=== PATIENT | female | born 1945 | race Caucasian/White ===

== ENCOUNTER → 2019-08-25 10:04 | Outpatient (CLI) | payer MEDICARE, MEDICAID, SELFPAY | PROVIDERS: Family Provider Family Medicine; PCP Family Medicine; Referring Provider Family Medicine; Visit Provider Family Medicine | DX: G60.8 Other hereditary and idiopathic neuropathies (principal); L97.511 Non-pressure chronic ulcer of other part of right foot limited to breakdown of skin; L08.9 Local infection of the skin and subcutaneous tissue, unspecified | CPT/HCPCS: 11042; 87070; 87075; 87077; 87186; 87205; 99203; 99214 ==

== ENCOUNTER → 2019-09-02 09:38 | Outpatient (CLI) | payer MEDICARE, MEDICAID, SELFPAY | PROVIDERS: Family Provider Family Medicine; PCP Family Medicine; Referring Provider Family Medicine; Visit Provider Family Medicine | DX: G60.8 Other hereditary and idiopathic neuropathies (principal); L97.511 Non-pressure chronic ulcer of other part of right foot limited to breakdown of skin | CPT/HCPCS: 97597; 99214 ==

== ENCOUNTER → 2019-12-26 14:23 | Outpatient (CLI) | payer MEDICARE, MEDICAID, SELFPAY ==
--- NOTE | 2019-12-26 | DI.RAD.S_ITS ---
PROCEDURE: XR CHEST 2V INDICATIONS: ASPIRATION TECHNIQUE: 2 views of the chest were acquired. COMPARISON: None. FINDINGS: Surgical changes and devices: None. Lungs and pleura: Lungs are clear. No pleural effusions or pneumothorax. Mediastinum: Mediastinal contours are normal. Heart size is normal. Bones and chest wall: No suspicious bony abnormalities. Soft tissues appear unremarkable. IMPRESSION: No acute cardiopulmonary findings. Dictated by: Jane Marks M.D. on 12/26/2019 at 15:46 Approved by: Jane Marks M.D. on 12/26/2019 at 15:46
== END ==
PROVIDERS: Family Provider Family Medicine; Referring Provider Nurse Practitioner; Visit Provider Nurse Practitioner
DX: J98.8 Other specified respiratory disorders (principal)
CPT/HCPCS: 71046

== ENCOUNTER 2020-03-22 03:14 | Inpatient (IN) | payer MEDICARE, MEDICAID, SELFPAY ==
[2020-03-22] VITALS (74 sets, daily range): BP systolic 81–222; BP diastolic 42–133; PULSE 71–165; RESP 0–49; TEMP 36.6–37.1; O2SAT 89–100; BMI 42.0
--- NOTE | 2020-03-22 03:22 | DI.RAD.S_ITS ---
PROCEDURE: XR CHEST 1V INDICATIONS: aspiration TECHNIQUE: One view of the chest was acquired. COMPARISON: [facility], CR, XR CHEST 2V, 12/26/2019, 14:26. FINDINGS: Surgical changes and devices: None. Lungs and pleura: Lungs are abnormal with a generalized alveolar infiltration pattern, greater on the right than the left, without pulmonary hyperexpansion. No pleural effusions or pneumothorax. Mediastinum: Mediastinal contours appear normal. Heart size is normal. Bones and chest wall: No suspicious bony lesions. Overlying soft tissues appear unremarkable. IMPRESSION: Generalized pneumonia pattern, greater on the right than the left, which is consistent with the clinical history of aspiration. Atypical pneumonia also could produce that appearance but that is considered less likely. Dictated by: Omar Mullen M.D. on 03/22/2020 at 8:29 Approved by: Omar Mullen M.D. on 03/22/2020 at 9:17
--- NOTE | 2020-03-22 03:30 | ED.GENADULT ---
HPI - General Adult General Chief complaint: Cardiac Arrest/CPR Stated complaint: s/p chocking Time Seen by Provider: 03/22/20 03:21 Source: patient and EMS Mode of arrival: EMS Limitations: other (Respiratory distress) History of Present Illness HPI narrative: 74-year-old female brought in by EMS for evaluation after they were called to the patient's nursing facility for a choking episode. Was initially reported by EMS that the patient had been choking. Given her weight they were unable to do the Heimlich maneuver so chest compressions were performed. When EMS arrived patient was in respiratory distress. EMS states that they suctioned her oropharynx was able to get a significant amount of organic material afterwards patient is respiratory symptoms improved somewhat. Patient was still hypoxic. Became more responsive after the suctioning. Chest compressions were performed secondary to choking not because of cardiac arrest. Upon arrival patient was alert. She stated that she always has breathing problems but she feels like her breathing is worse than normal. She denies chest pain. Stated that she is somewhat unsure as to what happened. Related Data Home Medications Medication Instructions Recorded Confirmed FOLIC ACID (#FOLATE) 1 mg PO QDAY #0 02/28/11 NITROGLYCERIN (#NITROSTAT) 0.4 mg SUBLINGUAL PRN #0 06/02/11 Propranolol HCl (#INDERAL) 10 mg PO BID #0 06/29/11 CHLORHEXIDINE GLUCONATE Q DAY #0 05/02/16 calcium carbonate-vitamin D3 #0 05/02/16 clorazepate dipotassium [Tranxene BID #0 05/02/16 T-Tab] clorazepate dipotassium [Tranxene BID PRN #0 05/02/16 T-Tab] cyanocobalamin (vitamin B-12) #0 05/02/16 [Vitamin B-12] ferrous gluconate #0 05/02/16 furosemide [Lasix] QDAY #0 05/02/16 isosorbide-hydralazine [BiDil] TID #0 05/02/16 lysine [L-Lysine] #0 05/02/16 magnesium amino acid chelate #0 05/02/16 potassium #0 05/02/16 trazodone QPM #0 05/02/16 Previous Rx's Medication Instructions Recorded primidone 250 mg PO BID #180 tab 04/03/17 Allergies Allergy/AdvReac Type Severity Reaction Status Date / Time penicillin G Allergy Mild Unverified 06/27/17 12:19 phenobarbital Allergy Mild Unverified 06/27/17 12:19 Sulfa (Sulfonamide Allergy Mild Unverified 06/27/17 12:19 Antibiotics) tetracycline Allergy Mild Unverified 06/27/17 12:19 Review of Systems Review of Systems Narrative: Provided by EMS and patient throughout her stay in the ER. Constitutional Constitutional: Denies fatigue and Denies headache(s) ENT Ears, Nose, Mouth, and Throat: Denies headache(s) Cardiovascular Cardiovascular: Denies chest pain and Reports dyspnea Respiratory Respiratory: Reports cough and Reports dyspnea Comments: Choking Gastrointestinal Gastrointestinal: Denies abdominal pain and Denies nausea Genitourinary Genitourinary: Denies dysuria Genitourinary: Denies dysuria Musculoskeletal Musculoskeletal: Denies back pain Integumentary/Breasts Skin/Breast: Denies lesions and Denies rash Neurologic Neurologic: Denies behavioral changes, Reports confusion and Denies headache(s) Psychiatric Psychiatric: Denies behavioral changes and Reports confusion Endocrine Endocrine: Denies fatigue Hematologic/Lymphatic Comments: On anticoagulation Allergic/Immunologic Allergic/Immunologic: Denies urticaria Patient History Medical History Anxiety disorder Atrial fibrillation Dysphasia Epilepsy Hypertension Schizophrenia Surgical History (Updated 07/17/17 @ 05:57 by Conversion Provider) History of tonsillectomy Status post cholecystectomy Family History (Updated 04/17/16 @ 00:00 by Conversion Provider) Grandfather Stroke Mother Mental health problem Grandfather Stroke Social History housing: [facility] Exam Initial Vital Signs Initial Vital Signs: Vital Signs Temperature 97.8 F 03/22/20 03:23 Pulse Rate 160 H 03/22/20 03:23 Respiratory Rate 39 H 03/22/20 03:23 Blood Pressure 164/108 H 03/22/20 03:23 Pulse Oximetry 93 03/22/20 03:23 Const General: in distress and ill appearing Limitations: mental status not altered HENMT Head: normal to inspection and normocephalic Eyes General: appearance normal, both eyes and all related structures Chest Chest: No crepitus Resp Effort & Inspection: cough, labored, respiratory distress and tachypneic Auscultation: rhonchi and no wheezes Cardio Rate: tachycardic Rhythm: abnormal rhythm Pulses: radial pulses present GI Inspection: non-distended Palpation: soft External Female Exam: normal external appearance Back/Spine/Pelvis Back: normal to inspection Skin Rashes: no rashes Neuro General: patient alert, patient awake and patient oriented x3 Extrem General: edema Psych Appearance: disheveled Course Orders Ordered: ED Orders 03/22/20 03:22 XR chest 1V Stat EKG-12 Lead Stat 03/22/20 03:27 COVID19 Stat 03/22/20 03:40 Complete Blood Count AUTO DIFF Stat Comprehensive Metabolic Panel Stat Lipase Stat 03/22/20 04:37 CT chest wo con Stat DILTIAZEM (Diltiazem 125 Mg/125 Ml-D5w) 125 mg in 125 mls @ 5 mls/hr IV TITRATE ISHAAN; Protocol Last Admin: 03/22/20 05:17 Dose: 5 mg/hr, 5 mls/hr Documented by: Metronidazole (Flagyl) 500 mg in 100 mls @ 100 mls/hr IV NOW ONE Stop: 03/22/20 06:27 Discontinued Medications Diltiazem HCl (Diltiazem 5 Mg/Ml Sdv) 10 mg IV NOW ONE Stop: 03/22/20 04:41 Last Admin: 03/22/20 05:15 Dose: 10 mg Documented by: Ceftriaxone Sodium/Dextrose (Rocephin) 1 gm in 50 mls @ 100 mls/hr IV NOW ONE Stop: 03/22/20 05:57 Last Admin: 03/22/20 06:25 Dose: 100 mls/hr Documented by: Metoprolol Tartrate (Metoprolol Tartrate 5 Mg/5 Ml Inj) 5 mg IV NOW ONE Stop: 03/22/20 03:47 Last Admin: 03/22/20 03:49 Dose: 5 mg Documented by: LEXII Vital Signs Vital signs: Vital Signs - 8 hr 03/22/20 03:23 03/22/20 03:30 03/22/20 03:32 Temperature 97.8 F Pulse Rate 160 H 165 H 162 H Respiratory Rate 39 H 41 H 36 H Blood Pressure 164/108 H Pulse Oximetry 93 94 91 03/22/20 03:49 03/22/20 03:50 03/22/20 03:54 Temperature Pulse Rate 165 H 164 H Respiratory Rate 31 H 32 H Blood Pressure 101/61 106/57 L Pulse Oximetry 99 100 99 03/22/20 03:55 03/22/20 04:00 03/22/20 04:05 Temperature Pulse Rate 146 H 107 H 111 H Respiratory Rate 29 H 33 H 27 H Blood Pressure 126/58 L 132/57 L 112/56 L Pulse Oximetry 100 99 98 03/22/20 04:10 03/22/20 04:30 03/22/20 04:31 Temperature Pulse Rate 114 H 123 H 127 H Respiratory Rate 29 H 26 H 31 H Blood Pressure 124/59 L 101/74 Pulse Oximetry 94 94 94 03/22/20 05:00 03/22/20 05:15 03/22/20 05:17 Temperature Pulse Rate 143 H 153 H 153 H Respiratory Rate 30 H 26 H Blood Pressure 134/85 Pulse Oximetry 92 94 03/22/20 05:20 Temperature Pulse Rate 140 H Respiratory Rate 29 H Blood Pressure 103/60 Pulse Oximetry 93 Medical Decision Making Medical Records Medical records reviewed: Yes I reviewed the patient's medical records. Lab Data Lab results reviewed: Yes I reviewed the patient's lab results. Result diagrams: 03/22/20 03:40 03/22/20 03:40 Labs: Lab Results 03/22/20 03/22/20 03/22/20 Range/Units 03:27 03:40 03:40 WBC 19.1 H (4.5-11.0) X10^3/uL RBC 4.34 (4.0-5.2) X10^6/uL Hgb 14.3 (12.0-16.0) g/dL Hct 42.8 (36-46) % MCV 98.7 (80-100) fL MCH 33.0 (26-34) PG MCHC 33.5 (30-36) % RDW 15.9 H (11.6-14.8) % Plt Count 365 (150-400) X10^3/uL Neut % (Auto) 52.4 (50-75) % Lymph % (Auto) 40.8 H (25-40) % [place] % (Auto) 4.8 (3-14) % Eos % (Auto) 1.6 L (2-4) % Baso % (Auto) 0.4 (0-2) % Neut # (Auto) 47223 H (3201-5602) /uL Lymph # (Auto) 7800 H (3421-7200) /uL [place] # (Auto) 900 (0-900) /uL Eos # (Auto) 300 (0-450) /uL Baso # (Auto) 100 (0-100) /uL Sodium 136 L (137-145) mmol/L Potassium 3.7 (3.4-5.1) mmol/L Chloride 95 L (98-107) mmol/L Carbon Dioxide 29 (22-32) mmol/L BUN 18 H (7-17) mg/dL Creatinine 0.81 (0.52-1.04) mg/dL Estimated GFR > 60.0 (>60) mL/min BUN/Creatinine Ratio 22.2 H (6-22) Glucose 171 H (80-110) mg/dL Calcium 9.6 (8.4-10.2) mg/dL Total Bilirubin 0.4 (0.2-1.3) mg/dL AST 65 H (14-36) IU/L ALT 55 H (<35) IU/L Alkaline Phosphatase 120 (38-126) U/L Total Protein 8.6 H (6.3-8.2) g/dL Albumin 4.4 (3.5-5.0) g/dL Globulin 4.2 H (1.7-4.1) g/dL Albumin/Globulin Ratio 1.0 (1.0-2.8) Lipase 100 (23-300) U/L SARS-CoV-2 (PCR) Negative (Negative) Imaging Data Chest x-ray: Radiologist's Impression: Right lung opacification suggesting atypical pneumonia possible right pleural effusion Small partially defined patient a left lower lung zone. This is indeterminate. Short-term follow-up radiographs of ice CT scan - chest: Radiologist's Impression: Multifocal bilateral multilobar pneumonia ECG Data Attestation: I personally reviewed and interpreted this ECG as follows: Prior ECG tracings: not available for review Interpretation: Atrial fibrillation Ventricular rate of 153 QRS 130 milliseconds Nonspecific T wave changes MDM Narrative Medical decision making narrative: Patient arrive in respiratory distress and very ill appearing. Was able to speak. Was alert however was hypoxic despite significant respiratory support with oxygen by non-rebreather. Patient also tachycardic in atrial fibrillation. Chest x-ray shows multifocal right-sided to [place]. Initially suspect this is secondary to aspiration given her reported clinical presentation. Patient was given metoprolol for her heart rate which did improve her symptoms. This was only very short lived in her heart rate again went back to the 150 range. She was started on Cardizem. During her stay her symptoms did improved to the point were she was weaned down to 4 L of oxygen by nasal cannula. She was coughing up particular matter. I discussed the case with Dr. Mike pulmonology at [facility] regarding the potential for bronchoscopy. She recommended a CT scan of the chest. This was obtained which showed multifocal pneumonia. There was no discussion of obstructed foreign bodies. I then discussed the findings with Dr. Mike who stated that given this CT scan finding they would not perform a bronchoscopy. Recommended IV antibiotics. Given her allergy she was started on Rocephin and Flagyl. Patient will be admitted for further evaluation and treatment. Discussed the case with ANNIE Bobby a [facility] provider who will admit for further evaluation. Discussed admission with the patient. She expressed understanding and agreement. Critical Care Time Critical Care Time Critical Care Time: Yes Total Critical Care Time: 45 Attestation: The high probability of a clinically significant, sudden or life threatening deterioration of the respiratory, cardiovascular system(s) required my full and direct attention, intervention and personal management. The aggregate critical care time was 45 minutes. This time is in addition to time spent performing reported procedures but includes the following: [X] Data Review and interpretation [X] Patient assessment and monitoring of vital signs [X] Documentation [X] Medication orders and management Discharge Plan Departure Patient Disposition: Admitted As Inpatient Clinical Impression: Aspiration into airway, Acute respiratory distress, Hypoxia, Atrial fibrillation
[2020-03-22] MEDS: METOPROLOL TARTRATE 5 MG/5 ML INJ IV ×4 (03:49→17:01)
[2020-03-22 03:50] LABS: COVID19 -Nasal RAPID Negative (Negative)
[2020-03-22 04:00] LABS: Add Manual Diff / Slide Review NO; Basophils Absolute Auto 100 /uL (0-100); Basophils Percent Auto 0.4 % (0-2); Eosinophils Absolute Auto 300 /uL (0-450); Eosinophils Percent Auto 1.6 % (2-4); Hematocrit 42.8 % (36-46); Hemoglobin 14.3 g/dL (12.0-16.0); Lymphocytes Absolute Auto 7800 /uL (1100-4500); Lymphocytes Percent Auto 40.8 % (25-40); Mean Corpuscular HGB Conc 33.5 % (30-36); Mean Corpuscular Volume 98.7 fL (80-100); Monocytes Absolute Auto 900 /uL (0-900); Monocytes Percent Auto 4.8 % (3-14); Neutrophils Absolute Auto 10000 /uL (1500-7000); Neutrophils Percent Auto 52.4 % (50-75); Platelet Count 365 X10^3/uL (150-400); Red Blood Cell Count 4.34 X10^6/uL (4.0-5.2); Red Cell Distribution Width 15.9 % (11.6-14.8); White Blood Cell Count 19.1 X10^3/uL (4.5-11.0)
[2020-03-22 04:07] LABS: Alanine Aminotransferase 55 IU/L (<35); Albumin 4.4 g/dL (3.5-5.0); Alkaline Phosphatase 120 U/L (38-126); Aspartate Aminotransferase 65 IU/L (14-36); BUN Creatinine Ratio 22.2 (6-22); Bilirubin Total 0.4 mg/dL (0.2-1.3); Blood Urea Nitrogen 18 mg/dL (7-17); Calcium 9.6 mg/dL (8.4-10.2); Carbon Dioxide 29 mmol/L (22-32); Chloride 95 mmol/L (98-107); Estimated Glomerular Filt Rate > 60.0 mL/min (>60); Globulin 4.2 g/dL (1.7-4.1); Glucose 171 mg/dL (80-110); HEMOLYSIS 51 (0-50); Lipase 100 U/L (23-300); Potassium 3.7 mmol/L (3.4-5.1); Sodium 136 mmol/L (137-145); Total Protein 8.6 g/dL (6.3-8.2)
--- NOTE | 2020-03-22 04:24 | PC.NURSE ---
Pt reports she now feels better. O2 weaned down from 15L NRB to now 4L NC. Alert and interactive. Remains tachycardic 110's-130's after metoprolol IV. Pt's son, Isacc, now at bedside and updated to plan of care. Will continue to monitor closely.
--- NOTE | 2020-03-22 04:37 | DI.CT.S_ITS ---
PROCEDURE: CT CHEST WO CON INDICATIONS: Aspiration TECHNIQUE: Noncontrast 5 mm thick sections acquired from the pulmonary apices to the posterior costophrenic angles. 1 mm lung window, 5 mm thick coronal and sagittal and 7 mm axial MIP reformats were then acquired. For radiation dose reduction, the following was used: automated exposure control, adjustment of mA and/or kV according to patient size. COMPARISON: [facility], CR, XR CHEST 2V, 12/26/2019, 14:26. [facility], CR, XR CHEST 1V, 03/22/2020, 3:29. Chest plain films 12/26/19 and 03/22/20. FINDINGS: Image quality: Excellent. Lungs and pleura: There is a patchy bilateral right greater than left alveolitis pattern involving the upper, mid and lower lungs. No cavitary lesion is found. No pleural effusions or pneumothorax. Central and peripheral airways are patent and normal in caliber. Mediastinum: Heart size is normal. No pericardial effusion. No mediastinal adenopathy by size criteria. Thoracic aorta and central pulmonary arteries are normal in size. Esophagus is normal in caliber. No hiatal hernia. Bones and chest wall: No suspicious bony lesions. No vertebral body compression fractures. No axillary or supraclavicular adenopathy by size criteria. Thyroid gland is not well seen. Abdomen: Visualized upper abdominal solid organs and bowel loops appear normal in the absence of contrast. IMPRESSION: Patchy bilateral alveolitis pattern, right greater than left, potentially a manifestation of aspiration but this pattern also could be produced by atypical/viral pneumonia. Dictated by: Omar Mullen M.D. on 03/22/2020 at 10:27 Approved by: Omar Mullen M.D. on 03/22/2020 at 10:32
[2020-03-22] MEDS: dilTIAZem 5 MG/ML SDV 10 MG IV (05:15)
[2020-03-22] MEDS: DILTIAZEM 125 MG/125 ML PIGGYBACK IV (05:17)
[2020-03-22] MEDS: CEFTRIAXONE 1 GM/50 ML FROZ.PIGGY IV (06:25)
[2020-03-22] MEDS: metroNIDAZOLE 500 MG/100 ML PIGGYBACK 100 MG IV ×3 (06:56→23:11)
--- NOTE | 2020-03-22 09:53 | PC.NURSE ---
Diltiazem IV gtt discontinued in ER at 0900 hours.
--- NOTE | 2020-03-22 12:06 | P.HP_ITS ---
History of Present Illness History of Present Illness Date Patient Seen: 03/22/20 Chief complaint: s/p choking Narrative: Patient is a 74 y/o female with a history of AFIB, Morbid Obesity, S chizophrenia, Systolic Heart Failure, UTI's, Hypertension, Asthma, Osteoarthritis who lives at [facility]. She tried to eat a cheese sandwhich and choked on it. She has difficulty with swallowing at baseline but thought she could manage the sandwich. They were unable to perform the Heimlich maneuver, CPR was initiated and the patient was transferred to the [place] ED for evaluation. Upon arrival they suctioned copious amounts of material. Chest Xray confirmed alveolar infiltrates consistent with Aspiration Pneumonia. She is awake and alert now, she is on oxygen and has no specific complaints. She had an episode of diarrhea earlier, she denies nausea or abdominal pain. She is chr onically short of breath and this is unchanged. She denies dysuria, hematuria, pyuria. She has no headache, blurred vision or double vision. Patient was found to be in rapid atrial fibrillation in the ED. She was started on a diltiazem drip and admitted to the ICU for further evaluation. Patient recieved IV ceftriaxone in the ED for Aspiration pneumonia. Patient History Medical History (Updated 03/22/20 @ 12:14 by Bethany Kolb MD) Active asthma Acute systolic heart failure Anxiety disorder Atrial fibrillation Blood loss anemia Dysphasia Epilepsy Hypertension Lymphedema Morbid obesity Schizophrenia Urinary incontinence Vitamin D deficiency Surgical History History of tonsillectomy Status post cholecystectomy Family & Social History Family History Grandfather Stroke Mother Mental health problem Grandfather Stroke Social History: Prior Living Arrangements Skilled Nurse Facility Safety & Behavioral: Feels Safe in Current Yes Environment Been Physically Hurt or No Threatened By a Person Suicidal Ideation Description None Suicide Plan Description No Plan Tobacco & Substance use: Smoking Status Never smoker alcohol intake never Substance Use Type does not use Meds Home Medications and Allergies Home Medications Medication Instructions Recorded Confirmed Type FOLIC ACID (#FOLATE) 1 mg PO QDAY #0 02/28/11 03/22/20 History primidone 250 mg PO BID #180 tab 04/03/17 03/22/20 Rx acidophilus-pectin, citrus 1 cap PO DAILY 03/22/20 03/22/20 History [Acidophilus Probiotic] apixaban [Eliquis] 5 mg PO BID 03/22/20 03/22/20 History aripiprazole 30 mg PO BEDTIME 03/22/20 03/22/20 History bumetanide 10 mg PO DAILY 03/22/20 03/22/20 History calcium carbonate-vitamin D3 1 tab PO DAILY 03/22/20 03/22/20 History [Calcium 600 with Vitamin D3] isosorbide mononitrate 30 mg PO DAILY 03/22/20 03/22/20 History lisinopril 2.5 mg PO DAILY 03/22/20 03/22/20 History magnesium oxide 420 mg PO DAILY 03/22/20 03/22/20 History melatonin 6 mg PO BEDTIME 03/22/20 03/22/20 History metoprolol succinate 25 mg PO DAILY 03/22/20 03/22/20 History mupirocin 1 applic TOPICAL DAILY 03/22/20 03/22/20 History nystatin 1 applic TOPICAL DAILY 03/22/20 03/22/20 History potassium chloride 10 meq PO DAILY 03/22/20 03/22/20 History Allergies Allergy/AdvReac Type Severity Reaction Status Date / Time penicillin G Allergy Mild Verified 03/22/20 08:36 phenobarbital Allergy Mild Verified 03/22/20 08:36 Sulfa (Sulfonamide Allergy Mild Verified 03/22/20 08:36 Antibiotics) tetracycline Allergy Mild Verified 03/22/20 08:36 Review of Systems Review of Systems ROS: Yes All systems reviewed with the patient and are negative except as otherwise documented Exam Vital Signs (past 8 hours): - 03/22/20 04:10 03/22/20 04:30 03/22/20 04:31 Temperature Pulse Rate 114 H 123 H 127 H Respiratory Rate 29 H 26 H 31 H Blood Pressure 124/59 L 101/74 Pulse Oximetry 94 94 94 03/22/20 05:00 03/22/20 05:15 03/22/20 05:17 Temperature Pulse Rate 143 H 153 H 153 H Respiratory Rate 30 H 26 H Blood Pressure 134/85 Pulse Oximetry 92 94 03/22/20 05:20 03/22/20 06:15 03/22/20 06:20 Temperature Pulse Rate 140 H 120 H 123 H Respiratory Rate 29 H 19 14 Blood Pressure 103/60 123/58 L Pulse Oximetry 93 93 93 03/22/20 06:25 03/22/20 06:30 03/22/20 06:31 Temperature Pulse Rate 127 H 137 H 120 H Respiratory Rate 9 L 22 12 Blood Pressure 118/61 143/58 H Pulse Oximetry 93 95 95 03/22/20 06:35 03/22/20 06:40 03/22/20 06:45 Temperature Pulse Rate 137 H 153 H 150 H Respiratory Rate 16 43 H 33 H Blood Pressure 121/56 L 103/53 L 113/65 Pulse Oximetry 94 93 95 03/22/20 06:50 03/22/20 06:55 03/22/20 07:00 Temperature Pulse Rate 146 H 123 H 116 H Respiratory Rate 42 H 30 H 30 H Blood Pressure 114/57 L 107/64 81/53 L Pulse Oximetry 95 96 96 03/22/20 07:04 03/22/20 07:06 03/22/20 07:10 Temperature Pulse Rate 121 H 116 H 124 H Respiratory Rate 0 L 0 L 0 L Blood Pressure 112/77 101/55 L 120/64 Pulse Oximetry 96 96 95 03/22/20 07:15 03/22/20 07:20 03/22/20 07:25 Temperature Pulse Rate 124 H 122 H 126 H Respiratory Rate 0 L 32 H 21 Blood Pressure 130/59 L 143/63 H 142/70 H Pulse Oximetry 96 95 98 03/22/20 07:30 03/22/20 07:35 03/22/20 07:40 Temperature Pulse Rate 144 H 140 H 142 H Respiratory Rate 41 H 34 H 29 H Blood Pressure 150/63 H 141/73 H 163/72 H Pulse Oximetry 98 98 96 03/22/20 07:45 03/22/20 07:50 03/22/20 07:56 Temperature Pulse Rate 146 H 133 H 138 H Respiratory Rate 42 H 30 H 45 H Blood Pressure 138/65 133/66 191/108 H Pulse Oximetry 95 92 03/22/20 08:00 03/22/20 08:11 03/22/20 08:15 Temperature Pulse Rate 110 H 106 H 103 H Respiratory Rate 30 H 30 H 27 H Blood Pressure 203/128 H 205/77 H 222/133 H Pulse Oximetry 94 94 95 03/22/20 08:21 03/22/20 08:25 03/22/20 09:19 Temperature 98.6 F Pulse Rate 103 H 107 H 116 H Respiratory Rate 30 H 30 H 18 Blood Pressure 109/54 L 127/55 L 114/73 Pulse Oximetry 97 95 98 03/22/20 10:00 03/22/20 11:00 Temperature 98.0 F Pulse Rate 103 H 97 H Respiratory Rate 20 21 Blood Pressure 95/53 L 105/78 Pulse Oximetry 97 96 Oxygen Delivery Method Nasal Cannula Oxygen Flow Rate 4 Narrative Exam Narrative: Pleasant obese female in No Acute distress HEENT: NC/ AT, Sclera anicteric, Face red with crusting, Oropharyx clear Neck: supple Lungs: decreased breath sounds with diffuse rhonchi bilaterally CV: irregularly, irregular, nl Sl S2 Abd: obese, soft/ non tender/non distended, no HSM Ext: 3+ edema bilaterally, chronic skin changes of both lower extremities Psychiatric: awake and appropriate, no hallucinations or delusions, conversational, oriented and appropriate. Neuro: non focal exam Objective Labs Result Diagrams: 03/22/20 03:40 03/22/20 03:40 Labs: Laboratory Results - last 24 hr 03/22/20 03/22/20 03/22/20 03:27 03:40 03:40 WBC 19.1 H RBC 4.34 Hgb 14.3 Hct 42.8 MCV 98.7 MCH 33.0 MCHC 33.5 RDW 15.9 H Plt Count 365 Neut % (Auto) 52.4 Lymph % (Auto) 40.8 H [place] % (Auto) 4.8 Eos % (Auto) 1.6 L Baso % (Auto) 0.4 Neut # (Auto) 80443 H Lymph # (Auto) 7800 H [place] # (Auto) 900 Eos # (Auto) 300 Baso # (Auto) 100 Sodium 136 L Potassium 3.7 Chloride 95 L Carbon Dioxide 29 BUN 18 H Creatinine 0.81 Estimated GFR > 60.0 BUN/Creatinine Ratio 22.2 H Glucose 171 H Calcium 9.6 Total Bilirubin 0.4 AST 65 H ALT 55 H Alkaline Phosphatase 120 Total Protein 8.6 H Albumin 4.4 Globulin 4.2 H Albumin/Globulin Ratio 1.0 Lipase 100 Nasal Screen MRSA (PCR) SARS-CoV-2 (PCR) Negative 03/22/20 10:20 WBC RBC Hgb Hct MCV MCH MCHC RDW Plt Count Neut % (Auto) Lymph % (Auto) [place] % (Auto) Eos % (Auto) Baso % (Auto) Neut # (Auto) Lymph # (Auto) [place] # (Auto) Eos # (Auto) Baso # (Auto) Sodium Potassium Chloride Carbon Dioxide BUN Creatinine Estimated GFR BUN/Creatinine Ratio Glucose Calcium Total Bilirubin AST ALT Alkaline Phosphatase Total Protein Albumin Globulin Albumin/Globulin Ratio Lipase Nasal Screen MRSA (PCR) Negative for mrsa SARS-CoV-2 (PCR) Assessment & Plan Assessment & Plan narrative: Impression: 74 y/o female admitted after witnessed choking episode now with Aspiration Pneumonia -Chest CT confirms bilateral alveolar infiltrates -WBC elevated at 19.1 -Patient still with rhonchi on exam -will treat with Levofloxacin and Flagyl given PCN allergy -Continue Oxygen -Swallow Evaluation -IVF for now, can D/C if she passes swallow evaluation Acute Hypoxic REspiratory Failure -Secondary to Aspiration -Not usually on home O2 -will taper oxygen off as tolerated -history of asthma but not on inhalers chronically, will monitor Chronic Systolic Heart Failure -Bumex on hold for now Lisinopril on hold -isosorbide on hold Atrial Fibrillation, with RVR -Patient with chronic afib, managed with metoprolol -likely precipitated by Aspiration event -Continue Dilt drip for now, if she can tolerate oral will switch to po Metoprolol -Apixiban on hold until she can take po Schizophrenia -chronic resume aripiprazole when taking po Morbid Obesity -problematic, likely a contributor to respiratory issues -obesity hypoventilation can interfere with pulmonary status -Swallow Evaluation to determine appropriate diet Patient is a full code Her Son Isacc Prater is her surrogate decision maker
--- NOTE | 2020-03-22 12:40 | PC.NURSE ---
Addendum entered by Shiva Sharpe R.N. 03/22/20 18:51: Pt continues to have increased HR despite PO and IV metoprolol and IV digoxin. Rates 100s-130s, Afib. Discussed with Dr. Kolb via telephone who states she will order an add'l dose of metoprolol PO and re evaluate post med administration. Original Note: Attempt x2 to start IV access and obtain labs without success. Pt declines attempt to left arm. I just know you won't get anything. Reviewed IV access, multiple medications, need for labs, lab unsuccessful at obtaining labs with Dr. Kolb. She states to hold off on labs, incompatible meds. States she will address medications, order speech therapy, and attempt to transition to PO meds as tolerated.
[2020-03-22] MEDS: SODIUM CHLORIDE 0.45% 1,000 ML 60 ML IV (13:04)
[2020-03-22] MEDS: levoFLOXacin 750 MG/150 ML PIGGYBACK 100 MG IV (13:22)
[2020-03-22] MEDS: ENOXAPARIN 40 MG/0.4 ML SYRINGE SUBCUT (15:00)
[2020-03-22] MEDS: METOPROLOL IR 50 MG TABLET PO ×2 (15:01→19:40)
--- NOTE | 2020-03-22 15:42 | OT.IPNOTE ---
Able to talk to pt to get permission to call [facility] to see how she was doing. When going back to see pt for possible OT eval, pt getting lomeli and running tachy, therefore to check on pt tomorrow for OT eval.
--- NOTE | 2020-03-22 15:47 | PT-IP ANOTE ---
OT gained pt's permission to contact her care facility for details on prior function. During that conversation, pt was noted to be tachycardic in the 150's. 20 minutes later, PT and OT attempted to see the pt but tachycardia persisted. Will attempt to see pt tomorrow AM.
[2020-03-22] MEDS: DIGOXIN 500 MCG/2 ML AMPUL IV (16:06)
--- NOTE | 2020-03-22 16:45 | ST.IPIE ---
Visit Care Team Role Provider Type Emmanuel Cedeno MD Family Provider Non-Staff Specialty: Medical Address: [address] [place] [address] [address], [place], [address] Email: Mode Flynn DO Emergency Provider Physician Referring Provider Specialty: Emergency Medicine Address: [address] [place] [address], [id number] Email: [email or web address] Chrissy Bobby [facility] Admit Provider Physician Attending Provider Specialty: Medical Address: [address] [place] [address], [id number] Email: Current Diagnoses Pneumonitis due to inhalation of food and vomit (03/22/20) Past Medical History (Last Updated 03/22/20 @ 12:14 by Bethany Kolb MD) Active asthma (Medical) Acute systolic heart failure (Medical) Anxiety disorder (Medical) Atrial fibrillation (Medical) Blood loss anemia (Medical) Dysphasia (Medical) Epilepsy (Medical) Hypertension (Medical) Lymphedema (Medical) Morbid obesity (Medical) Schizophrenia (Medical) Urinary incontinence (Medical) Vitamin D deficiency (Medical) ST IP Initial Evaluation Report PATIENT FINANCIAL SPECIALIST Clinical Swallow Evaluation Start: 03/22/20 16:09 Freq: Status: Active Protocol: Document 03/22/20 16:09 GATITO (Rec: 03/22/20 16:45 GATITO [id number]) Clinical Swallow Evaluation Session Time Visit Start Time 14:10 Visit Stop Time 14:35 Total Visit Minutes 25 Setting Assessment Location Acute Care Visit Type Note Type Initial evaluation Next Note Type Next Note Type Treatment Note Patient Information Identification Type Name,ID Card History Per H&P: Patient is a 74 y/o female with a history of AFIB, Morbid Obesity, Schizophrenia , Systolic Heart Failure, UTI' s, Hypertension, Asthma, Osteoarthritis who lives at [facility]. She tried to eat a cheese sandwhich and choked on it. She has difficulty with swallowing at baseline but thought she could manage the sandwich. They were unable to perform the Heimlich maneuver, CPR was initiated and the patient was transferred to the [facility] ED for evaluation. Upon arrival they suctioned copious amounts of material. Chest Xray confirmed alveolar infiltrates consistent with Aspiration Pneumonia. Patient recieved IV ceftriaxone in the ED for Aspiration pneumonia. Subjective Observations Pt was awake in bed watching TV. She said she recognized this PATIENT FINANCIAL SPECIALIST from times when the clinician has worked at [facility]. Dysphagia history collected from the pt was not entirely clear, but sounded as if dysphagia mechanical texture is baseline; unclear if liquids are thin or thickened, and she indicated she has worked with Speech Therapy before. She stated that she has difficulty swallowing solids and avoids dry crumbly and sticky foods. She denied current difficulty swallowing liquids. With pt's permission, the PATIENT FINANCIAL SPECIALIST at [facility] was contacted. The pt is not currently on her caseload, though she thought thin liquids were the pt's baseline. The pt recalled the choking episode today and stated that someone had given her a peanut butter sandwich without realizing I would have difficulty eating it, and she subsequently choked. She stated, It about did me in. I 'm debbie to be here. Throughout the evaluation, the pt was able to follow verbal instructions, often repeating them before and after following them. Language was appropriate, though simple, and the pt appeared to be very concerned about following rules, even where she should rest her hands. Reported by Patient Location Other Other Symptoms Choking,Coughing,Difficulty swallowing solids,Food gets stuck Comment Dried secretions and possible lesions were observed on the pt's hard and soft palates. She reported pain at the roof of her mouth, extending down her throat. Discussed with Nsg . The pt's skin on face, hands and feet was similarly dry, and oral conditions may be symptom of skin condition and/ or related to NPO status and CPR administration. Will continue to monitor. Current Diet Nothing by mouth Baseline Feeding Method Independent in self-feeding Objective Assessment Mental Status Alert,Responsive,Cooperative Oral Integrity Sores/Lesions,Xerostomia/Dry mouth Dentition Missing teeth,Decay Lip Function Within normal limits Observation of Lips at Rest Symmetrical Pucker Within normal limits Lip Retraction Within normal limits Alternating Pucker/Lip Retraction Incoordination Tongue Function Mild impairment Observations of Tongue at Rest Within normal limits Tongue Protrusion Reduced strength Tongue Retraction Within normal limits Tongue Lateralization Reduced strength Jaw Function Mild impairment Observations of Jaw at Rest Within normal limits Jaw Opening Reduced strength Jaw Closing Within normal limits Jaw Lateralization Reduced range of motion, Reduced strength, Incoordination Hard/Soft Palate Function Mild impairment Observations of Hard/Soft Palate Growths/Lesions,Reduced strength/ROM of soft palate elevation Nasality Within normal limits Phonation Within normal limits Respiratory Sufficiency Mild impairment,Moderate impairment Comment Pt was receiving 1L O2 via nasal cannula. The pt c/o dry mouth, and dried secretions and sores were visible on hard and soft palates. After initial intake of ice chips and sip of water, the pt spat out these secretions x2, one was very dark in color and one was opaque. These were left in tissues at pt's bedside and Nsg notified for observation as needed. Food and Liquid Trials Position During Assessment Upright (90 degrees) Liquids Trialed Ice chips,Thin,[place] Solids Trialed Puree,Dysphagia Mechanical Administration Type Cup single sip,Cup consecutive sips,Straw,Self-feeding Oral Impairment Within functional limits Oral Phase Comments Bolus prep and a/p propulsion appear to be normal. Mildly extended mastication of a single piece of diced peach was noted secondary to reduced dentition. The pt also reported feeling cautious about eating the peach and other textures that would require chewing at this time. Pharyngeal Impairment Mildly impaired Pharyngeal Phase Comments The pt exhibited no overt s/sx of aspiration with limited trials. She expressed apprehension at eating foods that require mastication, and appeared to be concerned of another choking episode. She expressed having been frightened by her experience today. Fatigue/Endurance Mild fatigue Findings Swallowing Function Oropharyngeal phase dysphagia Severity of Swallow Impairment Mildly impaired Contributing Factors to Swallow Reduced oral strength/ Impairment coordination/sensation, Mastication inefficiency, Impaired airway protection Prognosis Good Based on Duration of symptoms/severity Impact on Safety and Functioning Risk for aspiration Recommendations Instrumental Assessment No Swallowing Treatment Yes Frequency Daily Duration over hospital stay Recommended Solids Puree Recommended Liquids Thin Other Recommendations Anticipate advancement in diet to mechanical soft as pt recovers from choking episode. Safety Precautions/Swallowing 1 to 1 distant supervision, Recommendations Feed only when alert,Reduce distractions,Remain upright ( 90 degrees) during all oral intake,Upright position at least 30 minutes after meals, Small bites and sips when eating,Slow rate; swallow between bites,Set-up assistance,Strict oral care after intake Medication Recommendations As Tolerated Discharge Recommendations half-way care facility Education Patient/Caregiver Education Described results of evaluation,Patient expressed understanding of evaluation, Patient expressed agreement with goals & treatment plans, Patient requires further education/training Goals Short-term Goals 1. The pt will follow safe swallow strategies with verbal prompts as needed to reduce risk of aspiration. Long-term Goals 1. The pt will tolerate least restrictive diet to meet her nutrition and hydration needs.
[2020-03-22 22:21] LABS: INR 1.3 (0.9-1.3); Prothrombin Time 14.6 SECONDS (10.1-12.7)
[2020-03-22 22:24] LABS: PTT Partial Thromboplastin Tim 36 SECONDS (26.4-36.2)
[2020-03-22 22:25] LABS: BUN Creatinine Ratio 24.3 (6-22); Blood Urea Nitrogen 18 mg/dL (7-17); Calcium 8.6 mg/dL (8.4-10.2); Carbon Dioxide 31 mmol/L (22-32); Chloride 96 mmol/L (98-107); Estimated Glomerular Filt Rate > 60.0 mL/min (>60); Glucose 115 mg/dL (80-110); HEMOLYSIS 15 (0-50); Potassium 3.9 mmol/L (3.4-5.1); Sodium 132 mmol/L (137-145)
[2020-03-22 22:37] LABS: NT-proBNP (BNP-Adult 18+) 2860 pg/mL (<125); Troponin I 0.103 ng/mL (0.01-0.034)
--- NOTE | 2020-03-22 22:52 | DI.ECHO.S_ITS ---
[facility] +---------+ [facility] +---------+ : : [address] : : : : [id number] : : : : Phone: [phone]+ Echocardiogram Report + + :Name: BREANNA TAYLOR Study Date: 03/23/2020 Height: 63 in : :[facility] Weight: 236 lb : : Gender: Female BSA: 2.1 m2 : :: 1945 Age: 74 yrs BP: 115/65 mmHg: :Reason For Study: ELEVATED TROPONINS, : :Ordering Physician: MEGAN, : :AYAKA LITTLE Performed By: Joyce Chan : :Referring: AYAKA GUZMAN : + + Interpretation Summary The left ventricle is not well seen but grossly appears normal in size and wall thickness. Left ventricular systolic function appears to be moderate?? severely reduced in a global pattern with a gross estimate of the ejection fraction being 30 to 35%, but with a significant dyssynchronous contraction pattern and abnormal septal motion, suggestive of a conduction abnormality and/or right ventricular pressure overload condition. There are no obvious focal wall motion abnormalities. Diastolic function would suggest normal left ventricular filling pressures. The right ventricle is not well seen but appears to be borderline enlarged with systolic function at the lower limits of normal. There is moderate to severe pulmonary hypertension with a right ventricular systolic pressure estimated at 60 mmHg with an estimated CVP of 15 mmHg. Left atrial size is normal while the right atrium is moderately enlarged. There is mild mitral regurgitation and probable moderate tricuspid regurgitation but no other obvious valvular abnormality. The patient was in sinus rhythm at 98-110 bpm throughout the study. Procedure: A two-dimensional transthoracic echocardiogram with color flow and Doppler was performed. The study quality was technically difficult. There is no prior echocardiogram noted for this patient. Biplane was not measured due to poor endocardial wall definition and the patient refused the use of Definity echo contrast. The heart rate ranged between 98-110 bpm during the study. Left Ventricle: The left ventricle is normal in size and wall thickness. Left ventricular systolic function is moderate to severely reduced. The ejection fraction is estimated to be 30-35%. There is moderate to severe global hypokinesis of the left ventricle. This is worsened interventricular septum. There is a significant dyssynchronous contraction pattern, consistent with a conduction abnormality. Septal motion is consistent with conduction abnormality. The interventricular septum is flattened, consistent with a right ventricular pressure overload condition. Diastolic parameters suggest a relaxation abnormality of the left ventricle, consistent with probable normal filling pressures. Right Ventricle: The right ventricle is borderline dilated. Right ventricular systolic function is at the lower limits of normal. Atria: The left atrial size is normal. The right atrium is moderately dilated. There is no Doppler evidence for an interatrial shunt. Mitral Valve: The mitral valve leaflets are slightly calcified. There is mild mitral regurgitation. Aortic Valve: The aortic valve is not well visualized. The aortic valve is grossly normal. There is no aortic valve stenosis. No aortic regurgitation is present. Tricuspid Valve: The tricuspid valve is not well visualized, but is grossly normal. There is moderate tricuspid regurgitation. There is moderate-severe pulmonary hypertension. The right ventricular systolic pressure is estimated to be at least 60 mmHg based on an estimated right atrial pressure of 15 mm Hg. Pulmonic Valve: The pulmonic valve is not well visualized. There is a trace or physiologic amount of pulmonic regurgitation. Great Vessels: The aortic root is normal size. The dimensions of the ascending aorta are normal. The IVC is dilated (diameter is greater than 2.1 cm) and it collapses less than 50% with a sniff. This suggests a high right atrial pressure of 15 mm Hg. Pericardium/ Pleura There is no pericardial effusion. There is no pleural effusion. MMode/2D Measurements & Calculations LVIDd: 5.2 cm LVOT diam: 2.0 cm LVIDs: 3.7 cm Ao root diam: 2.7 cm FS: 29.7 % asc Aorta Diam: 2.5 cm EPSS: 0.80 cm IVSd: 0.93 cm LVPWd: 0.83 cm LV dalton. diameter/BSA (cm/m^2): 2.5 LV sys. diameter/BSA (cm/m^2): 1.8 LA A2 area: 19.1 cm2 RA long axis: 5.8 cm LA A4 area: 18.9 cm2 RA area: 25.8 cm2 LA length (vol): 6.0 cm RA vol: 97.0 ml LA vol: 51.4 ml RA : 46.7 ml/m2 LA vol index: 24.8 ml/m2 IVC diam: 2.8 cm RVD1 (basal): 3.8 cm TAPSE: 1.9 cm Doppler Measurements & Calculations Ao V2 max: 176.8 cm/sec LVOT Max Tremaine: 98.1 cm/sec Ao V2 mean: 115.5 cm/sec LV V1 max P.9 mmHg Ao max P.5 mmHg LV V1 VTI: 13.5 cm Ao mean P.3 mmHg HORTENCIA(I,D): 1.9 cm2 Ao V2 VTI: 22.4 cm HORTENCIA(V,D): 1.7 cm2 sev ratio: 0.60 HORTENCIA indexed to BSA (cm^2/m^2): 0.90 MV E max tremaine: 66.6 cm/sec TR max tremaine: 337.1 cm/sec MV A max tremaine: 78.6 cm/sec TR max P.4 mmHg MV E/A: 0.85 PA V2 max: 86.0 cm/sec Med Peak E' Tremaine: 7.3 cm/sec PA V2 mean: 51.7 cm/sec E/E' med: 9.1 PA mean P.2 mmHg Lat Peak E' Tremaine: 10.9 cm/sec PA pr(Accel): 53.3 mmHg E/E' lat: 6.1 E/e' average: 7.6 MV dec time: 0.19 sec SV(LVOT): 41.7 ml Reading Physician:03:13 PM
[2020-03-22 23:09] LABS: Thyroid Stimulating Hormone 1.01 uIU/mL (0.47-4.68)
--- NOTE | 2020-03-22 23:37 | PC.NURSE ---
Addendum entered by Ana Gallagher R.N. 03/23/20 06:53: Patient has remained in SR throughout night, receiving scheduled metoprolol, melatonin given for sleep, mildly effective, denies pain. 40meq K+ Martinez started this am. Original Note: Evening Note-Patient was in Afib RVR, BBB with rate up to 120s, 50mg PO metoprolol x1 dose given at 1939, converted to NSR, BBB at 2112, BP stable, see vital trends. SpO2 >92% on 3L NC, RR 20s-30s, lung sounds dim with crackles, small amount of thick white/yellow sputum.
[2020-03-23] VITALS (14 sets, daily range): BP systolic 104–116; BP diastolic 55–59; PULSE 85–93; RESP 16–31; TEMP 36.7–36.9; O2SAT 91–97
[2020-03-23] MEDS: METOPROLOL IR 50 MG TABLET PO ×2 (02:44→09:38)
[2020-03-23] MEDS: MELATONIN 3 MG TABLET 6 MG PO (02:44)
[2020-03-23 05:46] LABS: Add Manual Diff / Slide Review NO; Basophils Absolute Auto 100 /uL (0-100); Basophils Percent Auto 0.4 % (0-2); Eosinophils Absolute Auto 0 /uL (0-450); Eosinophils Percent Auto 0.3 % (2-4); Hematocrit 32.6 % (36-46); Hemoglobin 10.8 g/dL (12.0-16.0); Lymphocytes Absolute Auto 3200 /uL (1100-4500); Lymphocytes Percent Auto 22.9 % (25-40); Mean Corpuscular Hemoglobin 32.3 PG (26-34); Mean Corpuscular Volume 97.8 fL (80-100); Monocytes Absolute Auto 1300 /uL (0-900); Monocytes Percent Auto 9.2 % (3-14); Neutrophils Absolute Auto 9300 /uL (1500-7000); Neutrophils Percent Auto 67.2 % (50-75); Platelet Count 271 X10^3/uL (150-400); Red Blood Cell Count 3.33 X10^6/uL (4.0-5.2); Red Cell Distribution Width 16.1 % (11.6-14.8); White Blood Cell Count 13.8 X10^3/uL (4.5-11.0)
[2020-03-23 05:55] LABS: BUN Creatinine Ratio 21.1 (6-22); Blood Urea Nitrogen 15 mg/dL (7-17); Calcium 8.5 mg/dL (8.4-10.2); Carbon Dioxide 32 mmol/L (22-32); Chloride 96 mmol/L (98-107); Estimated Glomerular Filt Rate > 60.0 mL/min (>60); Glucose 127 mg/dL (80-110); HEMOLYSIS < 15 (0-50); Potassium 3.6 mmol/L (3.4-5.1); Sodium 131 mmol/L (137-145)
[2020-03-23 06:06] LABS: NT-proBNP (BNP-Adult 18+) 3090 pg/mL (<125); Troponin I 0.106 ng/mL (0.01-0.034)
[2020-03-23] MEDS: metroNIDAZOLE 500 MG/100 ML PIGGYBACK 100 MG IV (06:27)
[2020-03-23] MEDS: POTASSIUM CHLORIDE 40 MEQ in SODIUM CHLORIDE 0.9% 500 ML 130 ML IV (06:31)
--- NOTE | 2020-03-23 09:23 | ST.OPTN ---
Visit Care Team Role Provider Type Emmanuel Cedeno MD Family Provider Non-Staff Address: [facility] [address], [place], [address] Mode Flynn DO Emergency Provider Physician Referring Provider Address: [address] [place] [address], [address] Chrissy Bobby [facility] Admit Provider Physician Attending Provider Address: [address] [place] [address], [id number] SECTION BEAMER Treatment Note SECTION BEAMER Treatment Note Start: 03/23/20 09:11 Freq: Status: Active Protocol: Document 03/23/20 09:12 LNK (Rec: 03/23/20 09:23 LNK [id number]) Speech Pathology Treatment Note Session Time Visit Start Time 08:30 Visit Stop Time 08:45 Total Visit Minutes 15 Setting Treatment Setting Acute Care Visit Type Note Type Treatment Note Next Note Type Next Note Type Treatment Note General Information General Information Per H&P: Patient is a 74 y/o female with a history of AFIB, Morbid Obesity, Schizophrenia , Systolic Heart Failure, UTI' s, Hypertension, Asthma, Osteoarthritis who lives at [facility]. She tried to eat a cheese sandwhich and choked on it. She has difficulty with swallowing at baseline but thought she could manage the sandwich. They were unable to perform the Heimlich maneuver, CPR was initiated and the patient was transferred to the [facility] ED for evaluation. Upon arrival they suctioned copious amounts of material. Chest Xray confirmed alveolar infiltrates consistent with Aspiration Pneumonia. Patient recieved IV ceftriaxone in the ED for Aspiration pneumonia. Subjective Identification Type Name,ID Wristband Observations/Patient Presentation Pt was upright in her bedside chair eating breakfast Chief Complaint(s) Swallowing Patient Knowledge/Awareness of SECTION BEAMER Role Excellent in Treatment Objective Short Term Goals 1. The pt will follow safe swallow strategies with verbal prompts as needed to reduce risk of aspiration. Management Assistant Goals 1. The pt will tolerate least restrictive diet to meet her nutrition and hydration needs. [ End ] Treatment Activities Reviewed pt's breakfast. She reported that she stopped eating the eggs as they fell apart and were too chunky to eat. She did try her hot cereal, but chose to have her yogurt and apple sauce. She continues to be leery of any foods that become or are solid /semi-solid. Reviewed safety precautions as per the green sheet above her bed. Do overt s/sx aspiration observed. Voice clear. Pt asked if she should avoid breads in the future. Suggested that, for the mean time, she may want to keep bread intake to a minimum. Reinforced small bites and chewing foods well before swallowing. Assessment Patient Response to Treatment Excellent Impairments Identified Dysphagia Progress Towards Goals Good Progress Plan Provided Patient/Caregiver Instruction Questions/Concerns Therapy Recommendations Continue with Current Program
--- NOTE | 2020-03-23 11:34 | OT.IP.EVAL ---
Current Diagnoses Pneumonitis due to inhalation of food and vomit (03/22/20) Past Medical History (Last Updated 03/22/20 @ 12:14 by Bethany Kolb MD) Active asthma Acute systolic heart failure Anxiety disorder Atrial fibrillation Blood loss anemia Dysphasia Epilepsy Hypertension Lymphedema Morbid obesity Schizophrenia Urinary incontinence Vitamin D deficiency Surgical History (Last Reviewed 03/22/20 @ 12:16 by Bethany Kolb MD) History of tonsillectomy Status post cholecystectomy Occupational Therapy Inpatient Evaluation/Re-Eval M1 PT/OT-IP Prior Functional Status Start: 03/23/20 12:37 Freq: NEEDED Status: Active Protocol: Document 03/23/20 12:37 [facility] (Rec: 03/23/20 12:57 [facility] [id number]) Medical Review Prior Functional Status Diet/Fluid Consistency Pureed,Thin Liquids Communication Pt independent to communicate her needs. Mobility and Gait Per staff at [facility], pt mainly uses wc for mobility and transfers in and out of the bathroom with one person assist with FWW 50% assist. Pt states to be getting her own personal wc soon. Activities of Daily Living and IADL's Per staff, pt just needing assist for set-up for all eating and grooming needs and needing assist for all other needs of dressing, toileting, and bathing needs. Social History Living Arrangements Skilled Nurse Facility Additional Social History Comment Pt choked on a peanut butter sandwich at [facility] and chest x-ray results indicated aspiration PNA. M2 OT-IP Current Condition Start: 03/23/20 12:37 Freq: Status: Active Protocol: Document 03/23/20 12:37 [facility] (Rec: 03/23/20 12:57 [facility] [id number]) Occupational Therapy Current Condition Current Condition Evaluation Date 03/23/20 Treatment Diagnosis Aspiration , PNA Diagnosis Onset Date 03/22/20 M3 OT- IP Subjective and Pain Start: 03/23/20 12:37 Freq: Status: Active Protocol: Document 03/23/20 12:37 [facility] (Rec: 03/23/20 12:57 [facility] [id number]) OT- Subjective Occupational Therapy Visit Type Type Initial Evaluation Visit Start Time 10:49 Visit Stop Time 11:34 Total Visit Minutes 45 Occupational Therapy Visit Comments Patient Comments pt agreed to get up with OT/PT for eval. Patient/Caregiver Goals TO go home. OT Pain Assessment Pain When Pain Assessed At Rest Pain Present Pain Present Denied Pain M4 OT- IP ADL's Start: 03/23/20 12:37 Freq: Status: Active Protocol: Document 03/23/20 12:37 [facility] (Rec: 03/23/20 12:57 [facility] [id number]) OT [id number] Comments OT Self-Feeding Comments NOt at meal time. OT ADL-Grooming Comments OT Grooming Comments NOt performed, but pt able to do given set-up. OT ADL-Dressing General Eval Lower Body Dressing Ability Total Assistance OT ADL-Toileting General Evaluation Toileting Ability Maximum Assistance Areas Needing Assistance Manage Clothing Comments OT Toileting Comments Assist pt to change out from tab brief to pull up brief with pad inside due to pt's request. OT ADL-Bathing Comments OT Bathing Comments NOt at this time. M5 OT- IP IADL's Start: 03/23/20 12:37 Freq: Status: Active Protocol: Document 03/23/20 12:37 [facility] (Rec: 03/23/20 12:57 [facility] [id number]) OT-Instrumental Activities of Daily Living Medication Management Medication Management Caregiver Administers Money Management Money Management Caregiver Provides Assistance Meal Preparation Meal Preparation Caregiver Provides Assist Personal Attendant Personal Attendant Caregiver Provides Assist M6 OT- IP Functional Cognition Start: 03/23/20 12:37 Freq: Status: Active Protocol: Document 03/23/20 12:37 [facility] (Rec: 03/23/20 12:57 [facility] [id number]) Cognitive Factors Limiting Selfcare Function Cognitive Ability Level of Alertness Alert Patient Orientation Name,Place Attention Span Ability Capable of Focused Attention, Capable of Sustained Attention Ability to Follow Commands Able to Follow One Step Commands with Increased Time, Able to Follow One Step Commands with Repetition Problem Solving Ability Unable to Identify Errors, Needs Assist to Identify Solutions Cognitive Comments Cognitive Assessment Comments Pt needing simple concrete cues to follow. In addition increased time to process information as at times pt has trouble getting the information out. Pt tends to do self talk to help to remember instructions for FWW safety and sequencing when coming up to stand or siting back down. M7 OT- IP Mobility and Balance Start: 03/23/20 12:37 Freq: Status: Active Protocol: Document 03/23/20 12:37 [facility] (Rec: 03/23/20 12:57 [facility] [id number]) OT-Transfer Assessment Sit to and From Stand Sit to and from Stand Moderate Assistance,Maximum Assistance Transfers Transfer Ability Moderate Assistance Technique Transfer Destination Bed,Chair Devices Transfer Assistive Devices Gait Belt,Front Wheeled Walker Comments Mobility Comments Pending of level of surface pt needing from MODA/MAX A to MAX A X 1 to stand and after standing MODA X 1 with FWW to transfer. OT- Balance Assessment Sitting Balance and Reactions Static Sitting Balance Ability Good Standing Balance and Reactions Static Standing Balance Ability Poor M8 OT- IP Objective Assessments Start: 03/23/20 12:37 Freq: Status: Active Protocol: Document 03/23/20 12:37 [facility] (Rec: 03/23/20 12:57 [facility] [id number]) OT Gross Range of Motion Upper Extremity Range of Motion Assessment Bilaterally Impaired OT Strength Upper Extremity Strength Assessment Bilaterally Impaired OT-Muscle Tone Assessment Muscle Tone WNL Yes M9 OT- IP Assessment and Plan Start: 03/23/20 12:37 Freq: Status: Active Protocol: Document 03/23/20 12:37 [facility] (Rec: 03/23/20 12:57 [facility] [id number]) OT Summary Assessment and Plan Potential Rehabilitation Potential Fair Analytic Complexity at Evaluation Low Summary OT Impairments Strength,Balance,Functional Mobility Assessment Summary Pt here due to aspiration PNA and very close to baseline level. Pt low complexity and main barriers are decreased activity tolerance and strength to come to stand. Pt mainly just needing more assist from sit to stand and would benefit from continue home health PT to continue to work on improved mobility needs. Goals Self-Feeding Goal Standby Assistance Grooming Goal Standby Assistance Toilet Transfer Goal Moderate Assistance Days to Meet Goals 5 Frequency of Treatment Frequency Of Treatment Once a Day Treatment Plan OT Treatment Plan ADL Training,Functional Cognition Training,Functional Mobility,Patient/Family Education,Discharge Planning Other Treatment Recommendations and Next Pt to be able to come stand Treatment Focus with MODA X1 from the toilet. Discharge Recommendations OT Discharge Recommendations Home with Assistance,Home Health Transportation Needs at Discharge Wheelchair/Cabulance
--- NOTE | 2020-03-23 11:35 | PT.IIE ---
Current Diagnoses Pneumonitis due to inhalation of food and vomit (03/22/20) Surgical History (Last Reviewed 03/22/20 @ 12:16 by Bethany Kolb MD) History of tonsillectomy Status post cholecystectomy Medical History (Last Updated 03/22/20 @ 12:14 by Bethany Kolb MD) Active asthma Acute systolic heart failure Anxiety disorder Atrial fibrillation Blood loss anemia Dysphasia Epilepsy Hypertension Lymphedema Morbid obesity Schizophrenia Urinary incontinence Vitamin D deficiency Physical Therapy Inpatient Evaluation/Re-Eval M1 PT/OT-IP Prior Functional Status Start: 03/23/20 12:37 Freq: NEEDED Status: Active Protocol: Document 03/23/20 12:37 [facility] (Rec: 03/23/20 12:57 [facility] [id number]) Medical Review Prior Functional Status Diet/Fluid Consistency Pureed,Thin Liquids Communication Pt independent to communiacte her needs. Mobility and Gait Per staff at [facility], pt mainly uses wc for mobility and transfers in and out of the bathroom with one person assist with FWW 50% assist. Pt states to be getting her own personal wc soon. Activities of Daily Living and IADL's Per staff, pt just needing assist for set-upfor all eating and grooming needs and needing assist for all other needs of dressing, toileting, and bathing needs. Social History Living Arrangements Skilled Nurse Facility Additional Social History Comment Pt choke on a peanut butter sandwich at [facility] and chest x-ray results indicated aspiration PNA. M2 PT-IP Current Condition Start: 03/22/20 09:18 Freq: NEEDED Status: Active Protocol: Document 03/23/20 11:30 AW (Rec: 03/23/20 13:17 AW [id number]) Physical Therapy Current Condition Current Condition Evaluation Date 03/23/20 Treatment Diagnosis pneumonia; difficulty in walking Onset Date 03/22/20 M3 PT-IP Subjective Start: 03/22/20 09:18 Freq: NEEDED Status: Active Protocol: Document 03/23/20 11:30 AW (Rec: 03/23/20 13:17 AW [id number]) Subjective Physical Therapy Visit Type Type Initial Evaluation Visit Start Time 10:52 Visit Stop Time 11:30 Total Visit Minutes 38 Notes Co-eval with OT Physical Therapy Visit Comments Patient Comments I like doing therapy. Patient Goals Return to SNF M4 PT-IP Mobility and Gait Start: 03/22/20 09:18 Freq: NEEDED Status: Active Protocol: Document 03/23/20 11:30 AW (Rec: 03/23/20 13:17 AW [id number]) PT-Transfer Assessment Sit to and From Stand Sit to and from Stand Moderate Assistance,Maximum Assistance,1 Person Assistance ,Use of Upper Extremities Equipment Transfer Assistive Device Gait Belt,Front Wheeled Walker Orthotic/Prosthetic Devices or Brace: No Transfers Transfer Destination Bed,Chair Transfer Technique Stand Step Pivot Transfer Ability Level of Assist Moderate Assistance,1 Person Assistance,Use of Upper Extremities Comments Mobility Comments Pt was sitting up in the chair as PT and OT arrived. She was able to scoot herself forward on the chair with verbal cues and encouragement. She then stood from the chair max 1PA and was able to stand >1 minute as PT/OT assisted with briefs change. She sat on the chair and then stood again max 1PA before ambulating ~4 feet with chair follow. She sat and then stood again to step pivot transfer mod 1PA to the bed which was tilted toward her for height adjustment. She sat on the bed and then stood again mod 1PA to transfer to the chair where she was left with call light and all needs in reach. Gait Assessment Gait Gait Assistance Required: Moderate Assistance,1 Person Assist Distance (Feet) 4 Assistive Devices Assistive Device Gait Belt,Front Wheeled Walker Orthotic/Prosthetic Devices or Brace: No Gait Deviations General Gait Pattern Antalgic,Decreased Stride Length,Decreased Feet Clearance,Flexed Trunk,Lateral Trunk Lean Factors Limiting Gait Function Factors Limiting Gait Function Decreased Activity Tolerance, Decreased Strength,Difficulty Following Directions,Poor Balance,Poor Safety Awareness Comments Gait Comments Pt took steps with chair follow. PT-Balance Assessment Sitting Balance and Reactions Static Sitting Balance Ability Good Dynamic Sitting Balance Ability Good Standing Balance and Reactions Static Standing Balance Ability Fair Dynamic Standing Balance Ability Poor Device Used FWW M5 PT-IP Objective Assessments Start: 03/22/20 09:18 Freq: NEEDED Status: Active Protocol: Document 03/23/20 11:30 AW (Rec: 03/23/20 13:17 AW [id number]) Orientation Orientation/Cognition Level of Alertness Alert Orientation Name,Day of Week,Place, Situation Language Function Ability No Deficits Noted Safety Awareness Understands Safety Issues Comments Pt frequently verbalized her movement strategies before initiating movement. Gross Range of Motion Lower Extremity ROM Assessment Bilaterally Impaired Impairments BLE swelling limits AROM, especially on left side. Strength Lower Extremity Strength Assessment Bilaterally Impaired Hip 3-/5 Knee 3/5 Ankle 3-/5 Sensation Assessment Sensation Gross Sensation WNL M6 PT-IP Treatment Start: 03/22/20 09:18 Freq: NEEDED Status: Active Protocol: Document 03/23/20 11:30 AW (Rec: 03/23/20 13:17 AW [id number]) Physical Therapy Treatment Education Education Provided Safety M7 PT-IP Assessment and Plan Start: 03/22/20 09:18 Freq: NEEDED Status: Active Protocol: Document 03/23/20 11:30 AW (Rec: 03/23/20 13:17 AW [id number]) PT Summary Assessment and Plan Potential Rehabilitation Potential Good Status of Condition at Evaluation Stable Summary Impairments ROM,Strength,Balance,Bed Mobility,Transfers,Gait, Activity Tolerance Assessment Summary Lisa is a 74 yo resident of [facility] who is admitted with pneumonia. She requires mod assist for transfers at baseline and typically mobilizes with a manual wheelchair. On evaluation, she was able to verbalize her movement strategies before initiating movement but would benefit from skilled therapy to improve her bed mobility, sit to stand, and transfer skills. Pt would benefit from PT upon return to SNF. Goals Bed Mobility Goal Contact Guard Assistance Transfer Goal Contact Guard Assistance,Front Wheeled Walker Gait Goal Contact Guard Assistance,Front Wheel Walker Gait Distance 15 Days to Meet Goals 10 Frequency of Treatment Frequency Of Treatment Once a Day Treatment Plan Physical Therapy Treatment Plan Bed Mobility Training,Transfer Training,Gait Training, Therapeutic Exercise,Balance Retraining,Discharge Planning, Neuromuscular Re-ed Other Recommendations and Next Treatment transfers; gait with FWW and Focus chair follow Recommendations To Nursing Amount of Assist Needed 2 Person Assist Discharge Recommendations PT Discharge Recommendations Home with 09/10 Assist,Home Health Transportation Needs at Discharge Wheelchair/Cabulance
[2020-03-23 12:34] LABS: Troponin I 0.081 ng/mL (0.01-0.034)
[2020-03-23] MEDS: APIXABAN 5 MG TABLET PO (12:36)
--- NOTE | 2020-03-23 13:32 | CM.DANOTE ---
Patient is a 74 year old female who was admitted on 03/22/20 for choking. Pt has [facility] and [facility] for insurance and her PCP is Dr. Emmanuel Cedeno. EMR was reviewed. Per MD, pt with some AFIB RVR that is now rate controlled and slight bump in her rate but trops have remained stable and medically stable to d/c back to SNF today. SW met bedside with pt and adult son Isacc and explained role and they confirmed that the pt resides at [facility] under Medicaid for LTC and pt receives assist (mostly mod assist to 1PA) for hygiene and transfers and primarily utilizes a w/c for ambulation. Pt able to perform some of her own care and preference is to return when medically stable. Per PT/OT, pt seems to have returned to baseline and recommending return to SNF LTC with HH PT/OT. SW called [facility] and updated on above and they can accept pt back today around 1530. Covid from admit is still valid and need signed med rec and any scripts and MD orders but no PASRR needed. SW inquired about HH and all they need are HH orders but no F2F as they will utilize their SNF therapy team to provide the PT/OT. SW updated RN and NTL and provided the RN report number to call. Plan: Patient to d/c back to [facility] LT today with new HH orders for [facility] therapy team and to transport around 1530 today. YUSUF Alexander Discharge Planning/Care Management CM Discharge Assessment Start: 03/23/20 13:22 Freq: Status: Active Protocol: Document 03/23/20 13:22 BF (Rec: 03/23/20 13:32 BF [id number]) Discharge Planning Assessment Assigned Adobe Flex Developer YUSUF Gonzalez DPOA/Assigned Designee Name diamond Dexter Contact Information [phone] Advance Directives? Yes History Provided By Patient,Family Member,Medical Record Has Patient been admitted in last 30 No days? Prior Living Arrangements Skilled Nurse Facility Comment buttermaker care at [facility] Household Members none Type of transporation used prior to Relies on Others admit Facility Name Admitted From: [facility] Willing to Return to Facility? Yes Independent with ADL's No Is patient alert and oriented? Yes Needs Assistance With Bathing,Meal Prep,Managing Medications,Home Chores / Shopping Caregiver for Another No DME Already Rented / Owned Wheelchair Patient/Family Preference Long Term Facility Barriers to Discharge No Discharge Plan Long Term Facility Transportation Arrangement Facility van transport Referrals Initiated None needed Whiteboard Updated in Patient Room with Yes name and ext. # of [employer] Developer Review Status In Process Please Provide Date Initial DC 03/23/20 Assessment Was Performed Next Review Type Continued Stay Review
--- NOTE | 2020-03-23 15:20 | PC.NURSE ---
Report called to FARRUKH Jaffe at [facility]. Plan is for pt to dc today at 1530.
--- NOTE | 2020-03-23 18:27 | P.DS_ITS ---
History of Present Illness History of Present Illness Date Patient Seen: 03/23/20 Time Patient Seen: 11:00 Chief complaint: s/p choking Narrative: As per Dr. Kolb, Patient is a 74 y/o female with a history of AFIB, Morbid Obesity, Schizop hrenia, Systolic Heart Failure, UTI's, Hypertension, Asthma, Osteoarthritis who lives at [facility]. She tried to eat a cheese sandwhich and choked on it. She has difficulty with swallowing at baseline but thought she could manage the sandwich. They were unable to perform the Heimlich maneuver, CPR was initiated and the patient was transferred to the [place] ED for evaluation. Upon arrival they suctioned copious amounts of material. Chest Xray confirmed alveolar infiltrates consistent with Aspiration Pneumonia. She is awake and alert now, she is on oxygen and has no specific complaints. She had an episode of diarrhea earlier, she denies nausea or abdominal pain. She is chronically short of breath and this is unchanged. She denies dysuria, hematuria, pyuria. She has no headache, blurred vision or double vision. Patient was found to be in rapid atrial fibrillation in the ED. She was started on a diltiazem drip and admitted to the ICU for further evaluation. Patient recieved IV ceftriaxone in the ED for Aspiration pneumonia. Discharge Providers Provider Date of admission: 03/22/20 07:08 Discharge Date: 03/23/20 Consults: 03/22/20 06:50 Consult to Discharge Planning Routine Comment: Consult to Physical Therapy Evaluate & Treat Comment: Physician Instructions: Evaluate and Treat 03/22/20 06:51 Consult to Occupational Therapy Evaluate & Treat Comment: Physician Instructions: Evaluate and treat Consult to Respiratory Therapy Evaluate & Treat Comment: Physician Instructions: Evaluate and treat 03/22/20 12:43 Consult to Speech Therapy Evaluate & Treat Comment: swallow evaluation Physician Instructions: Evaluate and treat 03/23/20 14:24 Consult to Home Health Routine Comment: Afib RVR, aspiration Reason For Exam: Set up HH PT/OT for discharge today 03/23/20 Discharge provider: Carlos Nazario DO Summary Hospital Course Discharge Diagnosis: 1. Paroxysmal atrial fibrillation with RVR, acute, present on admission. 2. Aspiration pneumonia, acute, present on admission 3. Acute respiratory failure with hypoxemia, present on admission, resolved 4. Chronic systolic heart failure 5. Schizophrenia, chronic 6. Obesity, BMI 41.8, present on admission Hospital Course: Lisa martínez is a 74-year-old female admitted after an aspiration event. She was also found to be in AFib with RVR. She converted back to normal sinus rhythm with an increased dose of metoprolol and 1 dose of digoxin. She has remained in normal sinus rhythm since. Her beta-haven dosing was increased, and the following day after admission she was saturating well on room air. She improved much quicker than expected and on the day of discharge she was stable for transfer back to her long-term care facility at [facility]. EF was noted to be reduced but this may be in setting of atrial fibrillation, repeat echocardiogram is recommended after continued medical therapy. Recommended for PT / OT at [facility], home health referral placed. No additional antibiotic therapy is recommended upon discharge unless the patient becomes febrile, at which point she may start Augmentin therapy. Time Spent with Patient Time spent: Greater than 30 minutes Exam Vital Signs (past 8 hours): - 03/23/20 10:50 Temperature 98.1 F Pulse Rate 92 H Respiratory Rate 19 Blood Pressure 114/58 L Pulse Oximetry 95 Oxygen Delivery Method Room Air Oxygen Flow Rate 0 Narrative Exam Narrative: Gen: Pleasant obese female in No Acute distress HEENT: NC/ AT, Sclera anicteric, Face red with crusting, Oropharyx clear Neck: supple Lungs: Diminished breath sounds bilaterally, mild but improved rhonchi in her lung bases, clear to auscultation in upper lobes bilaterally CV: Regular rate and rhythm,No murmurs, rubs, or gallops. Abd: obese, soft/ non tender/non distended, no HSM Ext: 2+ edema bilaterally, chronic skin changes of both lower extremities Psychiatric: awake and appropriate, no hallucinations or delusions, conversational, oriented and appropriate. Neuro: non focal exam Objective Labs Result Diagrams: 03/23/20 05:15 03/23/20 05:15 Labs: Laboratory Results - last 24 hr 03/22/20 03/22/20 03/22/20 21:22 21:50 21:50 WBC RBC Hgb Hct MCV MCH MCHC RDW Plt Count Neut % (Auto) Lymph % (Auto) [place] % (Auto) Eos % (Auto) Baso % (Auto) Neut # (Auto) Lymph # (Auto) [place] # (Auto) Eos # (Auto) Baso # (Auto) PT 14.6 H INR 1.3 APTT 36 Sodium 132 L Potassium 3.9 Chloride 96 L Carbon Dioxide 31 BUN 18 H Creatinine 0.74 Estimated GFR > 60.0 BUN/Creatinine Ratio 24.3 H Glucose 115 H Calcium 8.6 Magnesium 2.0 Troponin I 0.103 H NT-Pro-B Natriuret Pep 2860 H TSH 1.01 03/23/20 03/23/20 03/23/20 05:15 05:15 05:15 WBC 13.8 H RBC 3.33 L Hgb 10.8 L Hct 32.6 L MCV 97.8 MCH 32.3 MCHC 33.0 RDW 16.1 H Plt Count 271 Neut % (Auto) 67.2 Lymph % (Auto) 22.9 L [place] % (Auto) 9.2 Eos % (Auto) 0.3 L Baso % (Auto) 0.4 Neut # (Auto) 9300 H Lymph # (Auto) 3200 [place] # (Auto) 1300 H Eos # (Auto) 0 Baso # (Auto) 100 PT INR APTT Sodium 131 L Potassium 3.6 Chloride 96 L Carbon Dioxide 32 BUN 15 Creatinine 0.71 Estimated GFR > 60.0 BUN/Creatinine Ratio 21.1 Glucose 127 H Calcium 8.5 Magnesium Troponin I 0.106 H NT-Pro-B Natriuret Pep 3090 H TSH 03/23/20 03/23/20 05:15 11:50 WBC RBC Hgb Hct MCV MCH MCHC RDW Plt Count Neut % (Auto) Lymph % (Auto) [place] % (Auto) Eos % (Auto) Baso % (Auto) Neut # (Auto) Lymph # (Auto) [place] # (Auto) Eos # (Auto) Baso # (Auto) PT INR APTT Sodium Potassium Chloride Carbon Dioxide BUN Creatinine Estimated GFR BUN/Creatinine Ratio Glucose Calcium Magnesium 2.0 Troponin I 0.081 H NT-Pro-B Natriuret Pep TSH [facility] Medical History (Updated 03/22/20 @ 12:14 by Bethany Kolb MD) Active asthma Acute systolic heart failure Anxiety disorder Atrial fibrillation Blood loss anemia Dysphasia Epilepsy Hypertension Lymphedema Morbid obesity Schizophrenia Urinary incontinence Vitamin D deficiency Surgical History History of tonsillectomy Status post cholecystectomy Family History Grandfather Stroke Mother Mental health problem Grandfather Stroke Social History household members: none housing: correction Smoking Status: Never smoker alcohol intake: never Discharge Plan Discharge Plan Patient Disposition: Home Health Service Transfer to: [facility] Provider Discharge Comment: Lisa martínez is a 74-year-old female admitted after an aspiration event. She was also found to be in AFib with RVR. She converted back to normal sinus rhythm with an increased dose of metoprolol and 1 dose of digoxin. She has remained in normal sinus rhythm since. Her beta-haven dosing was increased, and the following day after admission she was saturating well on room air. She is stable for transfer back to her long-term care facility at [facility]. EF was noted to be reduced but this may be in setting of atrial fibrillation, repeat echocardiogram is recommended after continued medical therapy. Recommended for PT / OT at [facility] at [facility], home health referral placed. Discharge orders & Medications Prescriptions: Continued FOLIC ACID (#FOLATE) 1 mg PO QDAY Qty: 0 RF: 0 primidone 250 MG tablet 250 mg PO BID Qty: 180 RF: 3 Eliquis 5 mg Tablet 5 mg PO BID RF: 0 aripiprazole 30 mg Tablet 30 mg PO BEDTIME RF: 0 bumetanide 2 mg Tablet 10 mg PO DAILY RF: 0 isosorbide mononitrate 30 mg Tablet Extended Release 24 Hr 30 mg PO DAILY RF: 0 lisinopril 2.5 mg Tablet 2.5 mg PO DAILY RF: 0 magnesium oxide 420 mg Tablet 420 mg PO DAILY RF: 0 potassium chloride 10 mEq Tablet Extended Release 10 meq PO DAILY RF: 0 acidophilus-pectin, citrus [Acidophilus Probiotic] 100 million cell-10 mg Capsule 1 cap PO DAILY RF: 0 nystatin 100,000 unit/gram Powder 1 applic TOPICAL DAILY RF: 0 mupirocin 2 % Ointment 1 applic TOPICAL DAILY RF: 0 Calcium 600 with Vitamin D3 600 mg(1,500mg) -400 unit Tablet,Chewable 1 tab PO DAILY RF: 0 melatonin 3 mg Tablet 6 mg PO BEDTIME RF: 0 Changed metoprolol succinate 25 mg Tablet Extended Release 24 Hr 75 mg PO BID 30 Days Qty: 120 RF: 0 Diet/Activity/Treatments Diet: Diet as Tolerated Diet comment: Per speech therapy, pureed with thin liquids and behavioral modifications
== END 2020-03-23 15:41 | disposition home or self-care (01) | DRG 177 ==
LOC: ED 06:43 → AC 07:09 → ICU 09:18
PROVIDERS: Internal Medicine; Nurse Practitioner Adult Health; Admitting Provider Nurse Practitioner Family; Emergency Provider Emergency Medicine; Family Provider Family Medicine; Referring Provider Emergency Medicine; Visit Provider Nurse Practitioner Family
DX: J69.0 Pneumonitis due to inhalation of food and vomit (principal); J96.01 Acute respiratory failure with hypoxia; I50.22 Chronic systolic (congestive) heart failure; I48.20 Chronic atrial fibrillation, unspecified; F20.89 Other schizophrenia; Z68.41 Body mass index [BMI] 40.0-44.9, adult; I11.0 Hypertensive heart disease with heart failure; I50.84 End stage heart failure; E66.01 Morbid (severe) obesity due to excess calories
CPT/HCPCS: 36415; 36592; 51701; 71045; 71250; 80048; 80053; 83690; 83735; 83880; 84443; 84484; 85025; 85610; 85730; 87635; 87797; 92526; 92610; 93005; 93306; 96365; 96366; 96368; 96375; 97162; 97165; 97530; 99285; 99291; J1160; J1650; J1956; J3480; J7050

== ENCOUNTER → 2020-06-04 16:08 | Outpatient (CLI) | payer MEDICARE, MEDICAID, SELFPAY ==
[2020-03-22 09:22] VITALS: BMI 42.0
== END ==
PROVIDERS: Family Provider Family Medicine; Referring Provider Internal Medicine; Visit Provider Internal Medicine
DX: I48.91 Unspecified atrial fibrillation (principal); I49.5 Sick sinus syndrome
CPT/HCPCS: 93005; 93010

== ENCOUNTER 2020-06-10 14:30 | Inpatient (IN) | payer MEDICARE, MEDICAID, SELFPAY ==
[2020-03-22 09:22] VITALS: BMI 42.0
[2020-06-10] VITALS (43 sets, daily range): BP systolic 77–125; BP diastolic 53–75; PULSE 60–149; RESP 15–33; TEMP 35.9–37.1; O2SAT 96–100; BMI 42.1
--- NOTE | 2020-06-10 15:04 | DI.RAD.S_ITS ---
PROCEDURE: XR CHEST 1V INDICATIONS: fast HR TECHNIQUE: One view of the chest was acquired. COMPARISON: [facility], CR, XR CHEST 1V, 03/22/2020, 3:29. [facility], CR, XR CHEST 2V, 12/26/2019, 14:26. FINDINGS: Surgical changes and devices: None. Lungs and pleura: Lungs are abnormal, with an interstitial prominence over the mid and lower lungs that is less pronounced than that present 03/22/20, but could represent a mild degree of pulmonary edema versus chronic immune mediated pneumonitis.. No pleural effusions or pneumothorax. Mediastinum: Mediastinal contours appear normal. Heart size is normal. Bones and chest wall: No suspicious bony lesions. Overlying soft tissues appear unremarkable. IMPRESSION: Nonspecific appearance of the lung parenchyma with interstitial prominence, improved from that present 03/22/20. This may represent the patient's baseline. However, given shortness of breath, active inflammatory process or acute edema could both explain this appearance. Dictated by: Omar Mullen M.D. on 06/10/2020 at 15:38 Approved by: Omar Mullen M.D. on 06/10/2020 at 15:42
[2020-06-10 15:56] LABS: Add Manual Diff / Slide Review NO; Basophils Absolute Auto 100 /uL (0-100); Basophils Percent Auto 1.3 % (0-2); Eosinophils Absolute Auto 200 /uL (0-450); Eosinophils Percent Auto 1.6 % (2-4); Hemoglobin 14.2 g/dL (12.0-16.0); Lymphocytes Absolute Auto 3700 /uL (1100-4500); Lymphocytes Percent Auto 34.1 % (25-40); Mean Corpuscular HGB Conc 33.7 % (30-36); Mean Corpuscular Volume 97.9 fL (80-100); Monocytes Absolute Auto 1000 /uL (0-900); Monocytes Percent Auto 8.8 % (3-14); Neutrophils Absolute Auto 5900 /uL (1500-7000); Neutrophils Percent Auto 54.2 % (50-75); Platelet Count 302 X10^3/uL (150-400); Red Blood Cell Count 4.29 X10^6/uL (4.0-5.2); Red Cell Distribution Width 14.4 % (11.6-14.8); White Blood Cell Count 10.8 X10^3/uL (4.5-11.0)
--- NOTE | 2020-06-10 16:01 | ED.ARRPALP ---
HPI - Arrhythmia/Palpitations General Chief Complaint: Arrhythmia/Palpitations Stated Complaint: Tachy Time Seen by Provider: 06/10/20 15:03 Source: patient Mode of arrival: EMS Limitations: no limitations History of Present Illness HPI narrative: 75-year-old woman with a history of paryosymal atrial fibrillation, morbid obesity, heart failure, hypertension, asthma and morbid obesity who lives at [facility] was at her primary care physician's office today and noted to be tachycardic she was sent to the emergency room for further evaluation. On further questioning she notes that she has been somewhat short of breath with exertion over the last 3 weeks. She occasionally has chest pain and she notes that she has had increased fluid retention and always wears her compression socks. She states that she always has difficulty walking in usually uses a walker or a wheelchair at the rehabilitation facility and this has not changed. She denies fevers, cough or chills. She has had both COVID vaccinations. She was not feeling particularly poor and would not have otherwise sought out emergency room care had her doctor not noticed that her heart was beating fast. Related Data Home Medications Medication Instructions Recorded Confirmed FOLIC ACID (#FOLATE) 1 mg PO QDAY #0 02/28/11 03/22/20 Calcium 600 with Vitamin D3 1 tab PO DAILY 03/22/20 03/22/20 Eliquis 5 mg PO BID 03/22/20 03/22/20 acidophilus-pectin, citrus 1 cap PO DAILY 03/22/20 03/22/20 [Acidophilus Probiotic] aripiprazole 30 mg PO BEDTIME 03/22/20 03/22/20 bumetanide 10 mg PO DAILY 03/22/20 03/22/20 isosorbide mononitrate 30 mg PO DAILY 03/22/20 03/22/20 lisinopril 2.5 mg PO DAILY 03/22/20 03/22/20 magnesium oxide 420 mg PO DAILY 03/22/20 03/22/20 melatonin 6 mg PO BEDTIME 03/22/20 03/22/20 mupirocin 1 applic TOPICAL DAILY 03/22/20 03/22/20 nystatin 1 applic TOPICAL DAILY 03/22/20 03/22/20 potassium chloride 10 meq PO DAILY 03/22/20 03/22/20 Previous Rx's Medication Instructions Recorded primidone 250 mg PO BID #180 tab 04/03/17 metoprolol succinate 75 mg PO BID 30 Days #120 tab 03/23/20 Allergies Allergy/AdvReac Type Severity Reaction Status Date / Time penicillin G Allergy Mild Verified 06/10/20 14:57 phenobarbital Allergy Mild Verified 06/10/20 14:57 Sulfa (Sulfonamide Allergy Mild Verified 06/10/20 14:57 Antibiotics) tetracycline Allergy Mild Verified 06/10/20 14:57 Review of Systems Review of Systems ROS Unobtainable: All systems reviewed & are unremarkable except as noted in HPI and below Patient History Medical History Active asthma Acute systolic heart failure Anxiety disorder Atrial fibrillation Blood loss anemia Dysphasia Epilepsy Hypertension Lymphedema Morbid obesity Schizophrenia Urinary incontinence Vitamin D deficiency Surgical History History of tonsillectomy Status post cholecystectomy Family History Grandfather Stroke Mother Mental health problem Grandfather Stroke Social History household members: none housing: senior living Smoking Status: Never smoker alcohol intake: never Smoking Status: Never smoker alcohol intake frequency: holidays/special occasions only Substance Use Type: does not use Exam Narrative Exam Narrative: General: in no acute distress. Able speak in full sentence and and participate in H&P HEENT: Moist mucous membranes, normal sclera with reactive pupils, rash over her face unclear if this is severe eczema or seborrheic dermatitis could possibly be Efudex treatment for skin damage Neck: Positive JVD, supple Respiratory: Lungs with crackles to mid lung warner mild scattered wheeze without rhonchi, Full and symmetrical air movement Cardiac: Irregular and rapid without murmurs or bruits Abdomen: Soft, obese, nontender, good bowel tones, no flank pain Skin: Warm and dry, no rashes Neurologic: Grossly neurologically intact with no obvious asymmetries or abnormalities Extremities: No trauma, compression socks in place with 2+ lower extremity edema Psych: Cooperative, with normal speech fluency Initial Vital Signs Initial Vital Signs: Vital Signs Temperature 97.9 F 06/10/20 14:50 Pulse Rate 145 H 06/10/20 14:50 Respiratory Rate 18 06/10/20 14:50 Blood Pressure 108/67 06/10/20 14:50 Pulse Oximetry 99 06/10/20 14:50 Course Orders Ordered: ED Orders 06/10/20 15:04 XR chest 1V Stat EKG-12 Lead Stat 06/10/20 15:44 Complete Blood Count AUTO DIFF Stat Comprehensive Metabolic Panel Stat Lipase Stat NT-proBNP (BNP-Adult 18+) Stat Troponin & CK Cardiac Panel Stat 06/10/20 16:40 COVID19 - ADMIT ([employer] swab/PCR) Stat Discontinued Medications Digoxin (Digoxin 0.25 Mg Tablet) 0.25 mg PO NOW ONE Stop: 06/10/20 16:41 Last Admin: 06/10/20 17:11 Dose: 0.25 mg Documented by: VENESSA Furosemide (Furosemide 100 Mg/10 Ml Vial) 80 mg IV NOW ONE Stop: 06/10/20 16:22 Last Admin: 06/10/20 16:31 Dose: 80 mg Documented by: VENESSA Diltiazem HCl 125 mg/ Sodium (Chloride) 125 mls @ 5 mls/hr IV TITRATE ISHAAN; Protocol Last Admin: 06/10/20 16:48 Dose: 5 mg/hr, 5 mls/hr Documented by: VENESSA Metoprolol Tartrate (Metoprolol Ir 25 Mg Tablet) 75 mg PO NOW ONE Stop: 06/10/20 17:37 Vital Signs Vital signs: Vital Signs - 8 hr 06/10/20 14:50 06/10/20 15:10 06/10/20 15:30 Temperature 97.9 F Pulse Rate 145 H 146 H 128 H Respiratory Rate 18 19 20 Blood Pressure 108/67 Pulse Oximetry 99 98 99 06/10/20 15:50 06/10/20 16:00 06/10/20 16:30 Temperature Pulse Rate 148 H 149 H 149 H Respiratory Rate 21 15 22 Blood Pressure 97/57 L Pulse Oximetry 100 99 98 06/10/20 16:37 06/10/20 16:43 06/10/20 16:48 Temperature Pulse Rate 146 H 149 H 143 H Respiratory Rate 21 20 Blood Pressure 89/53 L 103/67 103/67 Pulse Oximetry 98 97 06/10/20 16:59 06/10/20 17:00 03/25/21 17:05 Temperature Pulse Rate 146 H 144 H 133 H Respiratory Rate 23 22 26 H Blood Pressure 97/54 L 99/66 98/63 Pulse Oximetry 97 96 96 06/10/20 17:10 06/10/20 17:11 Temperature Pulse Rate 123 H 123 H Respiratory Rate 21 Blood Pressure 92/56 L 92/56 L Pulse Oximetry 97 MDM - Arrhythmia/Palpitations Medical Records Attestation: I reviewed the patient's medical records. Lab Data Attestation: I reviewed the patient's lab results. Result diagrams: 06/10/20 15:44 06/10/20 15:44 Labs: Lab Results 06/10/20 06/10/20 Range/Units 15:44 15:44 WBC 10.8 (4.5-11.0) X10^3/uL RBC 4.29 (4.0-5.2) X10^6/uL Hgb 14.2 (12.0-16.0) g/dL Hct 42.0 (36-46) % MCV 97.9 (80-100) fL MCH 33.0 (26-34) PG MCHC 33.7 (30-36) % RDW 14.4 (11.6-14.8) % Plt Count 302 (150-400) X10^3/uL Neut % (Auto) 54.2 (50-75) % Lymph % (Auto) 34.1 (25-40) % [place] % (Auto) 8.8 (3-14) % Eos % (Auto) 1.6 L (2-4) % Baso % (Auto) 1.3 (0-2) % Neut # (Auto) 5900 (3860-6700) /uL Lymph # (Auto) 3700 (6420-2477) /uL [place] # (Auto) 1000 H (0-900) /uL Eos # (Auto) 200 (0-450) /uL Baso # (Auto) 100 (0-100) /uL Sodium 138 (137-145) mmol/L Potassium 3.6 (3.4-5.1) mmol/L Chloride 95 L (98-107) mmol/L Carbon Dioxide 29 (22-32) mmol/L BUN 12 (7-17) mg/dL Creatinine 0.69 (0.52-1.04) mg/dL Estimated GFR > 60.0 (>60) mL/min BUN/Creatinine Ratio 17.4 (6-22) Glucose 135 H (80-110) mg/dL Calcium 10.1 (8.4-10.2) mg/dL Total Bilirubin 0.3 (0.2-1.3) mg/dL AST 49 H (14-36) IU/L ALT 32 (<35) IU/L Alkaline Phosphatase 112 (38-126) U/L Total Creatine Kinase 83 (30-135) U/L CK-MB (CK-2) TNP CK-MB (CK-2) Rel Index TNP Troponin I < 0.012 (0.01-0.034) ng/mL NT-Pro-B Natriuret Pep 1920 H (<125) pg/mL Total Protein 8.8 H (6.3-8.2) g/dL Albumin 4.6 (3.5-5.0) g/dL Globulin 4.2 H (1.7-4.1) g/dL Albumin/Globulin Ratio 1.1 (1.0-2.8) Lipase 68 (23-300) U/L Imaging Data Chest x-ray: Radiologist's Impresson: FINDINGS: Surgical changes and devices: None. Lungs and pleura: Lungs are abnormal, with an interstitial prominence over the mid and lower lungs that is less pronounced than that present 03/22/20, but could represent a mild degree of pulmonary edema versus chronic immune mediated pneumonitis.. No pleural effusions or pneumothorax. Mediastinum: Mediastinal contours appear normal. Heart size is normal. Bones and chest wall: No suspicious bony lesions. Overlying soft tissues appear unremarkable. IMPRESSION: Nonspecific appearance of the lung parenchyma with interstitial prominence, improved from that present 03/22/20. This may represent the patient's baseline. However, given shortness of breath, active inflammatory process or acute edema could both explain this appearance. Dictated by: Omar Mullen M.D. on 06/10/2020 at 15:38 Echocardiogram: Radiologist's Impresson: March 22, 2020 Interpretation Summary The left ventricle is not well seen but grossly appears normal in size and wall thickness. Left ventricular systolic function appears to be moderate?? severely reduced in a global pattern with a gross estimate of the ejection fraction being 30 to 35%, but with a significant dyssynchronous contraction pattern and abnormal septal motion, suggestive of a conduction abnormality and/or right ventricular pressure overload condition. There are no obvious focal wall motion abnormalities. Diastolic function would suggest normal left ventricular filling pressures. The right ventricle is not well seen but appears to be borderline enlarged with systolic function at the lower limits of normal. There is moderate to severe pulmonary hypertension with a right ventricular systolic pressure estimated at 60 mmHg with an estimated CVP of 15 mmHg. Left atrial size is normal while the right atrium is moderately enlarged. There is mild mitral regurgitation and probable moderate tricuspid regurgitation but no other obvious valvular abnormality. The patient was in sinus rhythm at 98-110 bpm throughout the study. ECG Data Attestation: I personally reviewed and interpreted this ECG as follows: Interpretation: Atrial flutter at a rate of 144 beats per minute Left axis deviation and left bundle branch block MDM Narrative Medical decision making narrative: 75-year-old woman presents with atrial flutter rapid ventricular response in the 140-150 range. She has no sensation of rapid heart rate or palpitations. She has noticed some mild orthopnea and dyspnea over the last couple of weeks. She notes that she typically has lower extremity edema. She was recently admitted to the hospital with paroxysmal atrial fibrillation and congestive heart failure. She reportedly converted to normal sinus rhythm after a single dose of diltiazem. She had an echocardiogram done in March that shows an ejection fraction at 30-35% with additional abnormalities appreciated. She currently is on 10 mg of Bumex metoprolol and lisinopril along with isosorbide and is anticoagulated on Eliquis. Will go ahead and load her with oral digoxin, begin diltiazem drip to slow her heart rate down, IV Lasix and anticipate hospitalization to help with her paroxysmal atrial fibrillation with rapid ventricular response and worsening congestive heart failure with volume overload. At this time there is no evidence of acute coronary syndrome nor acute infection. As she is on eliquis, will give her oral digoxin as this was effective previously. I do not think she is a good option for non-emergent cardioversion with her size and multiple co-morbidities. Bolus of 20 mg of diltiazem and diltiazem drip his had little effect on her atrial flutter. In light of the heart failure concerns will discontinue digoxin give her her usual doses evening metoprolol a bit early continue with diuresis and digoxin and admit her to the hospitalist service for observation. Care is reviewed with Dr. Nazario. Discharge Plan Departure Patient Disposition: Admitted as Observation Clinical Impression: Atrial flutter with rapid ventricular response Congestive heart failure Qualifiers: Heart failure type: unspecified Heart failure chronicity: acute on chronic Qualified Code(s): I50.9 - Heart failure, unspecified
[2020-06-10] MEDS: FUROSEMIDE 100 MG/10 ML VIAL 80 MG IV (16:31)
[2020-06-10 16:33] LABS: Alanine Aminotransferase 32 IU/L (<35); Albumin 4.6 g/dL (3.5-5.0); Albumin Globulin Ratio 1.1 (1.0-2.8); Alkaline Phosphatase 112 U/L (38-126); Aspartate Aminotransferase 49 IU/L (14-36); BUN Creatinine Ratio 17.4 (6-22); Bilirubin Total 0.3 mg/dL (0.2-1.3); Blood Urea Nitrogen 12 mg/dL (7-17); Calcium 10.1 mg/dL (8.4-10.2); Carbon Dioxide 29 mmol/L (22-32); Chloride 95 mmol/L (98-107); Creatine Kinase 83 U/L (30-135); Estimated Glomerular Filt Rate > 60.0 mL/min (>60); Globulin 4.2 g/dL (1.7-4.1); Glucose 135 mg/dL (80-110); HEMOLYSIS 31 (0-50); Lipase 68 U/L (23-300); Potassium 3.6 mmol/L (3.4-5.1); Sodium 138 mmol/L (137-145); Total Protein 8.8 g/dL (6.3-8.2)
[2020-06-10 16:45] LABS: Troponin I < 0.012 ng/mL (0.01-0.034)
[2020-06-10] MEDS: dilTIAZem 125 MG in SODIUM CHLORIDE 0.9% 100 ML IV (16:48)
[2020-06-10 17:11] LABS: NT-proBNP (BNP-Adult 18+) 1920 pg/mL (<125)
[2020-06-10] MEDS: DIGOXIN 0.25 MG TABLET PO (17:11)
[2020-06-10] MEDS: METOPROLOL IR 25 MG TABLET 75 MG PO (17:49)
[2020-06-10 17:51] LABS: COVID19 - ADMIT (NP swab/PCR) Negative (Negative)
[2020-06-10] MEDS: SODIUM CHLORIDE 0.9% 1,000 ML 125 ML IV (18:56)
[2020-06-10 20:14] LABS: Free T4, Direct Thyroxine 1.33 ng/dL (0.78-2.19)
[2020-06-10 20:16] LABS: Magnesium 2.1 mg/dL (1.6-2.3)
[2020-06-10 20:36] LABS: Thyroid Stimulating Hormone 1.57 uIU/mL (0.47-4.68)
--- NOTE | 2020-06-10 21:14 | PM.HP.1 ---
History of Present Illness History of Present Illness Date Patient Seen: 06/10/20 Time Patient Seen: 21:00 Chief complaint: Tachy Narrative: Ms. Lisa Kim is a 74 year old female with a history of atrial fibrillation, morbid obesity, Schizophrenia, systolic heart failure, UTI's, hypertension, asthma and osteoarthritis who is sent to the ER provider's office where she was found to be have tachycardia further evaluation. The patient reports dyspnea worse with activity and orthopnea for approximately 3 weeks. Over the same time she reports having occasional substernal chest pain had she describes as a sharp pain lasting 10-15 seconds. She also reports worsening swelling of her lower extremities for which she wears compression hose left ovaries being more swollen the right. The patient has had no complaints of dizziness, diaphoresis, nausea or vomiting. She reports no recent fevers or chills, headaches, nasal congestion or sore throat. She has felt no palpitations and is unaware when she has rapid heartbeat. Denies epigastric or abdominal pain and has had no diarrhea or constipation. She denies urinary symptoms of urgency frequency or burning. Upon arrival to the ER the patient's temperature 97.9?, heart rate of 145, blood pressure 108/67, respirations of 18 saturating 99% on room air. Chest x-ray reveals interstitial prominence bilateral mid and lower lobes. Twelve lead EKG finds a flutter the ventricular response of 144, no ectopy, ST or T-wave changes. On laboratory analysis her CBC is unremarkable. On chemistries she has a sodium of 135 for potassium is 3.6 BUN is 13 and creatinine 0.96. Her nonfasting glucose is 128. She has a total bilirubin 0.3 and elevated AST of 49, ALT of 32 and alkaline phosphatase 112. ProBNP is elevated at 1920. TSH is 1.57. The patient is admitted to the hospitalist service for atrial flutter with RVR. Patient History Medical History Active asthma Acute systolic heart failure Anxiety disorder Atrial fibrillation Blood loss anemia Dysphasia Epilepsy Hypertension Lymphedema Morbid obesity Schizophrenia Urinary incontinence Vitamin D deficiency Surgical History History of tonsillectomy Status post cholecystectomy Family & Social History Family History Grandfather Stroke Mother Mental health problem Grandfather Stroke Social History: household members none Prior Living Arrangements Skilled Nurse Facility Safety & Behavioral: Feels Safe in Current Yes Environment Been Physically Hurt or No Threatened By a Person Suicidal Ideation Description None Suicide Plan Description No Plan Tobacco & Substance use: Smoking Status Never smoker alcohol intake never alcohol intake frequency holiday/special occasion Substance Use Type does not use Meds Home Medications and Allergies Home Medications Medication Instructions Recorded Confirmed Type FOLIC ACID (#FOLATE) 1 mg PO QDAY #0 02/28/11 03/22/20 History primidone 250 mg PO BID #180 tab 04/03/17 03/22/20 Rx Calcium 600 with Vitamin D3 1 tab PO DAILY 03/22/20 03/22/20 History Eliquis 5 mg PO BID 03/22/20 03/22/20 History acidophilus-pectin, citrus 1 cap PO DAILY 03/22/20 03/22/20 History [Acidophilus Probiotic] aripiprazole 30 mg PO BEDTIME 03/22/20 03/22/20 History bumetanide 10 mg PO DAILY 03/22/20 03/22/20 History isosorbide mononitrate 30 mg PO DAILY 03/22/20 03/22/20 History lisinopril 2.5 mg PO DAILY 03/22/20 03/22/20 History magnesium oxide 420 mg PO DAILY 03/22/20 03/22/20 History melatonin 6 mg PO BEDTIME 03/22/20 03/22/20 History mupirocin 1 applic TOPICAL DAILY 03/22/20 03/22/20 History nystatin 1 applic TOPICAL DAILY 03/22/20 03/22/20 History potassium chloride 10 meq PO DAILY 03/22/20 03/22/20 History metoprolol succinate 75 mg PO BID 30 Days #120 tab 03/23/20 03/22/20 Rx Allergies Allergy/AdvReac Type Severity Reaction Status Date / Time penicillin G Allergy Mild Verified 06/10/20 14:57 phenobarbital Allergy Mild Verified 06/10/20 14:57 Sulfa (Sulfonamide Allergy Mild Verified 06/10/20 14:57 Antibiotics) tetracycline Allergy Mild Verified 06/10/20 14:57 Review of Systems Review of Systems ROS: Yes All systems reviewed with the patient and are negative except as otherwise documented Exam Vital Signs (past 8 hours): - 06/10/20 14:50 06/10/20 15:10 06/10/20 15:30 Temperature 97.9 F Pulse Rate 145 H 146 H 128 H Respiratory Rate 18 19 20 Blood Pressure 108/67 Pulse Oximetry 99 98 99 06/10/20 15:50 06/10/20 16:00 06/10/20 16:30 Temperature Pulse Rate 148 H 149 H 149 H Respiratory Rate 21 15 22 Blood Pressure 97/57 L Pulse Oximetry 100 99 98 06/10/20 16:37 06/10/20 16:43 06/10/20 16:48 Temperature Pulse Rate 146 H 149 H 143 H Respiratory Rate 21 20 Blood Pressure 89/53 L 103/67 103/67 Pulse Oximetry 98 97 06/10/20 16:59 06/10/20 17:00 06/10/20 17:05 Temperature Pulse Rate 146 H 144 H 133 H Respiratory Rate 23 22 26 H Blood Pressure 97/54 L 99/66 98/63 Pulse Oximetry 97 96 96 06/10/20 17:10 06/10/20 17:11 06/10/20 17:21 Temperature Pulse Rate 123 H 123 H 120 H Respiratory Rate 21 22 Blood Pressure 92/56 L 92/56 L 110/67 Pulse Oximetry 97 98 06/10/20 17:26 06/10/20 17:30 06/10/20 17:35 Temperature Pulse Rate 113 H 126 H 128 H Respiratory Rate 24 18 24 Blood Pressure 100/62 101/57 L 107/60 Pulse Oximetry 97 99 96 06/10/20 17:41 06/10/20 17:45 06/10/20 17:50 Temperature Pulse Rate 122 H 116 H 118 H Respiratory Rate 21 23 26 H Blood Pressure 111/60 101/56 L 101/56 L Pulse Oximetry 98 97 97 06/10/20 17:55 06/10/20 18:00 06/10/20 18:01 Temperature Pulse Rate 119 H 115 H 114 H Respiratory Rate 22 21 23 Blood Pressure 101/54 L 107/67 Pulse Oximetry 99 97 97 06/10/20 18:05 06/10/20 18:10 06/10/20 18:15 Temperature Pulse Rate 113 H 115 H 116 H Respiratory Rate 23 20 26 H Blood Pressure 101/57 L 97/60 90/62 Pulse Oximetry 97 97 96 06/10/20 18:20 06/10/20 18:25 06/10/20 18:30 Temperature Pulse Rate 114 H 115 H 111 H Respiratory Rate 25 H 25 H 33 H Blood Pressure 121/67 82/54 L 87/58 L Pulse Oximetry 98 97 98 06/10/20 18:36 06/10/20 18:40 06/10/20 18:45 Temperature Pulse Rate 114 H 117 H 113 H Respiratory Rate 18 25 H 23 Blood Pressure 117/64 86/58 L 87/57 L Pulse Oximetry 97 98 99 06/10/20 18:50 06/10/20 18:55 06/10/20 19:00 Temperature Pulse Rate 109 H 112 H 121 H Respiratory Rate 21 18 22 Blood Pressure 77/54 L 89/57 L 87/59 L Pulse Oximetry 97 97 98 06/10/20 19:05 06/10/20 19:10 06/10/20 19:15 Temperature Pulse Rate 113 H 120 H 117 H Respiratory Rate 18 15 24 Blood Pressure 93/64 99/57 L 100/57 L Pulse Oximetry 98 98 97 06/10/20 19:30 Temperature 98.7 F Pulse Rate 111 H Respiratory Rate 18 Blood Pressure 125/75 Pulse Oximetry 97 Oxygen Delivery Method Room Air Oxygen Flow Rate 0 Narrative Exam Narrative: GENERAL APPEARANCE: well developed, obese with BMI of 41.8, sitting up in bed conversant, in no acute distress. HEENT: Normocephalic, PERRLA, conjunctiva clear, EOMs intact without nystagmus, oral membranes pink and moist NECK/THYROID: neck supple, no JVD, no carotid bruit, no thyromegaly, trachea midline. LYMPH NODES: no cervical or supraclavicular lymphadenopathy. SKIN: [place], warm and dry, bilateral red crusted facial psoriasis. HEART: Irregularly irregular, S1-S2, no murmur, no rubs or gallops, brisk capillary refill, bilateral pedal edema, 2+ right 3+ on the left. LUNGS: Breath sounds globally diminished, no courses crackles or wheezing, no cough present. No conversational dyspnea. CHEST: Symmetrical movement, no accessory muscle use, good tidal volume. ABDOMEN: Soft, obese, dull to percussion, no abdominal tenderness, no organomegaly, no flank tenderness, active bowel tones. EXTREMITIES: moves all extremities, strength is 5/5 and symmetrical, no deformities or joint effusions no clubbing or cyanosis. NEUROLOGIC: Alert and oriented to person and place, slow speech cranial nerves II-XII grossly intact, sensation intact to light touch, hearing grossly normal to speech. PSYCH: Alert, flat affect, conversant highly tangential thought, cooperative Objective Labs Result Diagrams: 06/10/20 15:44 06/10/20 23:58 Labs: Laboratory Results - last 24 hr 06/10/20 06/10/20 06/10/20 15:44 16:36 16:36 WBC 10.8 RBC 4.29 Hgb 14.2 Hct 42.0 MCV 97.9 MCH 33.0 MCHC 33.7 RDW 14.4 Plt Count 302 Neut % (Auto) 54.2 Lymph % (Auto) 34.1 [place] % (Auto) 8.8 Eos % (Auto) 1.6 L Baso % (Auto) 1.3 Neut # (Auto) 5900 Lymph # (Auto) 3700 [place] # (Auto) 1000 H Eos # (Auto) 200 Baso # (Auto) 100 Sodium 138 Potassium 3.6 Chloride 95 L Carbon Dioxide 29 BUN 12 Creatinine 0.69 Estimated GFR > 60.0 BUN/Creatinine Ratio 17.4 Glucose 135 H Calcium 10.1 Magnesium 2.1 Total Bilirubin 0.3 AST 49 H ALT 32 Alkaline Phosphatase 112 Total Creatine Kinase 83 CK-MB (CK-2) TNP CK-MB (CK-2) Rel Index TNP Troponin I < 0.012 NT-Pro-B Natriuret Pep 1920 H Total Protein 8.8 H Albumin 4.6 Globulin 4.2 H Albumin/Globulin Ratio 1.1 Lipase 68 TSH Free T4 SARS-CoV-2 (PCR) 06/10/20 06/10/20 06/10/20 16:36 16:36 16:40 WBC RBC Hgb Hct MCV MCH MCHC RDW Plt Count Neut % (Auto) Lymph % (Auto) [place] % (Auto) Eos % (Auto) Baso % (Auto) Neut # (Auto) Lymph # (Auto) [place] # (Auto) Eos # (Auto) Baso # (Auto) Sodium Potassium Chloride Carbon Dioxide BUN Creatinine Estimated GFR BUN/Creatinine Ratio Glucose Calcium Magnesium Total Bilirubin AST ALT Alkaline Phosphatase Total Creatine Kinase CK-MB (CK-2) CK-MB (CK-2) Rel Index Troponin I NT-Pro-B Natriuret Pep Total Protein Albumin Globulin Albumin/Globulin Ratio Lipase TSH 1.57 Free T4 1.33 SARS-CoV-2 (PCR) Negative Assessment & Plan Assessment & Plan narrative: This is a 74 year old female with a history of atrial fibrillation, morbid obesity, Schizophrenia, systolic heart failure, UTI's, hypertension, asthma and osteoarthritis who is sent to the ER provider's office where she was found to to be in atrial flutter with a rapid ventricular response. 1. Atrial flutter with RVR, present on admission, active. -12 lead EKG finds atrial flutter ventricular rate of 144 without ectopy or block, no ST or T-wave changes. -total CK is 83, troponin is negative at less than 0.012. ProBNP is elevated at 1920. -patient had initial serum potassium of 3.6 and received 80 mg of Lasix in the ER. Ordered potassium 40 mEq p.o. and 20 mEq IV now. -will obtain a magnesium level. -patient received her evening dose of metoprolol tartrate 75 mg by mouth the ER. -patient received digoxin 0.25 mg in the emergency department will continue did loading S 0.25 mg every 6 hours for 3 additional doses or until conversion. -will continue Eliquis anticoagulation 5 mg twice daily -will recheck troponin and electrolytes at midnight, check electrolytes and morning labs and replete as necessary. 2. Acute exacerbation of chronic systolic heart failure, present on admission, active -the patient has had increasing symptoms for approximately 3 weeks with shortness of breath extremity swelling. She chronically wears bilateral compression hose. -chest x-ray finds interstitial prominence mid lower lobes. -most recent echocardiogram was obtained on 03/23/2020 which reflected an EF 30-35%, elevate grossly normal wall thickness with global reduced systolic function and dyssynchronous contraction pattern. -patient received 80 mg of Lasix in the emergency department with modest diuresis. -will continue patient's home regimen of bumetanide 10 mg daily. -will recheck proBNP in morning. 3. Mild intermittent asthma, chronic, stable. -patient is not on routine asthma management medication. No wheezing noted on exam. -patient maintains adequate room air saturation of 96%. 4. Hypertension, chronic, stable -patient presents to ED with blood pressure 108/67. -patient became hypotensive in the ER with administration and diltiazem. -may consider holding isosorbide and or lisinopril the morning depending on blood pressure. 5. Epilepsy, chronic, stable. -patient is unable to report last seizure activity. -will continue current regimen of primidone 250 mg twice daily. 6. Schizophrenia, chronic, stable. -patient is behaviorally stable. -will continue home regimen of arpiprazole 30 mg at bedtime. VTE prophylaxis: Anticoagulated on Eliquis IV fluid: Saline lock Diet: Heart healthy Code status: Full code, patient's son Isacc Prater is a surrogate decision maker and holds DPOA. The patient is admitted to the hospital due to the severity of her symptoms and risk for decompensation complications and adverse events. Patient is admitted to the hospital as observation status with expected length of stay to be less than 2 midnights. COVID-19 COVID-19 status: Negative Result date/Date tested (Pos, Neg/Pending): 06/10/20 Scores [facility] [place] coma scale eye opening: Spontaneous Chan coma scale verbal response: Confused Chan coma scale motor response: Obey commands Chan coma scale total score: 14 Quality VTE Deep Vein Thrombosis/Pulmonary Embolism Present on Admission: No MIPS - Admit I confirm the patient?s Advance Care Plan is present, Code status is documented, Surrogate decision maker is in patient?s record [If Yes, STOP here]: Yes
[2020-06-10] MEDS: APIXABAN 5 MG TABLET PO (21:49)
[2020-06-10] MEDS: PRIMIDONE 50 MG TABLET 250 MG PO (21:49)
[2020-06-10] MEDS: ARIPiprazole 10 MG TABLET 30 MG PO (21:50)
[2020-06-10] MEDS: DOCUSATE 100 MG CAPSULE PO (21:50)
[2020-06-10] MEDS: MELATONIN 3 MG TABLET 9 MG PO (21:50)
--- NOTE | 2020-06-10 23:40 | PC.NURSE ---
Pt arrived from ED, Alert, slightly forgetful. Tele shows a-fib; a-flitter per ICU staff. HL intact/patent. Denies any discomfort. Finnegan cath patent clear, yellow urine. Oriented to room & call system. Call light w/in reach, bed alarm on for pt safety. Continue w/plan of care.
[2020-06-11] VITALS (15 sets, daily range): BP systolic 90–122; BP diastolic 41–74; PULSE 75–137; RESP 16–18; TEMP 35.8–37.1; O2SAT 93–112
[2020-06-11] MEDS: POTASSIUM CHLORIDE 20 MEQ in SODIUM CHLORIDE 0.9% 250 ML 130 ML IV (00:06)
[2020-06-11] MEDS: SODIUM CHLORIDE 0.9% FLUSH 10 ML IV ×4 (00:06→22:08)
[2020-06-11] MEDS: POTASSIUM CHLORIDE 20 MEQ TAB 40 MEQ PO (00:10)
[2020-06-11 00:17] LABS: BUN Creatinine Ratio 18.8 (6-22); Blood Urea Nitrogen 13 mg/dL (7-17); Calcium 9.2 mg/dL (8.4-10.2); Carbon Dioxide 32 mmol/L (22-32); Chloride 97 mmol/L (98-107); Estimated Glomerular Filt Rate > 60.0 mL/min (>60); Glucose 128 mg/dL (80-110); HEMOLYSIS < 15 (0-50); Potassium 3.6 mmol/L (3.4-5.1); Sodium 135 mmol/L (137-145)
[2020-06-11 00:29] LABS: Troponin I 0.017 ng/mL (0.01-0.034)
[2020-06-11] MEDS: DIGOXIN 500 MCG/2 ML AMPUL 250 MCG IV ×3 (04:15→16:49)
--- NOTE | 2020-06-11 04:51 | PC.NURSE ---
0127: patient is alert and oriented except did not know age, day of week/day of month. Talks excessively, has some difficulty finding correct words and is forgetful. Breath sounds CTA with RA sat of 96%; on continuous pulse oximetry. HR irregular with telemetry reading of afib RVR/BBB and rate of 114. Denies nausea. BT present and abdomen is soft but large. Indwelling catheter is patent; urine is clear yellow. Has reddened periarea with possible pressure type injury between buttocks; is being turned q2h as can assist with repositioning but is not doing it by herself. Wearing bilateral calf SCD's; MATY stockings removed at shift change. Denies pain. Fall risk score is high and bed alarm is activated.
[2020-06-11 05:37] LABS: Add Manual Diff / Slide Review NO; Basophils Absolute Auto 100 /uL (0-100); Basophils Percent Auto 0.7 % (0-2); Eosinophils Absolute Auto 200 /uL (0-450); Eosinophils Percent Auto 2.3 % (2-4); Hemoglobin 12.1 g/dL (12.0-16.0); Lymphocytes Absolute Auto 4300 /uL (1100-4500); Lymphocytes Percent Auto 40.6 % (25-40); Mean Corpuscular HGB Conc 33.6 % (30-36); Mean Corpuscular Hemoglobin 32.8 PG (26-34); Mean Corpuscular Volume 97.7 fL (80-100); Monocytes Absolute Auto 800 /uL (0-900); Neutrophils Absolute Auto 5100 /uL (1500-7000); Neutrophils Percent Auto 48.4 % (50-75); Platelet Count 284 X10^3/uL (150-400); Red Blood Cell Count 3.68 X10^6/uL (4.0-5.2); Red Cell Distribution Width 14.2 % (11.6-14.8); White Blood Cell Count 10.6 X10^3/uL (4.5-11.0)
[2020-06-11 05:45] LABS: BUN Creatinine Ratio 17.4 (6-22); Blood Urea Nitrogen 12 mg/dL (7-17); Calcium 9.1 mg/dL (8.4-10.2); Carbon Dioxide 31 mmol/L (22-32); Chloride 99 mmol/L (98-107); Cholesterol 129 mg/dL (140-199); Estimated Glomerular Filt Rate > 60.0 mL/min (>60); Glucose 106 mg/dL (80-110); HDL Cholesterol 30 mg/dL (40-60); HEMOLYSIS < 15 (0-50); LDL Cholesterol Calculated 74 mg/dL (<100); Magnesium 2.2 mg/dL (1.6-2.3); Potassium 4.1 mmol/L (3.4-5.1); Sodium 136 mmol/L (137-145); Triglycerides 124 mg/dL (35-150)
[2020-06-11 05:54] LABS: NT-proBNP (BNP-Adult 18+) 2580 pg/mL (<125)
[2020-06-11] MEDS: APIXABAN 5 MG TABLET PO ×2 (09:01→21:38)
[2020-06-11] MEDS: DOCUSATE 100 MG CAPSULE PO ×2 (09:01→21:37)
[2020-06-11] MEDS: ISOSORBIDE MONONITRATE ER 30 MG TABLET PO (09:09)
[2020-06-11] MEDS: METOPROLOL ER 25 MG TABLET 75 MG PO ×2 (09:09→21:37)
[2020-06-11] MEDS: PRIMIDONE 50 MG TABLET 250 MG PO ×2 (09:10→21:42)
--- NOTE | 2020-06-11 10:52 | PC.NURSE ---
Assess- Patient is alert and oriented, can be slightly forgetful. She has a small stage 2 ulcer on her coccyx, we are repositioning her every couple of hours. Denies pain at this time, patient has a red and dried face, which she states is psoriasis. She is on a fluid restriction of 550 on day shift. She has been compliant with this. Resting comfortably with head of bed up.
--- NOTE | 2020-06-11 12:31 | CM.IDA ---
Initial DCP Assessment Note Pt is a 75 yo female, resident at [facility], presents tachy PMH includes atrial fibrillation, morbid obesity, Schizophrenia, systolic heart failure, UTI's, hypertension, asthma and osteoarthritis PCP: Emmanuel Cedeno (Dr Carr?) Payer: NEEMA/SARAH Reviewed chart, met w/patient to introduce role. Patient confirms she is living at [facility], would like to return upon DC. DPOA is son Isacc Colunga# [phone] Patient states she is grateful she has SARAH to use at SNF for care. SNF staff provide full care for all ADLs Plan: DC back to [facility] where patient resides using her LTC SARAH benefit, likely w/c YUSUF Montemayor
--- NOTE | 2020-06-11 14:07 | PM.PN.1 ---
Subjective Subjective Date Patient Seen: 06/11/20 Time Patient Seen: 14:07 Interval history: This is a 74 year old female with a history of atrial fibrillation, morbid obesity, Schizophrenia, systolic heart failure, UTI's, hypertension, asthma and osteoarthritis who is admitted with afib/flutter with RVR. Repeat TTE grossly unchanged EF at approximately 30% per limited study today. Patient was given digoxin load overnight, with improvement in her HR to the 90s today but remains in atrial flutter. She will complete digoxin loading this evening ,plan to start oral tomorrow. Patient denies symptoms today including palpitations, chest pain, shortness of breath. Exam Vital Signs (past 8 hours): - 06/11/20 08:42 06/11/20 10:00 06/11/20 10:09 Temperature 97.2 F L 96.6 F L Pulse Rate 112 H 103 H 96 H Respiratory Rate 18 18 16 Blood Pressure 116/74 96/60 Pulse Oximetry 112 H 96 95 06/11/20 12:00 Temperature 97.5 F L Pulse Rate 99 H Respiratory Rate 18 Blood Pressure 105/67 Pulse Oximetry 99 Oxygen Delivery Method Room Air Oxygen Flow Rate 0 Narrative Exam Narrative: GENERAL APPEARANCE: well developed, obese with BMI of 41.8, sitting up in bed conversant, in no acute distress. HEENT: Normocephalic, PERRLA, conjunctiva clear, EOMs intact without nystagmus, oral membranes pink and moist NECK/THYROID: neck supple, no JVD, no carotid bruit, no thyromegaly, trachea midline. LYMPH NODES: no cervical or supraclavicular lymphadenopathy. SKIN: [place], warm and dry, bilateral red crusted facial psoriasis. HEART: Irregularly irregular, tachycardic S1-S2, no murmur, no rubs or gallops, brisk capillary refill, bilateral pedal edema 1+. LUNGS: Breath sounds globally diminished, no courses crackles or wheezing, no cough present. No conversational dyspnea. CHEST: Symmetrical movement, no accessory muscle use, good tidal volume. ABDOMEN: Soft, obese, non-tender and non-distended. EXTREMITIES: moves all extremities, strength is 5/5 and symmetrical, no deformities or joint effusions no clubbing or cyanosis. NEUROLOGIC: Alert and oriented to person and place, slow speech cranial nerves II-XII grossly intact, sensation intact to light touch, hearing grossly normal to speech. PSYCH: Alert, flat affect, conversant highly tangential thought, cooperative Objective Labs Result Diagrams: 06/11/20 05:15 06/11/20 05:15 Labs: Laboratory Results - last 24 hr 06/10/20 06/10/20 06/10/20 15:44 16:36 16:36 WBC 10.8 RBC 4.29 Hgb 14.2 Hct 42.0 MCV 97.9 MCH 33.0 MCHC 33.7 RDW 14.4 Plt Count 302 Neut % (Auto) 54.2 Lymph % (Auto) 34.1 [place] % (Auto) 8.8 Eos % (Auto) 1.6 L Baso % (Auto) 1.3 Neut # (Auto) 5900 Lymph # (Auto) 3700 [place] # (Auto) 1000 H Eos # (Auto) 200 Baso # (Auto) 100 Sodium 138 Potassium 3.6 Chloride 95 L Carbon Dioxide 29 BUN 12 Creatinine 0.69 Estimated GFR > 60.0 BUN/Creatinine Ratio 17.4 Glucose 135 H Calcium 10.1 Magnesium 2.1 Total Bilirubin 0.3 AST 49 H ALT 32 Alkaline Phosphatase 112 Total Creatine Kinase 83 CK-MB (CK-2) TNP CK-MB (CK-2) Rel Index TNP Troponin I < 0.012 NT-Pro-B Natriuret Pep 1920 H Total Protein 8.8 H Albumin 4.6 Globulin 4.2 H Albumin/Globulin Ratio 1.1 Triglycerides Cholesterol LDL Cholesterol, Calc HDL Cholesterol Lipase 68 TSH Free T4 SARS-CoV-2 (PCR) 06/10/20 06/10/20 06/10/20 16:36 16:36 16:40 WBC RBC Hgb Hct MCV MCH MCHC RDW Plt Count Neut % (Auto) Lymph % (Auto) [place] % (Auto) Eos % (Auto) Baso % (Auto) Neut # (Auto) Lymph # (Auto) [place] # (Auto) Eos # (Auto) Baso # (Auto) Sodium Potassium Chloride Carbon Dioxide BUN Creatinine Estimated GFR BUN/Creatinine Ratio Glucose Calcium Magnesium Total Bilirubin AST ALT Alkaline Phosphatase Total Creatine Kinase CK-MB (CK-2) CK-MB (CK-2) Rel Index Troponin I NT-Pro-B Natriuret Pep Total Protein Albumin Globulin Albumin/Globulin Ratio Triglycerides Cholesterol LDL Cholesterol, Calc HDL Cholesterol Lipase TSH 1.57 Free T4 1.33 SARS-CoV-2 (PCR) Negative 06/10/20 06/11/20 06/11/20 23:58 05:15 05:15 WBC 10.6 RBC 3.68 L Hgb 12.1 Hct 36.0 MCV 97.7 MCH 32.8 MCHC 33.6 RDW 14.2 Plt Count 284 Neut % (Auto) 48.4 L Lymph % (Auto) 40.6 H [place] % (Auto) 8.0 Eos % (Auto) 2.3 Baso % (Auto) 0.7 Neut # (Auto) 5100 Lymph # (Auto) 4300 [place] # (Auto) 800 Eos # (Auto) 200 Baso # (Auto) 100 Sodium 135 L 136 L Potassium 3.6 4.1 Chloride 97 L 99 Carbon Dioxide 32 31 BUN 13 12 Creatinine 0.69 0.69 Estimated GFR > 60.0 > 60.0 BUN/Creatinine Ratio 18.8 17.4 Glucose 128 H 106 Calcium 9.2 9.1 Magnesium 2.2 Total Bilirubin AST ALT Alkaline Phosphatase Total Creatine Kinase CK-MB (CK-2) CK-MB (CK-2) Rel Index Troponin I 0.017 NT-Pro-B Natriuret Pep 2580 H Total Protein Albumin Globulin Albumin/Globulin Ratio Triglycerides 124 Cholesterol 129 L LDL Cholesterol, Calc 74 HDL Cholesterol 30 L Lipase TSH Free T4 SARS-CoV-2 (PCR) [facility] Medical History Active asthma Acute systolic heart failure Anxiety disorder Atrial fibrillation Blood loss anemia Dysphasia Epilepsy Hypertension Lymphedema Morbid obesity Schizophrenia Urinary incontinence Vitamin D deficiency Surgical History History of tonsillectomy Status post cholecystectomy Family History Grandfather Stroke Mother Mental health problem Grandfather Stroke Social History household members: none housing: shelter Smoking Status: Never smoker alcohol intake: never Assessment & Plan Assessment & Plan narrative: This is a 74 year old female with a history of atrial fibrillation, morbid obesity, Schizophrenia, systolic heart failure, UTI's, hypertension, asthma and osteoarthritis who is admitted with atrial fib/ flutter with RVR. 1. Atrial flutter with RVR, present on admission, active. -12 lead EKG on admission finds atrial flutter ventricular rate of 144 without ectopy or block, no ST or T-wave changes.Troponin negative. Telemetry showing improvement in rate with digoxin loading. -Continue metoprolol 75 mg BID, little room for upward adjustment at this time. Continue digoxin loading, last dose this evening. Plan to start oral dosing tomorrow evening. -will continue Eliquis anticoagulation 5 mg twice daily 2. Acute exacerbation of chronic systolic heart failure, present on admission, active -the patient has had increasing symptoms for approximately 3 weeks with shortness of breath extremity swelling. She chronically wears bilateral compression hose. -chest x-ray finds interstitial prominence mid lower lobes. -most recent echocardiogram was obtained on 03/23/2020 which reflected an EF 30-35%, elevate grossly normal wall thickness with global reduced systolic function and dyssynchronous contraction pattern. Repeat TTE today unchanged. -patient received 80 mg of Lasix in the emergency department with modest diuresis. -held home bumetanide this AM as she was mildly hypotensive and leg edema appeared much improved with lasix therapy (80 mg) given yesterday. Will resume home bumetanide tomorrow. 3. Mild intermittent asthma, chronic, stable. -patient is not on routine asthma management medication. No wheezing noted on exam. -patient maintains adequate room air saturation of 96%. 4. Hypertension, chronic, stable -patient presents to ED with blood pressure 108/67. -patient became hypotensive in the ER with administration and diltiazem. -resume home medicatiosn as able, low BP thought at least to be due to rapid ventricular response. 5. Epilepsy, chronic, stable. -patient is unable to report last seizure activity. -will continue current regimen of primidone 250 mg twice daily. 6. Schizophrenia, chronic, stable. -patient is behaviorally stable. -will continue home regimen of arpiprazole 30 mg at bedtime. VTE prophylaxis: Anticoagulated on Eliquis IV fluid: Saline lock Diet: Heart healthy Code status: Full code, patient's son Isacc Prater is a surrogate decision maker and holds DPOA. Dispo: possible discharge home tomorrow if rate is controlled, patient is observation status at this time. Quality VTE Deep Vein Thrombosis/Pulmonary Embolism Present on Admission: No
--- NOTE | 2020-06-11 19:36 | DI.ECHO.S_ITS ---
[facility] +---------+ : : [address] : : : : [place], [place] : : : : [address] : : : : Phone: [phone]+ Echocardiogram Report + + :Name: BREANNA TAYLOR Study Date: 06/11/2020 Height: 63 in : :[facility] ReadingLocation: Weight: 238 lb: : Gender: Female BSA: 2.1 m2 : :: 1945 Age: 75 yrs BP: 93/51 mmHg: :Reason For Study: Systolic heart failure, elevated BNP : :Ordering Physician: Svetlana : :Hospitalist Performed By: April Saini : :Referring: AYAKA GUZMAN : + + Interpretation Summary This is a limited echocardiogram focused on reassessment of left ventricular systolic function and right ventricular systolic pressure. Left ventricular systolic function remains moderate to severely reduced with an ejection fraction grossly estimated around 30% and likely unchanged from the previous study. There is moderate-severe global hypokinesis, worse in the septum with a significant dyssynchronous contraction pattern suggestive of a conduction abnormality, but this appears similar to the previous study. Left ventricular volumes are mildly increased but likely unchanged from the previous exam. The right ventricle is not well seen but grossly appears normal. Right ventricular systolic pressure is likely around 36 mmHg plus the clinically estimated CVP which cannot be estimated because of lack of visualization of the IVC. However, given the lower tricuspid regurgitant velocity, right ventricular systolic pressure is likely lower compared to the previous study. While the cardiac valves were not extensively evaluated, there appears to be only mild tricuspid regurgitation that grossly appears less prominent compared to the previous study, and mild to moderate mitral regurgitation that appears slightly more prominent although, again, a complete evaluation was not performed. Procedure: A two-dimensional transthoracic echocardiogram with color flow and Doppler was performed in limited views only to assess left ventricular function and wall motion and RVSP. The study quality was technically difficult. Comparison is made with the echocardiogram of 03/23/2020. A contrast injection of Definity was performed to improve assessment of LV function. The patient was in sinus tachycardia with heart rates between 94-102 bpm during the exam. Left Ventricle: The left ventricle is mildly dilated. There is normal left ventricular wall thickness. Left ventricular systolic function is moderate to severely reduced. Left ventricular ejection fraction is estimated to be around 30%. There is moderate to severe global hypokinesis of the left ventricle. There is a significant dyssynchronous contraction pattern, consistent with a conduction abnormality. Diastolic function could not be accurately assessed due to unobtainable data. Right Ventricle: The right ventricle grossly appears normal in size with probable normal systolic function. This is unchanged compared to the previous study. Mitral Valve: There is mild to moderate mitral regurgitation. This is slightly more prominent compared to the previous study. Tricuspid Valve: There is mild tricuspid regurgitation. This is grossly less prominent compared to the previous study. Right ventricular systolic pressure is estimated to be 36 mmHg plus the clinically estimated CVP which cannot be estimated on this exam. Compared to the prior echo exam, there has been a decrease in the severity of pulmonary hypertension. MMode/2D Measurements & Calculations LVIDd: 5.5 cm LA A2 area: 22.0 cm2 LVIDs: 4.3 cm LA A4 area: 21.0 cm2 FS: 21.3 % LA length (vol): 6.0 cm EPSS: 1.5 cm LA vol: 65.2 ml IVSd: 0.76 cm LA vol index: 31.3 ml/m2 LVPWd: 0.75 cm LV dalton. diameter/BSA (cm/m^2): 2.6 LV sys. diameter/BSA (cm/m^2): 2.1 RVD1 (basal): 4.0 cm TAPSE: 2.3 cm Doppler Measurements & Calculations Med Peak E' Tremaine: 2.6 cm/sec TR max tremaine: 299.0 cm/sec Lat Peak E' Tremaine: 9.7 cm/sec TR max P.8 mmHg MR VTI: 123.5 cm Reading Physician:11:35 AM
[2020-06-11] MEDS: ARIPiprazole 10 MG TABLET 30 MG PO (21:37)
[2020-06-11] MEDS: MELATONIN 3 MG TABLET 9 MG PO (21:38)
[2020-06-12] VITALS (14 sets, daily range): BP systolic 90–125; BP diastolic 51–83; PULSE 73–98; RESP 16–20; TEMP 36.6–36.7; O2SAT 94–98
[2020-06-12 08:01] LABS: BUN Creatinine Ratio 29.7 (6-22); Blood Urea Nitrogen 19 mg/dL (7-17); Calcium 9.4 mg/dL (8.4-10.2); Carbon Dioxide 28 mmol/L (22-32); Chloride 101 mmol/L (98-107); Estimated Glomerular Filt Rate > 60.0 mL/min (>60); Glucose 114 mg/dL (80-110); HEMOLYSIS < 15 (0-50); Magnesium 2.3 mg/dL (1.6-2.3); Sodium 137 mmol/L (137-145)
[2020-06-12] MEDS: APIXABAN 5 MG TABLET PO ×2 (09:54→21:28)
[2020-06-12] MEDS: PRIMIDONE 50 MG TABLET 250 MG PO ×2 (09:54→21:28)
[2020-06-12] MEDS: DOCUSATE 100 MG CAPSULE PO ×2 (09:54→21:25)
[2020-06-12] MEDS: SODIUM CHLORIDE 0.9% FLUSH 10 ML IV ×2 (09:55→21:29)
[2020-06-12] MEDS: METOPROLOL ER 25 MG TABLET 75 MG PO ×2 (10:13→21:27)
--- NOTE | 2020-06-12 10:25 | PC.NURSE ---
Clarified with Dr. Bhatt regarding am ordered bumex and metoprolol, with regards to blood pressure. Per MD give metoprolol as ordered, but hold bumex today. Patient denies shortness of breath, chest pain.
--- NOTE | 2020-06-12 14:48 | P.PN_ITS ---
Subjective Subjective Date Patient Seen: 06/12/20 Time Patient Seen: 08:48 Interval history: Today she denies any new complaints. She never felt SOB, or racing heart on admission. She does not have chest pain, shortness of breath, or racing heart sensation. Exam Vital Signs (past 8 hours): - 06/12/20 07:42 06/12/20 08:00 06/12/20 10:13 Temperature 97.8 F Pulse Rate 86 86 83 Respiratory Rate 16 16 Blood Pressure 98/54 L 99/53 L Pulse Oximetry 96 95 06/12/20 14:00 Temperature Pulse Rate 96 H Respiratory Rate Blood Pressure 102/59 L Pulse Oximetry Oxygen Delivery Method Room Air Oxygen Flow Rate 0 Narrative Exam Narrative: GENERAL APPEARANCE: well developed, obese with BMI of 41.8, sitting up in bed conversant, in no acute distress. HEENT: Normocephalic, PERRLA, conjunctiva clear, EOMs intact without nystagmus, oral membranes pink and moist NECK/THYROID: neck supple, no JVD, no carotid bruit, no thyromegaly, trachea midline. LYMPH NODES: no cervical or supraclavicular lymphadenopathy. SKIN: [place], warm and dry, bilateral red crusted facial psoriasis. HEART: Irregularly irregular, tachycardic S1-S2, no murmur, no rubs or gallops, brisk capillary refill, bilateral pedal edema 1+. LUNGS: Breath sounds globally diminished, no courses crackles or wheezing, no cough present. No conversational dyspnea. CHEST: Symmetrical movement, no accessory muscle use, good tidal volume. ABDOMEN: Soft, obese, non-tender and non-distended. EXTREMITIES: moves all extremities, strength is 5/5 and symmetrical, no deformities or joint effusions no clubbing or cyanosis. NEUROLOGIC: Alert and oriented to person and place, slow speech cranial nerves II-XII grossly intact, sensation intact to light touch, hearing grossly normal to speech. PSYCH: Alert, flat affect, conversant highly tangential thought, cooperative Objective Labs Result Diagrams: 06/11/20 05:15 06/12/20 07:15 Labs: Laboratory Results - last 24 hr 06/12/20 07:15 Sodium 137 Potassium 4.0 Chloride 101 Carbon Dioxide 28 BUN 19 H Creatinine 0.64 Estimated GFR > 60.0 BUN/Creatinine Ratio 29.7 H Glucose 114 H Calcium 9.4 Magnesium 2.3 PFSH Medical History Active asthma Acute systolic heart failure Anxiety disorder Atrial fibrillation Blood loss anemia Dysphasia Epilepsy Hypertension Lymphedema Morbid obesity Schizophrenia Urinary incontinence Vitamin D deficiency Surgical History History of tonsillectomy Status post cholecystectomy Family History Grandfather Stroke Mother Mental health problem Grandfather Stroke Social History household members: none housing: group home Smoking Status: Never smoker alcohol intake: never Assessment & Plan Assessment & Plan narrative: 74 year old female with a history of atrial fibrillation, morbid obesity, Schizophrenia, systolic heart failure, UTI's, hypertension, asthma and osteoarthritis who is admitted with atrial fib/ flutter with RVR. 1. Atrial flutter with RVR, present on admission, active. -12 lead EKG on admission finds atrial flutter ventricular rate of 144 without ectopy or block, no ST or T-wave changes.Troponin negative. -Continue metoprolol 75 mg BID, little room for upward adjustment at this time. Continue digoxin. Rate improved after dig loading -will continue Eliquis anticoagulation 5 mg twice daily 2. Acute exacerbation of chronic systolic heart failure, present on admission, active -the patient has had increasing symptoms for approximately 3 weeks with shortness of breath extremity swelling. She chronically wears bilateral compression hose. -chest x-ray finds interstitial prominence mid lower lobes. -most recent echocardiogram was obtained on 03/23/2020 which reflected an EF 30- 35%, elevate grossly normal wall thickness with global reduced systolic function and dyssynchronous contraction pattern. Repeat TTE today unchanged. -patient received 80 mg of Lasix in the emergency department with modest diuresis. -held home bumetanide this AM as she was mildly hypotensive and leg edema appeared much improved 3. Mild intermittent asthma, chronic, stable. -patient is not on routine asthma management medication. No wheezing noted on exam. -patient maintains adequate room air saturation of 96%. 4. Hypertension, chronic, stable -patient presents to ED with blood pressure 108/67. -patient became hypotensive in the ER with administration and diltiazem. -resume home medicatiosn as able, low BP thought at least to be due to rapid ventricular response. 5. Epilepsy, chronic, stable. -patient is unable to report last seizure activity. -will continue current regimen of primidone 250 mg twice daily. 6. Schizophrenia, chronic, stable. -patient is behaviorally stable. -will continue home regimen of arpiprazole 30 mg at bedtime. VTE prophylaxis: Anticoagulated on Eliquis IV fluid: Saline lock Diet: Heart healthy Code status: Full code, patient's son Isacc Prater is a surrogate decision maker and holds DPOA. Dispo: possible discharge home tomorrow if blood pressure is stable, patient is observation status at this time. Quality VTE Deep Vein Thrombosis/Pulmonary Embolism Present on Admission: No
--- NOTE | 2020-06-12 14:58 | CM.DPNOTE ---
DCP Cont According to Dr Bhatt, patient may be medically stable for DC Sunday06.13.20. Updated Gloria at [facility] she will be covering the phone this . Gloria requests COVID be updated and requests update Sunday re: plan Plan: DC back to [facility] via w/c when medically cleared. Will need updated COVID test, no PASRR needed JW
[2020-06-12] MEDS: DIGOXIN 0.125 MG TABLET PO (16:57)
[2020-06-12] MEDS: MELATONIN 3 MG TABLET 9 MG PO (21:25)
[2020-06-12] MEDS: ARIPiprazole 10 MG TABLET 30 MG PO (21:25)
[2020-06-12 23:26] LABS: COVID19 -Nasal RAPID Negative (Negative)
[2020-06-13 04:29] VITALS: BP 97/58; PULSE 74; RESP 18; TEMP 36.5; O2SAT 96
[2020-06-13 06:09] LABS: Hematocrit 36.2 % (36-46); Mean Corpuscular HGB Conc 33.2 % (30-36); Mean Corpuscular Hemoglobin 32.5 PG (26-34); Mean Corpuscular Volume 97.7 fL (80-100); Platelet Count 278 X10^3/uL (150-400); Red Cell Distribution Width 14.1 % (11.6-14.8); White Blood Cell Count 11.3 X10^3/uL (4.5-11.0)
[2020-06-13 06:21] LABS: Blood Urea Nitrogen 22 mg/dL (7-17); Calcium 9.1 mg/dL (8.4-10.2); Carbon Dioxide 28 mmol/L (22-32); Chloride 103 mmol/L (98-107); Estimated Glomerular Filt Rate > 60.0 mL/min (>60); Glucose 110 mg/dL (80-110); HEMOLYSIS < 15 (0-50); Magnesium 2.2 mg/dL (1.6-2.3); Potassium 4.3 mmol/L (3.4-5.1); Sodium 136 mmol/L (137-145)
[2020-06-13 07:48] VITALS: PULSE 74; RESP 16; O2SAT 96
[2020-06-13 08:00] VITALS: BP 97/57; PULSE 97; RESP 24; TEMP 36.8; O2SAT 94
[2020-06-13] MEDS: PRIMIDONE 50 MG TABLET 250 MG PO (09:06)
[2020-06-13] MEDS: APIXABAN 5 MG TABLET PO (09:06)
[2020-06-13] MEDS: DOCUSATE 100 MG CAPSULE PO (09:06)
[2020-06-13] MEDS: SODIUM CHLORIDE 0.9% FLUSH 10 ML IV (09:07)
[2020-06-13] MEDS: BUMETANIDE 1 MG TABLET 10 MG PO (09:07)
[2020-06-13 09:09] VITALS: BP 101/55; PULSE 75
[2020-06-13] MEDS: METOPROLOL ER 25 MG TABLET 75 MG PO (09:09)
--- NOTE | 2020-06-13 11:04 | CM.DPC ---
DCP Continued [employer] student met with patient this date as she was sitting in a chair. Nurse was present. She was alert and oriented. Patient and nurse made aware she will be transported back to [facility] at 1300 this date. Patient expressed concerns about ensuring [facility] is aware of the heart-healthy diet the hospitalist recommended. Reese the nurse reported she will make arrangements for the information to be added to the D/C plan, confirmed it was done. [employer] called and spoke with Gloria at [facility] , 1300 pick-up was confirmed. YUSUF Franks MSW Student
--- NOTE | 2020-06-13 12:33 | PC.NURSE ---
Report given to [facility] prior to patient's discharge. Finnegan was removed this morning, patient tolerated well, and brief in place for urinary incontinence. Tolerating meals, denies pain, denies shortness of breath. IV dc'd intact. Patient states understanding of discharge instructions and has no further questions at this time. Picked up by [facility] transport wit all belongings and paperwork.
--- NOTE | 2020-06-13 13:47 | PC.NURSE ---
Patient up to [facility] before discharge. IV removed, tip intact, patient tolerated. Brief changed.
--- NOTE | 2020-06-13 21:16 | P.DS_ITS ---
History of Present Illness History of Present Illness Chief complaint: Tachy Narrative: Per Dr. Nazario's H and P: Ms. Lisa Kim is a 74 year old female with a history of atrial fibrillation, morbid obesity, Schizophrenia, systolic heart failure, UTI's, hypertension, asthma and osteoarthritis who is sent to the ER provider's office where she was found to be have tachycardia further evaluation. The patient reports dyspnea worse with activity and orthopnea for approximately 3 weeks. Over the same time she reports having occasional substernal chest pain had she describes as a sharp pain lasting 10-15 seconds. She also reports worsening swelling of her lower extremities for which she wears compression hose left ovaries being more swollen the right. The patient has had no complaints of dizz iness, diaphoresis, nausea or vomiting. She reports no recent fevers or chills, headaches, nasal congestion or sore throat. She has felt no palpitations and is unaware when she has rapid heartbeat. Denies epigastric or abdominal pain and has had no diarrhea or constipation. She denies urinary symptoms of urgency frequency or burning. Upon arrival to the ER the patient's temperature 97.9?, heart rate of 145, blood pressure 108/67, respirations of 18 saturating 99% on room air. Chest x-ray r eveals interstitial prominence bilateral mid and lower lobes. Twelve lead EKG finds a flutter the ventricular response of 144, no ectopy, ST or T-wave changes. On laboratory analysis her CBC is unremarkable. On chemistries she has a sodium of 135 for potassium is 3.6 BUN is 13 and creatinine 0.96. Her nonfasting glucose is 128. She has a total bilirubin 0.3 and elevated AST of 49, ALT of 32 and alkaline phosphatase 112. ProBNP is elevated at 1920. TSH is 1.57. The patient is admitted to the hospitalist service for atrial flutter with RVR. Discharge Providers Provider Date of admission: 06/12/20 16:00 Discharge Date: 06/13/20 Consults: 06/10/20 19:34 Consult to Discharge Planning Routine Comment: Discharge provider: Mack Bhatt MD Summary Hospital Course Discharge Diagnosis: 1. Atrial flutter with RVR 2. Acute on chronic sytolic CHF exacerbation 3. Mild chronic asthma 4. Hypertension, chronic 5. Epilepsy 6. Schizophrenia 7. Morbid Obesity, BMI 41.8 Hospital Course: Ms. Kim was initially admitted with shortness of breath and found to be initially tachycardic with a heart rate in the 140s found to be in atrial flutter. She was continued on metoprolol and eliquis. In addition she was loaded with digoxin and had good improvement with her heart rate, and will be continued on oral digoxin. She had an ECHO performed which demonstrated a reduced EF of 30-35% which appeared unchanged from previous exam. She was noted to have shortness of breath on admission and did get IV lasix with good urine output response and improvement of her symptoms and edema. She should continue her bumex orally as an outpatient. In addition, for her systolic heart failure she should be on low dose lisinopril and continue with metoprolol. These would be recommended over medications such as digoxin and imdur given her medical comorbidities. The rest of her medical issues remained stable in the hospital and she was able to be discharged with a normal heart rate and not requiring any oxygen. Status at Discharge Cognitive/behavioral status at discharge: oriented Functional status at discharge: bed bound Overall status at discharge: patient is back to baseline Time Spent with Patient Time spent: Greater than 30 minutes Exam Vital Signs (past 8 hours): Oxygen Delivery Method Room Air Oxygen Flow Rate 0 Narrative Exam Narrative: GENERAL APPEARANCE: well developed, obese with BMI of 41.8, sitting up in bed conversant, in no acute distress. HEENT: Normocephalic, PERRLA, conjunctiva clear, EOMs intact without nystagmus, oral membranes pink and moist NECK/THYROID: neck supple, no JVD, no carotid bruit, no thyromegaly, trachea midline. LYMPH NODES: no cervical or supraclavicular lymphadenopathy. SKIN: [place], warm and dry, bilateral red crusted facial psoriasis. HEART: Irregularly irregular, tachycardic S1-S2, no murmur, no rubs or gallops, brisk capillary refill, bilateral pedal edema 1+. LUNGS: Breath sounds globally diminished, no courses crackles or wheezing, no cough present. No conversational dyspnea. CHEST: Symmetrical movement, no accessory muscle use, good tidal volume. ABDOMEN: Soft, obese, non-tender and non-distended. EXTREMITIES: moves all extremities, strength is 5/5 and symmetrical, no deformities or joint effusions no clubbing or cyanosis. NEUROLOGIC: Alert and oriented to person and place, slow speech cranial nerves II-XII grossly intact, sensation intact to light touch, hearing grossly normal to speech. PSYCH: Alert, flat affect, conversant highly tangential thought, cooperative Objective Labs Result Diagrams: 06/13/20 05:55 06/13/20 05:55 Labs: Laboratory Results - last 24 hr 06/12/20 06/13/20 06/13/20 22:55 05:55 05:55 WBC 11.3 H RBC 3.70 L Hgb 12.0 Hct 36.2 MCV 97.7 MCH 32.5 MCHC 33.2 RDW 14.1 Plt Count 278 Sodium 136 L Potassium 4.3 Chloride 103 Carbon Dioxide 28 BUN 22 H Creatinine 0.71 Estimated GFR > 60.0 BUN/Creatinine Ratio 31.0 H Glucose 110 Calcium 9.1 Magnesium 2.2 SARS-CoV-2 (PCR) Negative [facility] Medical History Active asthma Acute systolic heart failure Anxiety disorder Atrial fibrillation Blood loss anemia Dysphasia Epilepsy Hypertension Lymphedema Morbid obesity Schizophrenia Urinary incontinence Vitamin D deficiency Surgical History History of tonsillectomy Status post cholecystectomy Family History Grandfather Stroke Mother Mental health problem Grandfather Stroke Social History household members: none housing: fdc Smoking Status: Never smoker alcohol intake: never Discharge Plan Discharge Plan Patient Disposition: Assisted Living Provider Discharge Comment: Ms. Kim was admitted with a fast heart rate (tachycardia). She was found to have atrial fibrillation, which is a known diagnosis for her. She had some slight swelling, from fluid retention, and got lasix to remove this fluid. She felt well while here and denied on day of discharge any lightheadedness, shortness of breath, chest pain, nor racing heart. She had a new medication started to help control her heart rate digoxin, which she should continue once a day. Her other medications were noted to include diltiazem and Imdur. These should both be stopped. She has systolic CHF with an EF and 30-35% confirmed on this admission. She would benefit from an neida-inhibitor and therefore has been ordered a low dose lisinopril to take daily. The rest of her medications were continued unchanged. Discharge orders & Medications Discharge Orders: Discharge (Order); Ordered 06/13/20 Ordered By: Mack Bhatt Prescriptions: New digoxin 125 mcg (0.125 mg) Tablet 0.125 mg PO DAILY@1700 Qty: 30 RF: 0 lisinopril 2.5 mg tablet 2.5 mg PO DAILY Qty: 30 RF: 0 Continued FOLIC ACID (#FOLATE) 1 mg PO QDAY Qty: 0 RF: 0 primidone 250 MG tablet 250 mg PO BID Qty: 180 RF: 3 Eliquis 5 mg Tablet 5 mg PO BID RF: 0 aripiprazole 30 mg Tablet 30 mg PO BEDTIME RF: 0 bumetanide 2 mg Tablet 10 mg PO DAILY RF: 0 magnesium oxide 420 mg Tablet 420 mg PO DAILY RF: 0 potassium chloride 10 mEq Tablet Extended Release 10 meq PO DAILY RF: 0 acidophilus-pectin, citrus [Acidophilus Probiotic] 100 million cell-10 mg Capsule 1 cap PO DAILY RF: 0 nystatin 100,000 unit/gram Powder 1 applic TOPICAL DAILY RF: 0 Calcium 600 with Vitamin D3 600 mg(1,500mg) -400 unit Tablet,Chewable 1 tab PO DAILY RF: 0 melatonin 3 mg Tablet 6 mg PO BEDTIME RF: 0 metoprolol succinate 25 mg Tablet Extended Release 24 Hr 75 mg PO BID 30 Days Qty: 120 RF: 0 ascorbic acid (vitamin C) 1,000 mg Tablet 1,000 mg PO DAILY RF: 0 acetaminophen [Tylenol] 325 mg Tablet 650 mg PO PRN PRN (Reason: Pain, Mild) RF: 0 ammonium lactate 12 % Lotion 1 applic TOPICAL DAILY RF: 0 metronidazole [Metrogel] 1 % Gel 1 applic TOPICAL DAILY RF: 0 Discontinued isosorbide mononitrate 30 mg Tablet Extended Release 24 Hr 30 mg PO DAILY RF: 0 diltiazem HCl 30 mg tablet 30 mg PO TID RF: 0 Discharge Health Status Multidrug resistant organism: No MDRO Diet/Activity/Treatments Diet: Low-sodium Liquid consistency: Normal/Thin Food texture: Soft Diet comment: heart healthy, low sodium diet. Choose soft foods. Catheter comment: yani tello 06/13/20 at 930am Visit Report/Discharge Packet Instructions: DI for Heart Failure, DI for Atrial Fibrillation, Digoxin Quality VTE Deep Vein Thrombosis/Pulmonary Embolism Present on Admission: No
--- NOTE | 2020-06-16 10:59 | CM.DPNOTE ---
Late entry: 06/16/20 at 10:30 AUGUSTUS Orosco, said son, Isacc, came by to speak to Hospitalist because Abhilash was not following ICU/hospitalist heart healthy diet plan. Our DC plan said pt should be on Low-sodium heart healthy soft food diet. I spoke to Clementina from and she said this diet is the same as their Cardiac mechanical soft diet. She said if Isacc or patient has any other concerns to speak to [facility], and she would be able to assist. I then called and spoke to Isacc and explained all of this to him. He said his mother told him SV was not following the heart healthy diet. Isacc agreed that he would contact [facility] for any other concerns. Jessica Joy CM Asst.
== END 2020-06-13 13:10 | DRG 308 ==
LOC: ED 17:41 → AC 18:52
PROVIDERS: Internal Medicine; Nurse Practitioner Adult Health; Admitting Provider Internal Medicine; Emergency Provider Emergency Medicine; Family Provider Family Medicine; Referring Provider Emergency Medicine; Visit Provider Internal Medicine
DX: I48.92 Unspecified atrial flutter (principal); I50.23 Acute on chronic systolic (congestive) heart failure; Z68.41 Body mass index [BMI] 40.0-44.9, adult; I11.0 Hypertensive heart disease with heart failure; E66.01 Morbid (severe) obesity due to excess calories; F20.9 Schizophrenia, unspecified; I95.9 Hypotension, unspecified; Z79.01 Long term (current) use of anticoagulants; J45.20 Mild intermittent asthma, uncomplicated; G40.909 Epilepsy, unspecified, not intractable, without status epilepticus; Z20.822 Contact with and (suspected) exposure to COVID-19
CPT/HCPCS: 36415; 51701; 71045; 80048; 80053; 80061; 82550; 83690; 83735; 83880; 84439; 84443; 84484; 85025; 85027; 87635; 93005; 93010; 93307; 94760; 94762; 96365; 96375; 99284; 99285; C9803; G0378; J1160; J1940; J3480; Q9957

== ENCOUNTER → 2020-07-20 11:54 | Outpatient (ROUT) | payer MEDICARE, MEDICAID, SELFPAY ==
[2020-06-10 18:53] VITALS: BMI 42.1
[2020-07-20 12:08] LABS: Add Manual Diff / Slide Review NO; Basophils Absolute Auto 100 /uL (0-100); Basophils Percent Auto 0.8 % (0-2); Eosinophils Absolute Auto 300 /uL (0-450); Eosinophils Percent Auto 2.3 % (2-4); Hematocrit 40.8 % (36-46); Hemoglobin 13.9 g/dL (12.0-16.0); Lymphocytes Absolute Auto 4000 /uL (1100-4500); Lymphocytes Percent Auto 35.2 % (25-40); Mean Corpuscular Hemoglobin 33.2 PG (26-34); Mean Corpuscular Volume 97.8 fL (80-100); Monocytes Absolute Auto 800 /uL (0-900); Monocytes Percent Auto 7.1 % (3-14); Neutrophils Absolute Auto 6300 /uL (1500-7000); Neutrophils Percent Auto 54.6 % (50-75); Platelet Count 296 X10^3/uL (150-400); Red Blood Cell Count 4.17 X10^6/uL (4.0-5.2); Red Cell Distribution Width 14.9 % (11.6-14.8); White Blood Cell Count 11.5 X10^3/uL (4.5-11.0)
[2020-07-20 12:26] LABS: Alanine Aminotransferase 38 IU/L (<35); Albumin 4.1 g/dL (3.5-5.0); Albumin Globulin Ratio 1.1 (1.0-2.8); Alkaline Phosphatase 104 U/L (38-126); Aspartate Aminotransferase 70 IU/L (14-36); Bilirubin Total 0.3 mg/dL (0.2-1.3); Blood Urea Nitrogen 12 mg/dL (7-17); Calcium 9.5 mg/dL (8.4-10.2); Carbon Dioxide 28 mmol/L (22-32); Chloride 95 mmol/L (98-107); Estimated Glomerular Filt Rate 59.7 mL/min (>60); Globulin 3.7 g/dL (1.7-4.1); Glucose 178 mg/dL (80-110); HEMOLYSIS < 15 (0-50); Potassium 3.6 mmol/L (3.4-5.1); Sodium 136 mmol/L (137-145); Total Protein 7.8 g/dL (6.3-8.2)
[2020-07-20 12:28] LABS: Digoxin 0.6 ng/mL (0.8-2.0)
[2020-07-20 12:41] LABS: Free T4, Direct Thyroxine 1.31 ng/dL (0.78-2.19)
[2020-07-20 12:55] LABS: Thyroid Stimulating Hormone 1.92 uIU/mL (0.47-4.68)
== END ==
PROVIDERS: Family Provider Family Medicine; Visit Provider Nurse Practitioner
DX: I48.91 Unspecified atrial fibrillation (principal); I50.9 Heart failure, unspecified; F33.0 Major depressive disorder, recurrent, mild; F41.9 Anxiety disorder, unspecified
CPT/HCPCS: 80053; 80162; 84439; 84443; 85025

== ENCOUNTER → 2020-08-10 21:37 | Outpatient (ROUT) | payer MEDICARE, MEDICAID, SELFPAY ==
[2020-06-10 18:53] VITALS: BMI 42.1
[2020-08-10 21:45] LABS: Appearance Urine UA CLEAR; Bilirubin Urine UA NEGATIVE (NEGATIVE); Color Urine UA YELLOW; Glucose Urine UA NEGATIVE (Negative); Ketones Urine UA NEGATIVE (NEGATIVE); Leukocyte Esterase Urine UA 2+ (NEGATIVE); Nitrite Urine UA NEGATIVE (Negative); Occult Blood Urine UA TRACE-INTACT (Negative); Protein Urine UA NEGATIVE (Negative); Specific Gravity Urine UA 1.015 (1.000-1.035); Urobilinogen Urine UA 0.2 E.U./dL (0.2)
[2020-08-10 21:53] LABS: pH Urine UA 6.5 (4.5-8.0)
[2020-08-10 22:13] LABS: Bacteria Urine Many (>30); RBC Urine 0-1/HPF (0-5/HPF); Squamous Epithelial Cell Urine 0-1 /HPF (0-5/HPF); WBC Urine 10-30/HPF (0-5/HPF)
== END ==
PROVIDERS: Family Provider Family Medicine; Visit Provider Nurse Practitioner
DX: R41.0 Disorientation, unspecified (principal)
CPT/HCPCS: 81001; 87077; 87086; 87186

== ENCOUNTER → 2020-08-27 16:42 | Outpatient (ROUT) | payer MEDICARE, MEDICAID, SELFPAY ==
[2020-06-10 18:53] VITALS: BMI 42.1
[2020-08-27 16:45] LABS: Bacteria Urine None Seen
[2020-08-27 17:07] LABS: Bilirubin Urine UA NEGATIVE (NEGATIVE); Color Urine UA YELLOW; Glucose Urine UA NEGATIVE (Negative); Ketones Urine UA NEGATIVE (NEGATIVE); Leukocyte Esterase Urine UA NEGATIVE (NEGATIVE); Nitrite Urine UA NEGATIVE (Negative); Occult Blood Urine UA 3+ (Negative); Protein Urine UA NEGATIVE (Negative); Specific Gravity Urine UA 1.015 (1.000-1.035); Urobilinogen Urine UA 0.2 E.U./dL (0.2)
[2020-08-27 17:16] LABS: Appearance Urine UA Slightly Cloudy; pH Urine UA 6.5 (4.5-8.0)
[2020-08-27 17:17] LABS: Culture Indicated Urine Cult Not Indicated; RBC Urine 10-30/HPF (0-5/HPF); Squamous Epithelial Cell Urine 1-5 /HPF (0-5/HPF); WBC Urine 0-1/HPF (0-5/HPF)
== END ==
PROVIDERS: Family Provider Family Medicine; Visit Provider Nurse Practitioner
DX: R41.82 Altered mental status, unspecified (principal)
CPT/HCPCS: 81001

== ENCOUNTER → 2020-09-21 10:52 | Outpatient (CLI) | payer MEDICARE, MEDICAID, SELFPAY ==
[2020-06-10 18:53] VITALS: BMI 42.1
--- NOTE | 2020-09-21 | DI.RAD.S_ITS ---
PROCEDURE: XR CHEST 2V INDICATIONS: COUGH TECHNIQUE: 2 views of the chest were acquired. COMPARISON: [facility], CR, XR CHEST 2V, 12/26/2019, 14:26. [facility], CT, CT CHEST WO CON, 03/22/2020, 4:53. [facility], CR, XR CHEST 1V, 06/10/2020, 15:09. FINDINGS: Surgical changes and devices: None. Lungs and pleura: Ill-defined scarring/atelectasis seen in the left costophrenic angle although this appears grossly unchanged over time. No pleural effusions or pneumothorax. Mediastinum: Mediastinal contours are normal. Heart size is normal. Bones and chest wall: Lateral curvature of the visualized spine and discogenic changes. Bilateral shoulder joint degeneration. IMPRESSION: Scattered subsegmental atelectasis and/or scarring. No focal consolidation. No definite interval change Dictated by: Shiva Escobar M.D. on 09/21/2020 at 12:54 Approved by: Shiva Escobar M.D. on 09/21/2020 at 12:56
== END ==
PROVIDERS: Family Provider Family Medicine; Referring Provider Nurse Practitioner; Visit Provider Nurse Practitioner
DX: R05 Cough (principal); R50.9 Fever, unspecified
CPT/HCPCS: 71046

== ENCOUNTER → 2020-09-26 14:52 | Outpatient (ROUT) | payer MEDICARE, MEDICAID, SELFPAY ==
[2020-06-10 18:53] VITALS: BMI 42.1
[2020-09-26 15:06] LABS: Appearance Urine UA SL CLOUDY; Bilirubin Urine UA NEGATIVE (NEGATIVE); Glucose Urine UA NEGATIVE (Negative); Ketones Urine UA NEGATIVE (NEGATIVE); Leukocyte Esterase Urine UA TRACE (NEGATIVE); Nitrite Urine UA NEGATIVE (Negative); Occult Blood Urine UA TRACE-INTACT (Negative); Protein Urine UA NEGATIVE (Negative); Specific Gravity Urine UA <=1.005 (1.000-1.035); Urobilinogen Urine UA 0.2 E.U./dL (0.2)
[2020-09-26 15:12] LABS: Amorphous Sediment Urine 3+; Bacteria Urine Moderate (10-30); Color Urine UA YELLOW; Culture Indicated Urine Specimen Cultured; RBC Urine 1-5/HPF (0-5/HPF); Squamous Epithelial Cell Urine 0-1 /HPF (0-5/HPF); WBC Urine 1-5/HPF (0-5/HPF); pH Urine UA 7.5 (4.5-8.0)
== END ==
PROVIDERS: Family Provider Family Medicine; Visit Provider Nurse Practitioner
DX: N39.0 Urinary tract infection, site not specified (principal); D72.829 Elevated white blood cell count, unspecified
CPT/HCPCS: 81001; 87077; 87086; 87186

== ENCOUNTER → 2020-09-27 07:23 | Outpatient (ROUT) | payer MEDICARE, MEDICAID, SELFPAY ==
[2020-06-10 18:53] VITALS: BMI 42.1
[2020-09-27 07:41] LABS: BUN Creatinine Ratio 31.6 (6-22); Blood Urea Nitrogen 25 mg/dL (7-17); Calcium 8.6 mg/dL (8.4-10.2); Carbon Dioxide 28 mmol/L (22-32); Chloride 101 mmol/L (98-107); Estimated Glomerular Filt Rate > 60.0 mL/min (>60); Glucose 120 mg/dL (80-110); Hematocrit 39.3 % (36-46); Hemoglobin 12.8 g/dL (12.0-16.0); Mean Corpuscular HGB Conc 32.6 % (30-36); Mean Corpuscular Hemoglobin 32.8 PG (26-34); Mean Corpuscular Volume 100.5 fL (80-100); Platelet Count 186 X10^3/uL (150-400); Red Blood Cell Count 3.91 X10^6/uL (4.0-5.2); Sodium 136 mmol/L (137-145)
[2020-09-27 07:43] LABS: Add Manual Diff / Slide Review YES
[2020-09-27 07:49] LABS: HEMOLYSIS 77 (0-50); Potassium 4.6 mmol/L (3.4-5.1)
[2020-09-27 08:15] LABS: Anisocytosis 1+; Neutrophils Absolute Manual 5940 /uL (3000-5900); Poikilocytosis 1+; Polychromasia 1+; Total Cells Counted 100
== END ==
PROVIDERS: Family Provider Family Medicine; Visit Provider Nurse Practitioner
DX: J18.9 Pneumonia, unspecified organism (principal); N39.0 Urinary tract infection, site not specified; D72.829 Elevated white blood cell count, unspecified
CPT/HCPCS: 80048; 85007; 85025

== ENCOUNTER → 2020-09-27 09:46 | Outpatient (CLI) | payer MEDICARE, MEDICAID, SELFPAY ==
[2020-06-10 18:53] VITALS: BMI 42.1
--- NOTE | 2020-09-27 | DI.RAD.S_ITS ---
PROCEDURE: XR CHEST 2V INDICATIONS: Pneumonia, unspecified organism TECHNIQUE: 2 views of the chest were acquired. COMPARISON: [facility], CR, XR CHEST 2V, 09/21/2020, 11:09. FINDINGS: Surgical changes and devices: None. Lungs and pleura: There is pulmonary vascular congestion. No focal consolidation or mass. No pneumothorax or pleural effusion. Mediastinum: Mediastinal contours are normal. Heart size is enlarged. Bones and chest wall: Multilevel degenerative changes of the thoracic spine. No suspicious bony abnormalities. Soft tissues appear unremarkable. IMPRESSION: Cardiomegaly and pulmonary vascular congestion. Dictated by: Jens Butterfield M.D. on 09/27/2020 at 15:17 Approved by: Jens Butterfield M.D. on 09/27/2020 at 15:19
== END ==
PROVIDERS: Family Provider Family Medicine; Referring Provider Nurse Practitioner; Visit Provider Nurse Practitioner
DX: J18.9 Pneumonia, unspecified organism (principal); I51.7 Cardiomegaly; R09.89 Other specified symptoms and signs involving the circulatory and respiratory systems
CPT/HCPCS: 71046

== ENCOUNTER 2020-09-27 16:28 | Inpatient (IN) | payer MEDICARE, MEDICAID, SELFPAY ==
[2020-06-10 18:53] VITALS: BMI 42.1
[2020-09-27] VITALS (53 sets, daily range): BP systolic 92–135; BP diastolic 53–96; PULSE 78–150; RESP 19–37; TEMP 36.2–36.9; O2SAT 91–99; BMI 40.7
[2020-09-27 16:50] LABS: Add Manual Diff / Slide Review NO; Basophils Absolute Auto 100 /uL (0-100); Basophils Percent Auto 0.5 % (0-2); Eosinophils Absolute Auto 100 /uL (0-450); Eosinophils Percent Auto 1.5 % (2-4); Hematocrit 38.9 % (36-46); Hemoglobin 12.7 g/dL (12.0-16.0); Lymphocytes Absolute Auto 3800 /uL (1100-4500); Lymphocytes Percent Auto 37.8 % (25-40); Mean Corpuscular HGB Conc 32.6 % (30-36); Mean Corpuscular Hemoglobin 32.8 PG (26-34); Mean Corpuscular Volume 100.6 fL (80-100); Monocytes Absolute Auto 1000 /uL (0-900); Monocytes Percent Auto 9.9 % (3-14); Neutrophils Absolute Auto 5000 /uL (1500-7000); Neutrophils Percent Auto 50.3 % (50-75); Platelet Count 187 X10^3/uL (150-400); Red Blood Cell Count 3.86 X10^6/uL (4.0-5.2); Red Cell Distribution Width 16.3 % (11.6-14.8)
--- NOTE | 2020-09-27 16:59 | PC.NURSE ---
[facility]
[2020-09-27] MEDS: dilTIAZem 5 MG/ML SDV 10 MG IV ×2 (17:04→18:18)
[2020-09-27 17:05] LABS: Alanine Aminotransferase 30 IU/L (<35); Albumin 3.3 g/dL (3.5-5.0); Albumin Globulin Ratio 0.9 (1.0-2.8); Alkaline Phosphatase 119 U/L (38-126); Aspartate Aminotransferase 69 IU/L (14-36); BUN Creatinine Ratio 25.8 (6-22); Bilirubin Total 0.7 mg/dL (0.2-1.3); Blood Urea Nitrogen 23 mg/dL (7-17); Calcium 8.4 mg/dL (8.4-10.2); Carbon Dioxide 32 mmol/L (22-32); Chloride 99 mmol/L (98-107); Creatine Kinase 47 U/L (30-135); Estimated Glomerular Filt Rate > 60.0 mL/min (>60); Globulin 3.7 g/dL (1.7-4.1); Glucose 136 mg/dL (80-110); HEMOLYSIS < 15 (0-50); Lipase 133 U/L (23-300); Magnesium 2.3 mg/dL (1.6-2.3); Potassium 3.7 mmol/L (3.4-5.1); Sodium 140 mmol/L (137-145)
[2020-09-27] MEDS: SODIUM CHLORIDE 0.9% 1,000 ML 125 ML IV (17:05)
--- NOTE | 2020-09-27 17:08 | ED_ITS ---
HPI - Arrhythmia/Palpitations General Chief Complaint: Arrhythmia/Palpitations Stated Complaint: Altered Mental State Time Seen by Provider: 09/27/20 17:07 Source: EMS Mode of arrival: EMS Limitations: altered mental status History of Present Illness HPI narrative: 75-year-old female comes emergency department with altered mental status. Patient is unable to give me much information. She can tell me her name, she has difficulty tell me where she as but can not tell me that she lives in [place]. Onset of symptoms is unclear but her prior visits to the emergency department it appears that she is normally a woman with clear mentation who makes her own decisions and does not have any cognitive deficits. Patient also seems to have some slurred speech. EMS states they got a very unclear picture and may have been 1 or 2 days since onset of symptoms verses hours. Per son he spoke with the patient 1 week ago yesterday. Patient does have a history of atrial fibrillation and is on Eliquis as well as metoprolol and digoxin for rate control. Patient does take care prefers all for mood disorder according to the son, bumetanide and lisinopril daily. Patient does attempt to follow commands but has some difficulty. She does not have any clear upper extremity weakness she has difficulty lifting both legs off the bed. Related Data Home Medications Medication Instructions Recorded Confirmed FOLIC ACID (#FOLATE) 1 mg PO QDAY #0 02/28/11 06/11/20 acidophilus 100 million 1 cap PO DAILY 03/22/20 06/11/20 cell-pectin, citrus 10 mg capsule (Acidophilus Probiotic) apixaban 5 mg tablet (Eliquis) 5 mg PO BID 03/22/20 06/11/20 aripiprazole 30 mg tablet 30 mg PO BEDTIME 03/22/20 06/11/20 bumetanide 2 mg tablet 10 mg PO DAILY 03/22/20 06/11/20 calcium carbonate-vitamin D3 600 1 tab PO DAILY 03/22/20 06/11/20 mg(1,500 mg)-400 unit chewable tablet (Calcium 600 with Vitamin D3) magnesium oxide 420 mg tablet 420 mg PO DAILY 03/22/20 06/11/20 melatonin 3 mg tablet 6 mg PO BEDTIME 03/22/20 06/11/20 nystatin 100,000 unit/gram topical 1 applic TOPICAL DAILY 03/22/20 06/11/20 powder potassium chloride 10 mEq 10 meq PO DAILY 03/22/20 06/11/20 tablet,extended release acetaminophen 325 mg tablet 650 mg PO PRN PRN 06/11/20 06/11/20 (Tylenol) ammonium lactate 12 % lotion 1 applic TOPICAL DAILY 06/11/20 06/11/20 ascorbic acid (vitamin C) 1,000 mg 1,000 mg PO DAILY 06/11/20 06/11/20 tablet metronidazole 1 % topical gel 1 applic TOPICAL DAILY 06/11/20 06/11/20 (Metrogel) Previous Rx's Medication Instructions Recorded primidone 250 mg tablet 250 mg PO BID #180 tab 04/03/17 metoprolol succinate 25 mg 75 mg PO BID 30 Days #120 tab 03/23/20 tablet,extended release 24 hr digoxin 125 mcg (0.125 mg) tablet 0.125 mg PO DAILY@1700 #30 tab 06/12/20 lisinopril 2.5 mg tablet 2.5 mg PO DAILY #30 tab 06/12/20 Allergies Allergy/AdvReac Type Severity Reaction Status Date / Time penicillin G Allergy Mild Verified 09/27/20 19:13 phenobarbital Allergy Mild Verified 09/27/20 19:13 Sulfa (Sulfonamide Allergy Mild Verified 09/27/20 19:13 Antibiotics) tetracycline Allergy Mild Verified 09/27/20 19:13 Review of Systems Review of Systems ROS Unobtainable: Unobtainable due to mental status/LOC Patient History Medical History Active asthma Acute systolic heart failure Anxiety disorder Atrial fibrillation Blood loss anemia Dysphasia Epilepsy Hypertension Lymphedema Morbid obesity Schizophrenia Urinary incontinence Vitamin D deficiency Surgical History History of tonsillectomy Status post cholecystectomy Family History Grandfather Stroke Mother Mental health problem Grandfather Stroke Social History household members: none housing: intermediate Smoking Status: Never smoker alcohol intake: never Smoking Status: Never smoker alcohol intake frequency: holidays/special occasions only Substance Use Type: does not use Exam Narrative Exam Narrative: GEN: Obese female, alert, patient is confused, perseverates but does try to answer questions and trails off, patient appears to be in mild distress. Patient does attempt to be cooperative but has difficulty following commands at times. HEENT: Atraumatic, pupils are equal round reactive to light, extraocular movements are intact, nares are clear. Throat is clear without any exudates, erythema, tonsillar enlargement or uvular deviation, patient does appear to have a right lower facial droop. HEART: Regular rate and rhythm without murmur, clicks, rubs. Pulses are equal in upper bilateral extremities LUNGS:Lungs clear to auscultation, no wheezes, rales, crackles, chest moves symmetrically, no tachypnea accessory muscle use ABD:bowel sounds normal, soft, non-tender, no guarding, rebound, rigidity, no masses noted, no hepatosplenomegaly :No CVA tenderness MSCL: Non-tender, no muscle atrophy, patient does not have drift on bilateral upper extremities. She has difficulty following commands for bilateral lower extremities and finger-nose and heel-[place]. Patient may have some dysarthria. NEURO:CN 2-12 intact, sensation normal bilateral upper and lower extremities. No warmth, erythema or other skin changes noted. Initial Vital Signs Initial Vital Signs: Vital Signs Temperature 97.1 F L 09/27/20 16:35 Pulse Rate 150 H 09/27/20 16:35 Respiratory Rate 24 09/27/20 16:35 Blood Pressure 94/70 09/27/20 16:35 Pulse Oximetry 97 09/27/20 16:35 Scores GCS [place] coma scale eye opening: Spontaneous [place] coma scale verbal response: Confused [place] coma scale motor response: Obey commands [place] coma scale total score: 14 NIH Stroke Scale Level of Conciousness: Alert, keenly responsive Ask month/age: Answers neither question correctly, aphasic, stuporous, coma Open/close eyes, close hand: Performs both tasks correctly Best gaze horizontal: Normal Visual warner: No visual loss Facial palsy: Minor paralysis, flattened nasolabial fold, asymmetry on smiling Left arm drift: No drift for full 10 sec Right arm drift: No drift for full 10 sec Sensory on face/arms/legs: Normal, no sensory loss Best language: Mild to moderate, slurs some words Dysarthria: Mild to mod,some slurring Extinction or inattention: No abnormality Course Orders Ordered: ED Orders 09/27/20 16:36 EKG-12 Lead Stat 09/27/20 16:40 BNP [NT-proBNP (BNP-Adult 18+)] Stat Complete Blood Count AUTO DIFF Stat Comprehensive Metabolic Panel Stat Digoxin Stat Lipase Stat Magnesium Stat Partial Thromboplastin Time Stat Prothrombin Time INR Stat TSH w/ Reflex to FT4 Stat Troponin & CK Cardiac Panel Stat 09/27/20 17:01 COVID19 - ADMIT (NAIL TECHNICIAN swab/PCR) Stat 09/27/20 17:22 CT angio head and neck Stat CT head/brain wo con Stat 09/27/20 18:10 Urinalysis and Microscopic Stat Urine Culture Stat Sodium Chloride (Normal Saline 0.9%) 1,000 mls @ 125 mls/hr IV BOLUS ONE Stop: 09/28/20 01:00 Last Infusion: 09/27/20 19:17 Dose: 125 mls/hr Documented by: Admin: 09/27/20 17:05 Dose: 125 mls/hr Documented by: MACARIO Diltiazem HCl 125 mg/ Sodium (Chloride) 125 mls @ 5 mls/hr IV TITRATE ISHAAN; Protocol Last Titration: 09/27/20 19:17 Dose: 5 mg/hr, 5 mls/hr Documented by: Admin: 09/27/20 18:19 Dose: 5 mg/hr, 5 mls/hr Documented by: MACARIO Levofloxacin (Levaquin) 750 mg in 150 mls @ 100 mls/hr IV NOW ONE Stop: 09/27/20 20:18 Discontinued Medications Diltiazem HCl (Diltiazem 5 Mg/Ml Sdv) 10 mg IV NOW ONE Stop: 09/27/20 17:02 Last Admin: 09/27/20 17:04 Dose: 10 mg Documented by: MACARIO Diltiazem HCl (Diltiazem 5 Mg/Ml Sdv) 10 mg IV NOW ONE Stop: 09/27/20 18:11 Last Admin: 09/27/20 18:18 Dose: 10 mg Documented by: MACARIO Reevaluation(s) Reevaluation #1: Patient's mentation is [place] is slightly improved here in the department. But she still is confused, she still does have some mildly slurred speech. Son is at bedside as well. He states she is typically her own decision maker. He is able to give some insight into her history a as well. Consultations Consultation #1: ANNIE Escobar, hospitalist service accepts for admission. Vital Signs Vital signs: Vital Signs - 8 hr 09/27/20 16:35 09/27/20 16:42 09/27/20 16:50 Temperature 97.1 F L Pulse Rate 150 H 147 H 145 H Respiratory Rate 24 31 H 31 H Blood Pressure 94/70 105/74 Pulse Oximetry 97 98 98 09/27/20 17:00 09/27/20 17:04 09/27/20 17:10 Temperature Pulse Rate 141 H 150 H 134 H Respiratory Rate 28 H 27 H Blood Pressure 106/80 106/80 110/75 Pulse Oximetry 97 98 09/27/20 17:15 09/27/20 17:20 09/27/20 17:25 Temperature Pulse Rate 101 H 106 H 115 H Respiratory Rate 31 H 20 24 Blood Pressure 105/70 112/65 104/56 L Pulse Oximetry 99 98 98 09/27/20 17:30 09/27/20 17:35 09/27/20 17:40 Temperature Pulse Rate 125 H 118 H 126 H Respiratory Rate 20 20 23 Blood Pressure 92/64 95/65 94/71 Pulse Oximetry 99 98 99 09/27/20 17:45 09/27/20 18:02 09/27/20 18:04 Temperature Pulse Rate 117 H 78 131 H Respiratory Rate 24 29 H Blood Pressure 105/68 122/56 L Pulse Oximetry 98 97 98 09/27/20 18:05 09/27/20 18:10 09/27/20 18:16 Temperature Pulse Rate 128 H 137 H 140 H Respiratory Rate 25 H 26 H 24 Blood Pressure 110/62 126/81 116/79 Pulse Oximetry 96 98 09/27/20 18:20 09/27/20 18:25 09/27/20 18:30 Temperature Pulse Rate 146 H 114 H 120 H Respiratory Rate 27 H 26 H 31 H Blood Pressure 120/80 127/65 103/65 Pulse Oximetry 91 92 97 09/27/20 18:35 09/27/20 18:40 09/27/20 18:45 Temperature Pulse Rate 114 H 110 H 114 H Respiratory Rate 20 28 H 37 H Blood Pressure 99/69 98/62 105/53 L Pulse Oximetry 97 95 97 09/27/20 18:50 07/12/21 18:55 09/27/20 19:00 Temperature Pulse Rate 118 H 122 H 113 H Respiratory Rate 36 H 29 H 29 H Blood Pressure 102/57 L 119/71 Pulse Oximetry 96 96 97 09/27/20 19:01 09/27/20 19:05 Temperature Pulse Rate 107 H 121 H Respiratory Rate 31 H 32 H Blood Pressure 95/56 L 102/75 Pulse Oximetry 95 96 MDM - Arrhythmia/Palpitations Lab Data Result diagrams: 09/27/20 16:40 09/27/20 16:40 Labs: Lab Results 09/27/20 09/27/20 09/27/20 Range/Units 16:40 16:40 16:40 WBC 10.0 (4.5-11.0) X10^3/uL RBC 3.86 L (4.0-5.2) X10^6/uL Hgb 12.7 (12.0-16.0) g/dL Hct 38.9 (36-46) % MCV 100.6 H (80-100) fL MCH 32.8 (26-34) PG MCHC 32.6 (30-36) % RDW 16.3 H (11.6-14.8) % Plt Count 187 (150-400) X10^3/uL Neut % (Auto) 50.3 (50-75) % Lymph % (Auto) 37.8 (25-40) % Josephine % (Auto) 9.9 (3-14) % Eos % (Auto) 1.5 L (2-4) % Baso % (Auto) 0.5 (0-2) % Neut # (Auto) 5000 (5149-5103) /uL Lymph # (Auto) 3800 (7290-0740) /uL Josephine # (Auto) 1000 H (0-900) /uL Eos # (Auto) 100 (0-450) /uL Baso # (Auto) 100 (0-100) /uL PT 19.8 H (10.1-12.7) SECONDS INR 1.8 H (0.9-1.3) APTT 42 H D (26.4-36.2) SECONDS Sodium 140 (137-145) mmol/L Potassium 3.7 (3.4-5.1) mmol/L Chloride 99 (98-107) mmol/L Carbon Dioxide 32 (22-32) mmol/L BUN 23 H (7-17) mg/dL Creatinine 0.89 (0.52-1.04) mg/dL Estimated GFR > 60.0 (>60) mL/min BUN/Creatinine Ratio 25.8 H (6-22) Glucose 136 H (80-110) mg/dL Calcium 8.4 (8.4-10.2) mg/dL Magnesium 2.3 (1.6-2.3) mg/dL Total Bilirubin 0.7 (0.2-1.3) mg/dL AST 69 H (14-36) IU/L ALT 30 (<35) IU/L Alkaline Phosphatase 119 (38-126) U/L Total Creatine Kinase 47 (30-135) U/L CK-MB (CK-2) TNP CK-MB (CK-2) Rel Index TNP Troponin I 0.042 H (0.01-0.034) ng/mL NT-Pro-B Natriuret Pep 5020 H (<125) pg/mL Total Protein 7.0 (6.3-8.2) g/dL Albumin 3.3 L (3.5-5.0) g/dL Globulin 3.7 (1.7-4.1) g/dL Albumin/Globulin Ratio 0.9 L (1.0-2.8) Lipase 133 (23-300) U/L TSH (0.47-4.68) uIU/mL Urine Color Urine Appearance Urine pH (4.5-8.0) Ur Specific [place] (1.000-1.035) Urine Protein (Negative) Urine Glucose (UA) (Negative) g/dL Urine Ketones (NEGATIVE) Urine Occult Blood (Negative) Urine Nitrate (Negative) Urine Bilirubin (NEGATIVE) Urine Urobilinogen (0.2) E.U./dL Ur Leukocyte Esterase (NEGATIVE) Urine RBC (0-5/HPF) Urine WBC (0-5/HPF) Ur Squamous Epith Cells (0-5/HPF) Urine Bacteria (None) Ur Culture Indicated? Digoxin (0.8-2.0) ng/mL SARS-CoV-2 (PCR) (Negative) 09/27/20 09/27/20 09/27/20 Range/Units 16:40 17:01 18:10 WBC (4.5-11.0) X10^3/uL RBC (4.0-5.2) X10^6/uL Hgb (12.0-16.0) g/dL Hct (36-46) % MCV (80-100) fL MCH (26-34) PG MCHC (30-36) % RDW (11.6-14.8) % Plt Count (150-400) X10^3/uL Neut % (Auto) (50-75) % Lymph % (Auto) (25-40) % Joseph[place] % (Auto) (3-14) % Eos % (Auto) (2-4) % Baso % (Auto) (0-2) % Neut # (Auto) (5044-1305) /uL Lymph # (Auto) (9496-2548) /uL Josephine # (Auto) (0-900) /uL Eos # (Auto) (0-450) /uL Baso # (Auto) (0-100) /uL PT (10.1-12.7) SECONDS INR (0.9-1.3) APTT (26.4-36.2) SECONDS Sodium (137-145) mmol/L Potassium (3.4-5.1) mmol/L Chloride (98-107) mmol/L Carbon Dioxide (22-32) mmol/L BUN (7-17) mg/dL Creatinine (0.52-1.04) mg/dL Estimated GFR (>60) mL/min BUN/Creatinine Ratio (6-22) Glucose (80-110) mg/dL Calcium (8.4-10.2) mg/dL Magnesium (1.6-2.3) mg/dL Total Bilirubin (0.2-1.3) mg/dL AST (14-36) IU/L ALT (<35) IU/L Alkaline Phosphatase (38-126) U/L Total Creatine Kinase (30-135) U/L CK-MB (CK-2) CK-MB (CK-2) Rel Index Troponin I (0.01-0.034) ng/mL NT-Pro-B Natriuret Pep (<125) pg/mL Total Protein (6.3-8.2) g/dL Albumin (3.5-5.0) g/dL Globulin (1.7-4.1) g/dL Albumin/Globulin Ratio (1.0-2.8) Lipase (23-300) U/L TSH 1.95 (0.47-4.68) uIU/mL Urine Color Yellow Urine Appearance Clear Urine pH 7.0 (4.5-8.0) Ur Specific [place] 1.010 (1.000-1.035) Urine Protein Negative (Negative) Urine Glucose (UA) Negative (Negative) g/dL Urine Ketones Negative (NEGATIVE) Urine Occult Blood Trace-intact (Negative) Urine Nitrate Negative (Negative) Urine Bilirubin Negative (NEGATIVE) Urine Urobilinogen 0.2 (0.2) E.U./dL Ur Leukocyte Esterase 1+ H (NEGATIVE) Urine RBC None seen (0-5/HPF) Urine WBC 1-5/hpf (0-5/HPF) Ur Squamous Epith Cells 0-1 /hpf (0-5/HPF) Urine Bacteria None seen (None) Ur Culture Indicated? Specimen cultured Digoxin 0.7 L (0.8-2.0) ng/mL SARS-CoV-2 (PCR) Negative (Negative) Imaging Data Chest x-ray: Radiologist[facility] [employer]: [address] [id number] ReportSigned Patient: Lisa Kim JMR#: [id number]: 7Acct:[id number]/Sex: 75 / FDate of Service: 09/27/20Loc: RADAccession Number: [id number] Procedure: XR chest 2V Ordering Provider: Poornima Sommer PROCEDURE: XR CHEST 2V INDICATIONS: Pneumonia, unspecified organism TECHNIQUE: 2 views of the chest were acquired. COMPARISON: [facility], , XR CHEST 2V, 09/21/2020, 11:09. FINDINGS: Surgical changes and devices: None. Lungs and pleura: There is pulmonary vascular congestion. No focal consolidation or mass. No pneumothorax or pleural effusion. Mediastinum: Mediastinal contours are normal. Heart size is enlarged. Bones and chest wall: Multilevel degenerative changes of the thoracic spine. No suspicious bony abnormalities. Soft tissues appear unremarkable. IMPRESSION: Cardiomegaly and pulmonary vascular congestion. Dictated by: Jens Butterfield M.D. on 09/27/2020 at 15:17 Approved by: Jens Butterfield M.D. on 09/27/2020 at 15:19 CT scan - head: Radi[facility]: [address] [id number] Scan ReportSigned Patient: Lisa Kim JMR#: [id number]: 1946cct:[id number]/Sex: 75 / FDate of Service: 09/27/20Loc: EDAccession Number: [id number] Procedure: CT head/brain wo con Ordering Provider: Roxana Gayle D.O. PROCEDURE: CT HEAD/BRAIN WO CON INDICATIONS: altered mental status, afib, facial droop, ? unknown hx. TECHNIQUE: Noncontrast 4.5 mm thick angled axial sections acquired from the foramen magnum to the vertex, with coronal and sagittal reformats. For radiation dose reduction, the following was used: automated exposure control, adjustment of mA and/or kV according to patient size. COMPARISON: None. FINDINGS: Image quality: This examination is limited by involuntary motion artifact. CSF spaces: Basal cisterns are patent. No extra-axial fluid collections. The ventricles are symmetric in size and shape. Brain: No intracranial bleeds or masses. There is cerebral volume loss for age, with resultant ventricular and sulcal prominence. There are periventricular and deep white matter chronic small vessel ischemic changes. There is intracranial internal carotid artery atherosclerosis. Skull and face: Calvarium and visualized facial bones appear intact, without suspicious lesions. Sinuses: Visualized sinuses and mastoids are clear. IMPRESSION: No acute intracranial hemorrhage is seen. No significant noncontrast head CT abnormality can be seen for age. Dictated by: Trevin Motta M.D. on 09/27/2020 at 17:08 Approved by: Trevin Motta M.D. on 09/27/2020 at 17:09 CTA - brain/neck: Radiologist[facility] [employer]: [address] [id number] Scan ReportSigned Patient: Lisa Kim JMR#: [id number]: [id number]:[id number]/Sex: 75 / FDate of Service: 09/27/20Loc: EDAccession Number: [id number] Procedure: CT angio head and neck Ordering Provider: Roxana Gayle D.O. PROCEDURE: CT ANGIO HEAD AND NECK INDICATIONS: altered mental status, afib, facial droop, ? unknown hx. TECHNIQUE: After the administration of intravenous contrast, 1 mm thick sections acquired from the aortic arch through the [place] of [place]. Post-contrast 4.5 mm thick sections then re-acquired from the foramen magnum to the vertex. COMPARISON: [facility], CT, CT CHEST WO [facility], 03/22/2020, 4:53. FINDINGS: Cerebral CT Angiogram: Internal carotid arteries: No acute findings. Intracranial ICA are patent with no significant stenosis. No occlusion. No aneurysm. Anterior cerebral arteries: Unremarkable. No significant stenosis. No occlusion. No aneurysm. Middle cerebral arteries: Unremarkable. No significant stenosis. No occlusion. No aneurysm. Posterior cerebral arteries: Unremarkable. No significant stenosis. No occlusion. No aneurysm. Basilar artery: Unremarkable. No significant stenosis. No occlusion. No aneurysm. Vertebral arteries: Unremarkable as visualized. Dural venous sinuses: Unremarkable given phase of enhancement. Other: Arterial phase brain parenchyma is unremarkable. Neck CT Angiogram: Internal carotid arteries: Calcified atherosclerotic plaque in both proximal internal carotid arteries noted without hemodynamically significant stenosis utilizing NASCET criteria. Common carotid arteries: Unremarkable. No significant stenosis. No dissection or occlusion. External carotid arteries: Unremarkable. No occlusion. Vertebral arteries: Unremarkable. No significant stenosis. No dissection or occlusion. Other: Hypodense central thyroid nodule is irregular measuring 3.3 cm. Coarse calcification measuring 1.3 x 1.5 cm probably reflects a calcified level 1B lymph node. Aortic Arch and Mediastinum: Partially visualized aortic arch unremarkable wit hout evidence of aneurysm. Origins of the great vessels unremarkable. Any quantitative measurements of stenosis were performed using NASCET criteria. IMPRESSION: 1. No evidence of large vessel occlusion, aneurysm or vascular malformation. 2. Atherosclerotic vascular calcification in the proximal internal carotid arteries without stenosis utilizing NASCET criteria. 3. Incidental 3.3 cm heterogenous thyroid nodule can be further evaluated with ultrasound. 4. Incidental 1.5 cm coarse calcification probably reflects calcified level 1B lymph node Dictated by: Joce Squires M.D. on 09/27/2020 at 17:12 Approved by: Joce Squires M.D. on 09/27/2020 at 17:32 ECG Data Attestation: I personally reviewed and interpreted this ECG as follows: Prior ECG tracings: available for review Interpretation: AFib with RVR, rate of 126 QRS of 124 and QTC of 492. Patient has rightward axis, EKG changes are similar to 06/10/2020. Patient does have RSR in 2 3 AVF with changes in lateral leads which appear consistent with prior. MDM Narrative Medical decision making narrative: This is a 75-year-old female who comes to the emergency department with complaint of altered mental status with unclear onset. Patient appears to have some facial droop and slurred speech and according to prior charts and history of anyone to gather this is atypical. Patient is in AFib with RVR with a heart rate in the 150s, patient was not hypotensive until after Cardizem was given. Patient received 10 mg bolus which had some improvement, she was started on drip but there was large amount of time in between bolus so a 2nd 10 mg bolus was given. Patient's heart rate was improving to the 105 elidia range and 90s more consistently. Patient is afebrile in the department. She had head CT and CTA which does not show any acute change. Unclear time frame and is not a tPA candidate or code IR candidate secondary to this. Patient is anticoagulated but with concern for possible stroke with AFib RVR I did not feel comfortable cardioverting her at this time. As her rate was improving continue to manage chemically. Patient does have some leukocyte esterase on urine but is afebrile, this is a possible source for confusion but seems less likely. Patient antibiotics were ordered in the department. Patient does have vascular congestion on x-ray, elevated BNP with indeterminate troponin and likely has some demand ischemia with CHF component. Critical Care Time Critical Care Time Critical Care Time: Yes Total Critical Care Time: 55 Attestation: The high probability of a clinically significant, sudden or life threatening deterioration of the [cardiac] system(s) required my full and direct attention, intervention and personal management. The aggregate critical care time was [] minutes. This time is in addition to time spent performing reported procedures but includes the following: [x] Data Review and interpretation [x] Patient assessment and monitoring of vital signs [x] Documentation [x] Medication orders and management Discharge Plan Departure Patient Disposition: Admitted As Inpatient Clinical Impression: Atrial fibrillation with rapid ventricular response, Altered mental status, Thyroid nodule, Acute UTI Admit Date/Time: 09/27/20 19:54
[2020-09-27 17:17] LABS: NT-proBNP (BNP-Adult 18+) 5020 pg/mL (<125); Troponin I 0.042 ng/mL (0.01-0.034)
--- NOTE | 2020-09-27 17:22 | DI.CT.S_ITS ---
PROCEDURE: CT HEAD/BRAIN WO CON INDICATIONS: altered mental status, afib, facial droop, ? unknown hx. TECHNIQUE: Noncontrast 4.5 mm thick angled axial sections acquired from the foramen magnum to the vertex, with coronal and sagittal reformats. For radiation dose reduction, the following was used: automated exposure control, adjustment of mA and/or kV according to patient size. COMPARISON: None. FINDINGS: Image quality: This examination is limited by involuntary motion artifact. CSF spaces: Basal cisterns are patent. No extra-axial fluid collections. The ventricles are symmetric in size and shape. Brain: No intracranial bleeds or masses. There is cerebral volume loss for age, with resultant ventricular and sulcal prominence. There are periventricular and deep white matter chronic small vessel ischemic changes. There is intracranial internal carotid artery atherosclerosis. Skull and face: Calvarium and visualized facial bones appear intact, without suspicious lesions. Sinuses: Visualized sinuses and mastoids are clear. IMPRESSION: No acute intracranial hemorrhage is seen. No significant noncontrast head CT abnormality can be seen for age. Dictated by: Trevin Motta M.D. on 09/27/2020 at 17:08 Approved by: Trevin Motta M.D. on 09/27/2020 at 17:09
--- NOTE | 2020-09-27 17:22 | DI.CT.S_ITS ---
PROCEDURE: CT ANGIO HEAD AND NECK INDICATIONS: altered mental status, afib, facial droop, ? unknown hx. TECHNIQUE: After the administration of intravenous contrast, 1 mm thick sections acquired from the aortic arch through the [place]. Post-contrast 4.5 mm thick sections then re-acquired from the foramen magnum to the vertex. COMPARISON: [facility], CT, CT CHEST WO CON, 03/22/2020, 4:53. FINDINGS: Cerebral CT Angiogram: Internal carotid arteries: No acute findings. Intracranial ICA are patent with no significant stenosis. No occlusion. No aneurysm. Anterior cerebral arteries: Unremarkable. No significant stenosis. No occlusion. No aneurysm. Middle cerebral arteries: Unremarkable. No significant stenosis. No occlusion. No aneurysm. Posterior cerebral arteries: Unremarkable. No significant stenosis. No occlusion. No aneurysm. Basilar artery: Unremarkable. No significant stenosis. No occlusion. No aneurysm. Vertebral arteries: Unremarkable as visualized. Dural venous sinuses: Unremarkable given phase of enhancement. Other: Arterial phase brain parenchyma is unremarkable. Neck CT Angiogram: Internal carotid arteries: Calcified atherosclerotic plaque in both proximal internal carotid arteries noted without hemodynamically significant stenosis utilizing NASCET criteria. Common carotid arteries: Unremarkable. No significant stenosis. No dissection or occlusion. External carotid arteries: Unremarkable. No occlusion. Vertebral arteries: Unremarkable. No significant stenosis. No dissection or occlusion. Other: Hypodense central thyroid nodule is irregular measuring 3.3 cm. Coarse calcification measuring 1.3 x 1.5 cm probably reflects a calcified level 1B lymph node. Aortic Arch and Mediastinum: Partially visualized aortic arch unremarkable without evidence of aneurysm. Origins of the great vessels unremarkable. Any quantitative measurements of stenosis were performed using NASCET criteria. IMPRESSION: 1. No evidence of large vessel occlusion, aneurysm or vascular malformation. 2. Atherosclerotic vascular calcification in the proximal internal carotid arteries without stenosis utilizing NASCET criteria. 3. Incidental 3.3 cm heterogenous thyroid nodule can be further evaluated with ultrasound. 4. Incidental 1.5 cm coarse calcification probably reflects calcified level 1B lymph node Dictated by: Joce Squires M.D. on 09/27/2020 at 17:12 Approved by: Joce Squires M.D. on 09/27/2020 at 17:32
[2020-09-27 17:41] LABS: INR 1.8 (0.9-1.3); Prothrombin Time 19.8 SECONDS (10.1-12.7)
[2020-09-27 17:44] LABS: PTT Partial Thromboplastin Tim 42 SECONDS (26.4-36.2)
[2020-09-27 17:45] LABS: Digoxin 0.7 ng/mL (0.8-2.0)
[2020-09-27 18:13] LABS: TSH w/ Reflex to FT4 1.95 uIU/mL (0.47-4.68)
[2020-09-27] MEDS: dilTIAZem 125 MG in SODIUM CHLORIDE 0.9% 100 ML IV (18:19)
[2020-09-27 18:26] LABS: Bacteria Urine None Seen; RBC Urine None Seen (0-5/HPF)
[2020-09-27 18:27] LABS: COVID19 - ADMIT (NP swab/PCR) Negative (Negative)
[2020-09-27 18:27] LABS: Appearance Urine UA CLEAR; Bilirubin Urine UA NEGATIVE (NEGATIVE); Color Urine UA YELLOW; Glucose Urine UA NEGATIVE (Negative); Ketones Urine UA NEGATIVE (NEGATIVE); Leukocyte Esterase Urine UA 1+ (NEGATIVE); Nitrite Urine UA NEGATIVE (Negative); Occult Blood Urine UA TRACE-INTACT (Negative); Protein Urine UA NEGATIVE (Negative); Urobilinogen Urine UA 0.2 E.U./dL (0.2)
[2020-09-27 18:37] LABS: Culture Indicated Urine Specimen Cultured; Squamous Epithelial Cell Urine 0-1 /HPF (0-5/HPF); WBC Urine 1-5/HPF (0-5/HPF)
--- NOTE | 2020-09-27 19:16 | PC.NURSE ---
Left > right lower extremity edema.
[2020-09-27] MEDS: levoFLOXacin 750 MG/150 ML PIGGYBACK 100 MG IV (20:20)
[2020-09-27 23:21] LABS: Alanine Aminotransferase 28 IU/L (<35); Albumin 3.1 g/dL (3.5-5.0); Albumin Globulin Ratio 0.9 (1.0-2.8); Alkaline Phosphatase 113 U/L (38-126); Aspartate Aminotransferase 68 IU/L (14-36); Bilirubin Total 0.9 mg/dL (0.2-1.3); Blood Urea Nitrogen 23 mg/dL (7-17); Calcium 8.3 mg/dL (8.4-10.2); Carbon Dioxide 28 mmol/L (22-32); Chloride 102 mmol/L (98-107); Creatine Kinase 48 U/L (30-135); Estimated Glomerular Filt Rate > 60.0 mL/min (>60); Globulin 3.5 g/dL (1.7-4.1); Glucose 140 mg/dL (80-110); HEMOLYSIS < 15 (0-50); Potassium 3.9 mmol/L (3.4-5.1); Sodium 136 mmol/L (137-145); Total Protein 6.6 g/dL (6.3-8.2)
--- NOTE | 2020-09-27 23:26 | P.HP_ITS ---
History of Present Illness History of Present Illness Date Patient Seen: 09/27/20 Time Patient Seen: 22:30 Chief complaint: Altered Mental State Narrative: Lisa Kim is 75-year-old female resident of [facility] with a history of atrial fibrillation anticoagulated with apixaban, heart failure, schizophrenia, presented to the ED altered mental status. Patient is without a family member in her room and is unable to provide a history or participate in a complete review of systems. She has a significant stutter and also keeps repeating herself. Review of prior admissions, it appears that she is normally a woman with clear mentation who makes her own decisions and does not have any cognitive deficits. Patient also seems to have some slurred and stuttered speech. Patient does have a history of atrial fibrillation and is on Eliquis as well as metoprolol and digoxin for rate control. Patient does take bumetanide and lisinopril daily. Patient does attempt to follow commands but has some difficulty. She does not have any clear upper extremity weakness but has difficulty lifting both legs off the bed. In the ED, she initially presented with a heart rate of 150 in rapid atrial fibrillation with RVR and was initiated on a diltiazem drip. They did not do an NIH scale likely because of how altered the patient was. Head CT and CTA of the head neck were unremarkable. She is afebrile with a blood pressure of 115/68, heart rate 90s-120s respiratory rate 28, oxygen saturation of 91% on room air and is very restless. CBC largely within normal limits, PT INR is 19.8/1.8, sodium 136, potassium 3.9, chloride 102, bicarb 28, BUN 23 with a GFR greater than 60, creatinine is 0.82, glucose 140, hemoglobin A1c is 7.4, calcium 8.3, magnesium 2.3, AST is 68, ALT 28, total bilirubin is 0.9, she does have an elevated troponin at 0.052 and a proBNP of 5020, TSH is within normal limits, she did have a high number of leukocyte esterase and her UA has been cultured, digoxin level is low at 0.7, and COVID-19 PCR is negative. Patient History Medical History Active asthma Acute systolic heart failure Anxiety disorder Atrial fibrillation Blood loss anemia Dysphasia Epilepsy Hypertension Lymphedema Morbid obesity Schizophrenia Urinary incontinence Vitamin D deficiency Surgical History History of tonsillectomy Status post cholecystectomy Family & Social History Family History Grandfather Stroke Mother Mental health problem Grandfather Stroke Social History: household members none Safety & Behavioral: Feels Safe in Current Unable to Answer Environment Been Physically Hurt or Unable to Answer Threatened By a Person Tobacco & Substance use: Smoking Status Never smoker alcohol intake never alcohol intake frequency holiday/special occasion Substance Use Type does not use Meds Home Medications and Allergies Home Medications Medication Instructions Recorded Confirmed Type FOLIC ACID (#FOLATE) 1 mg PO QDAY #0 02/28/11 06/11/20 History primidone 250 mg tablet 250 mg PO BID #180 tab 04/03/17 06/11/20 Rx acidophilus 100 million 1 cap PO DAILY 03/22/20 06/11/20 History cell-pectin, citrus 10 mg capsule (Acidophilus Probiotic) apixaban 5 mg tablet (Eliquis) 5 mg PO BID 03/22/20 06/11/20 History aripiprazole 30 mg tablet 30 mg PO BEDTIME 03/22/20 06/11/20 History bumetanide 2 mg tablet 8 mg PO DAILY 03/22/20 09/27/20 History calcium carbonate-vitamin D3 600 1 tab PO DAILY 03/22/20 09/27/20 History mg(1,500 mg)-400 unit chewable tablet (Calcium 600 with Vitamin D3) magnesium oxide 420 mg tablet 400 mg PO DAILY 03/22/20 09/27/20 History melatonin 3 mg tablet 6 mg PO BEDTIME 03/22/20 09/27/20 History nystatin 100,000 unit/gram topical 1 applic TOPICAL DAILY 03/22/20 06/11/20 History powder potassium chloride 10 mEq 10 meq PO DAILY 03/22/20 06/11/20 History tablet,extended release metoprolol succinate 25 mg 75 mg PO BID 30 Days #120 tab 03/23/20 06/11/20 Rx tablet,extended release 24 hr acetaminophen 325 mg tablet 650 mg PO PRN PRN 06/11/20 06/11/20 History (Tylenol) ammonium lactate 12 % lotion 1 applic TOPICAL DAILY 06/11/20 09/27/20 History ascorbic acid (vitamin C) 1,000 mg 1,000 mg PO DAILY 06/11/20 06/11/20 History tablet metronidazole 1 % topical gel 1 applic TOPICAL DAILY 06/11/20 06/11/20 History (Metrogel) digoxin 125 mcg (0.125 mg) tablet 0.125 mg PO DAILY@1700 #30 tab 06/12/20 09/27/20 Rx lisinopril 2.5 mg tablet 2.5 mg PO DAILY #30 tab 06/12/20 Rx Allergies Allergy/AdvReac Type Severity Reaction Status Date / Time penicillin G Allergy Mild Verified 09/27/20 19:13 phenobarbital Allergy Mild Verified 09/27/20 19:13 Sulfa (Sulfonamide Allergy Mild Verified 09/27/20 19:13 Antibiotics) tetracycline Allergy Mild Verified 09/27/20 19:13 Review of Systems Review of Systems ROS: Yes unobtainable due to mental status (Impaired speech.) Exam Vital Signs (past 8 hours): - 09/27/20 16:35 09/27/20 16:42 09/27/20 16:50 Temperature 97.1 F L Pulse Rate 150 H 147 H 145 H Respiratory Rate 24 31 H 31 H Blood Pressure 94/70 105/74 Pulse Oximetry 97 98 98 09/27/20 17:00 09/27/20 17:04 09/27/20 17:10 Temperature Pulse Rate 141 H 150 H 134 H Respiratory Rate 28 H 27 H Blood Pressure 106/80 106/80 110/75 Pulse Oximetry 97 98 09/27/20 17:15 09/27/20 17:20 09/27/20 17:25 Temperature Pulse Rate 101 H 106 H 115 H Respiratory Rate 31 H 20 24 Blood Pressure 105/70 112/65 104/56 L Pulse Oximetry 99 98 98 09/27/20 17:30 09/27/20 17:35 09/27/20 17:40 Temperature Pulse Rate 125 H 118 H 126 H Respiratory Rate 20 20 23 Blood Pressure 92/64 95/65 94/71 Pulse Oximetry 99 98 99 09/27/20 17:45 09/27/20 18:02 09/27/20 18:04 Temperature Pulse Rate 117 H 78 131 H Respiratory Rate 24 29 H Blood Pressure 105/68 122/56 L Pulse Oximetry 98 97 98 09/27/20 18:05 07/12/21 18:10 09/27/20 18:16 Temperature Pulse Rate 128 H 137 H 140 H Respiratory Rate 25 H 26 H 24 Blood Pressure 110/62 126/81 116/79 Pulse Oximetry 96 98 09/27/20 18:20 09/27/20 18:25 09/27/20 18:30 Temperature Pulse Rate 146 H 114 H 120 H Respiratory Rate 27 H 26 H 31 H Blood Pressure 120/80 127/65 103/65 Pulse Oximetry 91 92 97 09/27/20 18:35 09/27/20 18:40 09/27/20 18:45 Temperature Pulse Rate 114 H 110 H 114 H Respiratory Rate 20 28 H 37 H Blood Pressure 99/69 98/62 105/53 L Pulse Oximetry 97 95 97 09/27/20 18:50 09/27/20 18:55 09/27/20 19:00 Temperature Pulse Rate 118 H 122 H 113 H Respiratory Rate 36 H 29 H 29 H Blood Pressure 102/57 L 119/71 Pulse Oximetry 96 96 97 09/27/20 19:01 09/27/20 19:05 09/27/20 19:10 Temperature Pulse Rate 107 H 121 H 120 H Respiratory Rate 31 H 32 H 29 H Blood Pressure 95/56 L 102/75 Pulse Oximetry 95 96 97 09/27/20 19:13 09/27/20 19:25 09/27/20 20:11 Temperature 98.4 F Pulse Rate 127 H 111 H 100 H Respiratory Rate 32 H 28 H 19 Blood Pressure 115/68 99/66 Pulse Oximetry 95 95 96 09/27/20 20:20 09/27/20 20:30 09/27/20 20:40 Temperature Pulse Rate 106 H 102 H 103 H Respiratory Rate 29 H 23 20 Blood Pressure 120/71 Pulse Oximetry 97 98 96 09/27/20 20:50 09/27/20 21:00 09/27/20 21:10 Temperature Pulse Rate 105 H 117 H 118 H Respiratory Rate 23 22 32 H Blood Pressure 103/74 Pulse Oximetry 97 95 96 09/27/20 21:20 09/27/20 21:30 09/27/20 21:40 Temperature Pulse Rate 131 H 119 H 120 H Respiratory Rate 19 24 29 H Blood Pressure 98/63 Pulse Oximetry 96 97 96 09/27/20 21:50 09/27/20 22:00 07/12/21 22:10 Temperature Pulse Rate 124 H 117 H 121 H Respiratory Rate 31 H 21 27 H Blood Pressure 135/60 Pulse Oximetry 95 96 97 09/27/20 22:20 09/27/20 22:30 09/27/20 22:31 Temperature Pulse Rate 122 H 115 H 116 H Respiratory Rate 22 34 H 33 H Blood Pressure 96/57 L Pulse Oximetry 97 96 95 09/27/20 22:40 09/27/20 22:50 09/27/20 23:00 Temperature Pulse Rate 109 H 112 H 107 H Respiratory Rate 35 H 28 H 35 H Blood Pressure Pulse Oximetry 94 95 96 09/27/20 23:04 Temperature Pulse Rate 122 H Respiratory Rate 34 H Blood Pressure 115/61 Pulse Oximetry 93 Oxygen Delivery Method Room Air Narrative Exam Narrative: Gen: Alert, confused, morbidly obese 75 y.o. female, appears chronically ill HEENT: normocephalic, atraumatic, conjunctiva clear, sclera non-icteric, oral mucosa pale and dry Neck: supple, full ROM, no JVD, trachea is midline Resp: Lungs CTA, non-labored breathing CV: RRR, no murmur or rubs Abd: obese, soft, non-tender, normoactive BTs Skin: no lesions or rashes, dry and intact Neuro: NIH score of 11 Alert and oriented to self. Stuttered speech and slurred. Extremities: Bilateral lower legs with +2 pitting edema, toes are deformed and curling under with overgrown toenails unknown if ambulatory, negative Ruddy?s sign, Psyche: unable to assess Objective Labs Result Diagrams: 09/27/20 16:40 09/27/20 22:57 Labs: Laboratory Results - last 24 hr 09/27/20 09/27/20 09/27/20 16:40 16:40 16:40 WBC 10.0 RBC 3.86 L Hgb 12.7 Hct 38.9 MCV 100.6 H MCH 32.8 MCHC 32.6 RDW 16.3 H Plt Count 187 Neut % (Auto) 50.3 Lymph % (Auto) 37.8 [place] % (Auto) 9.9 Eos % (Auto) 1.5 L Baso % (Auto) 0.5 Neut # (Auto) 5000 Lymph # (Auto) 3800 [place] # (Auto) 1000 H Eos # (Auto) 100 Baso # (Auto) 100 PT 19.8 H INR 1.8 H APTT 42 H D Sodium 140 Potassium 3.7 Chloride 99 Carbon Dioxide 32 BUN 23 H Creatinine 0.89 Estimated GFR > 60.0 BUN/Creatinine Ratio 25.8 H Glucose 136 H Calcium 8.4 Magnesium 2.3 Total Bilirubin 0.7 AST 69 H ALT 30 Alkaline Phosphatase 119 Total Creatine Kinase 47 CK-MB (CK-2) TNP CK-MB (CK-2) Rel Index TNP Troponin I 0.042 H NT-Pro-B Natriuret Pep 5020 H Total Protein 7.0 Albumin 3.3 L Globulin 3.7 Albumin/Globulin Ratio 0.9 L Lipase 133 TSH Urine Color Urine Appearance Urine pH Ur Specific [place] Urine Protein Urine Glucose (UA) Urine Ketones Urine Occult Blood Urine Nitrate Urine Bilirubin Urine Urobilinogen Ur Leukocyte Esterase Urine RBC Urine WBC Ur Squamous Epith Cells Urine Bacteria Ur Culture Indicated? Digoxin SARS-CoV-2 (PCR) 09/27/20 09/27/20 09/27/20 16:40 17:01 18:10 WBC RBC Hgb Hct MCV MCH MCHC RDW Plt Count Neut % (Auto) Lymph % (Auto) [place] % (Auto) Eos % (Auto) Baso % (Auto) Neut # (Auto) Lymph # (Auto) [place] # (Auto) Eos # (Auto) Baso # (Auto) PT INR APTT Sodium Potassium Chloride Carbon Dioxide BUN Creatinine Estimated GFR BUN/Creatinine Ratio Glucose Calcium Magnesium Total Bilirubin AST ALT Alkaline Phosphatase Total Creatine Kinase CK-MB (CK-2) CK-MB (CK-2) Rel Index Troponin I NT-Pro-B Natriuret Pep Total Protein Albumin Globulin Albumin/Globulin Ratio Lipase TSH 1.95 Urine Color Yellow Urine Appearance Clear Urine pH 7.0 Ur Specific [place] 1.010 Urine Protein Negative Urine Glucose (UA) Negative Urine Ketones Negative Urine Occult Blood Trace-intact Urine Nitrate Negative Urine Bilirubin Negative Urine Urobilinogen 0.2 Ur Leukocyte Esterase 1+ H Urine RBC None seen Urine WBC 1-5/hpf Ur Squamous Epith Cells 0-1 /hpf Urine Bacteria None seen Ur Culture Indicated? Specimen cultured Digoxin 0.7 L SARS-CoV-2 (PCR) Negative 09/27/20 09/27/20 22:57 22:57 WBC RBC Hgb Hct MCV MCH MCHC RDW Plt Count Neut % (Auto) Lymph % (Auto) [place] % (Auto) Eos % (Auto) Baso % (Auto) Neut # (Auto) Lymph # (Auto) [place] # (Auto) Eos # (Auto) Baso # (Auto) PT INR APTT Sodium 136 L Potassium 3.9 Chloride 102 Carbon Dioxide 28 BUN 23 H Creatinine 0.82 Estimated GFR > 60.0 BUN/Creatinine Ratio 28.0 H Glucose 140 H Calcium 8.3 L Magnesium Total Bilirubin 0.9 AST 68 H ALT 28 Alkaline Phosphatase 113 Total Creatine Kinase 48 CK-MB (CK-2) TNP CK-MB (CK-2) Rel Index TNP Troponin I NT-Pro-B Natriuret Pep Total Protein 6.6 Albumin 3.1 L Globulin 3.5 Albumin/Globulin Ratio 0.9 L Lipase TSH Urine Color Urine Appearance Urine pH Ur Specific [place] Urine Protein Urine Glucose (UA) Urine Ketones Urine Occult Blood Urine Nitrate Urine Bilirubin Urine Urobilinogen Ur Leukocyte Esterase Urine RBC Urine WBC Ur Squamous Epith Cells Urine Bacteria Ur Culture Indicated? Digoxin SARS-CoV-2 (PCR) Assessment & Plan Assessment & Plan narrative: Lisa Connor will be admitted for atrial fibrillation with RVR, rule out CVA, and urinary tract infection. 1. Atrial fibrillation w/RVR * Admit to ICU * She is currently on a diltiazem drip titrate per protocol * She is anticoagulated with apixaban 5 mg p.o. b.i.d. and will be continued on this. 2. Altered mental status in the setting of a suspected CVA, present on admission * Cardiac telemetry * NIH score greater than 5 yes, however in eligible for tPA due to unknown timing of onset of symptoms. * NIH scoring and neuro checks q 4 hours * Dual antiplatelet therapy: No continue current anticoagulation * MR stroke scheduled for 09/28 * Complete Echo with bubble study for 09/28 * PT/OT/ST evaluation 3. Dysarthria, acute, present on admission * She has a history of aspiration pneumonia * She did pass an initial nursing swallow evaluation and will have a soft diet * Speech therapy in the morning 4. New diagnosis of diabetes type 2 with hemoglobin A1c of 7.2 * Carb controlled diet with glucose checks a.c. and HS * Started her on basal insulin Lantus 10 units daily and low-dose insulin correctional scale * She will need diabetic teaching 5. Metabolic encephalopathy in the setting of subtherapeutic Digoxin level * Digoxin is currently being held and will be continued once she is off the drip * Normally rhythm and rate controlled on metoprolol 6. Acute on chronic congestive heart failure with a CHADS VASC score of 7 * Echo in the am 7. Essential hypertension, currently hypotensive due to probable sepsis * Home dose of lisinopril and is currently being held 8. Acute urinary tract infection, present on admission * She is initiated on IV ceftriaxone 1 g daily 9. History of schizophrenia, unknown if in exacerbation, present on admission * She will be continued on her home doses of aripiprazole VTE prophylaxis: Wells risk score: 0 Patient is adequately anticoagulated on apixaban 5 mg p.o. b.i.d.. Consults: none Patient is admitted under to the ICU inpatient status with expected length of stay greater than 2 midnights due to severity of presenting symptoms, risk of adverse event, and complexity of treatment plan. FEN: Currently on a diltiazem drip, carb controlled diet, CMP and magnesium in the am. Dispo: discharge back to [facility] when stable, or possibly acute rehab Code Status: Full code per POLST, patient is unable to name surrogate or POA COVID-19 COVID-19 status: Negative Result date/Date tested (Pos, Neg/Pending): 09/27/20 Scores GCS Chan coma scale eye opening: Spontaneous Rebuck coma scale verbal response: Confused Chan coma scale motor response: Obey commands Rebuck coma scale total score: 14 ABCD2 Age >= 60 years: yes Initial BP. Either SBP >= 140 or DBP >= 90.: no Clinical features of the TIA: other symptoms Duration of symptoms: >= 60 minutes History of diabetes: yes ABCD2 Score: 4 NIHSS Level of Conciousness: Alert, keenly responsive Ask month/age: Answers one question correctly, intubated follow commands Open/close eyes, close hand: Performs both tasks correctly Best gaze horizontal: Normal Visual warner: No visual loss Facial palsy: Normal symetrical movement Left arm drift: No drift for full 10 sec Right arm drift: No drift for full 10 sec Left leg drift: No effort against gravity Right leg drift: No effort against gravity Limb ataxia: Present in two limbs Sensory on face/arms/legs: Normal, no sensory loss Best language: Mild to moderate, slurs some words Dysarthria: Mild to mod,some slurring Extinction or inattention: No abnormality Total NIH Stroke scale score: 11 CHADS-VASc Congestive heart failure: yes Hypertension: yes Age 75 years or older: no Diabetes mellitus: no Stroke, TIA, or TE: yes Vascular disease: yes Age 65 to 74 years: yes Sex category (female): Female CHADS-VASc Score: 7 Quality Stroke Contraindication Not Initiating IV-Tpa: Contraindicated Onset of Symptoms Date: 09/27/20 Symptom Onset Unknown: Yes Rehab Services Assessed: Rehabilitation therapy VTE Deep Vein Thrombosis/Pulmonary Embolism Present on Admission: No MIPS - Admit The patient?s Advance Care plan is not present because I confirmed today that the patient does not wish or was not able to name a surrogate decision maker or provide an Advance Care Plan.: Yes
[2020-09-27 23:30] LABS: Hemoglobin A1C% w Est Avg Glu 7.4 % (4.0-6.0)
[2020-09-27 23:33] LABS: Troponin I 0.052 ng/mL (0.01-0.034)
[2020-09-28] VITALS (39 sets, daily range): BP systolic 82–133; BP diastolic 56–95; PULSE 86–137; RESP 16–40; TEMP 36.2–36.8; O2SAT 80–98
--- NOTE | 2020-09-28 | DI.MRI.S_ITS ---
PROCEDURE: MR STROKE Pre- and post-contrast brain MRI, non-contrast brain MR angiogram, pre- and postcontrast neck MR angiogram INDICATIONS: possible cva TECHNIQUE: Brain: Noncontrast axial T1 spin echo, axial T2 fast spin echo, sagittal and axial FLAIR, coronal T2 fast spin echo, axial gradient echo, axial diffusion and ADC through the brain. After the administration of contrast, axial 3D VIBE of the cranial vasculature and brain. Brain MRA: Non-contrast 3-D time of flight MR angiogram, with multiple oiyacbm-hbyfhlavs-nnguwuzbpv (MIP) reformats performed. Neck MRA: Axial and sagittal TruFISP through the neck. Coronal dynamic MR angiogram during administration of contrast in the arterial and venous phases, with 3-dimenstional emqlune-vupfnfkjy-lrycgpsnzc (MIP) reformats constructed from subtraction images. COMPARISON: None. FINDINGS: Image quality: Excellent. BRAIN: CSF spaces: Ventricles are normal in size and shape. Basal cisterns are patent. No extra-axial fluid collections. Brain: No intracranial bleeds or mass effects. [place]-white matter interface is normal. Diffusion weighted images show no acute ischemic insults. Brainstem appears normal. Normal intravascular flow voids are present. No abnormal intracranial enhancement. Skull and face: Calvarial marrow signal is normal. Orbits appear normal. Sinuses: Sinuses and mastoids are clear. BRAIN MR ANGIOGRAM: Anterior circulation: Intracranial internal carotid arteries are normal in size and enhancement. The flow within the paired anterior cerebral arteries is normal and symmetric. The flow within the middle cerebral arteries is normal and symmetric. The anterior communicating artery is seen. No stenoses, occlusions, or aneurysms. Posterior circulation: The visualized portions of the vertebral arteries demonstrate normal caliber, and join to form a normal appearing basilar artery. The flow within the posterior cerebral arteries is normal and symmetric. No stenoses, occlusions, or aneurysms. NECK MR ANGIOGRAM: Carotids: Great vessels demonstrate a conventional anatomy as they arise from the aortic arch. The origins of the common carotid arteries appear patent. The calibers and courses of both common carotid arteries are normal. The bifurcation regions appear normal bilaterally. The internal carotid arteries demonstrate normal course and caliber. Posterior circulation: The origins of the vertebral arteries appear patent. More superior portions of both vertebral arteries demonstrate normal course and caliber, and join to form a normal appearing basilar artery. Miscellaneous: Subclavian arteries appear patent. Pre-contrast images through the neck show no soft tissue abnormalities. IMPRESSION: BRAIN MRI: Unremarkable MRI brain. No intracranial hemorrhage, infarct or mass lesion. BRAIN MR ANGIOGRAM: Unremarkable MR angiogram of the brain. No large vessel occlusion, aneurysm or vascular malformation. NECK MR ANGIOGRAM: Unremarkable MR angiogram of the neck. No significant stenosis utilizing NASCET criteria. Dictated by: Joce Squires M.D. on 09/28/2020 at 15:03 Approved by: Joce Squires M.D. on 09/28/2020 at 15:18
--- NOTE | 2020-09-28 | DI.ECHO.S_ITS ---
[facility] +---------+ : : [address] : : : : [id number] : : : : Phone: [phone] Echocardiogram Report + + :Name: BREANNA TAYLOR Study Date: 09/29/2020 Height: 64 in : :[facility] ReadingLocation: Weight: 229 lb: : Gender: Female BSA: 2.1 m2 : :: 1945 Age: 75 yrs BP: 92/56 mmHg: :Reason For Study: EJECTION FRACTION : :Ordering Physician: JEREMIAS CHAVEZ : :ANABEL Performed By: Joyce Chan : :Referring: JEREMIAS CHAVEZ : + + Interpretation Summary The ejection fraction is estimated to be 20-25%. The left ventricle is mildly dilated. Left ventricular function has mildly worsened compared to the previous exam. Severe global hypokinesis. The septum is dyskinetic. Procedure: A two-dimensional transthoracic echocardiogram with color flow and Doppler was performed in limited views only to assess ejection fraction.. Comparison is made with the echocardiogram of 06/11/2020. The patient was in sinus rhythm with heart rates between 78-94 bpm during the exam. Left Ventricle: The left ventricle is mildly dilated. The estimated left ventricular end diastolic volume is 106 ml. There is normal left ventricular wall thickness. The ejection fraction is estimated to be 20-25%. Left ventricular function has mildly worsened compared to the previous exam. Severe global hypokinesis. The septum is dyskinetic. Right Ventricle: The right ventricle is mildly dilated. The right ventricular systolic function is normal. Atria: The right atrium is mildly dilated. Pericardium/ Pleura There is no pericardial effusion. There is no pleural effusion. MMode/2D Measurements & Calculations LVIDd: 5.4 cm LA A4 area: 25.9 cm2 LVIDs: 4.9 cm LA length (vol): 6.3 cm FS: 9.7 % IVSd: 0.77 cm LVPWd: 0.67 cm LV dalton. diameter/BSA (cm/m^2): 2.6 LV sys. diameter/BSA (cm/m^2): 2.4 RA long axis: 6.0 cm RVD1 (basal): 4.2 cm RA area: 22.5 cm2 TAPSE: 1.7 cm RA vol: 72.3 ml RA : 34.9 ml/m2 Reading Physician:02:19 PM
--- NOTE | 2020-09-28 00:19 | RT ---
Assessed pt at 0012 on 09/27/2020. Pt is here for encephalopathy, possible CVA, CHF exacerbation, and a UTI. Pt is on RA, SpO2 95%-97%, RR 20, BS clear and slightly diminished throughout. CXR noted pulmonary vasculature congestion, but not opacities/PNX/or pleural effusions. Pt is a poor historian at this time. Pt is confused. Per chart, PHMx notes asthma. Pt stated she doesn't use O2/CPAP/BiPAP at home and doesn't use MDIs/DPIs/SVNs. Recommending O2 therapy as needed and diuretics for CHF exacerbation.
[2020-09-28] MEDS: MELATONIN 3 MG TABLET 6 MG PO ×2 (00:41→20:47)
[2020-09-28] MEDS: APIXABAN 5 MG TABLET PO ×3 (00:41→20:04)
[2020-09-28] MEDS: PRIMIDONE 50 MG TABLET 250 MG PO ×3 (00:41→20:04)
[2020-09-28] MEDS: ARIPiprazole 10 MG TABLET 30 MG PO (00:50)
[2020-09-28] MEDS: cefTRIAXone 1,000 MG in SODIUM CHLORIDE 0.9% 100 ML 200 ML IV (03:22)
[2020-09-28 04:22] LABS: Add Manual Diff / Slide Review NO; Basophils Absolute Auto 200 /uL (0-100); Basophils Percent Auto 1.7 % (0-2); Eosinophils Absolute Auto 100 /uL (0-450); Eosinophils Percent Auto 0.7 % (2-4); Hematocrit 40.1 % (36-46); Hemoglobin 12.9 g/dL (12.0-16.0); Lymphocytes Absolute Auto 2800 /uL (1100-4500); Mean Corpuscular HGB Conc 32.1 % (30-36); Mean Corpuscular Hemoglobin 32.2 PG (26-34); Mean Corpuscular Volume 100.3 fL (80-100); Monocytes Absolute Auto 1200 /uL (0-900); Monocytes Percent Auto 9.2 % (3-14); Neutrophils Absolute Auto 8400 /uL (1500-7000); Neutrophils Percent Auto 66.4 % (50-75); Platelet Count 180 X10^3/uL (150-400); Red Cell Distribution Width 16.8 % (11.6-14.8); White Blood Cell Count 12.7 X10^3/uL (4.5-11.0)
[2020-09-28 04:34] LABS: BUN Creatinine Ratio 28.6 (6-22); Blood Urea Nitrogen 24 mg/dL (7-17); Calcium 8.1 mg/dL (8.4-10.2); Carbon Dioxide 26 mmol/L (22-32); Chloride 100 mmol/L (98-107); Estimated Glomerular Filt Rate > 60.0 mL/min (>60); Glucose 142 mg/dL (80-110); HEMOLYSIS 25 (0-50); Magnesium 2.1 mg/dL (1.6-2.3); Potassium 4.1 mmol/L (3.4-5.1); Sodium 133 mmol/L (137-145)
[2020-09-28 04:46] LABS: Troponin I 0.041 ng/mL (0.01-0.034)
--- NOTE | 2020-09-28 06:32 | PC.NURSE ---
7pm-7am Shift Note-Patient admitted to ICU room 229 at 1925, alert and confused, follows simple directions, but resistive with turning. Son Isacc initially at bedside, patient continued to call out his name periodically, yelled out most of night, talking in her sleep, she would reorient to place, and could express some needs, able to drink water without difficulty, took HS meds with pudding. She has remained in A-fib/flutter RVR, diltiazem gtt titrated 5-10mg/hr for rate control, see vital trends and Emar documentations. Levofloxacin and Rocephin given as ordered.
[2020-09-28] MEDS: METOPROLOL IR 25 MG TABLET PO ×2 (07:50→20:04)
[2020-09-28] MEDS: PANTOPRAZOLE 40 MG VIAL IV (08:02)
[2020-09-28] MEDS: INSULIN LISPRO 100 UNIT/ML 3ML VIAL SUBCUT ×2 (08:03→16:23)
--- NOTE | 2020-09-28 10:21 | SLP.IPNOTE ---
Order received. Per nursing pt is on regular texture diet wiith thin liquids and is doing wel with meals and meds. Discussion with MD mojica pt, MD indicated ST not indicated at this time. Will discharge the order.
--- NOTE | 2020-09-28 11:35 | PT.IIE ---
Surgical History (Last Reviewed 09/28/20 @ 02:17 by ANABEL Zuniga) History of tonsillectomy Status post cholecystectomy Medical History (Last Reviewed 09/28/20 @ 02:17 by ANABEL Zuniga) Active asthma Acute systolic heart failure Anxiety disorder Atrial fibrillation Blood loss anemia Dysphasia Epilepsy Hypertension Lymphedema Morbid obesity Schizophrenia Urinary incontinence Vitamin D deficiency Physical Therapy Inpatient Evaluation/Re-Eval M1 PT/OT-IP Prior Functional Status Start: 09/28/20 14:00 Freq: NEEDED Status: Active Protocol: Document 09/28/20 11:35 AB (Rec: 09/28/20 14:14 AB [email or web address]) Medical Review Prior Functional Status Medical History Reviewed Yes Communication pt is sleepy and inconsistent with anwering questions; son in room to answer questions; continues to have confusion Mobility and Gait Pt's son stated that pt usually uses her w/c for mobility at [facility]; stated that pt was requiring 2 person assist for transfers and pt is non ambulatory but not entirely sure. Pt was admitted here in the hospital last march 2020 and per EMR: pt was a 1 person assist with transfer using FWW at [facility] Social History Household Members caregiver,none Living Arrangements Skilled Nurse Facility Number of Floors (Floors) One Floor Home Environment Walk in Shower Home Equipment Manual Wheelchair,Shower Seat with Backrest Additional Social History Comment pt lives at [facility] M2 PT-IP Current Condition Start: 09/28/20 14:00 Freq: NEEDED Status: Active Protocol: Document 09/28/20 11:35 AB (Rec: 09/28/20 14:14 AB [email or web address]) Physical Therapy Current Condition Current Condition Evaluation Date 09/28/20 Treatment Diagnosis A-fib; AMS r/o CVA; generalized weakness Onset Date 09/27/20 Precautions Other Precautions falls M3 PT-IP Subjective Start: 09/28/20 14:00 Freq: NEEDED Status: Active Protocol: Document 09/28/20 11:35 AB (Rec: 09/28/20 14:14 AB [email or web address]) Subjective Physical Therapy Visit Type Type Initial Evaluation Visit Start Time 11:35 Visit Stop Time 12:05 Total Visit Minutes 30 Number of PIT CREW SUPPORT WORKER Visits 0 Therapy Pain Assessment Pain When Pain Assessed During Mobility Pain Present Pain Present Pain Reported Location Bilateral Leg Scale Used pain scale not stated Pain Management Techniques Distraction,Modification of Treatment,Re-positioning M4 PT-IP Mobility and Gait Start: 09/28/20 14:00 Freq: NEEDED Status: Active Protocol: Document 09/28/20 11:35 AB (Rec: 09/28/20 14:14 AB [email or web address]) PT-Bed Mobility Assessment Supine to Sit Supine to Sit Total Assistance,2 Person Assistance,Head of Bed Elevated,Bedrails Sit to Supine Sit to Supine Total Assistance,2 Person Assistance Scooting Scooting to Edge of Bed Dependent Scooting Up and Down in Bed Dependent PT-Transfer Assessment Comments Mobility Comments son in room with pt. Pt with confusion and sleepy. requires cues to keep eyes open but able to keep eye open once seated on EOB. nurse in room to assist. pt completed supine to sit with HOB elevated total A x 2 and max cues. required total Ax 2 to scoot to EOB. pt required max A with initial sitting and then min to mod after positioning but required handrail to assist. pt was able to sit on EOB for ~ 5 min and stated that she has to lay back down. pt completed sit to supine total A x 2 and max cues. total A x 2 for positioning in bed. call light and table placed within reach. PT-Balance Assessment Sitting Balance and Reactions Static Sitting Balance Ability Poor Dynamic Sitting Balance Ability Poor M5 PT-IP Objective Assessments Start: 09/28/20 14:00 Freq: NEEDED Status: Active Protocol: Document 09/28/20 11:35 AB (Rec: 09/28/20 14:14 [email or web address] Orientation Orientation/Cognition Level of Alertness Confusional State Orientation Name Safety Awareness Decreased Safety Awareness Memory Description Short Term Impaired,A Auxiliary Impaired Gross Range of Motion Lower Extremity ROM Impairments C/O pain with BLE movement Strength Comments Strength Comments limited MMT due to pt unable to follow directions consistently Muscle Tone Muscle Tone WNL Yes M6 PT-IP Treatment Start: 09/28/20 14:00 Freq: NEEDED Status: Active Protocol: Document 09/28/20 11:35 AB (Rec: 09/28/20 14:14 AB [email or web address]) Physical Therapy Treatment Education Education Provided Safety M7 PT-IP Assessment and Plan Start: 09/28/20 14:00 Freq: NEEDED Status: Active Protocol: Document 09/28/20 11:35 AB (Rec: 07/13/21 14:14 AB [email or web address]) PT Summary Assessment and Plan Potential Rehabilitation Potential Fair Status of Condition at Evaluation Evolving Summary Impairments Pain,ROM,Strength,Balance, Coordination,Sensation,Tone, Cognition,Bed Mobility, Transfers,Gait,Activity Tolerance Assessment Summary pt requiring total A x 2 with bed mobility and unable to do further mobility. required min to max A for sitting balance on EOB. pt with decrease activity tolerance and continues to have confusion affecting following directions and safety awareness. will continue to assess progress. pt will require SNF rehab to improve mobility. Goals Bed Mobility Goal Moderate Assistance Transfer Goal Moderate Assistance,Front Wheeled Walker Gait Goal Moderate Assistance,Front Wheel Walker Gait Distance 15 Days to Meet Goals 10 Frequency of Treatment Frequency Of Treatment Once a Day Treatment Plan Physical Therapy Treatment Plan Bed Mobility Training,Transfer Training,Gait Training, Therapeutic Exercise,Balance Retraining,Discharge Planning, Hot or Cold Pack,Neuromuscular Re-ed,Coordination Retraining ,Manual Therapy Precautions Other Precautions falls Recommendations To Nursing Amount of Assist Needed Total Assistance,Mechanical Lift Discharge Recommendations PT Discharge Recommendations SNF Rehab Transportation Needs at Discharge Stretcher/Ambulance
--- NOTE | 2020-09-28 14:24 | CM.DANOTE ---
Met with patient and son Isacc ([phone]). Patient has a severe stammer and inability to articulate, so speaking to the son is very helpful. Pt. history of atrial fibrillation, heart failure, schizophrenia, presented to the ED altered mental status. She has a significant stutter and also keeps repeating herself. Review of prior admissions, it appears that she is normally a woman with clear mentation who makes her own decisions and does not have any cognitive deficits. Patient also seems to have some slurred and stuttered speech. Pt here with DX A-fib, r/o CVA, new onset type 2 DM, emabolic encephalopathy. Pt a resident at and plan is to return when medically stable.SV will need to be contact just prior to discharge to alert them and possible COVID test.
--- NOTE | 2020-09-28 14:43 | OT.IP.EVAL ---
Past Medical History (Last Reviewed 09/28/20 @ 02:17 by ANABEL Zuniga) Active asthma Acute systolic heart failure Anxiety disorder Atrial fibrillation Blood loss anemia Dysphasia Epilepsy Hypertension Lymphedema Morbid obesity Schizophrenia Urinary incontinence Vitamin D deficiency Surgical History (Last Reviewed 09/28/20 @ 02:17 by ANABEL Zuniga) History of tonsillectomy Status post cholecystectomy Occupational Therapy Inpatient Evaluation/Re-Eval M1 PT/OT-IP Prior Functional Status Start: 09/28/20 14:00 Freq: NEEDED Status: Active Protocol: Document 09/28/20 15:03 [facility] (Rec: 09/28/20 15:27 [facility] [id number]) Medical Review Prior Functional Status Medical History Reviewed Yes Communication pt is sleepy and inconsistent with answering questions; son in room to answer questions; continues to have confusion Mobility and Gait Pt's son stated that pt usually uses her w/c for mobility at [facility]; stated that pt was requiring 2 person assist for transfers and pt is non ambulatory but not entirely sure. Pt was admitted here in the hospital last march 2020 and per EMR: pt was a 1 person assist with transfer using FWW at [facility] OT Able to call [facility] and staff states pt mostly in her wc/bed. Pt was able to walk 10-15ft with FWW 3 weeks ago and now progressively gotten weaker and needing 2 person assist for transfers. Activities of Daily Living and IADL's Per [facility], pt was able to eat and do her grooming with cues. Pt needing extensive assist for all other needs of dressing, toileting, and bathing. Social History Household Members caregiver,none Living Arrangements Skilled Nurse Facility Number of Floors (Floors) One Floor Home Environment Walk in Shower Home Equipment Manual Wheelchair,Shower Seat with Backrest Additional Social History Comment pt lives at [facility] M2 OT-IP Current Condition Start: 09/28/20 15:02 Freq: Status: Active Protocol: Document 09/28/20 15:03 [facility] (Rec: 09/28/20 15:27 [facility] [id number]) Occupational Therapy Current Condition Current Condition Evaluation Date 09/28/20 Treatment Diagnosis A-fib, altered mental status, decreased mobility Diagnosis Onset Date 09/27/20 M3 OT- IP Subjective and Pain Start: 09/28/20 15:02 Freq: Status: Active Protocol: Document 09/28/20 15:03 [facility] (Rec: 09/28/20 15:27 [facility] [id number]) OT- Subjective Occupational Therapy Visit Type Type Initial Evaluation Visit Start Time 14:17 Visit Stop Time 14:43 Total Visit Minutes 26 Occupational Therapy Visit Comments Patient Comments Pt's son in the room during OT eval. Pt agreeable to brush her teeth and wash her face. Patient/Caregiver Goals Pt not able to state. OT Pain Assessment Pain When Pain Assessed At Rest Pain Present Pain Present Denied Pain M4 OT- IP ADL's Start: 09/28/20 15:02 Freq: Status: Active Protocol: Document 09/28/20 15:03 [facility] (Rec: 09/28/20 15:27 [facility] [id number]) OT [id number] Comments OT Self-Feeding Comments Not at meal time. OT ADL-Grooming General Evaluation Grooming Ability Moderate Assistance Areas Needing Assistance Retrieving/Set-up of Grooming Items Comments OT Grooming Comments Pt needing set-up and completeness for all needs. OT ADL-Oral Care General Eval Oral Care Ability Maximum Assistance Areas of Assistance Brushing Teeth Comments Oral Care Comments Pt needing assist to place toothbrush in her right hand and assist to help support her right arm at her elbow. Pt needing assist for completeness to brush her top teeth. OT ADL-Dressing General Eval Lower Body Dressing Ability Total Assistance OT ADL-Toileting General Evaluation Toileting Ability Total Assistance Comments OT Toileting Comments Finnegan in place. M5 OT- IP IADL's Start: 09/28/20 15:02 Freq: Status: Active Protocol: Document 09/28/20 15:03 [facility] (Rec: 09/28/20 15:27 [facility] [id number]) OT-Instrumental Activities of Daily Living Deficits IADL Deficits Identified Deficits Home Safety Awareness Awareness of Need for Assistance at Home Decreased Awareness Ability to Problem Solve Emergency Unable to Problem Solve Situations Medication Management Medication Management Caregiver Administers Money Management Money Management Caregiver Provides Assistance Meal Preparation Meal Preparation Caregiver Provides Assist Network Operations Technician Network Operations Technician Caregiver Provides Assist M6 OT- IP Functional Cognition Start: 09/28/20 15:02 Freq: Status: Active Protocol: Document 09/28/20 15:03 [facility] (Rec: 09/28/20 15:27 [facility] [id number]) Cognitive Factors Limiting Selfcare Function Cognitive Ability Level of Alertness Alert,Confusional State Patient Orientation Name Attention Span Ability Capable of Focused Attention, Unable to Focus,Unable to Sustain Attention Ability to Follow Commands Able to Follow One Step Commands with Increased Time, Able to Follow One Step Commands with Repetition Memory Description Short Term Impaired,Correctional Guard Impaired,Working Impaired Cognitive Comments Cognitive Assessment Comments Pt mainly just orientated to her name. Pt needing increased time to follow commands. Pt a bit confused and when asking her to move her left hand, pt states not able to. Able to figure out that pt not moving her left hand due to trying to hold the pulse oximeter in place on her hand. Had to explain to the pt that is was taped on her finger and that it is okay for her to move her left hand . Pt tends to neglect moving her left hand. OT- Vision and Hearing OT- Vision Assessment Vision Assessment Comments Pt able to see her son. M7 OT- IP Mobility and Balance Start: 09/28/20 15:02 Freq: Status: Active Protocol: Document 09/28/20 15:03 [facility] (Rec: 09/28/20 15:27 [facility] [id number]) OT-Transfer Assessment Comments Mobility Comments Not performed, per nursing PT and nursing worked with pt and was total assist for all mobility needs at this time. M8 OT- IP Objective Assessments Start: 09/28/20 15:02 Freq: Status: Active Protocol: Document 09/28/20 15:03 [facility] (Rec: 09/28/20 15:27 [facility] [id number]) OT Gross Range of Motion Upper Extremity Range of Motion Assessment Bilaterally Impaired OT Strength Upper Extremity Strength Assessment Bilaterally Impaired OT- Coordination Assessment Comments Coordination Comments Decreased for coordination for grooming needs due to weakness and decreased initiation of movements. OT-Muscle Tone Assessment Muscle Tone WNL Yes M9 OT- IP Assessment and Plan Start: 09/28/20 15:02 Freq: Status: Active Protocol: Document 09/28/20 15:03 [facility] (Rec: 09/28/20 15:27 [facility] [id number]) OT Summary Assessment and Plan Potential Rehabilitation Potential Fair Analytic Complexity at Evaluation Moderate Summary OT Impairments Strength,Balance,Functional Cognition,Functional Mobility, Self-Feeding,Grooming,Toilet Transfers Progress Towards Goals Slow Progress due to Medical Issues,Slow Progress due to Activity Tolerance,Slow Progress due to Cognition Assessment Summary Pt MOD complexity and main barriers are decreased activity tolerance, balance, strength, confusion, and now needing extensive assist for all ADl and mobility needs. Pt would benefit from skilled rehab versus increased assist at home at [facility]. Goals Self-Feeding Goal Standby Assistance Grooming Goal Standby Assistance Toilet Transfer Goal Moderate Assistance Days to Meet Goals 20 Frequency of Treatment Frequency Of Treatment Once a Day Treatment Plan OT Treatment Plan ADL Training,Functional Cognition Training,Functional Mobility,Patient/Family Education,Discharge Planning Other Treatment Recommendations and Next Self-feeding with MODA . Treatment Focus Discharge Recommendations OT Discharge Recommendations Home vs SNF Transportation Needs at Discharge Wheelchair/Cabulance,Stretcher /Ambulance
--- NOTE | 2020-09-28 16:14 | PC.NURSE ---
attempted [facility] on patient, she would not follow directions and then refused. Patient wanted to sleep at this time.
[2020-09-28] MEDS: DIGOXIN 0.125 MG TABLET PO (16:23)
--- NOTE | 2020-09-28 17:37 | P.PN_ITS ---
Subjective Subjective Date Patient Seen: 09/28/20 Time Patient Seen: 09:45 Interval history: This is a 74 year old female with a history of atrial fibrillation, morbid obesity, Schizophrenia, systolic heart failure, UTI's, hypertension, asthma and osteoarthritis who is admitted with afib/flutter with RVR and metabolic encephalopathy. MRI today showed no evidence of stroke. She remains confused and stuttering. Complains of low back pain. Exam Vital Signs (past 8 hours): - 09/28/20 10:49 09/28/20 12:11 09/28/20 16:17 Temperature 97.2 F L 98.3 F Pulse Rate 88 127 H Respiratory Rate 30 H 27 H Blood Pressure 95/61 106/59 L Pulse Oximetry 98 97 93 09/28/20 16:23 Temperature Pulse Rate 119 H Respiratory Rate Blood Pressure 106/59 L Pulse Oximetry Oxygen Delivery Method Room Air Oxygen Flow Rate 0 Narrative Exam Narrative: Gen: Alert, confused, morbidly obese 75 y.o. female, appears chronically ill HEENT: normocephalic, atraumatic, conjunctiva clear, sclera non-icteric, oral mucosa pale and dry Neck: supple, full ROM, no JVD, trachea is midline Resp: Lungs CTA, shallow respirations with poor effort. CV: irregularly irregular, tachycardic. Abd: obese, soft, non-tender, normoactive BTs Skin: no lesions or rashes, dry and intact Neuro: Alert and oriented to self. Confused. Stuttered speech and slurred. Follows commands, diffusely weak. Extremities: Bilateral lower legs with +2 pitting edema, toes are deformed and curling under with overgrown toenails. Psyche: unable to assess Objective Labs Result Diagrams: 09/28/20 04:09 09/28/20 04:09 Labs: Laboratory Results - last 24 hr 09/27/20 09/27/20 09/27/20 16:40 16:40 17:01 WBC RBC Hgb Hct MCV MCH MCHC RDW Plt Count Neut % (Auto) Lymph % (Auto) [place] % (Auto) Eos % (Auto) Baso % (Auto) Neut # (Auto) Lymph # (Auto) [place] # (Auto) Eos # (Auto) Baso # (Auto) PT 19.8 H INR 1.8 H APTT 42 H D Sodium Potassium Chloride Carbon Dioxide BUN Creatinine Estimated GFR BUN/Creatinine Ratio Glucose Hemoglobin A1c Calcium Magnesium Total Bilirubin AST ALT Alkaline Phosphatase Total Creatine Kinase CK-MB (CK-2) CK-MB (CK-2) Rel Index Troponin I Total Protein Albumin Globulin Albumin/Globulin Ratio TSH 1.95 Urine Color Urine Appearance Urine pH Ur Specific [place] Urine Protein Urine Glucose (UA) Urine Ketones Urine Occult Blood Urine Nitrate Urine Bilirubin Urine Urobilinogen Ur Leukocyte Esterase Urine RBC Urine WBC Ur Squamous Epith Cells Urine Bacteria Ur Culture Indicated? Nasal Screen MRSA (PCR) Digoxin 0.7 L SARS-CoV-2 (PCR) Negative 09/27/20 09/27/20 09/27/20 18:10 20:05 22:57 WBC RBC Hgb Hct MCV MCH MCHC RDW Plt Count Neut % (Auto) Lymph % (Auto) [place] % (Auto) Eos % (Auto) Baso % (Auto) Neut # (Auto) Lymph # (Auto) [place] # (Auto) Eos # (Auto) Baso # (Auto) PT INR APTT Sodium Potassium Chloride Carbon Dioxide BUN Creatinine Estimated GFR BUN/Creatinine Ratio Glucose Hemoglobin A1c Calcium Magnesium Total Bilirubin AST ALT Alkaline Phosphatase Total Creatine Kinase 48 CK-MB (CK-2) TNP CK-MB (CK-2) Rel Index TNP Troponin I 0.052 H Total Protein Albumin Globulin Albumin/Globulin Ratio TSH Urine Color Yellow Urine Appearance Clear Urine pH 7.0 Ur Specific [place] 1.010 Urine Protein Negative Urine Glucose (UA) Negative Urine Ketones Negative Urine Occult Blood Trace-intact Urine Nitrate Negative Urine Bilirubin Negative Urine Urobilinogen 0.2 Ur Leukocyte Esterase 1+ H Urine RBC None seen Urine WBC 1-5/hpf Ur Squamous Epith Cells 0-1 /hpf Urine Bacteria None seen Ur Culture Indicated? Specimen cultured Nasal Screen MRSA (PCR) Negative for mrsa Digoxin SARS-CoV-2 (PCR) 09/27/20 09/27/20 09/28/20 22:57 22:57 04:09 WBC RBC Hgb Hct MCV MCH MCHC RDW Plt Count Neut % (Auto) Lymph % (Auto) [place] % (Auto) Eos % (Auto) Baso % (Auto) Neut # (Auto) Lymph # (Auto) [place] # (Auto) Eos # (Auto) Baso # (Auto) PT INR APTT Sodium 136 L Potassium 3.9 Chloride 102 Carbon Dioxide 28 BUN 23 H Creatinine 0.82 Estimated GFR > 60.0 BUN/Creatinine Ratio 28.0 H Glucose 140 H Hemoglobin A1c 7.4 H Calcium 8.3 L Magnesium Total Bilirubin 0.9 AST 68 H ALT 28 Alkaline Phosphatase 113 Total Creatine Kinase CK-MB (CK-2) CK-MB (CK-2) Rel Index Troponin I 0.041 H Total Protein 6.6 Albumin 3.1 L Globulin 3.5 Albumin/Globulin Ratio 0.9 L TSH Urine Color Urine Appearance Urine pH Ur Specific [place] Urine Protein Urine Glucose (UA) Urine Ketones Urine Occult Blood Urine Nitrate Urine Bilirubin Urine Urobilinogen Ur Leukocyte Esterase Urine RBC Urine WBC Ur Squamous Epith Cells Urine Bacteria Ur Culture Indicated? Nasal Screen MRSA (PCR) Digoxin SARS-CoV-2 (PCR) 09/28/20 09/28/20 04:09 04:09 WBC 12.7 H RBC 4.00 Hgb 12.9 Hct 40.1 MCV 100.3 H MCH 32.2 MCHC 32.1 RDW 16.8 H Plt Count 180 Neut % (Auto) 66.4 Lymph % (Auto) 22.0 L [place] % (Auto) 9.2 Eos % (Auto) 0.7 L Baso % (Auto) 1.7 Neut # (Auto) 8400 H Lymph # (Auto) 2800 [place] # (Auto) 1200 H Eos # (Auto) 100 Baso # (Auto) 200 H PT INR APTT Sodium 133 L Potassium 4.1 Chloride 100 Carbon Dioxide 26 BUN 24 H Creatinine 0.84 Estimated GFR > 60.0 BUN/Creatinine Ratio 28.6 H Glucose 142 H Hemoglobin A1c Calcium 8.1 L Magnesium 2.1 Total Bilirubin AST ALT Alkaline Phosphatase Total Creatine Kinase CK-MB (CK-2) CK-MB (CK-2) Rel Index Troponin I Total Protein Albumin Globulin Albumin/Globulin Ratio TSH Urine Color Urine Appearance Urine pH Ur Specific [place] Urine Protein Urine Glucose (UA) Urine Ketones Urine Occult Blood Urine Nitrate Urine Bilirubin Urine Urobilinogen Ur Leukocyte Esterase Urine RBC Urine WBC Ur Squamous Epith Cells Urine Bacteria Ur Culture Indicated? Nasal Screen MRSA (PCR) Digoxin SARS-CoV-2 (PCR) PFSH Medical History Active asthma Acute systolic heart failure Anxiety disorder Atrial fibrillation Blood loss anemia Dysphasia Epilepsy Hypertension Lymphedema Morbid obesity Schizophrenia Urinary incontinence Vitamin D deficiency Surgical History History of tonsillectomy Status post cholecystectomy Family History Grandfather Stroke Mother Mental health problem Grandfather Stroke Social History household members: caregiver and none housing: long-term Smoking Status: Never smoker alcohol intake: never Assessment & Plan Assessment & Plan narrative: Lisa Connor will be admitted for atrial fibrillation with RVR, rule out CVA, and urinary tract infection. 1. Atrial fibrillation w/RVR - now off of diltiazem infusion. This does not seem to work in this patient and only drops her BP. Occasionally rate controlled on PO metoprolol today. Added d igoxin PO back today. may need adjustments depending on therapies. - anticoagulated on eliquis. High CHADS-VASC score. 2. Toxic / metabolic encephalopathy, acute, present on admission - MRI negative for CVA, current speech difficulties and confusion suspected to be in setting of encephalopathy. Differential includes secondary to UTI, but not currently improving. Will check ABG to r/o hypercarbia, check ammonia level. Other possibilities include polypharmacy. 3. New diagnosis of diabetes type 2 with hemoglobin A1c of 7.2 Carb controlled diet with glucose checks a.c. and HS Started her on basal insulin Lantus 10 units daily and low-dose insulin correctional scale. Can discharge on oral medications likely. 6. Acute on chronic congestive heart failure - echo pending. unable to aggressively diurese at this time with low - normal BP. Will give 20 mg IV now, 40 mg in AM if tolerates diuresis with lasix therapy. 7. Essential hypertension, currently hypotensive due to probable sepsis Home dose of lisinopril and is currently being held 8. Acute urinary tract infection, present on admission continue IV ceftriaxone 1 g daily 9. History of schizophrenia, unknown if in exacerbation, present on admission hold home abilify given encephalopathy. Patient is adequately anticoagulated on apixaban 5 mg p.o. b.i.d.. Admitted as inpatient. Dispo: discharge back to [facility] when stable Code Status: Full code per POL, patient's son is DPOA. Quality Stroke Contraindication Not Initiating IV-Tpa: Contraindicated Onset of Symptoms Date: 09/27/20 Symptom Onset Unknown: Yes Rehab Services Assessed: Rehabilitation therapy VTE Deep Vein Thrombosis/Pulmonary Embolism Present on Admission: No
[2020-09-28] MEDS: DIGOXIN 500 MCG/2 ML AMPUL 250 MCG IV ×2 (18:10→23:45)
[2020-09-28 19:24] LABS: Fractionated Inspired Oxygen 21; HCO3 ABG 27 mmol/L (22-26); Oxygen Saturation ABG 98 % (95-100); PCO2 ABG 32.9 mmHg (35-45); PO2 ABG 88 mmHg (80-100); TCO2 ABG 28 mmol/L (21-31); pH ABG 7.52 (7.35-7.45)
[2020-09-28] MEDS: INSULIN GLARGINE 100 UNIT/ML 3ML PEN 10 UNIT SUBCUT (20:04)
[2020-09-28] MEDS: METOPROLOL TARTRATE 5 MG/5 ML INJ IV (22:24)
--- NOTE | 2020-09-28 22:32 | PC.NURSE ---
Patient w/hr 120s-140s, Kanu LITTLE aware. IVP Metoprolol given, before push HR was 125 BP 105/61. Q15min BPs set for the next hour. HR 5 min later is 90s- 115.
[2020-09-29] VITALS (15 sets, daily range): BP systolic 91–137; BP diastolic 54–74; PULSE 73–117; RESP 16–28; TEMP 36.3–36.6; O2SAT 92–98
[2020-09-29] MEDS: cefTRIAXone 1,000 MG in SODIUM CHLORIDE 0.9% 100 ML 200 ML IV (02:29)
[2020-09-29 05:26] LABS: Add Manual Diff / Slide Review NO; Basophils Absolute Auto 100 /uL (0-100); Basophils Percent Auto 1.3 % (0-2); Eosinophils Absolute Auto 100 /uL (0-450); Eosinophils Percent Auto 0.6 % (2-4); Hematocrit 38.3 % (36-46); Hemoglobin 12.4 g/dL (12.0-16.0); Lymphocytes Absolute Auto 4000 /uL (1100-4500); Lymphocytes Percent Auto 35.7 % (25-40); Mean Corpuscular HGB Conc 32.3 % (30-36); Mean Corpuscular Hemoglobin 32.2 PG (26-34); Mean Corpuscular Volume 99.7 fL (80-100); Monocytes Absolute Auto 1000 /uL (0-900); Monocytes Percent Auto 8.6 % (3-14); Neutrophils Absolute Auto 5900 /uL (1500-7000); Neutrophils Percent Auto 53.8 % (50-75); Platelet Count 166 X10^3/uL (150-400); Red Blood Cell Count 3.85 X10^6/uL (4.0-5.2); Red Cell Distribution Width 16.7 % (11.6-14.8); White Blood Cell Count 11.1 X10^3/uL (4.5-11.0)
[2020-09-29] MEDS: DIGOXIN 500 MCG/2 ML AMPUL 250 MCG IV ×2 (05:37→13:04)
[2020-09-29 05:40] LABS: Ammonia (NH3) 46 umol/L (9-30)
[2020-09-29 05:41] LABS: Blood Urea Nitrogen 31 mg/dL (7-17); Carbon Dioxide 25 mmol/L (22-32); Chloride 99 mmol/L (98-107); Estimated Glomerular Filt Rate > 60.0 mL/min (>60); Glucose 133 mg/dL (80-110); HEMOLYSIS 21 (0-50); Magnesium 2.2 mg/dL (1.6-2.3); Potassium 4.3 mmol/L (3.4-5.1); Sodium 131 mmol/L (137-145)
--- NOTE | 2020-09-29 06:30 | PC.NURSE ---
Forestry Crew Chief Note-Patient has dozed intermittently, remains mostly confused with delayed and stuttering speech, but can make needs known. Remains A-fib/flutter with HR 90s-130s, IVP Digoxin given Q6h as ordered, BP low but stable, see vital trends. Has denied pain, is trying to have a BM only smears. Ammonia 46, reported to Robb LITTLE.
--- NOTE | 2020-09-29 07:26 | DI.US.S_ITS ---
PROCEDURE: US ABDOMEN LIMITED INDICATIONS: ELEVATED AMMONIA; EVALUATE LIVER, SPLEEN TECHNIQUE: Real-time focused scanning was performed of the abdomen, with image documentation. COMPARISON: None. FINDINGS: Suboptimal image quality secondary to patient body habitus. Liver is poorly seen. Liver is normal in size measuring 17.0 centimeters in long axis. Liver is grossly normal. Trace fluid noted adjacent to the anterior margin of the right lobe of the liver. Main portal vein is patent and measures 0.9 centimeters in diameter. Gallbladder is surgically absent. Spleen is poorly seen but is grossly normal. Biliary tree is nondilated. Common bile duct measures 8.3 millimeters. IMPRESSION: 1. Image quality is suboptimal secondary to patient body habitus. 2. Trace ascites adjacent to the right lobe of the liver. 3. Liver poorly visualized due to limitations of the study. No gross sonographic abnormalities identified in the liver. Dictated by: Afia Garnett MD, PhD on 09/29/2020 at 9:14 Approved by: Afia Garnett MD, PhD on 09/29/2020 at 9:17
[2020-09-29] MEDS: NYSTATIN POWDER 15GM 1 APPLIC TOP (08:50)
[2020-09-29] MEDS: PANTOPRAZOLE 40 MG VIAL IV (08:50)
[2020-09-29] MEDS: PRIMIDONE 50 MG TABLET 250 MG PO ×2 (08:51→20:53)
[2020-09-29] MEDS: FUROSEMIDE 40 MG/4 ML VIAL IV ×2 (08:52→16:40)
[2020-09-29] MEDS: APIXABAN 5 MG TABLET PO ×2 (08:52→20:51)
[2020-09-29] MEDS: METOPROLOL IR 25 MG TABLET PO ×2 (08:52→20:52)
[2020-09-29] MEDS: LACTULOSE 20 GM/30 ML SOLUTION PO ×3 (08:52→20:52)
[2020-09-29] MEDS: POTASSIUM CHLORIDE 10 MEQ TAB 20 MEQ PO (08:52)
--- NOTE | 2020-09-29 12:36 | PT.IPTN ---
Current Diagnoses Metabolic encephalopathy (09/27/20) Physical Therapy Treatment Note M2 PT-IP Current Condition Start: 09/28/20 14:00 Freq: NEEDED Status: Active Protocol: Document 09/28/20 11:35 AB (Rec: 09/28/20 14:14 AB [id number]) Physical Therapy Current Condition Current Condition Evaluation Date 09/28/20 Treatment Diagnosis A-fib; AMS r/o CVA; generalized weakness Onset Date 09/27/20 Precautions Other Precautions falls M3 PT-IP Subjective Start: 09/28/20 14:00 Freq: NEEDED Status: Active Protocol: Document 09/29/20 11:48 SP (Rec: 09/29/20 16:55 SP [id number]) Subjective Physical Therapy Visit Type Type Treatment Note Visit Start Time 11:48 Visit Stop Time 12:36 Total Visit Minutes 48 Notes Initially required 2nd person assist of nurse during bed mob , standing, SPT to chair then to commode. Co tx with OT for mobility rest of tx and 3rd person assist as needed for pericare during toileting. Number of WAX ROOM SUPERVISOR Visits 1 Physical Therapy Visit Comments Patient Comments Pt agreeable to working with therapy. She is hard to understand thought sensical words/ thought processing during tx. Pt did not know where she was when asked, thought was in [place]. Therapy Pain Assessment Pain When Pain Assessed During Mobility Pain Present Pain Present Pain Reported Location Bilateral Leg Scale Used pain scale not stated Pain Management Techniques Distraction,Modification of Treatment,Re-positioning M4 PT-IP Mobility and Gait Start: 09/28/20 14:00 Freq: NEEDED Status: Active Protocol: Document 09/29/20 11:48 SP (Rec: 09/29/20 16:55 SP [id number]) PT-Bed Mobility Assessment Supine to Sit Supine to Sit Maximum Assistance,2 Person Assistance,Head of Bed Elevated,Bedrails Scooting Scooting to Edge of Bed Maximum Assistance PT-Transfer Assessment Sit to and From Stand Sit to and from Stand Maximum Assistance,2 Person Assistance,Use of Upper Extremities Equipment Transfer Assistive Device Gait Belt,Front Wheeled Walker Orthotic/Prosthetic Devices or Brace: No Transfers Transfer Destination Chair,Bedside Commode Transfer Technique Stand Step Pivot Transfer Ability Level of Assist Moderate Assistance,Maximum Assistance,2 Person Assistance ,Use of Upper Extremities Comments Mobility Comments Supine>sit, scoot to EOB Max A of 2 persons. Pt able to maintain sitting balance during scoot and sitting stationary at EOB CGA and BUE contact support on bed and bed handle. Sit>stand Max A x2 contact anterior feet to prevent sliding forward, cued for upright posture, requires LUMBEE for LUE support to transition to fWW (best LUE push from bed and RUE on FWW to come to standing). Pt stood for 2 sec Max x2 with max cuing for upright posture and buttocks tucked under her, slow descent to sit EOB Max A x2. sit. Sit>stand Max A x2 cued wt shift improved stand posture and able to reposition BLE, SPT bed>chair with max cuing and contact feedback to LEs for patterning BLE and max support for FWW positioning Mod A x2 during pivot. Stand> sit Max cuing and assist for proper hand placement Max A x2 descend to sit in chair. Pt rested stated needed to use the bathroom. Sit>stand Max A x2, SPT chair > BSC using FWW, Mod A x2 and slow descent onto BSC. Provided cushion under BLE due to not being able to touch floor. SBA seated on BSC, pt able to complete lrg BM with intermittent cuing for proper breath due to noted deep red to light purple facial color but improved normal coloring with breath. Max A x2 w/ OT sit> stand from BSC and standing balance while 3rd person A for pericare and brief mgt then pivot to L to chair with Max A x2 using FWW and Max verbal and tactile cuing with support of fWW repositioning. Stand>sit Max A x2, Max A x3 to scoot back in chair while reclined back. Pt had call light and all needs in reach with son in room when left. Gait Assessment Comments Gait Comments SPT only using fWW Mod> Max A x2. Stair Climbing Assessment Comments Stair Climbing Comments Lives in SNF, no stairs to complete. PT-Balance Assessment Sitting Balance and Reactions Static Sitting Balance Ability Fair Dynamic Sitting Balance Ability Poor Standing Balance and Reactions Static Standing Balance Ability Poor Dynamic Standing Balance Ability Poor Device Used FWW M5 PT-IP Objective Assessments Start: 09/28/20 14:00 Freq: NEEDED Status: Active Protocol: Document 09/28/20 11:35 AB (Rec: 09/28/20 14:14 AB [id number]) Orientation Orientation/Cognition Level of Alertness Confusional State Orientation Name Safety Awareness Decreased Safety Awareness Memory Description Short Term Impaired,Chcf Impaired Gross Range of Motion Lower Extremity ROM Impairments C/O pain with BLE movement Strength Comments Strength Comments limited MMT due to pt unable to follow directions consistently Muscle Tone Muscle Tone WNL Yes M6 PT-IP Treatment Start: 09/28/20 14:00 Freq: NEEDED Status: Active Protocol: Document 09/29/20 11:48 SP (Rec: 09/29/20 16:55 SP [id number]) Physical Therapy Treatment Education Education Provided Safety M7 PT-IP Assessment and Plan Start: 09/28/20 14:00 Freq: NEEDED Status: Active Protocol: Document 09/29/20 11:48 SP (Rec: 09/29/20 16:55 SP [id number]) PT Summary Assessment and Plan Potential Rehabilitation Potential Fair Status of Condition at Evaluation Evolving Summary Impairments Pain,ROM,Strength,Balance, Coordination,Sensation,Tone, Cognition,Bed Mobility, Transfers,Gait,Activity Tolerance Progress Towards Goals Progressing Toward Goals,Slow Progress due to Pain,Slow Progress due to Medical Issues ,Slow Progress due to Activity Tolerance Assessment Summary Pt requires Max A x2 for all mobility, x3 for toileting using FWW. Recommending continued skilled acute therapy. Will continue to assess progress. Goals Bed Mobility Goal Moderate Assistance Transfer Goal Moderate Assistance,Front Wheeled Walker Gait Goal Moderate Assistance,Front Wheel Walker Gait Distance 15 Days to Meet Goals 10 Frequency of Treatment Frequency Of Treatment Once a Day Treatment Plan Physical Therapy Treatment Plan Bed Mobility Training,Transfer Training,Gait Training, Therapeutic Exercise,Balance Retraining,Discharge Planning, Hot or Cold Pack,Neuromuscular Re-ed,Coordination Retraining ,Manual Therapy Other Recommendations and Next Treatment Bed mob, transfer, standing, Focus gait if able using FWW. Precautions Other Precautions falls Recommendations To Nursing Amount of Assist Needed 2 Person Assist,3 or More Person Assist Discharge Recommendations PT Discharge Recommendations SNF Rehab Transportation Needs at Discharge Wheelchair/Cabulance,Stretcher /Ambulance
--- NOTE | 2020-09-29 12:37 | OT.IP.TRT ---
Current Diagnoses Metabolic encephalopathy (09/27/20) Occupational Therapy Treatment Note M2 OT-IP Current Condition Start: 09/28/20 15:02 Freq: Status: Active Protocol: Document 09/28/20 15:03 [facility] (Rec: 09/28/20 15:27 [facility] [id number]) Occupational Therapy Current Condition Current Condition Evaluation Date 09/28/20 Treatment Diagnosis A-fib, altered mental status, decreased mobility Diagnosis Onset Date 09/27/20 M3 OT- IP Subjective and Pain Start: 09/28/20 15:02 Freq: Status: Active Protocol: Document 09/29/20 12:41 [facility] (Rec: 09/29/20 12:49 [facility] [id number]) OT- Subjective Occupational Therapy Visit Type Type Treatment Note Visit Start Time 12:17 Visit Stop Time 12:37 Total Visit Minutes 20 Occupational Therapy Visit Comments Patient Comments Pt on the BSC when OT came to assist with SUPERVISOR ABATTOIR. Patient/Caregiver Goals Pt too confused to state a goal. M4 OT- IP ADL's Start: 09/28/20 15:02 Freq: Status: Active Protocol: Document 09/29/20 12:41 [facility] (Rec: 09/29/20 12:49 [facility] [id number]) OT [id number] Comments OT Self-Feeding Comments Per nursing after set-up pt able to self feed herself today. OT ADL-Toileting General Evaluation Toileting Ability Total Assistance Areas Needing Assistance Manage Clothing,Perform Perineal Hygiene Comments OT Toileting Comments Total assist for brief and hygiene needs while needing MOD /MAX A X2 to stand to fww. M5 OT- IP IADL's Start: 09/28/20 15:02 Freq: Status: Active Protocol: Document 09/28/20 15:03 [facility] (Rec: 09/28/20 15:27 [facility] [id number]) OT-Instrumental Activities of Daily Living Deficits IADL Deficits Identified Deficits Home Safety Awareness Awareness of Need for Assistance at Home Decreased Awareness Ability to Problem Solve Emergency Unable to Problem Solve Situations Medication Management Medication Management Caregiver Administers Money Management Money Management Caregiver Provides Assistance Meal Preparation Meal Preparation Caregiver Provides Assist Temper Mill Operator Temper Mill Operator Caregiver Provides Assist M6 OT- IP Functional Cognition Start: 09/28/20 15:02 Freq: Status: Active Protocol: Document 09/29/20 12:41 [facility] (Rec: 09/29/20 12:49 [facility] [id number]) Cognitive Factors Limiting Selfcare Function Cognitive Ability Level of Alertness Alert,Confusional State Patient Orientation Name Attention Span Ability Capable of Focused Attention, Unable to Focus,Unable to Sustain Attention Ability to Follow Commands Able to Follow One Step Commands with Increased Time, Able to Follow One Step Commands with Repetition Memory Description Short Term Impaired,Drug Purchaser Impaired,Working Impaired Cognitive Comments Cognitive Assessment Comments Pt still just orientated to name. Pt needing vc, hand over hand assist to get her hands on the FWW, bsc, or armrest of recliner. Pt able to recognize her son . M7 OT- IP Mobility and Balance Start: 09/28/20 15:02 Freq: Status: Active Protocol: Document 09/29/20 12:41 [facility] (Rec: 09/29/20 12:49 [facility] [id number]) OT-Transfer Assessment Sit to and From Stand Sit to and from Stand Maximum Assistance,2 Person Assistance Transfers Transfer Ability Maximum Assistance,2 Person Assistance Technique Transfer Destination Bedside Commode,Chair Transfer Technique Stand Step Pivot Devices Transfer Assistive Devices Gait Belt,Front Wheeled Walker Comments Mobility Comments MAX A X2 to FWW to stand and assist to transfer to recliner , another person there for safety. Assist for balance, weight shifting, and assist to guide the FWW. OT- Gait Assessment Comments Gait Ability Comments Transfer only at this time. OT- Balance Assessment Sitting Balance and Reactions Static Sitting Balance Ability Fair Standing Balance and Reactions Static Standing Balance Ability Poor M8 OT- IP Objective Assessments Start: 09/28/20 15:02 Freq: Status: Active Protocol: Document 09/28/20 15:03 [facility] (Rec: 09/28/20 15:27 [facility] [id number]) OT Gross Range of Motion Upper Extremity Range of Motion Assessment Bilaterally Impaired OT Strength Upper Extremity Strength Assessment Bilaterally Impaired OT- Coordination Assessment Comments Coordination Comments Decreased for coordination for grooming needs due to weakness and decreased initiation of movements. OT-Muscle Tone Assessment Muscle Tone WNL Yes M9 OT- IP Assessment and Plan Start: 09/28/20 15:02 Freq: Status: Active Protocol: Document 09/29/20 12:41 [facility] (Rec: 09/29/20 12:49 [facility] [id number]) OT Summary Assessment and Plan Potential Rehabilitation Potential Fair Analytic Complexity at Evaluation Moderate Summary OT Impairments Strength,Balance,Functional Cognition,Functional Mobility, Self-Feeding,Grooming,Toilet Transfers Progress Towards Goals Progressing Toward Goals,Slow Progress due to Medical Issues ,Slow Progress due to Cognition Assessment Summary Pt able to do transfers today with MAX AX 2 with FWW . Pt still confused but willing to participate in therapy. Suggest when medically stable skilled rehab versus home to [facility] and increased assist . Goals Grooming Goal Standby Assistance Toilet Transfer Goal Moderate Assistance Days to Meet Goals 19 Frequency of Treatment Frequency Of Treatment Once a Day Treatment Plan OT Treatment Plan ADL Training,Functional Cognition Training,Functional Mobility,Patient/Family Education,Discharge Planning Other Treatment Recommendations and Next grooming with set-up Treatment Focus Discharge Recommendations OT Discharge Recommendations Home vs SNF Transportation Needs at Discharge Wheelchair/Cabulance
--- NOTE | 2020-09-29 13:45 | PC.NURSE ---
pt with waxing and waning cognition- makes mention of being in [facility]- frequent reorientation required- she is able to feed self and has a chronic strong cough- continues afib/flutter rate in 70-80's - lomeli patent and iv lasix effective - PT/OT assist to chair
--- NOTE | 2020-09-29 15:29 | PM.PN.1 ---
Subjective Subjective Date Patient Seen: 09/29/20 Time Patient Seen: 15:29 Interval history: This is a 74 year old female with a history of atrial fibrillation, morbid obesity, Schizophrenia, systolic heart failure, UTI's, hypertension, asthma and osteoarthritis who is admitted with afib/flutter with RVR and metabolic encephalopathy. Ammonia was elevated yesterday, improved mentation slightly today but still confused after starting lactulose. She has had a few large bowel movements today. Exam Vital Signs (past 8 hours): - 09/29/20 07:30 09/29/20 13:04 09/29/20 13:55 Temperature 97.9 F 97.5 F L Pulse Rate 87 89 81 Respiratory Rate 21 16 Blood Pressure 110/55 L 137/63 Pulse Oximetry 97 96 Oxygen Delivery Method Room Air Oxygen Flow Rate 0 Narrative Exam Narrative: Gen: Alert, confused, morbidly obese 75 y.o. female, appears chronically ill HEENT: normocephalic, atraumatic, conjunctiva clear, sclera non-icteric, flushed face, chronic. oral mucosa pale and dry Neck: supple, full ROM, no JVD, trachea is midline Resp: Lungs CTA, shallow respirations with poor effort. CV: irregularly irregular, now with normal rate. No obvious murmur. Abd: obese, soft, non-tender, normoactive BTs Skin: no lesions or rashes, dry and intact Neuro: Alert and oriented to self. Confused. Stuttered speech and slurred though much improved from yesterday. Follows commands, diffusely weak. Extremities: Bilateral lower legs with +2 pitting edema, toes are deformed and curling under with overgrown toenails. Objective Labs Result Diagrams: 09/29/20 04:54 09/29/20 04:54 Labs: Laboratory Results - last 24 hr 09/28/20 09/29/20 09/29/20 18:14 04:54 04:54 WBC 11.1 H RBC 3.85 L Hgb 12.4 Hct 38.3 MCV 99.7 MCH 32.2 MCHC 32.3 RDW 16.7 H Plt Count 166 Neut % (Auto) 53.8 Lymph % (Auto) 35.7 [place] % (Auto) 8.6 Eos % (Auto) 0.6 L Baso % (Auto) 1.3 Neut # (Auto) 5900 Lymph # (Auto) 4000 [place] # (Auto) 1000 H Eos # (Auto) 100 Baso # (Auto) 100 ABG pH 7.52 H ABG pCO2 32.9 L ABG pO2 88 ABG HCO3 27 H ABG Total CO2 28 ABG O2 Saturation 98 ABG Base Excess 4.0 H FiO2 21 Sodium 131 L Potassium 4.3 Chloride 99 Carbon Dioxide 25 BUN 31 H Creatinine 0.86 Estimated GFR > 60.0 BUN/Creatinine Ratio 36.0 H Glucose 133 H Calcium 8.0 L Magnesium 2.2 Ammonia 09/29/20 04:54 WBC RBC Hgb Hct MCV MCH MCHC RDW Plt Count Neut % (Auto) Lymph % (Auto) [place] % (Auto) Eos % (Auto) Baso % (Auto) Neut # (Auto) Lymph # (Auto) [place] # (Auto) Eos # (Auto) Baso # (Auto) ABG pH ABG pCO2 ABG pO2 ABG HCO3 ABG Total CO2 ABG O2 Saturation ABG Base Excess FiO2 Sodium Potassium Chloride Carbon Dioxide BUN Creatinine Estimated GFR BUN/Creatinine Ratio Glucose Calcium Magnesium Ammonia 46 H [facility] Medical History Active asthma Acute systolic heart failure Anxiety disorder Atrial fibrillation Blood loss anemia Dysphasia Epilepsy Hypertension Lymphedema Morbid obesity Schizophrenia Urinary incontinence Vitamin D deficiency Surgical History History of tonsillectomy Status post cholecystectomy Family History Grandfather Stroke Mother Mental health problem Grandfather Stroke Social History household members: caregiver and none housing: [facility] Smoking Status: Never smoker alcohol intake: never Assessment & Plan Assessment & Plan narrative: Lisa Connor is a 75 year old female, resident of nursing facility with obesity, chronic atrial fibrillation, new dignosis this admit of DM admitted with confusion and afib with RVR. RVR now improved, but remains confused and likely secondary to a hepatic encephalopathy given elevated ammonia and improvement with lactulose therapy. 1. Chronic Atrial fibrillation w/RVR - now off of diltiazem infusion. This does not seem to work in this patient and only drops her BP. Occasionally rate controlled on PO metoprolol today. Added digoxin back with digoxin load. metoprolol also increased. - anticoagulated on eliquis. High CHADS-VASC score. 2. metabolic encephalopathy, acute, present on admission - MRI negative for CVA, current speech difficulties and confusion suspected to be in setting of encephalopathy. Differential includes secondary to UTI, but did not improve with antibiotic therapy. Ammonia level elevated at 46. Abdominal ultrasound limited by body habitus but no obvious cirrhosis though there is ascites. Possible this is related to heart failure, afib and hepatic congestion or OTERO. 3. New diagnosis of diabetes type 2 with hemoglobin A1c of 7.2 Carb controlled diet with glucose checks a.c. and HS Started her on basal insulin Lantus 10 units daily and low-dose insulin correctional scale. Can discharge on oral medications likely. 4. Acute on chronic congestive heart failure - echo pending. unable to aggressively diurese at this time with low - normal BP. continue 40 mg BID if her BP continue to tolerate. Somewhat improved BP with better rate control. 5. Essential hypertension, currently hypotensive due to probable sepsis - Home dose of lisinopril and is currently being held 6. Acute urinary tract infection, present on admission - continue IV ceftriaxone 1 g daily 7. History of schizophrenia, unknown if in exacerbation, present on admission - hold home abilify given encephalopathy. DVT: Patient is adequately anticoagulated on apixaban 5 mg p.o. b.i.d.. Admitted as inpatient. Dispo: plan discharge back to [facility] when stable Code Status: Full code per POLST, patient's son is DPOA. Quality Stroke Contraindication Not Initiating IV-Tpa: Contraindicated Onset of Symptoms Date: 09/27/20 Symptom Onset Unknown: Yes Rehab Services Assessed: Rehabilitation therapy VTE Deep Vein Thrombosis/Pulmonary Embolism Present on Admission: No
--- NOTE | 2020-09-29 15:43 | ST.IPCSEOM ---
Visit Care Team Role Provider Type Emmanuel Cedeno MD Family Provider Non-Staff Specialty: Medical Address: [address] [place] [address] [address], [place], [address] Email: Roxana Gayle DO Emergency Provider Physician Referring Provider Specialty: Emergency Medicine Address: [address] [place] [address], [address] Email: [email or web address] Admit Provider Physician Attending Provider Specialty: Internal Medicine Address: [address] [place] [address], [address] Email: [email or web address] Diagnoses Metabolic encephalopathy (09/27/20) Past Medical History (Last Reviewed 09/28/20 @ 02:17 by ANABEL Zuniga) Active asthma (Medical) Acute systolic heart failure (Medical) Anxiety disorder (Medical) Atrial fibrillation (Medical) Blood loss anemia (Medical) Dysphasia (Medical) Epilepsy (Medical) Hypertension (Medical) Lymphedema (Medical) Morbid obesity (Medical) Schizophrenia (Medical) Urinary incontinence (Medical) Vitamin D deficiency (Medical) Speech-Language Pathology Swallow Evaluation WIRELINE SUPERVISOR Clinical Instructor Line Start: 09/29/20 15:42 Freq: Status: Active Protocol: Document 09/29/20 15:42 TLC (Rec: 09/29/20 15:42 TLC [id number]) Clinical Instructor Signature Clinical Instructor Clinical Instructor Yes: Nellie Rucker MS, [facility]-WIRELINE SUPERVISOR WIRELINE SUPERVISOR Clinical Swallow Evaluation Start: 09/29/20 14:40 Freq: Status: Active Protocol: Document 09/29/20 14:41 EB (Rec: 09/29/20 15:41 EB [id number]) Clinical Swallow Evaluation Session Time Visit Start Time 01:45 Visit Stop Time 02:25 Total Visit Minutes 40 Referral Referring Provider ANABEL Zuniga Reason for Referral Hx of choking, stroke protocol Setting Assessment Location Acute Care Visit Type Note Type Initial evaluation Next Note Type Next Note Type Treatment Note Patient Information Identification Type Name,Wristband History Pt is a 75 female resident of [facility], admitted into ICU on 09/27/20 with afib /flutter and metabolic encephalopathy. Per doctor's progress note, MRI today showed no evidence of stroke. Of note, pt was admitted in March of 2020 for choking on a sandwich and required suctioning and chest compressions (EMS unable to administer Heimlich maneuver due to patient's size) to expel the bolus. Subjective Observations Pt was alert and sitting upright in her chair upon WIRELINE SUPERVISOR and WIRELINE SUPERVISOR student arrival, no family members were present during evaluation. Per nursing note, pt has been confused since admittance but began independently feeding herself for the first time today with nursing setup assistance. Nursing staff also reported 1 episode of coughing this afternoon that lasted for 10 minutes, unknown cause. Pt was conversant and made a few jokes, but overall communication was significantly impaired due to pt confusion. Reported by Patient Other Symptoms History of aspiration or pneumonia Comment Pt unable to clearly describe symptoms. Current Diet Regular Baseline Feeding Method Needs some assistance Objective Assessment Mental Status Alert,Responsive,Confused Oral Integrity Xerostomia/Dry mouth Dentition Within normal limits,Decay Lip Function Moderate impairment Observation of Lips at Rest Symmetrical Pucker Reduced range of motion, Reduced strength Lip Retraction Within normal limits Alternating Pucker/Lip Retraction Reduced range of motion, Incoordination Tongue Function Mild impairment Observations of Tongue at Rest Within normal limits Tongue Protrusion Reduced range of motion, Reduced strength Tongue Lateralization Reduced strength Jaw Function Within normal limits Observations of Jaw at Rest Within normal limits Jaw Opening Within normal limits Jaw Closing Within normal limits Hard/Soft Palate Function Within normal limits Observations of Hard/Soft Palate Within normal limits Phonation Hoarse Respiratory Sufficiency Within normal limits Comment Pt presents with overall weakness in tongue and lips. Food and Liquid Trials Position During Assessment Upright (90 degrees),In chair Liquids Trialed Thin Solids Trialed Puree Administration Type Tea spoon,Straw Oral Impairment Within functional limits Oral Phase Comments Oral phase appeared to be WFL but observation was limited due to only thin liquid and puree presentations (pt declined peaches). Further assessment is warranted to further evaluate pt's mastication with more advanced textures. Pharyngeal Impairment Within functional limits Pharyngeal Phase Comments Administered thin liquid via straw, pt self administered sequential sips and showed no obvious signs of penetration/ aspiration. While pt tolerated thin liquid during trial, it was noted that she took large and fast sips and was overheard coughing after WIRELINE SUPERVISOR and WIRELINE SUPERVISOR student left the room. Pt may require cueing in order to remember to take smaller sips. Hyoid/laryngeal elevation present upon palpation, no obvious signs of aspiration or penetration noted with puree presentation. Again, pt declined trials of advanced textures, further assessment is warranted. Findings Swallowing Function Within functional limits Severity of Swallow Impairment Within functional limits Contributing Factors to Swallow Reduced alertness or attention Impairment ,Difficulty following directions Prognosis Fair Based on Cognitive status,History of aspiration/aspiration pneumonia,Comorbidities Comment Swallow appeared to be within functional limits, however, limited trials were presented due to pt refusal. Nursing reports pt has been consuming a regular carbohydrate diet since yesterday without difficulty, however, dysphagia mechanical diet is recommended given history of choking. Pt's speech and language were assessed informally during conversation . Pt was approximately 50% intelligible with overall imprecise articulation, hoarse vocal quality, WFD, and partial/whole word stuttering. When asked about her stutter, pt was unable to state a clear cause. Pt indicated that she sometimes repeats sounds on purpose like its a game. When asked to elaborate, pt was unable to do so. Based on speech evaluation from admission in March, stuttering does not seem to be pt's baseline. Pt stated she had received speech therapy in the past but did not clearly indicate what was being treated. Pt overall seemed confused and had difficulty answering open-ended questions . Was oriented to self only and was unable to state place or date of . Pt independently followed 1-step directions during OME 50% of the time, the rest of the time needing a direct model. Ongoing assessment would be beneficial to guide POC. Impact on Safety and Functioning Risk for aspiration Recommendations Instrumental Assessment No Recommended Solids Dysphagia Mechanical Recommended Liquids Thin Other Recommendations Follow up at meal time if possible to assess endurance and pt safety with current diet. Safety Precautions/Swallowing 1 to 1 distant supervision, Recommendations Feed only when alert,Reduce distractions,Remain upright ( 90 degrees) during all oral intake,Needs verbal cues to use recommended strategies, Small bites and sips when eating,Set-up assistance,Check for pocketing Medication Recommendations As Tolerated Discharge Recommendations [facility] facility Education Patient/Caregiver Education Described results of evaluation,Patient expressed agreement with goals & treatment plans,Patient requires further education/ training,Family/caregivers require further education/ training Goals Short-term Goals With visual and/or verbal cueing, pt will implement safe swallow strategies (small bites/sips, slow rate) in order to safely consume meals. Given external memory aids ( white board in room), pt will correctly answer questions regarding orientation to self, place, date, etc.
[2020-09-29] MEDS: INSULIN LISPRO 100 UNIT/ML 3ML VIAL SUBCUT (16:35)
[2020-09-29] MEDS: DIGOXIN 0.125 MG TABLET PO (16:40)
[2020-09-29] MEDS: INSULIN GLARGINE 100 UNIT/ML 3ML PEN 10 UNIT SUBCUT (20:51)
[2020-09-29] MEDS: MELATONIN 3 MG TABLET 6 MG PO (20:52)
[2020-09-30] VITALS (7 sets, daily range): BP systolic 102–128; BP diastolic 60–74; PULSE 82–90; RESP 18–26; TEMP 36.4–36.8; O2SAT 94–99
[2020-09-30] MEDS: cefTRIAXone 1,000 MG in SODIUM CHLORIDE 0.9% 100 ML 200 ML IV (02:38)
[2020-09-30 04:50] LABS: Add Manual Diff / Slide Review NO; Basophils Absolute Auto 100 /uL (0-100); Basophils Percent Auto 1.6 % (0-2); Eosinophils Absolute Auto 200 /uL (0-450); Eosinophils Percent Auto 2.2 % (2-4); Hematocrit 37.6 % (36-46); Hemoglobin 12.2 g/dL (12.0-16.0); Lymphocytes Absolute Auto 3100 /uL (1100-4500); Mean Corpuscular HGB Conc 32.6 % (30-36); Mean Corpuscular Hemoglobin 32.5 PG (26-34); Mean Corpuscular Volume 99.9 fL (80-100); Monocytes Absolute Auto 700 /uL (0-900); Monocytes Percent Auto 7.5 % (3-14); Neutrophils Absolute Auto 5300 /uL (1500-7000); Neutrophils Percent Auto 55.7 % (50-75); Platelet Count 191 X10^3/uL (150-400); Red Blood Cell Count 3.77 X10^6/uL (4.0-5.2); Red Cell Distribution Width 16.5 % (11.6-14.8); White Blood Cell Count 9.5 X10^3/uL (4.5-11.0)
[2020-09-30 04:58] LABS: Ammonia (NH3) 11 umol/L (9-30)
[2020-09-30 04:59] LABS: BUN Creatinine Ratio 31.3 (6-22); Blood Urea Nitrogen 21 mg/dL (7-17); Calcium 7.9 mg/dL (8.4-10.2); Carbon Dioxide 28 mmol/L (22-32); Chloride 105 mmol/L (98-107); Estimated Glomerular Filt Rate > 60.0 mL/min (>60); Glucose 101 mg/dL (80-110); HEMOLYSIS < 15 (0-50); Magnesium 2.2 mg/dL (1.6-2.3); Potassium 3.2 mmol/L (3.4-5.1); Sodium 137 mmol/L (137-145)
[2020-09-30] MEDS: PANTOPRAZOLE DR 40 MG TABLET PO (06:41)
--- NOTE | 2020-09-30 08:35 | CM.DPC ---
DCP: continued: case received, EMR reviewed and spoke with [facility]. She confirms that pt is one of their few terminal gauger residents. With her change in condition she will likely return to them initially under her Medicare snf benefit and then transition to her [facility]pc care status with Medicaid as appropriate. P: Return to [facility] as per above. ? new PASRR needed...will check. COVID - test will be needed. Will keep POA son updated
[2020-09-30] MEDS: LACTULOSE 20 GM/30 ML SOLUTION PO ×3 (08:45→20:23)
[2020-09-30] MEDS: POTASSIUM CHLORIDE 10 MEQ TAB 20 MEQ PO (08:46)
[2020-09-30] MEDS: FUROSEMIDE 40 MG/4 ML VIAL IV ×2 (08:46→17:01)
[2020-09-30] MEDS: METOPROLOL IR 25 MG TABLET PO ×2 (08:46→20:22)
[2020-09-30] MEDS: APIXABAN 5 MG TABLET PO ×2 (08:46→20:22)
[2020-09-30] MEDS: PRIMIDONE 50 MG TABLET 250 MG PO ×2 (08:46→20:30)
--- NOTE | 2020-09-30 10:59 | SLP.IPNOTE ---
Attempted to see patient for speech/dysphagia therapy, but MD is in room with patient. Will re-attempt at a later time today.
--- NOTE | 2020-09-30 11:20 | ST.IPDYTX ---
PROPERTY MAN Dysphagia Treatment PROPERTY MAN Clinical Instructor Line Start: 09/29/20 15:42 Freq: Status: Active Protocol: Document 09/29/20 15:42 TLC (Rec: 09/29/20 15:42 TLC [id number]) Clinical Instructor Signature Clinical Instructor Clinical Instructor Yes: Nellie RuckerMS, [facility]PROP[facility] PROPERTY MAN Dysphagia Treatment Start: 09/30/20 12:44 Freq: Status: Active Protocol: Document 09/30/20 12:44 TLC (Rec: 09/30/20 12:56 TLC [id number]) Dysphagia Treatment Session Time Visit Start Time 11:05 Visit Stop Time 11:20 Total Visit Minutes 15 Visit Information Visit Number 2 Setting Assessment Location Acute Care Visit Type Note Type Treatment Note Next Note Type Next Note Type Treatment Note Patient Information Identification Type Name Subjective Observations Patient was sitting up in the chair in her room. Her son, Isacc was present during the session. Lisa was noted to be less responsive than compared to yesterday afternoon when I saw her with student PROPERTY MAN for the initial evaluation. She needed verbal cueing to open her eyes and repetitions of questions/commands. Treatment Liquids Trialed Thin Solids Trialed Dysphagia Mechanical Administration Type Dependent Feeding Oral Strategies Upright at 90 degrees, Controlled Bite/Sip Size, Alternate Liquids/Solids Treatment Activities Lisa was eager to eat a snack and reached for the cup of peaches when I put them on the table. She required assistance opening the cup and with feeding, declining when I asked if she could feed herself. She consumed ice water via straw and peaches via tsp with no signs of pharyngeal impairment and only mild oral residue on her tongue which cleared with a liquid wash. Her son reports she fed herself this morning for breakfast and did not have difficulty, coughing or choking. When asked about oral hygiene, her son told me OT helped the patient with toothbrushing yesterday. After the peaches, I attempted to target orientation and naming, but patient was resistant. She was unable to name phone during confrontation naming, but stated the thing you talk on . When asked is it a cup, she responded no, but she also responded no when asked if it was a phone. She was not oriented to place or situation . Assessment Patient Response to Treatment Fair Rehab Potential Fair Assessment of Improvement Adequate mastication and bolus manipulation for current diet with no signs of aspiration. Patient has been able to self- feed lunch yesterday and breakfast this morning, but remains disoriented and needs distant supervision and cues for safe swallow strategies. Speech remains dysfluent and largely unintelligible. Diet Recommendations Recommendations Continue Current Diet Liquids Order Thin Diet Order Dysphagia Mechanical Medication Recommendations As Tolerated Additional Dietary Needs Reminders to Use Strategies Aspiration Precautions Recommended Precautions Upright at 90 Degrees, Alternate Liquids/Solids,Small Bites/Sips Treatment Plan Placement Recommendation after Discharge Halfway Facility Appropriate for Continued Therapy Yes Therapy Recommendations Ongoing dysphagia management and assessment/treatment of communication skills with implementation of external memory aids as needed. Dysphagia Goals With visual and/or verbal cueing, pt will implement safe swallow strategies (small bites/sips, slow rate) in order to safely consume meals. Given external memory aids ( white board in room), pt will correctly answer questions regarding orientation to self, place, date, etc.
--- NOTE | 2020-09-30 12:28 | PT-IP ANOTE ---
PT reviews chart and arrives to check on pt who is sitting up in chair at 1217. PT clears with nsg. Pt is confused and A&O to name only. Pt does not make speech that is understandable and does not follow commands. PT sets up chair, lowering legs of chair and pt calls out and keeps eyes closed. She does not follow commands to sit upright, using her hands to help. Returned legs to upright position and pulled tray back in front of pt and left pt as found.
[2020-09-30] MEDS: INSULIN LISPRO 100 UNIT/ML 3ML VIAL SUBCUT ×2 (13:14→16:56)
--- NOTE | 2020-09-30 14:00 | PT.IPTN ---
Current Diagnoses Metabolic encephalopathy (09/27/20) Physical Therapy Treatment Note M2 PT-IP Current Condition Start: 09/28/20 14:00 Freq: NEEDED Status: Active Protocol: Document 09/28/20 11:35 AB (Rec: 09/28/20 14:14 AB [id number]) Physical Therapy Current Condition Current Condition Evaluation Date 09/28/20 Treatment Diagnosis A-fib; AMS r/o CVA; generalized weakness Onset Date 09/27/20 Precautions Other Precautions falls M3 PT-IP Subjective Start: 09/28/20 14:00 Freq: NEEDED Status: Active Protocol: Document 09/30/20 16:00 AB (Rec: 09/30/20 17:04 AB [email or web address]) Subjective Physical Therapy Visit Type Type Treatment Note Visit Start Time 16:00 Visit Stop Time 16:25 Total Visit Minutes 25 Number of SENIOR CONTRACTS MANAGER Visits 0 Physical Therapy Visit Comments Patient Comments pt able to answer simple questions but at times requires increase time to respond and questions have to be repeated M4 PT-IP Mobility and Gait Start: 09/28/20 14:00 Freq: NEEDED Status: Active Protocol: Document 09/30/20 16:00 AB (Rec: 09/30/20 17:04 AB [id number]) PT-Bed Mobility Assessment Supine to Sit Supine to Sit Total Assistance,2 Person Assistance,Head of Bed Elevated PT-Transfer Assessment Sit to and From Stand Sit to and from Stand Maximum Assistance,2 Person Assistance,Use of Upper Extremities Equipment Transfer Assistive Device Front Wheeled Walker Orthotic/Prosthetic Devices or Brace: No Transfers Transfer Destination Chair Transfer Technique Stand Step Pivot Transfer Ability Level of Assist Maximum Assistance,2 Person Assistance,Use of Upper Extremities Comments Mobility Comments pt supine in bed. agreed to get out of the bed. able to answer simple questions. completed supine to sit with HOB elevated requiring max A x 2 and max cues. pt sat on EOB initially max A for sitting balance but mod A after positioning. max cues for all tasks. total A for scooting to EOB. completed sit to stand max A x 2 and max cues. step pivot to chair max A x2 and max cues. requires assist with FWW maneuvering and weight shifting to move LE. positioned pt on the chair. call light and table placed within reach. M5 PT-IP Objective Assessments Start: 09/28/20 14:00 Freq: NEEDED Status: Active Protocol: Document 09/28/20 11:35 AB (Rec: 09/28/20 14:14 AB [id number]) Orientation Orientation/Cognition Level of Alertness Confusional State Orientation Name Safety Awareness Decreased Safety Awareness Memory Description Short Term Impaired,Flour Mixer Helper Impaired Gross Range of Motion Lower Extremity ROM Impairments C/O pain with BLE movement Strength Comments Strength Comments limited MMT due to pt unable to follow directions consistently Muscle Tone Muscle Tone WNL Yes M6 PT-IP Treatment Start: 09/28/20 14:00 Freq: NEEDED Status: Active Protocol: Document 09/30/20 16:00 AB (Rec: 09/30/20 17:04 AB [email or web address]) Physical Therapy Treatment Education Education Provided Safety M7 PT-IP Assessment and Plan Start: 09/28/20 14:00 Freq: NEEDED Status: Active Protocol: Document 09/30/20 16:00 AB (Rec: 09/30/20 17:04 AB [email or web address]) PT Summary Assessment and Plan Potential Rehabilitation Potential Fair Summary Impairments Pain,ROM,Strength,Balance, Coordination,Sensation,Tone, Cognition,Bed Mobility, Transfers,Gait,Activity Tolerance Progress Towards Goals Slow Progress due to Activity Tolerance,Slow Progress - Other Assessment Summary pt requiring max A to total A x 2 for mobility. continues to have difficulty following directions but able to respond to simple questions. pt will benefit from SNF rehab to improve mobility and decrease burden of care. Goals Bed Mobility Goal Moderate Assistance Transfer Goal Moderate Assistance,Front Wheeled Walker Gait Goal Moderate Assistance,Front Wheel Walker Gait Distance 15 Days to Meet Goals 10 Frequency of Treatment Frequency Of Treatment Once a Day Treatment Plan Physical Therapy Treatment Plan Bed Mobility Training,Transfer Training,Gait Training, Therapeutic Exercise,Balance Retraining,Discharge Planning, Hot or Cold Pack,Neuromuscular Re-ed,Coordination Retraining ,Manual Therapy Precautions Other Precautions falls Recommendations To Nursing Amount of Assist Needed Power Sit-Stand Discharge Recommendations PT Discharge Recommendations SNF Rehab Transportation Needs at Discharge Wheelchair/Cabulance,Stretcher /Ambulance
--- NOTE | 2020-09-30 15:43 | OT.IPNOTE ---
Attempted to see pt for grooming needs. Pt having difficulty to keep her eyes open to stay awake. Pt still neglects use of left hand when trying to help wash her face. Pt needing MODA for completeness. No charge, to check on pt tomorrow.
[2020-09-30] MEDS: DIGOXIN 0.125 MG TABLET PO (17:01)
--- NOTE | 2020-09-30 17:09 | P.PN_ITS ---
Subjective Subjective Date Patient Seen: 09/30/20 Time Patient Seen: 17:09 Interval history: This is a 74 year old female with a history of atrial fibrillation, morbid obesity, Schizophrenia, systolic heart failure, UTI's, hypertension, asthma and osteoarthritis who is admitted with afib/flutter with RVR and metabolic encephalopathy. Improved mentation slightly today but still confused after starting lactulose. She has had a few large bowel movements today. Exam Vital Signs (past 8 hours): - 09/30/20 11:52 09/30/20 16:15 09/30/20 17:01 Temperature 97.6 F 97.8 F Pulse Rate 89 88 90 Respiratory Rate 18 24 Blood Pressure 122/74 125/72 128/72 Pulse Oximetry 98 99 Oxygen Delivery Method Room Air Oxygen Flow Rate 0 Narrative Exam Narrative: Gen: Alert, confused, morbidly obese 75 y.o. female, appears chronically ill HEENT: normocephalic, atraumatic, conjunctiva clear, sclera non-icteric, flushed face, chronic. oral mucosa pale and dry Neck: supple, full ROM, no JVD, trachea is midline Resp: Lungs CTA, shallow respirations with poor effort. CV: irregularly irregular, now with normal rate. No obvious murmur. Abd: obese, soft, non-tender, normoactive BTs Skin: no lesions or rashes, dry and intact Neuro: Alert and oriented to self. Confused. Stuttered speech and slurred though much improved from yesterday. Follows commands, diffusely weak. Extremities: Bilateral lower legs with +2 pitting edema, toes are deformed and curling under with overgrown toenails. Objective Labs Result Diagrams: 09/30/20 04:36 09/30/20 04:36 Labs: Laboratory Results - last 24 hr 09/30/20 09/30/20 09/30/20 04:36 04:36 04:36 WBC 9.5 RBC 3.77 L Hgb 12.2 Hct 37.6 MCV 99.9 MCH 32.5 MCHC 32.6 RDW 16.5 H Plt Count 191 Neut % (Auto) 55.7 Lymph % (Auto) 33.0 [place] % (Auto) 7.5 Eos % (Auto) 2.2 Baso % (Auto) 1.6 Neut # (Auto) 5300 Lymph # (Auto) 3100 [place] # (Auto) 700 Eos # (Auto) 200 Baso # (Auto) 100 Sodium 137 Potassium 3.2 L Chloride 105 Carbon Dioxide 28 BUN 21 H Creatinine 0.67 Estimated GFR > 60.0 BUN/Creatinine Ratio 31.3 H Glucose 101 Calcium 7.9 L Magnesium 2.2 Ammonia 11 PFSH Medical History Active asthma Acute systolic heart failure Anxiety disorder Atrial fibrillation Blood loss anemia Dysphasia Epilepsy Hypertension Lymphedema Morbid obesity Schizophrenia Urinary incontinence Vitamin D deficiency Surgical History History of tonsillectomy Status post cholecystectomy Family History Grandfather Stroke Mother Mental health problem Grandfather Stroke Social History household members: caregiver and none housing: long-term Smoking Status: Never smoker alcohol intake: never Assessment & Plan Assessment & Plan narrative: Lisa Connor is a 75 year old female, resident of nursing facility with obesity, chronic atrial fibrillation, new diagnosis this admit of DM admitted with confusion and afib with RVR. RVR now improved, but remains confused and likely secondary to a hepatic encephalopathy given elevated ammonia and improvement with lactulose therapy. 1. Chronic Atrial fibrillation w/RVR - now off of diltiazem infusion. This does not seem to work in this patient and only drops her BP. Improved rate control after digoxin load. Continue oral digoxin and increased dose of metoprolol. - anticoagulated on eliquis. High CHADS-VASC score. 2. metabolic encephalopathy, acute, present on admission - MRI negative for CVA, current speech difficulties and confusion suspected to be in setting of encephalopathy. Differential includes secondary to UTI, but did not improve with antibiotic therapy. Ammonia level elevated at 46. Abdominal ultrasound limited by body habitus but no obvious cirrhosis though there is ascites. Possible this is related to heart failure, afib and hepatic congestion or OTERO. 3. New diagnosis of diabetes type 2 with hemoglobin A1c of 7.2 Carb controlled diet with glucose checks a.c. and HS Started her on basal insulin Lantus 10 units daily and low-dose insulin cor rectional scale. Can discharge on oral medications likely. 4. Acute on chronic systolic congestive heart failure - echo with slight decrease in EF to 20-25% on TTE. unable to aggressively diurese at this time with low - normal BP initially. continue 40 mg BID if her BP continues to tolerate. Somewhat improved BP with better rate control. 5. Essential hypertension, currently hypotensive due to probable sepsis - Home dose of lisinopril and is currently being held 6. Acute urinary tract infection, present on admission - continue IV ceftriaxone 1 g daily 7. History of schizophrenia, unknown if in exacerbation, present on admission - hold home abilify given encephalopathy. Consider restarting in the next few days. DVT: Patient is adequately anticoagulated on apixaban 5 mg p.o. b.i.d.. Admitted as inpatient. Dispo: plan discharge back to [facility] when stable Code Status: Full code per SIOMARA, patient's son is DPOA. Quality Stroke Contraindication Not Initiating IV-Tpa: Contraindicated Onset of Symptoms Date: 09/27/20 Symptom Onset Unknown: Yes Rehab Services Assessed: Rehabilitation therapy VTE Deep Vein Thrombosis/Pulmonary Embolism Present on Admission: No
[2020-09-30] MEDS: MELATONIN 3 MG TABLET 6 MG PO (20:21)
[2020-09-30] MEDS: POTASSIUM CHLORIDE 20 MEQ TAB 40 MEQ PO (20:22)
[2020-09-30] MEDS: INSULIN GLARGINE 100 UNIT/ML 3ML PEN 10 UNIT SUBCUT (20:23)
[2020-10-01] VITALS (7 sets, daily range): BP systolic 106–120; BP diastolic 58–80; PULSE 85–96; RESP 18–27; TEMP 36.4–37; O2SAT 96–98
[2020-10-01] MEDS: cefTRIAXone 1,000 MG in SODIUM CHLORIDE 0.9% 100 ML 200 ML IV (02:55)
[2020-10-01 06:20] LABS: Add Manual Diff / Slide Review NO; Basophils Absolute Auto 100 /uL (0-100); Basophils Percent Auto 0.6 % (0-2); Eosinophils Absolute Auto 200 /uL (0-450); Eosinophils Percent Auto 1.9 % (2-4); Hemoglobin 12.9 g/dL (12.0-16.0); Lymphocytes Absolute Auto 3200 /uL (1100-4500); Lymphocytes Percent Auto 35.9 % (25-40); Mean Corpuscular HGB Conc 32.2 % (30-36); Mean Corpuscular Hemoglobin 32.3 PG (26-34); Mean Corpuscular Volume 100.6 fL (80-100); Monocytes Absolute Auto 800 /uL (0-900); Monocytes Percent Auto 8.9 % (3-14); Neutrophils Absolute Auto 4700 /uL (1500-7000); Neutrophils Percent Auto 52.7 % (50-75); Platelet Count 210 X10^3/uL (150-400); Red Blood Cell Count 3.98 X10^6/uL (4.0-5.2); Red Cell Distribution Width 16.3 % (11.6-14.8); White Blood Cell Count 8.9 X10^3/uL (4.5-11.0)
[2020-10-01 06:23] LABS: Alanine Aminotransferase 29 IU/L (<35); Albumin 3.1 g/dL (3.5-5.0); Albumin Globulin Ratio 0.8 (1.0-2.8); Alkaline Phosphatase 126 U/L (38-126); Aspartate Aminotransferase 66 IU/L (14-36); BUN Creatinine Ratio 23.9 (6-22); Bilirubin Total 0.7 mg/dL (0.2-1.3); Blood Urea Nitrogen 16 mg/dL (7-17); Calcium 8.3 mg/dL (8.4-10.2); Carbon Dioxide 28 mmol/L (22-32); Chloride 106 mmol/L (98-107); Estimated Glomerular Filt Rate > 60.0 mL/min (>60); Globulin 3.7 g/dL (1.7-4.1); Glucose 103 mg/dL (80-110); HEMOLYSIS < 15 (0-50); Magnesium 2.3 mg/dL (1.6-2.3); Potassium 3.4 mmol/L (3.4-5.1); Sodium 141 mmol/L (137-145); Total Protein 6.8 g/dL (6.3-8.2)
[2020-10-01] MEDS: PANTOPRAZOLE DR 40 MG TABLET PO (06:32)
[2020-10-01] MEDS: METOPROLOL IR 25 MG TABLET PO ×2 (09:35→20:21)
[2020-10-01] MEDS: LACTULOSE 20 GM/30 ML SOLUTION PO ×3 (09:35→20:21)
[2020-10-01] MEDS: PRIMIDONE 50 MG TABLET 250 MG PO ×2 (09:35→20:20)
[2020-10-01] MEDS: FUROSEMIDE 40 MG/4 ML VIAL IV ×2 (09:35→16:37)
[2020-10-01] MEDS: POTASSIUM CHLORIDE 20 MEQ TAB 40 MEQ PO ×2 (09:36→20:21)
[2020-10-01] MEDS: APIXABAN 5 MG TABLET PO ×2 (09:36→20:21)
--- NOTE | 2020-10-01 09:49 | P.PN_ITS ---
Subjective Subjective Date Patient Seen: 10/01/20 Time Patient Seen: 08:45 Interval history: Lisa Kim is a 75 y.o. female admitted by me on 09/27 for atrial fibrillation w/RVR on a diltiazem drip. She has since been discontinued off the drip during the day of her admission as it was not effective and only lowered her blood pressure, and is currently taking metoprolol for rate control, and anticoagulated on apixaban. Her last echo in May of this year indicated an EF of 30%, though an unscanned more recent echo indicated an EF of 20-25%. Patient's confusion is reported to be improving, though continuing to stutter. She was initiated on lactulose due to an elevated ammonia level of 47 on 09/29 which normalized on 09/30. Per nursing, she has only had one small bowel movement since yesterday. Patient addressed me calling me Anette referring to a provider who is no longer working for the team. She understood who I was when I re-introduced myself to her. She denies any pain, just that she was hungry. Exam Vital Signs (past 8 hours): - 10/01/20 04:00 10/01/20 08:00 Temperature 98.1 F 98.6 F Pulse Rate 88 96 H Respiratory Rate 18 18 Blood Pressure 120/73 106/80 Pulse Oximetry 97 97 Oxygen Delivery Method Room Air Oxygen Flow Rate 0 Narrative Exam Narrative: Gen: Alert, oriented, morbidly 75 y.o. female, sitting up in bed HEENT: normocephalic, atraumatic, conjunctiva clear, sclera non-icteric, oral mucosa pink and moist Neck: supple, full ROM, no JVD, trachea is midline Resp: Lungs CTA, non-labored breathing CV: RRR, no murmur or rubs Abd: soft, non-tender, normoactive BTs Skin: no lesions or rashes, dry and intact Neuro: Alert and oriented X 4 w/no focal deficits. Continued significant speech stutter. Extremities: moves all 4 extremities, is not ambulatory, negative Ruddy?s sign Psyche: normal mood and affect. Objective Labs Result Diagrams: 10/01/20 05:00 10/01/20 05:00 Labs: Laboratory Results - last 24 hr 07/16/21 07/16/21 05:00 05:00 WBC 8.9 RBC 3.98 L Hgb 12.9 Hct 40.0 MCV 100.6 H MCH 32.3 MCHC 32.2 RDW 16.3 H Plt Count 210 Neut % (Auto) 52.7 Lymph % (Auto) 35.9 [place] % (Auto) 8.9 Eos % (Auto) 1.9 L Baso % (Auto) 0.6 Neut # (Auto) 4700 Lymph # (Auto) 3200 [place] # (Auto) 800 Eos # (Auto) 200 Baso # (Auto) 100 Sodium 141 Potassium 3.4 Chloride 106 Carbon Dioxide 28 BUN 16 Creatinine 0.67 Estimated GFR > 60.0 BUN/Creatinine Ratio 23.9 H Glucose 103 Calcium 8.3 L Magnesium 2.3 Total Bilirubin 0.7 AST 66 H ALT 29 Alkaline Phosphatase 126 Total Protein 6.8 Albumin 3.1 L Globulin 3.7 Albumin/Globulin Ratio 0.8 L PFSH Medical History Active asthma Acute systolic heart failure Anxiety disorder Atrial fibrillation Blood loss anemia Dysphasia Epilepsy Hypertension Lymphedema Morbid obesity Schizophrenia Urinary incontinence Vitamin D deficiency Surgical History History of tonsillectomy Status post cholecystectomy Family History Grandfather Stroke Mother Mental health problem Grandfather Stroke Social History household members: caregiver and none housing: jail Smoking Status: Never smoker alcohol intake: never Assessment & Plan Assessment & Plan narrative: Lisa Kim is a 75 year old female, resident of a local nursing facility with obesity, chronic atrial fibrillation, new diagnosis this admit of DM admitted with confusion and afib with RVR. RVR now improved, but remains confused and likely secondary to a hepatic encephalopathy given elevated ammonia and improvement with lactulose therapy. 1. Chronic Atrial fibrillation w/RVR - now off of diltiazem infusion. This does not seem to work in this patient and only drops her BP. Improved rate control after digoxin load. Continue oral digoxin and increased dose of metoprolol. - anticoagulated on eliquis. High CHADS-VASC score. 2. metabolic encephalopathy, acute, present on admission - MRI negative for CVA, current speech difficulties and confusion suspected to be in setting of encephalopathy. Differential includes secondary to UTI, but did not improve with antibiotic therapy. - Ammonia level elevated at 46 that normalized. Abdominal ultrasound limited by body habitus but no obvious cirrhosis though there is ascites. Possible this is related to heart failure, afib and hepatic congestion or OTERO. - Continue lactulose in hopes of more frequent bowel movements of more normal volume with improved mentation/speech. 3. New diagnosis of diabetes type 2 with hemoglobin A1c of 7.2 - Carb controlled diet with glucose checks a.c. and HS - Started her on basal insulin Lantus 10 units daily and low-dose insulin correctional scale. Can discharge on oral medications likely. 4. Acute on chronic systolic congestive heart failure - echo with slight decrease in EF to 20-25% on TTE. unable to aggressively diurese at this time with low - normal BP initially. continue 40 mg BID if her BP continues to tolerate. Somewhat improved BP with better rate control. 5. Essential hypertension, currently hypotensive due to probable sepsis - Home dose of lisinopril and is currently being held 6. Acute urinary tract infection, present on admission - continue IV ceftriaxone 1 g daily 7. History of schizophrenia, unknown if in exacerbation, present on admission - hold home abilify given encephalopathy. Consider restarting in the next few days Quality Stroke Contraindication Not Initiating IV-Tpa: Contraindicated Onset of Symptoms Date: 09/27/20 Symptom Onset Unknown: Yes Rehab Services Assessed: Rehabilitation therapy VTE Deep Vein Thrombosis/Pulmonary Embolism Present on Admission: No
--- NOTE | 2020-10-01 11:07 | SLP.IPNOTE ---
Attempted to see pt. Pt asleep and difficult to arouse. She aroused for nursing but refused ST , falling back to sleep immediately. Will try to see pt later.
--- NOTE | 2020-10-01 11:47 | PT.IPTN ---
Current Diagnoses Metabolic encephalopathy (09/27/20) Physical Therapy Treatment Note M2 PT-IP Current Condition Start: 09/28/20 14:00 Freq: NEEDED Status: Active Protocol: Document 09/28/20 11:35 AB (Rec: 09/28/20 14:14 AB [id number]) Physical Therapy Current Condition Current Condition Evaluation Date 09/28/20 Treatment Diagnosis A-fib; AMS r/o CVA; generalized weakness Onset Date 09/27/20 Precautions Other Precautions falls M3 PT-IP Subjective Start: 09/28/20 14:00 Freq: NEEDED Status: Active Protocol: Document 10/01/20 11:22 CLB (Rec: 10/01/20 12:00 CLB [id number]) Subjective Physical Therapy Visit Type Type Treatment Note Visit Start Time 11:22 Visit Stop Time 11:47 Total Visit Minutes 25 Notes Co treat with OT due to pt's increased assist during mobility. Number of ASSEMBLY PERSON Visits 1 Physical Therapy Visit Comments Patient Comments Pt mumbles and is hard to understand but when asked to speak so we understand her she can answer simple questions. Therapy Pain Assessment Pain When Pain Assessed During Mobility Pain Present Pain Present Pain Reported M4 PT-IP Mobility and Gait Start: 09/28/20 14:00 Freq: NEEDED Status: Active Protocol: Document 10/01/20 11:22 CLB (Rec: 10/01/20 12:00 CLB [id number]) PT-Bed Mobility Assessment Supine to Sit Supine to Sit Total Assistance,2 Person Assistance,Head of Bed Elevated Scooting Scooting to Edge of Bed Dependent PT-Transfer Assessment Sit to and From Stand Sit to and from Stand Maximum Assistance,2 Person Assistance,Use of Upper Extremities Equipment Transfer Assistive Device Front Wheeled Walker Orthotic/Prosthetic Devices or Brace: No Transfers Transfer Destination Bedside Commode Transfer Technique Mechanical Lift Comments Mobility Comments Pt requiring Total assist to get to seated position on EOB. Pt stood once requiring Max A x2 but was unable to remain in standing due to weakness of BLE. Pt sat back on bed and was transferred to BS via mechnical lift. Pt left on BSC with SPEEDOMETER MECHANIC and OT present. Gait Assessment Comments Gait Comments unable to remain in standing M5 PT-IP Objective Assessments Start: 09/28/20 14:00 Freq: NEEDED Status: Active Protocol: Document 09/28/20 11:35 AB (Rec: 09/28/20 14:14 AB [id number]) Orientation Orientation/Cognition Level of Alertness Confusional State Orientation Name Safety Awareness Decreased Safety Awareness Memory Description Short Term Impaired,Skilled Nursing Impaired Gross Range of Motion Lower Extremity ROM Impairments C/O pain with BLE movement Strength Comments Strength Comments limited MMT due to pt unable to follow directions consistently Muscle Tone Muscle Tone WNL Yes M6 PT-IP Treatment Start: 09/28/20 14:00 Freq: NEEDED Status: Active Protocol: Document 09/30/20 16:00 AB (Rec: 09/30/20 17:04 AB [id number]) Physical Therapy Treatment Education Education Provided Safety M7 PT-IP Assessment and Plan Start: 09/28/20 14:00 Freq: NEEDED Status: Active Protocol: Document 10/01/20 11:22 CLB (Rec: 10/01/20 12:00 CLB [id number]) PT Summary Assessment and Plan Potential Rehabilitation Potential Fair Summary Impairments Pain,ROM,Strength,Balance, Coordination,Sensation,Tone, Cognition,Bed Mobility, Transfers,Gait,Activity Tolerance Progress Towards Goals Slow Progress due to Activity Tolerance,Slow Progress - Other Assessment Summary Pt requiring Max A to total A for all mobility and was unable to remain in standing due to BLE weakness. Pt will require SNF rehab to improve mobility. Goals Bed Mobility Goal Moderate Assistance Transfer Goal Moderate Assistance,Front Wheeled Walker Gait Goal Moderate Assistance,Front Wheel Walker Gait Distance 15 Days to Meet Goals 10 Frequency of Treatment Frequency Of Treatment Once a Day Treatment Plan Physical Therapy Treatment Plan Bed Mobility Training,Transfer Training,Gait Training, Therapeutic Exercise,Balance Retraining,Discharge Planning, Hot or Cold Pack,Neuromuscular Re-ed,Coordination Retraining ,Manual Therapy Other Recommendations and Next Treatment bed mobility, sit<>stand and Focus transfer in able. Precautions Other Precautions falls Recommendations To Nursing Amount of Assist Needed Mechanical Lift Discharge Recommendations PT Discharge Recommendations SNF Rehab Transportation Needs at Discharge Wheelchair/Cabulance,Stretcher /Ambulance
--- NOTE | 2020-10-01 12:00 | OT.IP.TRT ---
Current Diagnoses Metabolic encephalopathy (09/27/20) Occupational Therapy Treatment Note M2 OT-IP Current Condition Start: 09/28/20 15:02 Freq: Status: Active Protocol: Document 09/28/20 15:03 [facility] (Rec: 09/28/20 15:27 [facility] [id number]) Occupational Therapy Current Condition Current Condition Evaluation Date 09/28/20 Treatment Diagnosis A-fib, altered mental status, decreased mobility Diagnosis Onset Date 09/27/20 M3 OT- IP Subjective and Pain Start: 09/28/20 15:02 Freq: Status: Active Protocol: Document 10/01/20 12:15 [facility] (Rec: 10/01/20 12:27 [facility] [id number]) OT- Subjective Occupational Therapy Visit Type Type Treatment Note Visit Start Time 11:22 Visit Stop Time 12:10 Total Visit Minutes 48 Occupational Therapy Visit Comments Patient Comments Pt inconsistent with answering questions and mumbling but also able to states yes when asking her if she wanted to get up to sit in the recliner. Patient/Caregiver Goals Not able to state. OT Pain Assessment Pain When Pain Assessed During Mobility Pain Present Pain Present Pain Reported M4 OT- IP ADL's Start: 09/28/20 15:02 Freq: Status: Active Protocol: Document 10/01/20 12:15 [facility] (Rec: 10/01/20 12:27 [facility] [id number]) OT [id number] Comments OT Self-Feeding Comments Per SERVICE ADVISOR pt just needing set up assist. OT ADL-Grooming General Evaluation Grooming Ability Minimal Assistance Comments OT Grooming Comments Pt needing assist to help brush her hair. OT ADL-Oral Care Comments Oral Care Comments Per SERVICE ADVISOR, pt able to do after set-up. OT ADL-Dressing General Eval Lower Body Dressing Ability Total Assistance OT ADL-Toileting General Evaluation Toileting Ability Total Assistance Areas Needing Assistance Perform Perineal Hygiene Comments OT Toileting Comments Total assist and use of mechanical lift to help get to the BSC. OT ADL-Bathing Bathing Type Bathing Type Sponge Bath General Evaluation Bathing Ability Maximal Assistance Areas Needing Assistance Wash/Dry Upper Body,Wash/Dry Back,Wash/Dry Perineal Area, Wash/Dry Lower Extremities Comments OT Bathing Comments Pt just able to assist to wash her face and hands at this time. Nursing skin issues on her bottom. M5 OT- IP IADL's Start: 09/28/20 15:02 Freq: Status: Active Protocol: Document 09/28/20 15:03 [facility] (Rec: 09/28/20 15:27 [facility] [id number]) OT-Instrumental Activities of Daily Living Deficits IADL Deficits Identified Deficits Home Safety Awareness Awareness of Need for Assistance at Home Decreased Awareness Ability to Problem Solve Emergency Unable to Problem Solve Situations Medication Management Medication Management Caregiver Administers Money Management Money Management Caregiver Provides Assistance Meal Preparation Meal Preparation Caregiver Provides Assist Circulating Nurse Circulating Nurse Caregiver Provides Assist M6 OT- IP Functional Cognition Start: 09/28/20 15:02 Freq: Status: Active Protocol: Document 10/01/20 12:15 [facility] (Rec: 10/01/20 12:27 [facility] [id number]) Cognitive Factors Limiting Selfcare Function Cognitive Ability Level of Alertness Alert,Confusional State Patient Orientation Name Attention Span Ability Capable of Focused Attention, Unable to Focus,Unable to Sustain Attention Ability to Follow Commands Able to Follow One Step Commands with Increased Time, Able to Follow One Step Commands with Repetition Memory Description Short Term Impaired,Penitentiary Impaired,Working Impaired Cognitive Comments Cognitive Assessment Comments Pt when able to states that she was in the hospital when asked if she was in the hospital or at home. Pt also able to states that her birthday was in [birth year]. Pt a little clearer today. M7 OT- IP Mobility and Balance Start: 09/28/20 15:02 Freq: Status: Active Protocol: Document 10/01/20 12:15 [facility] (Rec: 10/01/20 12:27 [facility] [id number]) OT- Bed Mobility Assessment Supine to Sit Supine to Sit Assist Maximum Assistance,2 Person Assistance,Head of Bed Elevated Scooting Scooting to Edge of Bed Maximum Assistance,2 Person Assistance OT-Transfer Assessment Sit to and From Stand Sit to and from Stand Maximum Assistance,2 Person Assistance Devices Transfer Assistive Devices Gait Belt,Front Wheeled Walker Comments Mobility Comments Pt able to stand with MAX AX 2 -3 with FWW, however her feet tends to slide out and not able to stand and had to sit back down. Pt having trouble to follow commands to keep her feet on the floor. OT- Gait Assessment Comments Gait Ability Comments mechanical lift OT- Balance Assessment Sitting Balance and Reactions Static Sitting Balance Ability Poor Standing Balance and Reactions Static Standing Balance Ability Poor M8 OT- IP Objective Assessments Start: 09/28/20 15:02 Freq: Status: Active Protocol: Document 09/28/20 15:03 [facility] (Rec: 09/28/20 15:27 [facility] [id number]) OT Gross Range of Motion Upper Extremity Range of Motion Assessment Bilaterally Impaired OT Strength Upper Extremity Strength Assessment Bilaterally Impaired OT- Coordination Assessment Comments Coordination Comments Decreased for coordination for grooming needs due to weakness and decreased initiation of movements. OT-Muscle Tone Assessment Muscle Tone WNL Yes M9 OT- IP Assessment and Plan Start: 09/28/20 15:02 Freq: Status: Active Protocol: Document 10/01/20 12:15 [facility] (Rec: 10/01/20 12:27 [facility] [id number]) OT Summary Assessment and Plan Potential Rehabilitation Potential Fair Analytic Complexity at Evaluation Moderate Summary OT Impairments Strength,Balance,Functional Cognition,Functional Mobility, Self-Feeding,Grooming,Toilet Transfers Progress Towards Goals Slow Progress due to Medical Issues,Slow Progress due to Activity Tolerance,Slow Progress due to Cognition Assessment Summary Pt a little more alert but not able to transfer today due to weakness and unsteadiness of her legs. Per SERVICE ADVISOR, pt has been able to do her grooming and eating needs with mainly set- up. Pt to return to [facility] when medically stable. Goals Grooming Goal Standby Assistance Bathing Goal Moderate Assistance Toilet Transfer Goal Moderate Assistance Days to Meet Goals 18 Frequency of Treatment Frequency Of Treatment Once a Day Treatment Plan OT Treatment Plan ADL Training,Functional Cognition Training,Functional Mobility,Patient/Family Education,Discharge Planning Other Treatment Recommendations and Next grooming with set-up Treatment Focus Discharge Recommendations OT Discharge Recommendations Home vs SNF Transportation Needs at Discharge Wheelchair/Cabulance
[2020-10-01] MEDS: INSULIN LISPRO 100 UNIT/ML 3ML VIAL SUBCUT ×2 (13:19→16:39)
[2020-10-01] MEDS: DIGOXIN 0.125 MG TABLET PO (16:37)
[2020-10-01] MEDS: MELATONIN 3 MG TABLET 6 MG PO (20:21)
[2020-10-01] MEDS: INSULIN GLARGINE 100 UNIT/ML 3ML PEN 10 UNIT SUBCUT (20:22)
[2020-10-02] VITALS (7 sets, daily range): BP systolic 99–143; BP diastolic 64–75; PULSE 84–104; RESP 18–29; TEMP 36.5–36.9; O2SAT 95–97
[2020-10-02] MEDS: SODIUM CHLORIDE 0.9% FLUSH 10 ML IV ×2 (02:34→09:26)
[2020-10-02] MEDS: cefTRIAXone 1,000 MG in SODIUM CHLORIDE 0.9% 100 ML 200 ML IV (02:34)
[2020-10-02 05:26] LABS: Add Manual Diff / Slide Review NO; Basophils Absolute Auto 100 /uL (0-100); Eosinophils Absolute Auto 200 /uL (0-450); Hematocrit 39.3 % (36-46); Hemoglobin 12.8 g/dL (12.0-16.0); Lymphocytes Absolute Auto 2800 /uL (1100-4500); Lymphocytes Percent Auto 29.2 % (25-40); Mean Corpuscular HGB Conc 32.5 % (30-36); Mean Corpuscular Hemoglobin 32.7 PG (26-34); Mean Corpuscular Volume 100.8 fL (80-100); Monocytes Absolute Auto 800 /uL (0-900); Monocytes Percent Auto 8.6 % (3-14); Neutrophils Absolute Auto 5800 /uL (1500-7000); Neutrophils Percent Auto 59.2 % (50-75); Platelet Count 200 X10^3/uL (150-400); Red Cell Distribution Width 16.8 % (11.6-14.8); White Blood Cell Count 9.7 X10^3/uL (4.5-11.0)
[2020-10-02 05:32] LABS: Alanine Aminotransferase 28 IU/L (<35); Albumin 3.1 g/dL (3.5-5.0); Albumin Globulin Ratio 0.9 (1.0-2.8); Alkaline Phosphatase 122 U/L (38-126); Aspartate Aminotransferase 68 IU/L (14-36); BUN Creatinine Ratio 23.9 (6-22); Bilirubin Total 0.6 mg/dL (0.2-1.3); Blood Urea Nitrogen 17 mg/dL (7-17); Calcium 8.3 mg/dL (8.4-10.2); Carbon Dioxide 27 mmol/L (22-32); Chloride 107 mmol/L (98-107); Estimated Glomerular Filt Rate > 60.0 mL/min (>60); Globulin 3.5 g/dL (1.7-4.1); Glucose 113 mg/dL (80-110); HEMOLYSIS < 15 (0-50); Magnesium 2.3 mg/dL (1.6-2.3); Potassium 4.2 mmol/L (3.4-5.1); Sodium 140 mmol/L (137-145); Total Protein 6.6 g/dL (6.3-8.2)
[2020-10-02] MEDS: PANTOPRAZOLE DR 40 MG TABLET PO (06:31)
[2020-10-02 07:02] LABS: Ammonia (NH3) 36 umol/L (9-30)
[2020-10-02] MEDS: POTASSIUM CHLORIDE 20 MEQ TAB 40 MEQ PO ×2 (09:19→21:30)
[2020-10-02] MEDS: APIXABAN 5 MG TABLET PO ×2 (09:20→21:30)
[2020-10-02] MEDS: METOPROLOL IR 25 MG TABLET PO ×2 (09:20→21:30)
[2020-10-02] MEDS: LACTULOSE 20 GM/30 ML SOLUTION 30 GM PO ×3 (09:25→21:31)
[2020-10-02] MEDS: PRIMIDONE 50 MG TABLET 250 MG PO ×2 (09:25→21:30)
[2020-10-02] MEDS: SODIUM CHLORIDE 0.9% 500 ML 1000 ML IV (09:32)
[2020-10-02] MEDS: NYSTATIN POWDER 15GM 1 APPLIC TOP (09:33)
[2020-10-02] MEDS: SODIUM CHLORIDE 0.9% 1,000 ML 84 ML IV (09:33)
[2020-10-02 10:09] LABS: Vitamin B12 986 pg/mL (239-931)
[2020-10-02] MEDS: TRIAMCINOLONE 0.025% CREAM 1 APPLIC TOP ×2 (11:48→22:19)
--- NOTE | 2020-10-02 12:53 | PM.PN.1 ---
Subjective Subjective Date Patient Seen: 10/02/20 Time Patient Seen: 08:00 Interval history: She remains significant confused. Mumbling responses to questions. Eyes mostly closed, and difficult to open Exam Vital Signs (past 8 hours): - 10/02/20 04:59 10/02/20 08:00 10/02/20 12:00 Temperature 98.2 F 98.0 F 97.7 F Pulse Rate 88 88 101 H Respiratory Rate 18 20 19 Blood Pressure 104/73 99/69 129/71 Pulse Oximetry 97 96 95 Oxygen Delivery Method Room Air Oxygen Flow Rate 0 Narrative Exam Narrative: Gen: no acute distress, lethargic, slumped in bed HEENT: dry mucous membranes Neck: supple, full ROM, no JVD, trachea is midline Resp: Lungs clear bilaterally CV: regular rate and rhythm with no murmur or rubs Abd: soft, non-tender, normal bowel sounds Skin: no lesions or rashes, dry and intact Neuro: altered, difficult to arouse Extremities: moves all four extremities Psyche: unable due to lethargy Objective Labs Result Diagrams: 10/02/20 04:50 10/02/20 04:50 Labs: Laboratory Results - last 24 hr 10/02/20 10/02/20 10/02/20 04:50 04:50 04:50 WBC 9.7 RBC 3.90 L Hgb 12.8 Hct 39.3 MCV 100.8 H MCH 32.7 MCHC 32.5 RDW 16.8 H Plt Count 200 Neut % (Auto) 59.2 Lymph % (Auto) 29.2 [place] % (Auto) 8.6 Eos % (Auto) 2.0 Baso % (Auto) 1.0 Neut # (Auto) 5800 Lymph # (Auto) 2800 [place] # (Auto) 800 Eos # (Auto) 200 Baso # (Auto) 100 Sodium 140 Potassium 4.2 Chloride 107 Carbon Dioxide 27 BUN 17 Creatinine 0.71 Estimated GFR > 60.0 BUN/Creatinine Ratio 23.9 H Glucose 113 H Calcium 8.3 L Magnesium 2.3 Total Bilirubin 0.6 AST 68 H ALT 28 Alkaline Phosphatase 122 Ammonia Total Protein 6.6 Albumin 3.1 L Globulin 3.5 Albumin/Globulin Ratio 0.9 L Vitamin B12 986 H 10/02/20 06:45 WBC RBC Hgb Hct MCV MCH MCHC RDW Plt Count Neut % (Auto) Lymph % (Auto) [place] % (Auto) Eos % (Auto) Baso % (Auto) Neut # (Auto) Lymph # (Auto) [place] # (Auto) Eos # (Auto) Baso # (Auto) Sodium Potassium Chloride Carbon Dioxide BUN Creatinine Estimated GFR BUN/Creatinine Ratio Glucose Calcium Magnesium Total Bilirubin AST ALT Alkaline Phosphatase Ammonia 36 H Total Protein Albumin Globulin Albumin/Globulin Ratio Vitamin B12 [facility] Medical History Active asthma Acute systolic heart failure Anxiety disorder Atrial fibrillation Blood loss anemia Dysphasia Epilepsy Hypertension Lymphedema Morbid obesity Schizophrenia Urinary incontinence Vitamin D deficiency Surgical History History of tonsillectomy Status post cholecystectomy Family History Grandfather Stroke Mother Mental health problem Grandfather Stroke Social History household members: caregiver and none housing: jail Smoking Status: Never smoker alcohol intake: never Assessment & Plan Assessment & Plan narrative: Lisa Kim is a 75 year old female, resident of a local nursing facility with obesity, chronic atrial fibrillation, new diagnosis this admit of DM admitted with confusion and afib with RVR. RVR now improved, but remains confused and likely secondary to a hepatic encephalopathy given elevated ammonia and improvement with lactulose therapy. 1. Chronic Atrial fibrillation w/RVR - now off of diltiazem infusion. This does not seem to work in this patient and only drops her BP. Improved rate control after digoxin load. Continue oral digoxin and increased dose of metoprolol. - anticoagulated on eliquis. High CHADS-VASC score. - recheck digoxin level 2. metabolic encephalopathy, acute, present on admission - MRI negative for CVA, current speech difficulties and confusion suspected to be in setting of encephalopathy. Differential includes secondary to UTI, but did not improve with antibiotic therapy. - Ammonia level elevated at 46 that normalized. Abdominal ultrasound limited by body habitus but no obvious cirrhosis though there is ascites. Possible this is related to heart failure, afib and hepatic congestion or OTERO. - Continue lactulose in hopes of more frequent bowel movements of more normal volume with improved mentation/speech. Increase lactulose to 4x/daily 3. New diagnosis of diabetes type 2 with hemoglobin A1c of 7.2 - Carb controlled diet with glucose checks a.c. and HS - Started her on basal insulin Lantus 10 units daily and low-dose insulin correctional scale. Can discharge on oral medications likely. 4. Acute on chronic systolic congestive heart failure - echo with slight decrease in EF to 20-25% on TTE. unable to aggressively diurese at this time with low - normal BP initially. continue lasix when euvolemic and BP tolerates. 5. Essential hypertension, currently hypotensive due to probable sepsis - Home dose of lisinopril and is currently being held 6. Acute urinary tract infection, present on admission - continue IV ceftriaxone 1 g daily 7. History of schizophrenia, unknown if in exacerbation, present on admission -restart abilify Quality Stroke Contraindication Not Initiating IV-Tpa: Contraindicated Onset of Symptoms Date: 09/27/20 Symptom Onset Unknown: Yes Rehab Services Assessed: Rehabilitation therapy VTE Deep Vein Thrombosis/Pulmonary Embolism Present on Admission: No
--- NOTE | 2020-10-02 13:01 | ST.IPTN ---
Visit Care Team Role Provider Type Emmanuel Cedeno MD Family Provider Non-Staff Address: [address] [place] [address] [address], [place], [address] Roxana Gayle DO Emergency Provider Physician Referring Provider Address: [address] [place] [address], [id number] ANABEL Zuniga Admit Provider Physician Attending Provider Address: [address] [place] [address], [id number] DRY KILN FEEDER Treatment Note DRY KILN FEEDER Clinical Instructor Line Start: 09/29/20 15:42 Freq: Status: Active Protocol: Document 09/29/20 15:42 TLC (Rec: 09/29/20 15:42 TLC [id number]) Clinical Instructor Signature Clinical Instructor Clinical Instructor Yes: Nellie Rucker MS, [facility]-DRY KILN FEEDER DRY KILN FEEDER Treatment Note Start: 10/02/20 12:50 Freq: Status: Active Protocol: Document 10/02/20 12:50 MG (Rec: 10/02/20 13:01 MG [id number]) Speech Pathology Treatment Note Session Time Visit Start Time 11:50 Visit Stop Time 12:15 Total Visit Minutes 25 Setting Treatment Setting Acute Care Visit Type Note Type Treatment Note Next Note Type Next Note Type Treatment Note General Information General Information Per H&P: Patient is a 74 y/o female with a history of AFIB, Morbid Obesity, Schizophrenia , Systolic Heart Failure, UTI' s, Hypertension, Asthma, Osteoarthritis who lives at [facility]. She tried to eat a cheese sandwhich and choked on it. She has difficulty with swallowing at baseline but thought she could manage the sandwich. They were unable to perform the Heimlich maneuver, CPR was initiated and the patient was transferred to the [place] ED for evaluation. Upon arrival they suctioned copious amounts of material. Chest Xray confirmed alveolar infiltrates consistent with Aspiration Pneumonia. Patient recieved IV ceftriaxone in the ED for Aspiration pneumonia. Subjective Identification Type Name,ID Wristband Observations/Patient Presentation Pt mumbles and is hard to understand but when asked to speak so we understand her she can answer simple yes/no questions. Pt was observed to be repeating words and phrases (e.g., no no no or I want I want I want) and very sleepy upon DRY KILN FEEDER entry. Nurse Kateryna was at bedside. Patient Knowledge/Awareness of DRY KILN FEEDER Role Fair in Treatment Patient/Caregiver Compliance with Home Fair Exercise Program Objective Short Term Goals 1. The pt will follow safe swallow strategies with verbal prompts as needed to reduce risk of aspiration. Dam Operator Goals 1. The pt will tolerate least restrictive diet to meet her nutrition and hydration needs. [ End ] Treatment Activities Pt was unable to become alert enough to safely consume lunch after multiple verbal and tactile attempts by DRY KILN FEEDER, nurse , and SAFETY SUPERVISOR. Per nurse and SAFETY SUPERVISOR, pt's skills have declined since yesterday. DRY KILN FEEDER observed pt to answer yes/no questions accurately and use gestures (e .g., pointing) to get wants/ needs met. Conversation skills appear to be impaired by the pt's disfluencies and limited verbal output at this time. DRY KILN FEEDER brought in a communication board for the pt and reviewed with staff how to implement ( i.e., give the pt two options to pick from vs entire page) in order to help pt express her wants/needs. Per nurse and SAFETY SUPERVISOR, pt quickly eats/drinks and takes large bites/sips, which run a risk for aspiration. Addition of 1:1 supervision for all meals and verbal reminders to use strategies at meal time would be beneficial to implement at this time in order to monitor pt intake and reduce risk of aspiration. Assessment Patient Response to Treatment Fair Rehab Potential Fair Progress Towards Goals Delayed Progress Assessment of Overall Progress Declining Assessment of Improvement Pt appears to be declining in her current skill levels. Additional supports for meals and communication are recommended at this time. Reviewed with Patient Progress Being Made Plan Comment Ongoing treatment as needed for diet tolerance and communication skills Provided Patient/Caregiver Instruction Questions/Concerns Therapy Recommendations Continue with Current Program
--- NOTE | 2020-10-02 13:51 | PT-IP ANOTE ---
1351 Pt in chair upon arrival in room, Pt unable to open eyes with mumbling speech. Informed RN.Will check back with pt in AM.
--- NOTE | 2020-10-02 14:06 | OT.IPNOTE ---
Able to arouse pt after assist to help reposition pt with a pillow as pt leaning to the left. Pt able to open her eyes then promptly closing them again. Pt hard to keep awake and alert. Pt when given option to get up or rest , pt able to state, rest.
--- NOTE | 2020-10-02 14:30 | PC.NURSE ---
PT CONTINUES TO WAX and WANE WITH HER MENTATION - ABLE TO CONVERSE THIS AM AND SET UP FOR BREAKFAST THEN DURING MEAL SHE TOOK A COUGHING SPELL IN WHICH SHE SPEWED SCRAMBLED EGGS ALL OVER- HER FACIAL COLOR CHANGES TO A DARK PURPLE PREVIOUSLY WITNESSED WITH THESE COUGHING FITS- SHE DOES ENDORSE HAVING THESE EVERY SO OFTEN- UNABLE TO STIR ENOUGH TO PARTICIPATE WITH SPEECH THERAPIST - BATHED AND USED MECH LIFT TO ASSIST FROM BED- CHAIR, NOTED TO HAVE SMALL BLEEDING AREA ON INNER LEFT BUTTOCK- CLEANSED AND COVERED WITH ALLEVYN DRESSING PT RECEIVED IVF BOLUS AND GENTLE HYDRATION RATE BUT NOW SALINE LOCKED- CONTINUES WITH PATENT CARRINGTON CATHETER
[2020-10-02] MEDS: DIGOXIN 0.125 MG TABLET PO (16:56)
[2020-10-02] MEDS: OLANZapine 2.5 MG TABLET PO (21:30)
[2020-10-02] MEDS: INSULIN GLARGINE 100 UNIT/ML 3ML PEN 10 UNIT SUBCUT (21:33)
[2020-10-03] VITALS (8 sets, daily range): BP systolic 107–131; BP diastolic 60–77; PULSE 84–122; RESP 18–26; TEMP 36.4–36.7; O2SAT 95–99
[2020-10-03 00:42] LABS: Bacteria Urine None Seen
[2020-10-03 01:11] LABS: Culture Indicated Urine Cult Not Indicated; RBC Urine 1-5/HPF (0-5/HPF); Squamous Epithelial Cell Urine 1-5 /HPF (0-5/HPF); WBC Urine 1-5/HPF (0-5/HPF)
[2020-10-03] MEDS: LACTULOSE 20 GM/30 ML SOLUTION 30 GM PO (02:20)
[2020-10-03] MEDS: SODIUM CHLORIDE 0.9% FLUSH 10 ML IV ×3 (02:22→20:58)
[2020-10-03] MEDS: cefTRIAXone 1,000 MG in SODIUM CHLORIDE 0.9% 100 ML 200 ML IV (02:27)
[2020-10-03 05:15] LABS: Alanine Aminotransferase 32 IU/L (<35); Albumin 3.3 g/dL (3.5-5.0); Albumin Globulin Ratio 0.8 (1.0-2.8); Alkaline Phosphatase 126 U/L (38-126); Aspartate Aminotransferase 77 IU/L (14-36); BUN Creatinine Ratio 20.5 (6-22); Bilirubin Total 0.8 mg/dL (0.2-1.3); Blood Urea Nitrogen 16 mg/dL (7-17); Calcium 8.6 mg/dL (8.4-10.2); Carbon Dioxide 25 mmol/L (22-32); Chloride 111 mmol/L (98-107); Estimated Glomerular Filt Rate > 60.0 mL/min (>60); Globulin 3.9 g/dL (1.7-4.1); Glucose 126 mg/dL (80-110); HEMOLYSIS 35 (0-50); Magnesium 2.5 mg/dL (1.6-2.3); Potassium 4.7 mmol/L (3.4-5.1); Sodium 142 mmol/L (137-145); Total Protein 7.2 g/dL (6.3-8.2)
[2020-10-03 05:18] LABS: Add Manual Diff / Slide Review NO; Basophils Absolute Auto 100 /uL (0-100); Eosinophils Absolute Auto 200 /uL (0-450); Eosinophils Percent Auto 1.7 % (2-4); Hematocrit 43.2 % (36-46); Hemoglobin 13.6 g/dL (12.0-16.0); Lymphocytes Absolute Auto 3400 /uL (1100-4500); Lymphocytes Percent Auto 28.8 % (25-40); Mean Corpuscular HGB Conc 31.5 % (30-36); Mean Corpuscular Hemoglobin 32.2 PG (26-34); Mean Corpuscular Volume 102.2 fL (80-100); Monocytes Absolute Auto 900 /uL (0-900); Monocytes Percent Auto 7.8 % (3-14); Neutrophils Absolute Auto 7100 /uL (1500-7000); Neutrophils Percent Auto 60.7 % (50-75); Platelet Count 202 X10^3/uL (150-400); Red Blood Cell Count 4.23 X10^6/uL (4.0-5.2); Red Cell Distribution Width 16.7 % (11.6-14.8); White Blood Cell Count 11.6 X10^3/uL (4.5-11.0)
[2020-10-03 05:19] LABS: Ammonia (NH3) 20 umol/L (9-30)
[2020-10-03 05:38] LABS: Digoxin 1.4 ng/mL (0.8-2.0)
--- NOTE | 2020-10-03 06:58 | PC.NURSE ---
ANABEL Bobby notified that pt. very somnolent, not opening her eyes but moaning when turned side to side. 3 episodes of loose stool, this morning @ 0610 she had a massive very loose stool. Finnegan securement device changed x 2 it was soiled with stool. Courtney drsg. changed it was soaked with feces. ANABEL also notified was not able to administer her Protonix & hold PO med. this morning. Checked CBG. it was 135. Will report to day RN. & monitor.
[2020-10-03] MEDS: APIXABAN 5 MG TABLET PO ×2 (08:59→20:58)
[2020-10-03] MEDS: METOPROLOL IR 25 MG TABLET PO (08:59)
[2020-10-03] MEDS: PANTOPRAZOLE DR 40 MG TABLET PO (08:59)
[2020-10-03] MEDS: POTASSIUM CHLORIDE 20 MEQ TAB 40 MEQ PO ×2 (08:59→20:59)
[2020-10-03] MEDS: PRIMIDONE 50 MG TABLET 250 MG PO ×2 (08:59→20:58)
[2020-10-03] MEDS: TRIAMCINOLONE 0.025% CREAM 1 APPLIC TOP ×2 (09:00→21:35)
[2020-10-03] MEDS: NYSTATIN POWDER 15GM 1 APPLIC TOP (09:00)
--- NOTE | 2020-10-03 10:14 | PT.IPTN ---
Current Diagnoses Metabolic encephalopathy (09/27/20) Physical Therapy Treatment Note M2 PT-IP Current Condition Start: 09/28/20 14:00 Freq: NEEDED Status: Active Protocol: Document 09/28/20 11:35 AB (Rec: 09/28/20 14:14 AB [id number]) Physical Therapy Current Condition Current Condition Evaluation Date 09/28/20 Treatment Diagnosis A-fib; AMS r/o CVA; generalized weakness Onset Date 09/27/20 Precautions Other Precautions falls M3 PT-IP Subjective Start: 09/28/20 14:00 Freq: NEEDED Status: Active Protocol: Document 10/03/20 09:06 MB (Rec: 10/03/20 10:14 MB [id number]) Subjective Physical Therapy Visit Type Type Treatment Note Visit Start Time 09:06 Visit Stop Time 09:14 Total Visit Minutes 8 Physical Therapy Visit Comments Patient Comments Okay. How are you? Pt is pleasant and alert initially and responds with this answer to PT greeting this morning. Orientation quickly decreases. Therapy Pain Assessment Pain When Pain Assessed During Mobility Pain Present Pain Present Pain Reported Location LLE Scale Used Pt cannot rate Pain Behaviors Calling Out Pain Management Techniques Distraction,Modification of Treatment,Re-positioning M4 PT-IP Mobility and Gait Start: 09/28/20 14:00 Freq: NEEDED Status: Active Protocol: Document 10/01/20 11:22 CLB (Rec: 10/01/20 12:00 CLB [id number]) PT-Bed Mobility Assessment Supine to Sit Supine to Sit Total Assistance,2 Person Assistance,Head of Bed Elevated Scooting Scooting to Edge of Bed Dependent PT-Transfer Assessment Sit to and From Stand Sit to and from Stand Maximum Assistance,2 Person Assistance,Use of Upper Extremities Equipment Transfer Assistive Device Front Wheeled Walker Orthotic/Prosthetic Devices or Brace: No Transfers Transfer Destination Bedside Commode Transfer Technique Mechanical Lift Comments Mobility Comments Pt requiring Total assist to get to seated position on EOB. Pt stood once requiring Max A x2 but was unable to remain in standing due to weakness of BLE. Pt sat back on bed and was transferred to BS via mechnical lift. Pt left on BSC with BOOKING AGENT and OT present. Gait Assessment Comments Gait Comments unable to remain in standing M5 PT-IP Objective Assessments Start: 09/28/20 14:00 Freq: NEEDED Status: Active Protocol: Document 09/28/20 11:35 AB (Rec: 09/28/20 14:14 AB [id number]) Orientation Orientation/Cognition Level of Alertness Confusional State Orientation Name Safety Awareness Decreased Safety Awareness Memory Description Short Term Impaired,Curtain Mender Impaired Gross Range of Motion Lower Extremity ROM Impairments C/O pain with BLE movement Strength Comments Strength Comments limited MMT due to pt unable to follow directions consistently Muscle Tone Muscle Tone WNL Yes M6 PT-IP Treatment Start: 09/28/20 14:00 Freq: NEEDED Status: Active Protocol: Document 10/03/20 09:06 MB (Rec: 10/03/20 10:14 MB [id number]) Physical Therapy Treatment Exercises Exercises Ankle Pumps,Heel Slides,Supine Hip Abduction M7 PT-IP Assessment and Plan Start: 09/28/20 14:00 Freq: NEEDED Status: Active Protocol: Document 10/03/20 09:06 MB (Rec: 10/03/20 10:14 MB [id number]) PT Summary Assessment and Plan Potential Rehabilitation Potential Poor Status of Condition at Evaluation Evolving Summary Impairments Pain,ROM,Strength,Balance, Coordination,Sensation,Tone, Cognition,Bed Mobility, Transfers,Gait,Activity Tolerance Progress Towards Goals Slow Progress due to Pain,Slow Progress due to Activity Tolerance,Slow Progress - Other Assessment Summary PT arrives to check on pt for physical therapy after clearing with nsg. Nsg reports that pt is taking Lactulose and has increased BMs d/t to this and so PT initiates bed activities. Pt pleasantly greets PT upon PT greeting and her orientation does decrease after that. She requires max A to perform ROM exercises for LEs in the bed and calls out with LLE hip abd/add and her left hip does feel tight. Pt's cognitive presentation con't to be a barrier to PT. Goals Bed Mobility Goal Moderate Assistance Transfer Goal Moderate Assistance,Front Wheeled Walker Gait Goal Moderate Assistance,Front Wheel Walker Gait Distance 15 Days to Meet Goals 10 Frequency of Treatment Frequency Of Treatment Once a Day Treatment Plan Physical Therapy Treatment Plan Bed Mobility Training,Transfer Training,Gait Training, Therapeutic Exercise,Balance Retraining,Discharge Planning, Hot or Cold Pack,Neuromuscular Re-ed,Coordination Retraining ,Manual Therapy Other Recommendations and Next Treatment Improve mobility efforts for Focus bed mobility and sit to stands Precautions Other Precautions Fall risk Recommendations To Nursing Amount of Assist Needed Mechanical Lift Discharge Recommendations PT Discharge Recommendations SNF Rehab Transportation Needs at Discharge Stretcher/Ambulance
[2020-10-03] MEDS: INSULIN LISPRO 100 UNIT/ML 3ML VIAL SUBCUT ×2 (11:35→21:00)
--- NOTE | 2020-10-03 11:48 | P.PN_ITS ---
Subjective Subjective Date Patient Seen: 10/03/20 Time Patient Seen: 08:00 Interval history: Today she appears slightly more alert. However, she is still quite confused and has trouble with mumbling of words. Per nursing she is moaning when be turned, but is not specifically localizing a complaint. Exam Vital Signs (past 8 hours): - 10/03/20 03:56 10/03/20 08:00 Temperature 97.8 F 97.6 F Pulse Rate 84 85 Respiratory Rate 25 H 20 Blood Pressure 120/71 117/73 Pulse Oximetry 97 98 Oxygen Delivery Method Room Air Oxygen Flow Rate 0 Narrative Exam Narrative: Gen: no acute distress, awake HEENT: moist mucous membranes Neck: supple, full ROM, no JVD, trachea is midline Resp: Lungs clear bilaterally CV: regular rate and rhythm with no murmur or rubs Abd: soft, non-tender, normal bowel sounds Skin: rash on face Neuro: altered, mummbling words, following commands Extremities: moves all four extremities Psyche: cooperative Objective Labs Result Diagrams: 10/03/20 04:50 10/03/20 04:50 Labs: Laboratory Results - last 24 hr 10/03/20 10/03/20 10/03/20 00:20 04:50 04:50 WBC 11.6 H RBC 4.23 Hgb 13.6 Hct 43.2 MCV 102.2 H MCH 32.2 MCHC 31.5 RDW 16.7 H Plt Count 202 Neut % (Auto) 60.7 Lymph % (Auto) 28.8 [place] % (Auto) 7.8 Eos % (Auto) 1.7 L Baso % (Auto) 1.0 Neut # (Auto) 7100 H Lymph # (Auto) 3400 [place] # (Auto) 900 Eos # (Auto) 200 Baso # (Auto) 100 Sodium 142 Potassium 4.7 Chloride 111 H Carbon Dioxide 25 BUN 16 Creatinine 0.78 Estimated GFR > 60.0 BUN/Creatinine Ratio 20.5 Glucose 126 H Calcium 8.6 Magnesium 2.5 H Total Bilirubin 0.8 AST 77 H ALT 32 Alkaline Phosphatase 126 Ammonia Total Protein 7.2 Albumin 3.3 L Globulin 3.9 Albumin/Globulin Ratio 0.8 L Urine RBC 1-5/hpf Urine WBC 1-5/hpf Ur Squamous Epith Cells 1-5 /hpf Urine Bacteria None seen Ur Culture Indicated? Cult not indicated Digoxin 10/03/20 10/03/20 04:50 04:50 WBC RBC Hgb Hct MCV MCH MCHC RDW Plt Count Neut % (Auto) Lymph % (Auto) [place] % (Auto) Eos % (Auto) Baso % (Auto) Neut # (Auto) Lymph # (Auto) [place] # (Auto) Eos # (Auto) Baso # (Auto) Sodium Potassium Chloride Carbon Dioxide BUN Creatinine Estimated GFR BUN/Creatinine Ratio Glucose Calcium Magnesium Total Bilirubin AST ALT Alkaline Phosphatase Ammonia 20 Total Protein Albumin Globulin Albumin/Globulin Ratio Urine RBC Urine WBC Ur Squamous Epith Cells Urine Bacteria Ur Culture Indicated? Digoxin 1.4 [facility] Medical History Active asthma Acute systolic heart failure Anxiety disorder Atrial fibrillation Blood loss anemia Dysphasia Epilepsy Hypertension Lymphedema Morbid obesity Schizophrenia Urinary incontinence Vitamin D deficiency Surgical History History of tonsillectomy Status post cholecystectomy Family History Grandfather Stroke Mother Mental health problem Grandfather Stroke Social History household members: caregiver and none housing: group home Smoking Status: Never smoker alcohol intake: never Assessment & Plan Assessment & Plan narrative: Lisa Kim is a 75 year old female, resident of a local nursing facility with obesity, chronic atrial fibrillation, new diagnosis this admit of DM admitted with confusion and afib with RVR. RVR now improved, but remains confused and likely secondary to a hepatic encephalopathy given elevated ammonia and improvement with lactulose therapy. 1. Chronic Atrial fibrillation w/RVR - now off of diltiazem infusion. This does not seem to work in this patient and only drops her BP. Improved rate control after digoxin load. Continue oral digoxin and increased dose of metoprolol. - anticoagulated on eliquis. High CHADS-VASC score. - recheck digoxin level 2. metabolic encephalopathy, acute, present on admission - etiology not clear - MRI negative for CVA, current speech difficulties and confusion suspected to be in setting of encephalopathy. Differential includes secondary to UTI, but did not improve with antibiotic therapy. - Ammonia level elevated at 46 that normalized. Abdominal ultrasound limited by body habitus but no obvious cirrhosis though there is ascites. Possible this is related to heart failure, afib and hepatic congestion or OTERO. - Continue lactulose in hopes of more frequent bowel movements of more normal volume with improved mentation/speech. 3. New diagnosis of diabetes type 2 with hemoglobin A1c of 7.2 - Carb controlled diet with glucose checks a.c. and HS - Started her on basal insulin Lantus 10 units daily and low-dose insulin correctional scale. Can discharge on oral medications likely. 4. Acute on chronic systolic congestive heart failure - echo with slight decrease in EF to 20-25% on TTE. unable to aggressively diurese at this time with low - normal BP initially. continue lasix when euvolemic and BP tolerates. 5. Essential hypertension, currently hypotensive due to probable sepsis - Home dose of lisinopril and is currently being held 6. Acute urinary tract infection, present on admission - continue IV ceftriaxone 1 g daily 7. History of schizophrenia, unknown if in exacerbation, present on admission -patient had been switched to olanzapine from [facility] but it is unclear why, if she continues to improve her mental status will restart Quality Stroke Contraindication Not Initiating IV-Tpa: Contraindicated Onset of Symptoms Date: 09/27/20 Symptom Onset Unknown: Yes Rehab Services Assessed: Rehabilitation therapy VTE Deep Vein Thrombosis/Pulmonary Embolism Present on Admission: No
--- NOTE | 2020-10-03 12:11 | DI.CT.S_ITS ---
PROCEDURE: CT CHEST ABD PEL W CON INDICATIONS: leukocytosis, altered mental status TECHNIQUE: After the administration of oral and intravenous contrast, axial sections acquired from the supraclavicular neck to the pubic symphysis. Coronal and sagittal reformats were performed. For radiation dose reduction, the following was used: automated exposure control, adjustment of mA and/or kV according to patient size. COMPARISON:[facility], CT, CT CHEST WO [facility], 03/22/2020, 4:53. FINDINGS: Chest: Cardiovascular: Cardiomegaly. Great vessels unremarkable. Lungs and pleural spaces: Mild right pleural effusion with associated atelectasis. Left pleural space and both lungs are otherwise clear. Previously described infiltrate has resolved. Lymph nodes: 1 cm pretracheal node noted. No mediastinal, hilar or axillary adenopathy. Mediastinum: Anterior mediastinum unremarkable. No hiatal hernia. Bones: Unremarkable. No acute fracture. Degenerative changes noted at the thoracolumbar junction. Other: 3 cm nodule associated with the lower pole the right thyroid extending into the substernal mediastinum is similar to the prior Abdomen and Pelvis: Liver: The liver is diffusely decreased in attenuation without focal mass lesion. Biliary system: Cholecystectomy. No intra or extrahepatic bile duct dilation. Pancreas: Unremarkable without mass or inflammation evident. Spleen: Normal in size and density. Adrenals: Normal morphology and density. Reproductive system: Unremarkable as visualized. Bilateral adnexal cystic change can be correlated with ultrasound. Urinary system: Normal renal size and attenuation. No renal calculi, hydronephrosis, or solid mass present. Urinary bladder unremarkable. Gastrointestinal system: The bowel appears unremarkable with no evidence of bowel obstruction or inflammation. The stomach appears unremarkable. No findings to suggest acute appendicitis. Peritoneal spaces: No intra- or retroperitoneal adenopathy. Small amount of free fluid noted in the pelvis Vasculature: The IVC, aorta and iliac vasculature are unremarkable. Musculoskeletal: Normal bone mineralization. Degenerative disc disease and arthropathy noted in lower lumbar spine. No acute fractures. Abdominal wall intact without evidence of ventral or inguinal hernias. IMPRESSION: 1. Adnexal cystic change and/or free fluid in the pelvis can be correlated with ultrasound. 2. Substernal 3 cm nodule associated with the thyroid may reflect goiter. Consider nonemergent thyroid ultrasound follow-up. 3. Mild right pleural effusion associated atelectasis Dictated by: Joce Squires M.D. on 10/03/2020 at 12:13 Approved by: Joce Squires M.D. on 10/03/2020 at 12:23
[2020-10-03] MEDS: DIGOXIN 0.125 MG TABLET PO (17:09)
[2020-10-03] MEDS: METOPROLOL IR 25 MG TABLET 50 MG PO (18:31)
[2020-10-03] MEDS: LACTULOSE 20 GM/30 ML SOLUTION PO (20:58)
[2020-10-03] MEDS: MELATONIN 3 MG TABLET 6 MG PO (20:58)
[2020-10-03] MEDS: INSULIN GLARGINE 100 UNIT/ML 3ML PEN 10 UNIT SUBCUT (21:02)
[2020-10-04] VITALS (8 sets, daily range): BP systolic 95–128; BP diastolic 58–82; PULSE 81–110; RESP 18–36; TEMP 36.2–36.8; O2SAT 95–99
--- NOTE | 2020-10-04 01:31 | PC.NURSE ---
Patient is non verbal but moaning when moved. Breath sounds diminished with RA sat of 97%. HR irregular; telemetry reading was afib CVR w/BBB. BT present but hypoactive. Incontinent of urine. Unable to move by herself so is being repositioned q2h. Allevyn dressing to right buttock is CDI. Reddened in pannus, groins and coccyx. Skin with generalized dryness. Wearing bilateral calf SCD's. FLACC score at rest is 0. Fall risk score is high and bed alarm is activated.
[2020-10-04 05:14] LABS: Hematocrit 43.2 % (36-46); Hemoglobin 13.6 g/dL (12.0-16.0); Mean Corpuscular HGB Conc 31.6 % (30-36); Mean Corpuscular Hemoglobin 32.3 PG (26-34); Mean Corpuscular Volume 102.3 fL (80-100); Platelet Count 167 X10^3/uL (150-400); Red Blood Cell Count 4.22 X10^6/uL (4.0-5.2); Red Cell Distribution Width 17.2 % (11.6-14.8); White Blood Cell Count 11.7 X10^3/uL (4.5-11.0)
[2020-10-04] MEDS: PANTOPRAZOLE DR 40 MG TABLET PO (06:01)
[2020-10-04 08:33] LABS: INR 1.5 (0.9-1.3); Prothrombin Time 16.7 SECONDS (10.1-12.7)
[2020-10-04 08:36] LABS: PTT Partial Thromboplastin Tim 46 SECONDS (26.4-36.2)
[2020-10-04 08:47] LABS: BUN Creatinine Ratio 24.1 (6-22); Blood Urea Nitrogen 19 mg/dL (7-17); Calcium 8.7 mg/dL (8.4-10.2); Carbon Dioxide 24 mmol/L (22-32); Chloride 110 mmol/L (98-107); Estimated Glomerular Filt Rate > 60.0 mL/min (>60); Glucose 101 mg/dL (80-110); HEMOLYSIS 24 (0-50); Potassium 4.7 mmol/L (3.4-5.1); Sodium 137 mmol/L (137-145)
[2020-10-04] MEDS: METOPROLOL IR 25 MG TABLET 50 MG PO ×2 (08:49→21:20)
[2020-10-04] MEDS: PRIMIDONE 50 MG TABLET 250 MG PO ×2 (08:49→21:23)
[2020-10-04] MEDS: LACTULOSE 20 GM/30 ML SOLUTION PO ×2 (08:49→21:20)
[2020-10-04] MEDS: TRIAMCINOLONE 0.025% CREAM 1 APPLIC TOP ×2 (08:50→21:25)
[2020-10-04] MEDS: SODIUM CHLORIDE 0.9% FLUSH 10 ML IV ×2 (08:50→21:21)
[2020-10-04] MEDS: cefTRIAXone 2,000 MG in SODIUM CHLORIDE 0.9% 100 ML 200 ML IV (09:00)
[2020-10-04] MEDS: VANCOMYCIN 1,000 MG/200 ML PIGGYBACK 200 MG IV ×2 (09:45→21:52)
--- NOTE | 2020-10-04 10:35 | SLP.IPNOTE ---
Attempted to see pt for ST. pt sleeping in bed. Pt refused therapy and fell back to sleep. According to nursing, pt continued to safely tolerate current diet. Will discharge at this point. notified. ST will return to see pt when overall status improves.
--- NOTE | 2020-10-04 11:11 | PC.NURSE ---
On initial assessment, pt is drowsy and states I'm tired with clear speech. She is requesting to be allowed to sleep and declines breakfast or OOB to chair. She is able to wake to verbal and light tactile. Around 1030, pt was noted to be awake, eyes open, looking around. Speech clear with minimal stuttering. Requesting her eye glasses and food. Provided reorientation and updated on plan of care. Supportive son at bedside.
--- NOTE | 2020-10-04 11:55 | PT.IPTN ---
Current Diagnoses Metabolic encephalopathy (09/27/20) Physical Therapy Treatment Note M2 PT-IP Current Condition Start: 09/28/20 14:00 Freq: NEEDED Status: Active Protocol: Document 09/28/20 11:35 AB (Rec: 09/28/20 14:14 AB [id number]) Physical Therapy Current Condition Current Condition Evaluation Date 09/28/20 Treatment Diagnosis A-fib; AMS r/o CVA; generalized weakness Onset Date 09/27/20 Precautions Other Precautions falls M3 PT-IP Subjective Start: 09/28/20 14:00 Freq: NEEDED Status: Active Protocol: Document 10/04/20 11:55 DLM (Rec: 10/04/20 12:24 DLM [id number]) Subjective Physical Therapy Visit Type Type Treatment Note Visit Start Time 11:20 Visit Stop Time 11:55 Total Visit Minutes 35 Notes co-treated with OT Number of ORCHID HAND Visits 0 Physical Therapy Visit Comments Patient Comments She agreed to sit up edge of bed, in sitting she asked to go back to bed Patient Goals unable to state Therapy Pain Assessment Pain When Pain Assessed During Mobility Pain Present Pain Present Pain Reported Location LLE Scale Used Pt cannot rate Pain Behaviors Calling Out Pain Management Techniques Modification of Treatment,Re- positioning M4 PT-IP Mobility and Gait Start: 09/28/20 14:00 Freq: NEEDED Status: Active Protocol: Document 10/04/20 11:55 DLM (Rec: 10/04/20 12:24 DLM [id number]) PT-Bed Mobility Assessment Supine to Sit Supine to Sit Maximum Assistance,2 Person Assistance,Bedrails Sit to Supine Sit to Supine Maximum Assistance,2 Person Assistance,Bedrails Scooting Scooting to Edge of Bed Dependent Scooting Up and Down in Bed Dependent PT-Transfer Assessment Comments Mobility Comments pt incontinent of loose stool, she has increased respiratory rate and anxiety with rolling in bed to be cleaned by nursing, she needs mod assist sitting edge of bed, [facility] Gait Assessment Comments Gait Comments Pt was not ambulating before this admit PT-Balance Assessment Sitting Balance and Reactions Static Sitting Balance Ability Fair Dynamic Sitting Balance Ability Poor M5 PT-IP Objective Assessments Start: 09/28/20 14:00 Freq: NEEDED Status: Active Protocol: Document 09/28/20 11:35 AB (Rec: 07/13/21 14:14 AB [id number]) Orientation Orientation/Cognition Level of Alertness Confusional State Orientation Name Safety Awareness Decreased Safety Awareness Memory Description Short Term Impaired,Intermediate Impaired Gross Range of Motion Lower Extremity ROM Impairments C/O pain with BLE movement Strength Comments Strength Comments limited MMT due to pt unable to follow directions consistently Muscle Tone Muscle Tone WNL Yes M6 PT-IP Treatment Start: 09/28/20 14:00 Freq: NEEDED Status: Active Protocol: Document 10/04/20 11:55 DLM (Rec: 10/04/20 12:24 DLM [id number]) Physical Therapy Treatment Exercises Exercises Ankle Pumps,Heel Slides Other Treatments Other Treatment Performed she needs physical assist to complete any exercises M7 PT-IP Assessment and Plan Start: 09/28/20 14:00 Freq: NEEDED Status: Active Protocol: Document 10/04/20 11:55 DLM (Rec: 10/04/20 12:24 DLM [id number]) PT Summary Assessment and Plan Summary Impairments Pain,ROM,Strength,Balance, Coordination,Sensation,Tone, Cognition,Bed Mobility, Transfers,Gait,Activity Tolerance Progress Towards Goals Slow Progress due to Activity Tolerance Assessment Summary Pt more alert today. She intermittently closes her eyes . Pt incontinent of loose stool and fatigued quickly with bed mobility. Pt sat on edge of bed well but fatigued quickly. Pt declined to stand or get up to recliner due to fatigue. Noted pt also gets anxious moving which contributed to shortness of breath and high respiratory rate. Pt's care coordinated with OT and nursing to best assist the patient. Pt left resting in bed. Will continue to encourage her to get up to recliner but pt needs rest between activity due to low activity tolerance. Revised treatment goals based on her progress since eval. Goals Bed Mobility Goal Moderate Assistance Transfer Goal Moderate Assistance,Front Wheeled Walker Gait Goal Moderate Assistance,Front Wheel Walker Gait Distance 5 Other Goals Tolerate sitting up in chair for 2 hours at a time. Days to Meet Goals 9 Frequency of Treatment Frequency Of Treatment Once a Day Treatment Plan Physical Therapy Treatment Plan Bed Mobility Training,Transfer Training,Gait Training, Therapeutic Exercise,Balance Retraining,Discharge Planning, Neuromuscular Re-ed Recommendations To Nursing Amount of Assist Needed 2 Person Assist,Mechanical Lift Discharge Recommendations PT Discharge Recommendations SNF Rehab Transportation Needs at Discharge Stretcher/Ambulance
--- NOTE | 2020-10-04 12:00 | OT.IP.TRT ---
Current Diagnoses Metabolic encephalopathy (09/27/20) Occupational Therapy Treatment Note M2 OT-IP Current Condition Start: 09/28/20 15:02 Freq: Status: Active Protocol: Document 09/28/20 15:03 [facility] (Rec: 09/28/20 15:27 [facility] [id number]) Occupational Therapy Current Condition Current Condition Evaluation Date 09/28/20 Treatment Diagnosis A-fib, altered mental status, decreased mobility Diagnosis Onset Date 09/27/20 M3 OT- IP Subjective and Pain Start: 09/28/20 15:02 Freq: Status: Active Protocol: Document 10/04/20 12:08 [facility] (Rec: 10/04/20 12:30 [facility] [id number]) OT- Subjective Occupational Therapy Visit Type Type Treatment Note Visit Start Time 11:15 Visit Stop Time 12:00 Total Visit Minutes 45 Occupational Therapy Visit Comments Patient Comments Cotxt with PT due to pt needing extensive assist for need for mobility needs. Patient/Caregiver Goals NOt able to state. OT Pain Assessment Pain When Pain Assessed During Mobility Pain Present Pain Present Pain Reported M4 OT- IP ADL's Start: 09/28/20 15:02 Freq: Status: Active Protocol: Document 10/04/20 12:08 [facility] (Rec: 10/04/20 12:30 [facility] [id number]) OT [id number] Comments OT Self-Feeding Comments Per son able to eat on her own after set-up. M5 OT- IP IADL's Start: 09/28/20 15:02 Freq: Status: Active Protocol: Document 09/28/20 15:03 [facility] (Rec: 09/28/20 15:27 [facility] [id number]) OT-Instrumental Activities of Daily Living Deficits IADL Deficits Identified Deficits Home Safety Awareness Awareness of Need for Assistance at Home Decreased Awareness Ability to Problem Solve Emergency Unable to Problem Solve Situations Medication Management Medication Management Caregiver Administers Money Management Money Management Caregiver Provides Assistance Meal Preparation Meal Preparation Caregiver Provides Assist Railroad Car Checker Railroad Car Checker Caregiver Provides Assist M6 OT- IP Functional Cognition Start: 09/28/20 15:02 Freq: Status: Active Protocol: Document 10/04/20 12:08 [facility] (Rec: 10/04/20 12:30 [facility] [id number]) Cognitive Factors Limiting Selfcare Function Cognitive Ability Level of Alertness Alert,Confusional State Patient Orientation Name Attention Span Ability Capable of Focused Attention, Unable to Focus,Unable to Sustain Attention Ability to Follow Commands Able to Follow One Step Commands with Increased Time, Able to Follow One Step Commands with Repetition Memory Description Short Term Impaired,Skinning Machine Feeder Impaired,Working Impaired Cognitive Comments Cognitive Assessment Comments Pt still needing encouragement to participate. Pt needing step by step cues to follow bed mobility needs. M7 OT- IP Mobility and Balance Start: 09/28/20 15:02 Freq: Status: Active Protocol: Document 10/04/20 12:08 [facility] (Rec: 10/04/20 12:30 [facility] [id number]) OT- Bed Mobility Assessment Rolling Type of Rolling Bilateral Level of Assistance Maximum Assistance,2 Person Assistance Supine to Sit Supine to Sit Assist Maximum Assistance,2 Person Assistance Scooting Scooting to Edge of Bed Maximum Assistance,2 Person Assistance OT-Transfer Assessment Comments Mobility Comments Pt needing MAXA x2 and heavy use of green pad to help roll pt side to side in addition to use of green pad and hand over hand assist to help get pt to reach out to the bedrail to assist. MAX AX 2 for trunk and to help get her legs to the edge of the bed. Total A 2 -3 for sit to supine. OT- Balance Assessment Sitting Balance and Reactions Static Sitting Balance Ability Poor Comments Other Balance Tests/Deviations/Treatment Pt able to sit at the edge fo : the bed with MODA X 1 however appeared to be too tired to attempt to stand as just completing brief change in bed . Pt requesting to lie back down after having able to ask pt if she wanting to go to the recliner or lie down. Pt's respiration rates fluctuating and very high at times. M8 OT- IP Objective Assessments Start: 09/28/20 15:02 Freq: Status: Active Protocol: Document 09/28/20 15:03 [facility] (Rec: 09/28/20 15:27 [facility] [id number]) OT Gross Range of Motion Upper Extremity Range of Motion Assessment Bilaterally Impaired OT Strength Upper Extremity Strength Assessment Bilaterally Impaired OT- Coordination Assessment Comments Coordination Comments Decreased for coordination for grooming needs due to weakness and decreased initiation of movements. OT-Muscle Tone Assessment Muscle Tone WNL Yes M9 OT- IP Assessment and Plan Start: 09/28/20 15:02 Freq: Status: Active Protocol: Document 10/04/20 12:08 [facility] (Rec: 10/04/20 12:30 [facility] [id number]) OT Summary Assessment and Plan Potential Rehabilitation Potential Fair Analytic Complexity at Evaluation Moderate Summary Assessment Summary Pt per TRAUMA SURGEON has been able to do her grooming and eating needs after set-up pending on her fatigue. At this time pt still needing use of hao for transfers due to weakness, decreased activity tolerance, and strength. Spoke to case management, RN, and hospitalist and from OT stand point at baseline for grooming and eating needs and will continue to need extensive assist for all other needs in which Abhilash was already assisting her with prior . Therefore discharge pt from OT services at this time. Discharge Recommendations OT Discharge Recommendations Home with 09/10 Assist Available Transportation Needs at Discharge Wheelchair/Cabulance
--- NOTE | 2020-10-04 12:17 | P.PN_ITS ---
Subjective Subjective Date Patient Seen: 10/04/20 Time Patient Seen: 08:00 Interval history: Today she appears less confused and more conversant, but only mildly so. Still remains confused. Per OT her functional status has decreased steadily over the last month while she has been at rehab. Today she is denying any pain, shortness of breath, and does not endorse any other symptoms. Exam Vital Signs (past 8 hours): - 10/04/20 07:36 10/04/20 12:10 Temperature 97.4 F L Pulse Rate 82 81 Respiratory Rate 18 23 Blood Pressure 103/65 123/70 Pulse Oximetry 97 99 Oxygen Delivery Method Room Air Oxygen Flow Rate 0 Narrative Exam Narrative: Gen: no acute distress, awake HEENT: moist mucous membranes Neck: supple, full ROM, no JVD, trachea is midline Resp: Lungs clear bilaterally CV: regular rate and rhythm with no murmur or rubs Abd: soft, non-tender, normal bowel sounds Skin: rash on face Neuro: confused, responding to verbal stimuli, following commands Extremities: moves all four extremities Psyche: cooperative Objective Labs Result Diagrams: 10/04/20 04:50 10/04/20 08:23 Labs: Laboratory Results - last 24 hr 10/04/20 10/04/20 10/04/20 04:50 08:23 08:23 WBC 11.7 H RBC 4.22 Hgb 13.6 Hct 43.2 MCV 102.3 H MCH 32.3 MCHC 31.6 RDW 17.2 H Plt Count 167 PT 16.7 H INR 1.5 H APTT 46 H Sodium 137 Potassium 4.7 Chloride 110 H Carbon Dioxide 24 BUN 19 H Creatinine 0.79 Estimated GFR > 60.0 BUN/Creatinine Ratio 24.1 H Glucose 101 Calcium 8.7 PFSH Medical History Active asthma Acute systolic heart failure Anxiety disorder Atrial fibrillation Blood loss anemia Dysphasia Epilepsy Hypertension Lymphedema Morbid obesity Schizophrenia Urinary incontinence Vitamin D deficiency Surgical History History of tonsillectomy Status post cholecystectomy Family History Grandfather Stroke Mother Mental health problem Grandfather Stroke Social History household members: caregiver and none housing: prison Smoking Status: Never smoker alcohol intake: never Assessment & Plan Assessment & Plan narrative: Lisa Kim is a 75 year old female, resident of a local nursing facility with obesity, chronic atrial fibrillation, new diagnosis this admit of DM admitted with confusion and afib with RVR. RVR now improved, but remains confused and likely secondary to a hepatic encephalopathy given elevated ammonia and improvement with lactulose therapy. 1. Chronic Atrial fibrillation w/RVR - now off of diltiazem infusion. This does not seem to work in this patient and only drops her BP. Improved rate control after digoxin load. Continue oral digoxin and increased dose of metoprolol. - anticoagulated on eliquis. High CHADS-VASC score. - holding eliquis for now - recheck digoxin level was normal at 1.4 2. metabolic encephalopathy, acute, present on admission - etiology not clear - MRI negative for CVA, current speech difficulties and confusion suspected to be in setting of encephalopathy. Differential includes secondary to UTI, but did not improve with antibiotic therapy. - Ammonia level elevated at 46 but then normalized. Abdominal ultrasound limited by body habitus but no obvious cirrhosis though there is ascites. Possible this is related to heart failure, afib and hepatic congestion or OTERO. - Continue lactulose in hopes of more frequent bowel movements of more normal volume with improved mentation/speech. - CT chest/abdomen/pelvis showed no obvious cause of altered mental status - other possible etiologies include encephalitis/meningitis, will empirically start IV antibiotics with vancomycin/ceftriaxone, will order for LP for further evaluation, but patient has been anticoagulated and will need apixaban stopped 3. New diagnosis of diabetes type 2 with hemoglobin A1c of 7.2 - Carb controlled diet with glucose checks a.c. and HS - Started her on basal insulin Lantus 10 units daily and low-dose insulin correctional scale. Can discharge on oral medications likely. 4. Acute on chronic systolic congestive heart failure - echo with slight decrease in EF to 20-25% on TTE. unable to aggressively diurese initially - restarted bumex at low dose 5. Essential hypertension, currently hypotensive due to probable sepsis - Home dose of lisinopril and is currently being held 6. Acute urinary tract infection, present on admission - continue IV ceftriaxone 1 g daily 7. History of schizophrenia, unknown if in exacerbation, present on admission -patient had been switched to olanzapine from ability but it is unclear why, if she continues to improve her mental status will restart -will consider psychiatry consult Quality Stroke Contraindication Not Initiating IV-Tpa: Contraindicated Onset of Symptoms Date: 09/27/20 Symptom Onset Unknown: Yes Rehab Services Assessed: Rehabilitation therapy VTE Deep Vein Thrombosis/Pulmonary Embolism Present on Admission: No
[2020-10-04] MEDS: INSULIN LISPRO 100 UNIT/ML 3ML VIAL SUBCUT (12:29)
[2020-10-04] MEDS: BUMETANIDE 1 MG TABLET PO (12:29)
--- NOTE | 2020-10-04 13:18 | CM.DPC ---
Spoke with Rosa [facility]. They are going to pull out of service at this time because patient doesn't appear to have needs if she is returning to correction nursing care and her medical condition at this time doesn't seem to be solid enough to participate effectively in therapies.
[2020-10-04] MEDS: DIGOXIN 0.125 MG TABLET PO (17:22)
[2020-10-04] MEDS: MELATONIN 3 MG TABLET 6 MG PO (21:20)
[2020-10-04] MEDS: POTASSIUM CHLORIDE 20 MEQ TAB 40 MEQ PO (21:20)
[2020-10-04] MEDS: INSULIN GLARGINE 100 UNIT/ML 3ML PEN 10 UNIT SUBCUT (21:22)
[2020-10-04] MEDS: NYSTATIN POWDER 15GM 1 APPLIC TOP (21:26)
--- NOTE | 2020-10-05 | PC.NURSE ---
Patient more alert and responsive tonight. Able to state her name and birthdate but other responses were either yes/no or not understandable as mumbles and articulates poorly. Breath sounds diminished but CTA with RA sat of 98%; respirations are shallow and intermittently tachypneic. HR irregular and has been in afib CVR w/BBB. Denies nausea. BT hypoactive; incontinent of loose stools related to lactulose. Incontinent of urine. Is unable to move herself so staff is repositioning q2h. Reddened coccyx with intact allevyn dressing to right buttock. Slightly red under breasts and in pannus/groin. Wearing bilateral calf SCD's. Denies pain. Fall risk score is high and bed alarm is activated.
[2020-10-05 03:21] VITALS: BP 111/80; PULSE 85; RESP 28; TEMP 36.1; O2SAT 97
[2020-10-05 05:12] LABS: Hematocrit 41.8 % (36-46); Hemoglobin 13.2 g/dL (12.0-16.0); Mean Corpuscular HGB Conc 31.6 % (30-36); Mean Corpuscular Hemoglobin 32.2 PG (26-34); Mean Corpuscular Volume 101.9 fL (80-100); Platelet Count 185 X10^3/uL (150-400); Red Cell Distribution Width 16.5 % (11.6-14.8); White Blood Cell Count 11.3 X10^3/uL (4.5-11.0)
[2020-10-05 05:20] LABS: BUN Creatinine Ratio 22.5 (6-22); Blood Urea Nitrogen 20 mg/dL (7-17); Calcium 8.5 mg/dL (8.4-10.2); Carbon Dioxide 22 mmol/L (22-32); Chloride 110 mmol/L (98-107); Estimated Glomerular Filt Rate > 60.0 mL/min (>60); Glucose 106 mg/dL (80-110); HEMOLYSIS < 15 (0-50); Potassium 4.7 mmol/L (3.4-5.1); Sodium 139 mmol/L (137-145)
[2020-10-05] MEDS: PANTOPRAZOLE DR 40 MG TABLET PO (05:32)
[2020-10-05 08:00] VITALS: BP 102/66; PULSE 82; RESP 17; TEMP 36.1; O2SAT 99
--- NOTE | 2020-10-05 08:01 | P.DS_ITS ---
History of Present Illness History of Present Illness Chief complaint: Altered Mental State Narrative: Elder Escobar: Lisa Kim is 75-year-old female resident of [facility] with a history of atrial fibrillation anticoagulated with apixaban, heart failure, schizophrenia, presented to the ED altered mental status. Patient is without a family member in her room and is unable to provide a history or participate in a complete review of systems. She has a significant stutter and also keeps repeating herself. Review of prior admissions, it appears that she is normally a woman with clear mentation who makes her own decisions and does not have any cognitive deficits. Patient also seems to have some slurred and stuttered speech. Patient does have a history of atrial fibrillation and is on Eliquis as well as metoprolol and digoxin for rate control. Patient does take bumetanide and lisinopril daily. Patient does attempt to follow commands but has some difficulty. She does not have any clear upper extremity weakness but has difficulty lifting both legs off the bed. In the ED, she initially presented with a heart rate of 150 in rapid atrial fibrillation with RVR and was initiated on a diltiazem drip. They did not do an NIH scale likely because of how altered the patient was. Head CT and CTA of the head neck were unremarkable. She is afebrile with a blood pressure of 115/68, heart rate 90s-120s respiratory rate 28, oxygen saturation of 91% on room air and is very restless. CBC largely within normal limits, PT INR is 19.8/1.8, sodium 136, potassium 3.9, chloride 102, bicarb 28, BUN 23 with a GFR greater than 60, creatinine is 0.82, glucose 140, hemoglobin A1c is 7.4, calcium 8.3, magnesium 2.3, AST is 68, ALT 28, total bilirubin is 0.9, she does have an elevated troponin at 0.052 and a proBNP of 5020, TSH is within normal limits, she did have a high number of leukocyte esterase and her UA has been cultured, digoxin level is low at 0.7, and COVID-19 PCR is negative. Discharge Providers Provider Date of admission: 09/27/20 19:54 Discharge Date: 10/05/20 Consults: 09/27/20 22:39 Consult to Discharge Planning Routine Comment: Consult to Occupational Therapy Evaluate & Treat Comment: Physician Instructions: Evaluate and treat Consult to Physical Therapy Evaluate & Treat Comment: Physician Instructions: Evaluate and Treat Consult to Speech Therapy Evaluate & Treat Comment: swallow study Physician Instructions: Evaluate and treat 09/27/20 23:52 Consult to Respiratory Therapy Evaluate & Treat Comment: mild hypoxia Physician Instructions: Evaluate and treat Discharge provider: Mack Bhatt MD Summary Hospital Course Discharge Diagnosis: 1. Chronic atrial fibrillation with RVR 2. Acute metabolic encephalopathy, etiology not certain 3. Diabetes, Type 2, discharged on metformin 4. Acute on chronic systolic congestive heart failure 5. Hypertension 6. Urinary tract infection 7. History of schizophrenia 8. Obesity, BMI 38.5 9. Ovarian cysts, etiology unclear 10. History of seizures Hospital Course: Ms. Kim is a 75W who came in with confusion which had been worsening for weeks. She also had atrial fibrillation with RVR. For her afib with RVR she was initially on a diltiazem drip that was stopped as it did not control her rate. She did have good rate control with metoprolol 50mg BID and a digoxin load. In addition she had metabolic encephalopathy which was slow to resolve. Etiology was not entirely clear, per the son and [facility]ci she had worsening mental status for weeks. She had her UTI treated but had slow improvement in mental status. She had a mildly elevated ammonia level at 46, she did get lactulose and had mild improvement with that as well. She has no known liver disease, and imaging does not show cirrhosis, though due to obesity this was limited. She had a ruelas CT scan which showed possible cysts in her ovaries, which can be followed up as an outpatient. She had no witnessed seizure activity. She is on primidone for seizures, last was decades ago. I did discuss with patient and son possibility of getting an LP, the yield was possibly low, as bacterial meningitis was unlikely given time course, but I did state there could be utility to this. But son and patient declined. Patient's mental status was improving steadily the last 2-3 days before discharge, she still had some speech difficulty with perseverating on words and stuttering, but this was lessening and she was awake and alert. She will be sent with lactulose in case she develops worse encephalopathy. She has heart failure with reduced ejection fraction, and was continued on metoprolol, but her blood pressure was in the 90s, and lisinopril was held on discharge, but may be restarted in blood pressure can tolerate. She was started on metformin for diabetes with a1c 7.2 She had her olanzapine dose decreased slightly due to being lethargic, but she should follow up with psychiatry soon to determine which medications she should be stabilized on. Exam Vital Signs (past 8 hours): Oxygen Delivery Method Room Air Oxygen Flow Rate 0 Narrative Exam Narrative: Gen: no acute distress, awake HEENT: moist mucous membranes Neck: supple, full ROM, no JVD, trachea is midline Resp: Lungs clear bilaterally CV: regular rate and rhythm with no murmur or rubs Abd: soft, non-tender, normal bowel sounds Skin: rash on face Neuro: much less confused, responding to verbal stimuli, following commands Extremities: moves all four extremities Psyche: cooperative Objective Labs Result Diagrams: 10/05/20 04:55 10/05/20 04:55 [facility] Medical History Active asthma Acute systolic heart failure Anxiety disorder Atrial fibrillation Blood loss anemia Dysphasia Epilepsy Hypertension Lymphedema Morbid obesity Schizophrenia Urinary incontinence Vitamin D deficiency Surgical History History of tonsillectomy Status post cholecystectomy Family History Grandfather Stroke Mother Mental health problem Grandfather Stroke Social History household members: caregiver and none housing: fci Smoking Status: Never smoker alcohol intake: never Discharge Plan Discharge Plan Patient Disposition: SNF Transfer to: [facility] Provider Discharge Comment: Ms. Kim came in with altered mental status. This improved somewhat in the hospital. She had no clear cause of her confusion. She did have a fast heart rate which was controlled at discharge. She did get some lactulose here in the hospital and she can take lactulose as needed to make sure she has a bowel movement daily. This was given to her because her ammonia level in the blood was slightly elevated. She should follow up closely with psychiatry to help manage her psychiatric conditions. Discharge orders & Medications Prescriptions: New bumetanide 1 mg Tablet 1 mg PO DAILY Qty: 10 RF: 0 metoprolol tartrate 25 mg Tablet 50 mg PO BID Qty: 10 RF: 0 lactulose 20 gram/30 mL Solution 20 gm PO DAILY PRN (Reason: Encephalopathy) Qty: 10 RF: 0 metformin 500 mg tablet 500 mg PO BID Qty: 30 RF: 0 Continued FOLIC ACID (#FOLATE) 1 mg PO QDAY Qty: 0 RF: 0 primidone 250 MG tablet 250 mg PO BID Qty: 180 RF: 3 Eliquis 5 mg Tablet 5 mg PO BID RF: 0 aripiprazole 30 mg Tablet 30 mg PO BEDTIME RF: 0 magnesium oxide 420 mg Tablet 400 mg PO DAILY RF: 0 potassium chloride 10 mEq Tablet Extended Release 20 meq PO DAILY RF: 0 nystatin 100,000 unit/gram Powder 1 applic TOPICAL DAILY RF: 0 Calcium 600 with Vitamin D3 600 mg(1,500mg) -400 unit Tablet,Chewable 1 tab PO DAILY RF: 0 melatonin 3 mg Tablet 6 mg PO BEDTIME RF: 0 ascorbic acid (vitamin C) 1,000 mg Tablet 1,000 mg PO DAILY RF: 0 acetaminophen [Tylenol] 325 mg Tablet 650 mg PO PRN PRN (Reason: Pain, Mild) RF: 0 ammonium lactate 12 % Lotion 1 applic TOPICAL DAILY RF: 0 metronidazole [Metrogel] 1 % Gel 1 applic TOPICAL DAILY PRN (Reason: Rash) RF: 0 digoxin 125 mcg (0.125 mg) Tablet 0.125 mg PO DAILY@1700 Qty: 30 RF: 0 Changed olanzapine [Zyprexa] 5 mg Tablet 2.5 mg PO BID Qty: 0 RF: 0 Discontinued bumetanide 2 mg Tablet 8 mg PO DAILY RF: 0 metoprolol tartrate 25 mg Tablet 25 mg PO BID RF: 0 Diet/Activity/Treatments Diet: Carb-consistent/Diabetic and Low-sodium Liquid consistency: Normal/Thin Food texture: Soft Activity: As tolerated Skin/Wound/Dressing Care Dressing: Stage 2 pressure ulcer to right buttock: cleanse with soap/water, pat dry, apply foam dsg. Change q day and PRN. Provide yaya care and barrier cream to affected areas BID and PRN. To skin under breasts and pannus: Keep area clean/dry. Apply Nystatin powder TID PRN. Special Rehabilitation Services Reason for rehabilitation: Recovery r/t decondition Rehab type: Physical therapy and Occupational therapy Visit Report/Discharge Packet Instructions: Ammonia, DI for Heart Failure Quality Stroke Contraindication Not Initiating IV-Tpa: Contraindicated Onset of Symptoms Date: 09/27/20 Symptom Onset Unknown: Yes Rehab Services Assessed: Rehabilitation therapy VTE Deep Vein Thrombosis/Pulmonary Embolism Present on Admission: No MIPS - DC The patient has current or prior documentation of left ventricular ejection fraction (LVEF) less than 40%, or moderate or severely depressed left rusty tricular systolic function.: Yes A. The patient was prescribed or already taking an Angiotensin-Converting Enzyme (LICHA) Inhibitor, or Angiotensin Receptor Deandra (ARB).: No B. The patient was prescribed or already taking a beta-edandra. [If Yes to Both A & B, STOP here]: Yes Patient not prescribed/taking LICHA or ARB for medical/patient/system reason(s) including (ex: allergy, intolerance, contraindication).: hypotension, previously on lisinopril, ok to start when BP better
[2020-10-05] MEDS: PRIMIDONE 50 MG TABLET 250 MG PO (08:15)
[2020-10-05] MEDS: cefTRIAXone 2,000 MG in SODIUM CHLORIDE 0.9% 100 ML 200 ML IV (08:15)
[2020-10-05] MEDS: LACTULOSE 20 GM/30 ML SOLUTION PO (08:15)
[2020-10-05] MEDS: METOPROLOL IR 25 MG TABLET 50 MG PO (08:15)
[2020-10-05] MEDS: SODIUM CHLORIDE 0.9% FLUSH 10 ML IV (08:16)
[2020-10-05] MEDS: POTASSIUM CHLORIDE 20 MEQ TAB 40 MEQ PO (08:16)
[2020-10-05] MEDS: BUMETANIDE 1 MG TABLET PO (08:16)
[2020-10-05] MEDS: TRIAMCINOLONE 0.025% CREAM 1 APPLIC TOP (08:17)
--- NOTE | 2020-10-05 08:36 | DIET.PN ---
Dietary Progress Note RD Note: Pt screened for extended LOS. Pt admitted c altered mental status likely secondary to hepatic encephalopathy c a month of continued decline per residential facility OT. Pts POs have been 25-50% this hospital stay. Pt has Class 2 Obesity. Kitchen to send ONS Ensure Max c lunches to support pts nutrition status during this hospital stay.
[2020-10-05] MEDS: VANCOMYCIN 1,000 MG/200 ML PIGGYBACK 200 MG IV (09:10)
--- NOTE | 2020-10-05 10:58 | PT.IPTN ---
Current Diagnoses Metabolic encephalopathy (09/27/20) Physical Therapy Treatment Note M2 PT-IP Current Condition Start: 09/28/20 14:00 Freq: NEEDED Status: Active Protocol: Document 09/28/20 11:35 AB (Rec: 09/28/20 14:14 AB [id number]) Physical Therapy Current Condition Current Condition Evaluation Date 09/28/20 Treatment Diagnosis A-fib; AMS r/o CVA; generalized weakness Onset Date 09/27/20 Precautions Other Precautions falls M3 PT-IP Subjective Start: 09/28/20 14:00 Freq: NEEDED Status: Active Protocol: Document 10/05/20 10:58 AW (Rec: 10/05/20 11:18 AW [id number]) Subjective Physical Therapy Visit Type Type Treatment Note Visit Start Time 10:23 Visit Stop Time 10:58 Total Visit Minutes 35 Notes TIRE CARE MANAGER, RN, and pt's son, Isacc, provided assist with transfer Number of BIZTALK SOFTWARE DEVELOPER Visits 0 Physical Therapy Visit Comments Patient Comments Pt is more alert today and speaks in short sentences. She is intelligible ~25% of the time. Therapy Pain Assessment Pain When Pain Assessed During Mobility Pain Present Pain Present Denied Pain Location LLE Scale Used Pt cannot rate Pain Behaviors Calling Out Pain Management Techniques Distraction,Modification of Treatment,Re-positioning M4 PT-IP Mobility and Gait Start: 09/28/20 14:00 Freq: NEEDED Status: Active Protocol: Document 10/05/20 10:58 AW (Rec: 10/05/20 11:18 AW [id number]) PT-Transfer Assessment Sit to and From Stand Sit to and from Stand Maximum Assistance,Total Assistance,2 Person Assistance ,Use of Upper Extremities Equipment Transfer Assistive Device Front Wheeled Walker, Mechanical Lift Transfers Transfer Destination Chair,Bedside Commode Transfer Technique Stand Pivot Transfer Ability Level of Assist Maximum Assistance,Total Assistance,2 Person Assistance ,Use of Upper Extremities Comments Mobility Comments Pt sitting up in chair as PT arrived. She responds affirmatively that she would like to use the commode. She needed total assist to scoot forward on the chair and max to total 2PA for sit to stand. She took two steps with max assist for weight shifting and FWW management. She was unable to continue. TIRE CARE MANAGER and RN moved chair from behind and replaced with BSC. Pt sat on commode which was set too high for her, leaving her legs dangling. PT provided cushion under her feet. Pt strained to have a BM. HR was steady at ~ 70 bpm. Pt required total 2PA to attempt standing three times but was unsuccessful, at least in part because the commode seat was too high for her to reach the ground with her feet. PT used mechanical lift to move pt from the commode as TIRE CARE MANAGER provided pericare total assist. Pt was then transferred to the chair via lift and positioned with call light and tray table in reach. Pt's son, Isacc, remained in room. Gait Assessment Comments Gait Comments Pt was not ambulating before this admit PT-Balance Assessment Sitting Balance and Reactions Static Sitting Balance Ability Fair Dynamic Sitting Balance Ability Poor Standing Balance and Reactions Static Standing Balance Ability Poor Dynamic Standing Balance Ability Poor Comments Other Balance Tests/Deviations/Treatment Pt unable to stand without : total assist x 2 M5 PT-IP Objective Assessments Start: 09/28/20 14:00 Freq: NEEDED Status: Active Protocol: Document 09/28/20 11:35 AB (Rec: 09/28/20 14:14 AB [id number]) Orientation Orientation/Cognition Level of Alertness Confusional State Orientation Name Safety Awareness Decreased Safety Awareness Memory Description Short Term Impaired,Senior Care Impaired Gross Range of Motion Lower Extremity ROM Impairments C/O pain with BLE movement Strength Comments Strength Comments limited MMT due to pt unable to follow directions consistently Muscle Tone Muscle Tone WNL Yes M6 PT-IP Treatment Start: 09/28/20 14:00 Freq: NEEDED Status: Active Protocol: Document 10/05/20 10:58 AW (Rec: 10/05/20 11:18 AW [id number]) Physical Therapy Treatment Education Education Provided Safety M7 PT-IP Assessment and Plan Start: 09/28/20 14:00 Freq: NEEDED Status: Active Protocol: Document 10/05/20 10:58 AW (Rec: 10/05/20 11:18 AW [id number]) PT Summary Assessment and Plan Summary Impairments Pain,ROM,Strength,Balance, Coordination,Sensation,Tone, Cognition,Bed Mobility, Transfers,Gait,Activity Tolerance Progress Towards Goals Slow Progress due to Activity Tolerance Assessment Summary Nursing reports pt had sat up in chair ~2 hours prior to treatment this AM. Pt's alertness and speech continue to improve. She required max to total assist to stand and transfer with FWW this date. She fatigued quickly and exhibited increased respiratory rate with all activity but HR was stable ~70 bpm throughout. Pt will require SNF rehab to improve mobility and strength. Goals Bed Mobility Goal Moderate Assistance Transfer Goal Moderate Assistance,Front Wheeled Walker Gait Goal Moderate Assistance,Front Wheel Walker Gait Distance 5 Other Goals Tolerate sitting up in chair for 2 hours at a time. Days to Meet Goals 10 Frequency of Treatment Frequency Of Treatment Once a Day Treatment Plan Physical Therapy Treatment Plan Bed Mobility Training,Transfer Training,Gait Training, Therapeutic Exercise,Balance Retraining,Discharge Planning, Neuromuscular Re-ed Other Recommendations and Next Treatment sit to stand, endurance Focus Precautions Other Precautions Fall risk Recommendations To Nursing Amount of Assist Needed Mechanical Lift Discharge Recommendations PT Discharge Recommendations SNF Rehab Transportation Needs at Discharge Stretcher/Ambulance
[2020-10-05 12:00] VITALS: BP 97/57; PULSE 94; RESP 17; TEMP 36.2; O2SAT 99
--- NOTE | 2020-10-05 12:29 | PC.NURSE ---
Addendum entered by Shiva Sharpe R.N. 10/05/20 13:44: Report called to Alannah at [facility]. Plan is for pt to dc ~1430. Pt and son aware and agreeable to plan. PIV discontinued as charted. Original Note: Spoke with hospitalist and requested clarification on dc orders for diet, activity, wound care, SNF therapy needs. Orders received and updated on dc plan.
--- NOTE | 2020-10-05 13:06 | CM.DPC ---
DCP: continued: case received, d/c to [facility] order noted. Have now obtained full snf order specifics with the assist of FARRUKH Shannon and [facility]/August and updates by Dr. Bhatt. The rapid COVID test is pending. Pt and her son Isacc are agreeable to the d/c for today. IMM #2 presented. All is faxed now to [facility]. Pt will transport via w/c van using her w/c (as is bariatric chair) and hao lift about 1400. Discussed [facility]: [facility] researched. Said pt is returning on the same dose of Zyprexa that she had at the facility. She also said pt is under ongoing psychiatric care already at the facility for management of her schizophrenia and this will continue. She states a new PASRR will not be needed.
[2020-10-05] MEDS: INSULIN LISPRO 100 UNIT/ML 3ML VIAL SUBCUT (13:10)
[2020-10-05 13:28] LABS: COVID19 - ADMIT (NP swab/PCR) Negative (Negative)
== END 2020-10-05 14:59 | DRG 70 ==
LOC: ED 19:17 → ICU 19:56
PROVIDERS: Internal Medicine; Nurse Practitioner Family; Admitting Provider Nurse Practitioner Family; Emergency Provider Emergency Medicine; Family Provider Family Medicine; Referring Provider Emergency Medicine; Visit Provider Nurse Practitioner Family
DX: G93.41 Metabolic encephalopathy (principal); I50.23 Acute on chronic systolic (congestive) heart failure; J18.9 Pneumonia, unspecified organism; I48.92 Unspecified atrial flutter; Z68.41 Body mass index [BMI] 40.0-44.9, adult; N39.0 Urinary tract infection, site not specified; R18.8 Other ascites; I11.0 Hypertensive heart disease with heart failure; I48.91 Unspecified atrial fibrillation; E66.01 Morbid (severe) obesity due to excess calories; F20.9 Schizophrenia, unspecified; F41.9 Anxiety disorder, unspecified; R47.1 Dysarthria and anarthria; E11.9 Type 2 diabetes mellitus without complications; J45.909 Unspecified asthma, uncomplicated; M54.5 Low back pain; Z79.01 Long term (current) use of anticoagulants; Z20.822 Contact with and (suspected) exposure to COVID-19; D72.829 Elevated white blood cell count, unspecified
CPT/HCPCS: 36415; 36600; 51702; 70450; 70496; 70498; 70548; 70553; 71046; 71260; 74177; 76705; 80048; 80053; 80162; 81001; 81015; 82140; 82550; 82607; 82805; 82962; 83036; 83690; 83735; 83880; 84443; 84484; 85007; 85025; 85027; 85610; 85730; 87077; 87086; 87186; 87635; 87797; 92507; 92526; 92610; 93005; 93010; 93307; 96361; 96365; 96375; 97110; 97162; 97166; 97530; 97535; 99285; 99291; C9803; C9113; J0696; J1160; J1815; J1940; J1956; Q9967